=== PATIENT | female | born 1940 | race Caucasian/White ===

== ENCOUNTER → 2018-04-27 14:53 | Outpatient (CLI) | payer MEDICARE, BC, SELFPAY | PROVIDERS: PCP Family Medicine; Visit Provider Orthopaedic Surgery | DX: M17.11 Unilateral primary osteoarthritis, right knee (principal); M17.12 Unilateral primary osteoarthritis, left knee | CPT/HCPCS: 20610; 99213; J7325 ==

== ENCOUNTER 2018-05-03 18:04 | Emergency (ER) | payer MEDICARE, BC, SELFPAY ==
[2018-05-03 18:35] VITALS: BP 120/57; PULSE 100; RESP 28; TEMP 36.5; O2SAT 97
--- NOTE | 2018-05-03 18:39 | DI.REPORT_ITS ---
SYMPTOM/DIAGNOSIS: CHEST PAIN PA AND LATERAL CHEST: The heart is normal in size. The lungs are clear. The mediastinal structures and pleura appear intact. CONCLUSION: Normal chest. No evidence of acute cardiopulmonary disease.
[2018-05-03] MEDS: Normal Saline 1,000 ML 1000 ML IV ×2 (18:52→21:23)
[2018-05-03] MEDS: Ondansetron O.D.T. 4 MG TABEF PO (19:01)
[2018-05-03 19:03] LABS: Abs Immature Grans 0.04 k/cumm (0.0-0.09); Absolute Basophil Count 0.01 k/cumm (0.0-0.2); Absolute Eosinophil Count 0.01 k/cumm (0.0-0.7); Absolute Lymphocyte Count 1.35 k/cumm (1.2-3.4); Absolute Monocyte Count 0.71 k/cumm (0.11-0.7); Absolute Neutrophil Count 10.36 k/cumm (1.2-6.7); Basophils % 0.1; Eosinophils % 0.1; HCT 34.2 % (36.0-46.0); HGB 11.3 g/dL (12.0-15.5); Immature Grans % 0.3; Lymphocytes % 10.8; Mean Corpuscular Volume 93.7 fL (80-95); Mean Platelet Volume 11.8 fL (8.0-11.0); Monocytes % 5.7; Platelet Count 328 x1000/uL (130-400); RBC 3.65 m/cumm (4.00-5.20); RBC Distribution Width 13.2 % (11.7-14.6); White Blood Cell Count 12.48 k/cumm (4.4-10.8)
--- NOTE | 2018-05-03 19:18 | ED.GENADUL ---
Disposition Clinical Impression: Hyperkalemia, Hyponatremia, PATRICIO (acute kidney injury), Urinary tract infection, Dehydration, Secondary diabetes mellitus with HHNC (hyperglycemia hyperosmolar non-ketotic coma) Disposition: [facility] Medical Decision Making - Lab Data Laboratory Tests 05/03/18 18:45 WBC 12.48 H RBC 3.65 L Hgb 11.3 L Hct 34.2 L MCV 93.7 MCH 31.0 MCHC 33.0 RDW 13.2 Plt Count 328 MPV 11.8 H Immature Gran % 0.3 Neutrophils % 83.0 Lymphocytes % 10.8 Monocytes % 5.7 Eosinophils % 0.1 Basophils % 0.1 Absolute Neutrophils 10.36 H Absolute Lymphocytes 1.35 Absolute Monocytes 0.71 H Absolute Eosinophils 0.01 Absolute Basophils 0.01 - Medical Decision Making This is a 77-year-old female who presents for evaluation of weakness and dehydration for the past 5 weeks. She has been noticing increases in her sugar, prolonged fatigue, she has not gotten out of bed much over the last 5 weeks. She did have a course of antibiotics and steroids over week and a half ago, and completed these. Since then her cough is improved but her fatigue has not improved at all. She has not been drinking much at all at home. She does have history of type 2 diabetes, but does not take any insulin. She does take oral hypoglycemic agents. Physical exam demonstrates notable dehydration, and signs of weakness however no focal neurologic deficits. No evidence of stroke. No significant crackles on lung auscultation. We will rehydrate the patient, and evaluate for any acute cardiac or infectious etiology as a cause of her symptoms. EKG 18: 33 Rate 104, sinus tachycardia, MI 148, QT C402 no ST elevations or depressions. No elevated peaking of the T waves. Q waves in lead III and aVF. 7: 30 Chest x-ray is negative for any acute process. Per virtual radiology. Patient's laboratory workup has returned she demonstrates notable hyponatremia, hyperkalemia, and hyperglycemia. We will treat the hyperkalemia with sodium bicarb, calcium gluconate, insulin, and albuterol. EKG shows no evidence of ventricular dysrhythmia. Patient will require inpatient admission. Blood pressures are stable, and I do not feel that she is having an adrenal crisis, however this certainly may be a component related to her steroid use with her electrolyte abnormalities. Additionally the patient does demonstrate evidence of notable acute kidney injury with an increased creatinine, and a notable urinary tract infection. She does have an allergy to penicillins but this is years ago and she states that the reaction was very mild. Because of her notable hyperkalemia, I feel that it would be unwise to give a fluoroquinolone for concern of potential QT prolongation. We will give ceftriaxone, and monitor closely. Currently there are no ICU beds or telemetry beds available here at the hospital, in due to the patient's multiple illnesses, I do feel that she requires admission however I do not feel that she requires [facility] admission and transfer at this point. We will attempt to admit to 1 of the local facilities. Family does prefer [facility]. We have contacted [facility], and I discussed the case with the nurse practitioner who is on-call for the evening, he states that currently there is no room for ICU or telemetry patient's. We have contacted [facility] in [place] and discussed the case with the hospitalist , they have accepted the patient for treatment. Patient will be admitted to [place] for further medical management. I have extensively reviewed the treatment plan with the patient. I have addressed all patient concerns at this time. I have also discussed the plan with the admitting physician and they agree with the current assessment and plan and have agreed to assume responsibility for the patient. All parties demonstrate verbal understanding and agreement with our assessment and plan at this time. History of Present Illness - General Chief complaint: GenMedical Stated complaint: FATIGUED Time Seen by Provider: 05/03/18 18:39 - History of Present Illness Initial comments: Patient female with a past medical history of type 2 diabetes taking only oral hypoglycemic agents, who presents today for evaluation of weakness. She states that for the past 5 weeks she has had fatigue, and for time she had a cough, with sore throat. She was given steroids and antibiotics at home. She finished the course of this over a week ago. Since then she has been continually fatigued, had occasional vomiting, has not been drinking much at all. She states that she has not gotten out of bed for over 3 weeks. She denies any abdominal pain, headache, vision changes, chest pain, neck pain, shortness of breath, arm pain, abdominal pain, blood thinner use, cardiac disease, history of stroke. She denies any dysuria or hematuria. She did take her full 5 day course of azithromycin per the patient over a week ago with her full course dose of steroids. She has not been on steroids for the past week. Patient denies any other complaints at this time. She denies any recent pertinent surgical history, she denies any pertinent family history. - Related Data Ibuprofen 600 mg PO Q6H PRN #30 tablet 04/22/14 Blood Sugar Diagnostic [Freestyle Test Strips] 1 each MC BID #100 strip 03/01/18 Glipizide [Glucotrol Xl] 1 tab PO QAM #90 tab 03/01/18 Lisinopril 1 tab PO DAILY #90 tab 03/01/18 Metformin HCl 1 tab PO BID #180 tab 03/01/18 Azithromycin 0 PO DAILY #6 tab-cap 04/17/18 Benzonatate 200 mg PO tid prn for cough #30 tab-cap 04/17/18 Allergies Allergy/AdvReac Type Severity Reaction Status Date / Time hydrocodone Allergy Intermediate Nausea Unverified 04/17/18 15:37 Penicillins Allergy Unknown Unverified 04/17/18 15:37 Review of Systems Other: 10 point review of systems was performed, pertinent positives and negatives are noted in the history of present illness. General Exam - Other Other exam information: 1.Const: Appears older than stated age. He does appear dehydrated, with low energy. 2.Eyes: PERRL, no conjunctival injection, and symmetrical lids. 3.ENT: Atraumatic external nose and ears. Notably dry mucous membranes.. Neck: Symmetric, trachea midline, No thyromegaly. 4.CVS: +S1/S2, No murmurs or gallops. Peripheral pulses 2+ and equal in all extremities. Brisk capillary refill in all extremities. 5.RESP: Unlabored respiratory effort. Clear to auscultation bilaterally. No wheezes rales or rhonchi 6.GI: Soft, Nontender/Nondistended, No hepatosplenomegaly. No guarding or rebound. 7.MSK: Normocephalic/Atraumatic, Extremities w/o deformity or ttp No cyanosis or clubbing, Normal movement of all extremities 8.Skin: Warm, Dry. No rashes or lesions. 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 Sensation grossly intact, no focal neurologic deficits. 10.Psych: (AAO) x3. Appropriate mood and affect Course Vital Signs - 24 hr 05/03/18 18:35 Temperature 36.5 C Pulse 100 H Respiratory 28 H Rate Blood Pressure 120/57 Pulse Oximetry 97
[2018-05-03 19:25] LABS: ALT 15 U/L (12-78); AST 15 U/L (15-37); Albumin 2.6 g/dL (3.4-5.0); Alkaline Phosphatase 119 U/L (46-116); Anion Gap 21.2 mmol/L (3-11); BUN 72 mg/dL (7-18); Bilirubin, Total 0.5 mg/dL (0.2-1.0); CO2 10.8 mmol/L (21.0-32.0); CREATININE 2.77 mg/dL (0.55-1.02); Calcium 9.1 mg/dL (8.5-10.1); Chloride 92 mmol/L (98-107); Estimated GFR 16.55 (mL/min/1.73m2); Lipase 322 U/L (73-393); TSH 0.33 uIU/mL (0.358-3.74); Total Protein 7.8 g/dL (6.4-8.2)
[2018-05-03 19:26] LABS: Troponin I < 0.02 ng/mL (0.00-0.06)
[2018-05-03 19:29] LABS: Glucose 690 mg/dL (70-100); Sodium 124 mmol/L (136-145)
[2018-05-03 19:30] LABS: Potassium 6.7 mmol/L (3.5-5.1)
[2018-05-03 19:37] LABS: Bilirubin Small (Negative); Blood Large (Negative); Clarity Cloudy; Glucose >=1000 mg/dL (Negative); Ketones 15 mg/dL (Negative); Leukocyte Esterase Moderate (Negative); Nitrite Negative (Negative); Urobilinogen 0.2 EU/dL (Up TO 0.2)
[2018-05-03] MEDS: Insulin REGULAR-Human 100 UNITS/ML UNIT 10 UNITS IV (19:41)
[2018-05-03] MEDS: Insulin REGULAR-Human 100 UNITS/ML UNIT 20 UNITS SC (19:42)
--- NOTE | 2018-05-03 19:42 | DI.VRAD_ITS ---
EXAM: XR Chest, 2 Views EXAM DATE/TIME: 05/03/2018 6:43 PM CLINICAL HISTORY: 77 years old, female; Pain; Chest pain; Type not specified TECHNIQUE: XR of the chest, 2 views. COMPARISON: No relevant prior studies available. FINDINGS: Lungs: Unremarkable. No consolidation. Pleural space: Unremarkable. No pleural effusion. No pneumothorax. Heart/Mediastinum: Unremarkable. No cardiomegaly. Bones/joints: The osseous structures appear diffusely osteoporotic. Marginal osteophytic spurring is present throughout the thoracic vertebrae. IMPRESSION: No acute pulmonary disease or acute thoracic findings are detected. Dictated and Authenticated by: Arnaldo Simon MD. Ordering:OREN SAENZ MD
[2018-05-03] MEDS: Sodium Bicarbonate 50 MEQ/50 ML SYR (19:43)
[2018-05-03] MEDS: Calcium Gluconate 4.65 MEQ/10 ML VIAL 4.65 MG IVP (19:43)
[2018-05-03 19:52] LABS: C & S Indicated? Yes; WBC >50 HPF (0-5)
[2018-05-03 20:28] VITALS: RESP 7
[2018-05-03 20:58] VITALS: BP 107/47; PULSE 113; RESP 20; TEMP 36.4; O2SAT 98
[2018-05-03 21:10] VITALS: RESP 18
[2018-05-03 21:58] VITALS: BP 107/47; PULSE 97; RESP 18; TEMP 36.4; O2SAT 98
== END 2018-05-03 21:41 | disposition short-term general hospital (02) ==
PROVIDERS: Emergency Provider Student in an Organized Health Care Education/Training Program; PCP Family Medicine
DX: E86.0 Dehydration (principal); E87.1 Hypo-osmolality and hyponatremia; E87.5 Hyperkalemia; N17.9 Acute kidney failure, unspecified; N39.0 Urinary tract infection, site not specified; E13.01 Other specified diabetes mellitus with hyperosmolarity with coma; Z79.84 Long term (current) use of oral hypoglycemic drugs; I10 Essential (primary) hypertension
CPT/HCPCS: 71046; 93005; 94640; 96361; 96365; 96372; 96375; 99285 ×2; J0610; J0696; 36415; 36416; 80053; 82962; 83690; 87077; 81003; 81015; 84443; 84484; 85025; 87086; 87186; 93010; J7611

== ENCOUNTER → 2018-05-23 09:33 | Outpatient (CLI) | payer MEDICARE, BC, SELFPAY ==
[2018-05-23 11:38] LABS: Abs Immature Grans 0.01 k/cumm (0.0-0.09); Absolute Basophil Count 0.02 k/cumm (0.0-0.2); Absolute Eosinophil Count 0.14 k/cumm (0.0-0.7); Absolute Lymphocyte Count 1.43 k/cumm (1.2-3.4); Absolute Monocyte Count 0.54 k/cumm (0.11-0.7); Absolute Neutrophil Count 3.66 k/cumm (1.2-6.7); Basophils % 0.3; Eosinophils % 2.4; HCT 33.7 % (36.0-46.0); HGB 10.2 g/dL (12.0-15.5); Immature Grans % 0.2; Lymphocytes % 24.7; Mean Corp. HGB Concentration 30.3 g/dL (32.0-36.0); Mean Corpuscular Hemoglobin 30.4 pg (27.0-33.0); Mean Corpuscular Volume 100.6 fL (80-95); Mean Platelet Volume 11.3 fL (8.0-11.0); Monocytes % 9.3; Neutrophils % 63.1; Platelet Count 297 x1000/uL (130-400); RBC 3.35 m/cumm (4.00-5.20); RBC Distribution Width 14.4 % (11.7-14.6)
[2018-05-23 11:58] LABS: Hemoglobin A1C 12.2 % (4.5-6.2)
[2018-05-23 12:02] LABS: ALT 21 U/L (12-78); AST 22 U/L (15-37); Albumin 2.7 g/dL (3.4-5.0); Alkaline Phosphatase 115 U/L (46-116); Anion Gap 9.1 mmol/L (3-11); BUN 19 mg/dL (7-18); Bilirubin, Total 0.4 mg/dL (0.2-1.0); CO2 22.9 mmol/L (21.0-32.0); Calcium 8.4 mg/dL (8.5-10.1); Chloride 103 mmol/L (98-107); Estimated GFR 33.58 (mL/min/1.73m2); Glucose 286 mg/dL (70-100); Potassium 5.4 mmol/L (3.5-5.1); Sodium 135 mmol/L (136-145); Total Protein 6.9 g/dL (6.4-8.2)
== END ==
PROVIDERS: PCP Family Medicine; Visit Provider Family Medicine
DX: E11.9 Type 2 diabetes mellitus without complications (principal); J20.9 Acute bronchitis, unspecified
CPT/HCPCS: 36415; 80053; 83036; 85025

== ENCOUNTER 2018-08-21 12:19 | Outpatient (CLI) | payer MEDICARE, BC, SELFPAY ==
[2018-08-21 14:36] LABS: Hemoglobin A1C 7.8 % (4.5-6.2)
== END 2018-08-21 12:39 ==
PROVIDERS: PCP Family Medicine; Visit Provider Family Medicine
DX: E11.9 Type 2 diabetes mellitus without complications (principal)
CPT/HCPCS: 36415; 83036

== ENCOUNTER → 2018-10-24 08:38 | Outpatient (BNVA) | payer MEDICARE, BC, SELFPAY | PROVIDERS: PCP Family Medicine; Visit Provider Orthopaedic Surgery | DX: M17.11 Unilateral primary osteoarthritis, right knee (principal); M17.12 Unilateral primary osteoarthritis, left knee | CPT/HCPCS: 20610; 99211; 99213; J7325 ==

== ENCOUNTER → 2019-05-08 09:04 | Outpatient (BNVA) | payer MEDICARE, BC, SELFPAY | PROVIDERS: PCP Family Medicine; Referring Provider Family Medicine; Visit Provider Orthopaedic Surgery | DX: M17.11 Unilateral primary osteoarthritis, right knee (principal); M17.12 Unilateral primary osteoarthritis, left knee | CPT/HCPCS: 20610; 99211; 99213; J1040 ==

== ENCOUNTER 2019-08-06 10:39 | Outpatient (CLI) | payer MEDICARE, BC, SELFPAY ==
--- NOTE | 2019-08-06 08:21 | DI.RAD_ITS ---
EXAM: XR STANDING ALIGNMENT INDICATION: KNEE PAIN RIGHT. COMPARISON: No exams were available for comparison TECHNIQUE: 2D digital imaging was performed. FINDINGS: There are moderate degenerative changes of the hips bilaterally. In the right knee, there is moderate narrowing of the medial femoral tibial joint space. Periarticul ar spurring is seen both medially and laterally. In the left knee, there is moderate joint space narrowing medially. Periarticular spurring is seen b oth medially and laterally. Atherosclerosis is present. The right lower extremity measures 82.0 cm. The left lower extremity measures 83.1 cm. 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
== END 2019-08-06 10:59 ==
PROVIDERS: PCP Family Medicine; Visit Provider Student in an Organized Health Care Education/Training Program
DX: M25.561 Pain in right knee (principal); M17.11 Unilateral primary osteoarthritis, right knee; M16.0 Bilateral primary osteoarthritis of hip; M17.12 Unilateral primary osteoarthritis, left knee; E11.9 Type 2 diabetes mellitus without complications; Z79.4 Long term (current) use of insulin
CPT/HCPCS: 20610; 99213; 77073; J1040

== ENCOUNTER 2020-09-21 11:48 | Inpatient (IN) | payer MEDICARE, BC, SELFPAY ==
[2020-09-21] VITALS (26 sets, daily range): BP systolic 145–194; BP diastolic 61–98; PULSE 79–95; RESP 16–28; TEMP 36–37.1; O2SAT 96–98
--- NOTE | 2020-09-21 12:00 | RT.EKG_ITS ---
APPROVED REPORT Exam: Resting ECG Patient Location: E HR:85 bpm ECG Measurements Heart Rate 85 AXIS FL 113 P 13 QRSd 80 QRS -12 QT 371 T -16 QTc 441 Conclusion Sinus rhythm. Inferior/ anterior q waves, no st elevation
--- NOTE | 2020-09-21 12:07 | ED.GENADUL_ITS ---
Discharge Plan Disposition Patient Disposition: [facility] INPATIENT Condition: Stable Discharge Details Clinical Impression: Congestive heart failure Admit Date/Time: 09/21/20 15:56 Admit Provider: Niraj Gutierrez Attending Provider: Niraj Gutierrez Primary Care Provider: Edwin Gonzáles ED Provider: Lion Donohue Medical Decision Making 80-year-old female, insulin-dependent diabetic presents with 2 weeks of lower extremity edema now with mild erythematous changes and some blistering for which she seeks evaluation today. She is afebrile, pleasant, well-appearing and in no acute distress. She appears to have some chronic venous stasis of the lower extremity and now developing a probable early cellulitis. No history of fluid retention. She does not take a diuretic. Therefore, must consider new onset CHF, low protein, renal changes. Screening labs, EKG obtained. Patient does have a elevated BNP of 19,135, troponin is in the indeterminate range at 0.12. BUN 30 with a creatinine of 1.9. Chest x-ray with new mild bilateral interstitial prominence. See formal report. Patient served on cardiac care unit nurse and repeat troponin obtained. It is essentially unchanged at 0.11. Likely the patient had a silent AL and then the onset of CHF. I do feel she will benefit from admission, further work-up & stratification. HPI General Mode of arrival: ambulatory . Date/Time Provider Initiated Documentation: 09/21/20 11:52 . Limitations to Documentation: no limitations . Information obtained by: patient . History of Present Illness 80 year old F presents to the emergency department with the chief complaint of Bilateral leg swelling, described as moderate, Quality is described as dull and constant, and is localized to the left, right and lower extremity. Patient reports no radiation. Patient started experiencing this day(s) and it has been constant. No relieving factors improve symptom(s), No exacerbating factors reported . Patient notes other (Blistering); denies fever/chills. Patient did receive the following treatments prior to arrival, none Related Data Home Medications Medication Instructions Recorded Confirmed insulin lispro 100 unit/mL See Rx Instructions SC AC #15 ml 07/01/20 09/21/20 subcutaneous pen pen needle, diabetic 31 gauge x #100 each 07/01/20 5/16 insulin glargine 100 unit/mL (3 14 - 18 unit SUBCUT HS #15 ml 07/15/20 09/21/20 mL) subcutaneous pen blood sugar diagnostic #300 strip 09/02/20 Previous Rx's Medication Instructions Recorded insulin lispro 100 unit/mL See Rx Instructions SC AC #15 ml 07/01/20 subcutaneous pen pen needle, diabetic 31 gauge x #100 each 07/01/20 5/16 insulin glargine 100 unit/mL (3 14 - 18 unit SUBCUT HS #15 ml 07/15/20 mL) subcutaneous pen blood sugar diagnostic #300 strip 09/02/20 Allergies Allergy/AdvReac Type Severity Reaction Status Date / Time Penicillins Allergy Unknown Unverified 09/21/20 12:00 hydrocodone AdvReac Intermediate Nausea Unverified 09/21/20 12:00 General Stated Complaint: Cellulitis TAMMIE: 3 PFSH Family History Mother , AGE 78 Diabetes Father No problems noted. Brother Diabetes Heart disease Social History Smoking/Tobacco Use Status: Never Smoking risk assessment performed?: Yes Alcohol Intake: never Drug use: Never Substance use type: does not use Pets and animals: No Current gender identity: female What type of physical activity do you participate in: walking Duration: decline to answer Frequency: 3-4 times per week Sonia/Cheondoism: Catholic Special sonia needs: No Do you feel safe at home: Yes Do you feel safe in your relationship?: Yes Exam Narrative Exam Narrative: GEN: awake, alert, oriented 3. Pleasant, well groomed, inte ractive. HEAD: Normocephalic, atraumatic ENT: Mucous membranes moist, External ear exam unremarkable EYES: PERRL, EOMI NECK: Full ROM, no JYOTI, no menigismus CHEST/RESP: Nontender, clear to auscultation bilateral, no wheeze/rhonchi/rales CARDIOVASCULAR: RRR, no murmur, rub autumn. 2+ Rad pulse bilateral ABDOMEN: Soft, nontender, no mass. +Bowel sounds EXT: Full ROM, bilateral pretibial and foot 1-2+ edema. Slight warmth and erythema left greater than right. Small clear blister on the right dorsal foot that is nontender. Neuro: Grossly normal neurologic exam, conversant, interactive. Psych: Speech fluent, thoughts congruent, affect normal Course Vital Signs Vital signs: Vital Signs Temperature 36.6 C 09/21/20 11:54 Pulse 95 H 09/21/20 11:54 Respiratory Rate 18 09/21/20 11:54 Blood Pressure 190/76 H 09/21/20 11:54 Pulse Oximetry 97 09/21/20 11:54 Temperature 36.6 C 09/21/20 11:54 Temperature Source Temporal Artery Scan 09/21/20 11:54 Pulse 95 H 09/21/20 11:54 Respiratory Rate 18 09/21/20 11:54 Respiratory Effort Non-Labored 09/21/20 11:58 Blood Pressure 190/76 H 09/21/20 11:54 Blood Pressure Position Supine 09/21/20 11:54 Pulse Oximetry 97 09/21/20 11:54 Oxygen Delivery Method Room Air 09/21/20 11:54 Oxygen Flow Rate 0 09/21/20 11:54 Pain Level 7 09/21/20 11:54
[2020-09-21 12:18] LABS: Abs Immature Grans 0.01 10^3/uL (0.0-0.06); Absolute Basophil Count 0.02 10^3/uL (0.0-0.2); Absolute Eosinophil Count 0.19 10^3/uL (0.0-0.7); Absolute Lymphocyte Count 1.08 10^3/uL (1.2-3.4); Absolute Monocyte Count 0.67 10^3/uL (0.1-0.8); Basophils % 0.3; Eosinophils % 3.2; HCT 35.9 % (36.0-46.0); HGB 11.1 g/dL (11.2-15.7); Immature Grans % 0.2; Lymphocytes % 18.1; MCH 29.3 pg (27.0-33.0); MCHC 30.9 % (32.0-36.0); MCV 94.7 fL (80-95); MPV 11.8 fL (8.0-11.0); Monocytes % 11.2; Nucleated RBC 0 %; Platelet Count 156 10^3/uL (130-400); RBC 3.79 10^6/uL (3.93-5.22); RDW 15.2 % (11.7-14.6); RDW-SD 52.8 fL; WBC 5.97 10^3/uL (4.4-10.8)
--- NOTE | 2020-09-21 12:30 | DI.RAD_ITS ---
EXAM: XR CHEST 2V PA LATERAL CLINICAL HISTORY: LE swelling, elev troponin TECHNIQUE: 2D digital imaging was performed. COMPARISON: CR CHEST 2 VIEWS PA,LAT from 05/03/2018 FINDINGS: The heart appears mildly enlarged. The aorta is tortuous. There is mild pulmonary artery prominence and minimally increased interstitial markings when compared with the previous exam. The findings co uld represent mild pulmonary edema or minimal infiltrates. No effusion or focal consolidation is see n. Degenerative changes are noted in the spine. No compression fractures are seen.. IMPRESSION: Question of mild pulmonary edema versus mild bilateral infiltrates. DATA REPOSITORY: RADIATION DOSE DELIVERED:
[2020-09-21 12:39] LABS: ALT 17 U/L (14-59); AST 24 U/L (15-37); Albumin 3.2 g/dL (3.4-5.0); Alkaline Phosphatase 123 U/L (46-116); Anion Gap 10.2 mmol/L (3-11); BUN 30 mg/dL (7-18); Bilirubin, Total 0.7 mg/dL (0.2-1.0); CO2 21.8 mmol/L (21.0-32.0); CREATININE 1.96 mg/dL (0.55-1.02); Calcium 8.5 mg/dL (8.5-10.1); Chloride 107 mmol/L (98-107); Estimated GFR 24.48 (mL/min/1.73m2); Glucose 190 mg/dL (74-106); NT-proBNP 19155 pg/mL (<300); Potassium 4.5 mmol/L (3.5-5.1); Sodium 139 mmol/L (136-145); Total Protein 7.3 g/dL (6.4-8.2)
[2020-09-21 12:41] LABS: Troponin I 0.12 ng/mL (<0.06)
--- NOTE | 2020-09-21 13:02 | NUR.NOTE ---
Nursing Note:Family updated by pt on plan of care, including second troponin timing and CXR. Awaiting results, will update again when indicated.
--- NOTE | 2020-09-21 13:35 | DI.VRAD_ITS ---
PROCEDURE INFORMATION: Exam: XR Chest, 2 Views Exam date and time: 09/21/2020 12:43 PM Age: 80 years old Clinical indication: Other: Lower extremity swelling TECHNIQUE: Imaging protocol: XR of the chest Views: 2 views. COMPARISON: CR CHEST 2 VIEWS PA,LAT 05/03/2018 7:22 PM FINDINGS: Lungs: New mild diffuse bilateral interstitial prominence could be due to a subtle infiltrate. Pleural space: Unremarkable. No pleural effusion. No pneumothorax. Heart/Mediastinum: Unremarkable. No cardiomegaly. Vasculature: Aortic calcifications. 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 IMPRESSION: Slight bilateral interstitial prominence could be due to minimal infiltrate. Dictated and Authenticated by: Kailee Long MD. Ordering:JULIO Seymour MD
[2020-09-21 14:42] LABS: Troponin I 0.11 ng/mL (<0.06)
[2020-09-21] MEDS: Aspirin 325 MG TAB PO (15:17)
[2020-09-21] MEDS: Furosemide 20 MG/2 ML VIAL IVP (15:17)
--- NOTE | 2020-09-21 15:25 | NUR.NOTE ---
Nursing Note: Pt has declined catheter insertion. Aware she may change her mind. Asked to measure urine output with hat when voiding so it may be recorded in chart. Pt agrees.
--- NOTE | 2020-09-21 16:11 | W.PM.HP.N ---
Date of service: 09/21/20 Time of Service: 16:11 Assessment and Plan Assessment and plan (1) Congestive heart failure: Status: Chronic Assessment and plan: I suspect recent cardiac ischemic event given her elevated troponin levels. Onset of her symptoms was about 10 days ago suggesting that the event was prior to this. However she gives no history of exertional chest pain or pressure or exertional dyspnea nor PND. However given her longstanding diabetes mellitus this may have been a silent IN. The fact that her troponin levels were still elevated 10 days later is probably secondary to her chronic kidney disease. Present time we will continue diuresis with a furosemide drip and continue with secondary risk factor reduction including management of her diabetes mellitus and hypertension and initiation of antiplatelet therapy with aspirin and antihyperlipidemic therapy with high-dose atorvastatin. I will get a formal echocardiogram in the morning and a resting MPI study in the morning. Once she is euvolemic she should be started on a beta-sidney and either low-dose MARY inhibitor or an angiotensin receptor sidney. Given her previous history of syncope associated with moderate dose lisinopril any MARY inhibitor or angiotensin receptor sidney will have to be slowly and carefully uptitrated. Qualifiers: Heart failure type: unspecified Heart failure chronicity: unspecified Qualified Code(s): I50.9 - Heart failure, unspecified (2) Elevated troponin I level: Status: Acute Assessment and plan: Uncertain as to the chronicity of her elevated troponin levels but given her high proBNP and symptom onset about 10 days ago I suspect that she had an acute coronary ischemic event couple weeks ago. She has been started on aspirin and I will add atorvastatin to her regimen. She needs a stress MPI study once she is euvolemic and her troponins have normalized. For now we will get a resting MPI study looking in her residual LV function and coronary reserve. Echocardiograms been ordered to evaluate LV function and look for any valvular heart disease that may be contributing to her CHF. (3) Essential hypertension: Status: Chronic Assessment and plan: Patient was previously treated with lisinopril 10 mg daily until this was discontinued back in October due to recurrent syncopal events. (4) Diabetes mellitus: Status: Chronic Assessment and plan: I will check a hemoglobin A1c to assess long-term stability and we will also obtain a lipid profile and a urine protein to creatinine ratio. She would benefit from an MARY inhibitor or an angiotensin receptor sidney to reduce proteinuria and decrease the progression of renal disease in the setting of diabetes mellitus and now that she has new onset congestive heart failure she would benefit from careful up titration of an MARY inhibitor or an ARB as long as her blood pressure tolerates that she has no syncopal spells. 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 Subsequent work-up in the emergency department included routine labs including CBC BMP proBNP and troponin level as well as chest x-ray and EKG. Chemistries were remarkable for elevated BUN and creatinine of 30 and 1.96 and a glucose of 190 and a proBNP of 19,000 with a troponin I level of 0.12 with a repeat level of 0.11 and a chest x-ray that shows cardiomegaly and mild pulmonary edema compared to a previous chest x-ray dated May 03, 2018 that showed normal-sized heart and no interstitial edema. EKG demonstrated normal sinus rhythm at a rate of 85 bpm with no acute ST elevation or depression but poor R wave progression across the precordial leads with a transition at V5. There actually may be some precordial lead misplacement as it appears there are Q waves in V3 and V4 but not in V2. Which would suggest an anterior infarct of indeterminate age. Patient came into the emergency department because of the increased leg edema associated with some blistering on the dorsum of her feet and toes for which she thought she had a cellulitis. In retrospect it appears that she sustained a myocardial infarction sometime in the recent past as evidenced by the elevated troponin levels and elevated proBNP. Patient was treated in the emergency department with Lasix 20 mg IV and given aspirin 81 mg 325 mg orally. Patient is now admitted for evaluation and treatment of new onset congestive heart failure and to evaluate for ischemic cardiomyopathy. Review of Systems Constitutional Constitutional: Reports as per HPI, Denies chills, Denies fatigue, Denies fever(s) and Denies weakness Cardiovascular Cardiovascular: Denies chest pain at rest, Denies chest pain with activity, Reports leg edema, Denies dyspnea, Denies dyspnea on exertion and Denies orthopnea Respiratory Respiratory: Reports as per HPI, Denies dyspnea and Denies dyspnea on exertion Gastrointestinal Gastrointestinal: Reports system reviewed and no additional complaints, except as documented Genitourinary Genitourinary: Reports system reviewed and no additional complaints, except as documented Musculoskeletal Musculoskeletal: Reports system reviewed and no additional complaints, except as documented and Denies tingling Integumentary/Breasts Skin/Breast: Reports erythema (both lower legs along w/ some fluid filled blistering on her toes) Neurologic Neurologic: Denies tingling, Denies paresthesias and Denies weakness Psychiatric Psychiatric: Reports system reviewed and no additional complaints, except as documented Endocrine Endocrine: Reports system reviewed and no additional complaints, except as documented and Denies fatigue Hematologic/Lymphatic Hematologic/Lymphatic: Reports system reviewed and no additional complaints, except as documented Allergic/Immunologic Allergic/Immunologic: Reports system reviewed and no additional complaints, except as documented [facility] Medical History (Updated 09/21/20 @ 17:48 by Niraj Gutierrez) Diabetes mellitus Onset type 2 diabetes mellitus in her 30s but treated with insulin for the past 2 years Essential hypertension Previously treated with lisinopril Primary osteoarthritis of left knee Most recent injection: 08/06/2019 Primary osteoarthritis of right knee Most recent injection: 08/06/2019 Syncope Related to use of lisinopril occurring both at rest while having her hair washed in beauty parlor as well as occurring while ambulating. None have occurred since cessation of her lisinopril Family History Mother , AGE 78 Diabetes Father No problems noted. Brother Diabetes Heart disease Social History Smoking/Tobacco Use Status: Never Smoking risk assessment performed?: Yes Alcohol Intake: never Drug use: Never Substance use type: does not use Pets and animals: No Current gender identity: female What type of physical activity do you participate in: walking Duration: decline to answer Frequency: 3-4 times per week Sonia/Confucianist: Sabianist Special sonia needs: No Do you feel safe at home: Yes Do you feel safe in your relationship?: Yes Meds Home Medications and Allergies Home Medications Medication Instructions Recorded Confirmed Type insulin lispro 100 unit/mL See Rx Instructions SC AC #15 ml 07/01/20 09/21/20 Rx subcutaneous pen pen needle, diabetic 31 gauge x #100 each 07/01/20 Rx 5/16 insulin glargine 100 unit/mL (3 14 - 18 unit SUBCUT HS #15 ml 07/15/20 09/21/20 Rx mL) subcutaneous pen blood sugar diagnostic #300 strip 09/02/20 Rx Allergies Allergy/AdvReac Type Severity Reaction Status Date / Time Penicillins Allergy Unknown Unverified 09/21/20 12:00 hydrocodone AdvReac Intermediate Nausea Unverified 09/21/20 12:00 Exam Narrative Exam Narrative: Elderly obese female sitting up on hospital [facility] in the emergency department in no acute distress. She is not tachypneic not using accessory respiratory muscles. HEENT is unremarkable. Neck is supple without thyromegaly or lymphadenopathy. She has some mild JVD with reclining at 30 degrees because of her obese neck is difficult to ascertain the exact level of her JVD but it appears to be about a third [address] way up her sternocleidomastoid muscle. There is no bruits normal carotid pulses Lungs are clear anteriorly but posteriorly she has some basilar rales no rhonchi no wheezes Heart regular rate and rhythm without appreciable murmur rub or gallop Abdomen is obese soft nontender NABS no organomegaly no bruits Lower extremities with 2+ pitting edema from just below her knees all the way to the dorsum of her feet including her toes. There is dependent erythema over both pretibial surfaces and she has some blistering on the dorsum of her left second toe and also on the dorsum of her right foot. Pedal pulses are intact. There is no open sores on her feet. Neuro exam is grossly intact nonfocal. Sensation is intact to light touch in both feet. Results Labs Result diagrams: 09/21/20 12:14 09/21/20 12:14 Labs: Laboratory Results - last 24 hr 09/21/20 09/21/20 09/21/20 12:14 12:14 14:18 WBC 5.97 RBC 3.79 L Hgb 11.1 L Hct 35.9 L MCV 94.7 MCH 29.3 MCHC 30.9 L RDW 15.2 H Plt Count 156 MPV 11.8 H Immature Gran % 0.2 Neutrophils % 67.0 Lymphocytes % 18.1 Monocytes % 11.2 Eosinophils % 3.2 Basophils % 0.3 Nucleated RBC % 0 Absolute Neutrophils 4.00 Absolute Lymphocytes 1.08 L Absolute Monocytes 0.67 Absolute Eosinophils 0.19 Absolute Basophils 0.02 Sodium 139 Potassium 4.5 Chloride 107 Carbon Dioxide 21.8 Anion Gap 10.2 BUN 30 H Creatinine 1.96 H Estimated GFR/1.73 m2 24.48 Glucose 190 H Calcium 8.5 Total Bilirubin 0.7 AST 24 ALT 17 Alkaline Phosphatase 123 H Troponin I 0.12 H* 0.11 H* NT-Pro-B Natriuret Pep 46358 H Total Protein 7.3 Albumin 3.2 L Last Vital Signs Temp 36.3 C L 09/21/20 13:38 Pulse 86 09/21/20 16:01 Resp 25 H 09/21/20 16:01 BP 172/75 H 09/21/20 16:01 Pulse Ox 97 09/21/20 16:01 COVID-19 Screening Have you, or household traveled for leisure in last 14 days?: No Had IN PERSON contact w/suspected or confirmed C-19 person: No
[2020-09-21] MEDS: Insulin Aspart 300 UNITS/3 ML PEN SC ×3 (17:51→21:20)
[2020-09-21] MEDS: Enoxaparin 30 MG/0.3 ML SYR SC (18:09)
[2020-09-21 19:11] LABS: Troponin I 0.12 ng/mL (<0.06)
[2020-09-21 19:41] LABS: COMMENT (LAB VIEW ONLY) 13.74 mg/dL; PROTEIN 69.6 mg/dL; Prot/Crea Ur Ratio 5.06
[2020-09-21] MEDS: Atorvastatin 40 MG TAB 80 MG PO (19:59)
[2020-09-21] MEDS: Insulin Glargine 300 UNITS/3 ML PEN 18 UNITS SC (21:21)
[2020-09-22] VITALS (8 sets, daily range): BP systolic 124–182; BP diastolic 75–83; PULSE 74–121; RESP 16–18; TEMP 36–37.3; O2SAT 93–96
[2020-09-22 07:12] LABS: Anion Gap 10.3 mmol/L (3-11); BUN 29 mg/dL (7-18); CO2 26.7 mmol/L (21.0-32.0); CREATININE 2.19 mg/dL (0.55-1.02); Calcium 8.9 mg/dL (8.5-10.1); Chloride 105 mmol/L (98-107); Estimated GFR 21.54 (mL/min/1.73m2); Glucose 135 mg/dL (74-106); Sodium 142 mmol/L (136-145)
[2020-09-22 07:13] LABS: Hemoglobin A1C 8.2 % (<5.7)
[2020-09-22 07:24] LABS: Calculated LDL 86 mg/dL (<100); Cholesterol 145 mg/dL (<200); HDL Cholesterol 38 mg/dL (40-60); Magnesium 1.7 mg/dL (1.8-2.4); TSH (W/Ref FT4) 1.76 uIU/mL (0.36-3.74); Triglyceride 108 mg/dL (<150)
[2020-09-22 07:27] LABS: Troponin I 0.14 ng/mL (<0.06)
--- NOTE | 2020-09-22 07:45 | DI.US_ITS ---
APPROVED REPORT EXAM: Comprehensive 2D, Doppler, and color-flow Echocardiogram Patient Location: In-Patient Room/Bed: [address] [employer] Billing Analyst: Martha Sykes RDCS (AE) Indications: CHF, Edema, Elevated troponin Other Information Study Quality: Adequate Conclusion Normal left ventricular wall thickness. Mildly dilated left ventricular chamber size. Estimated eje ction fraction is 45 to 50%. The apex is akinetic. The remainder of the ventricles hypocontractile Normal right ventricular size and systolic function Both atria are normal in size Trileaflet aortic valve without stenosis or regurgitation Mildly thickened mitral leaflets with mild regurgitation The pulmonic and tricuspid valves are normal with trace tricuspid regurgitation. Normal estimated ri ght ventricular systolic pressure Wall motion Left Ventricle Left ventricle is mildly dilated. Left ventricular systolic function is mildly decreased. There is no rmal left ventricular wall thickness. The apex is akinetic. The remainder of the ventricle is hypocon tractile There is no ventricular septal defect visualized. LVEF is 45-50%. Right Ventricle The right ventricle is normal size. The right ventricular systolic function is normal. The RVSP is 23 .0mmHg. Atria The left atrium size is normal. The right atrium size is normal. The interatrial septum is intact wit h no evidence for an atrial septal defect. Aortic Valve The aortic valve is normal in structure. Aortic valve is trileaflet. There is no aortic valvular sten osis. No aortic regurgitation is present. Mitral Valve Mildly thickened mitral leaflets No evidence of mitral valve stenosis. Mild mitral regurgitation. Tricuspid Valve The tricuspid valve is normal in structure. There is no tricuspid valve stenosis. Trace tricuspid reg urgitation. Pulmonic Valve The pulmonary valve is normal in structure. There is no pulmonic valvular stenosis. There is no pulmo cory valvular regurgitation. Great Vessels The aortic root is normal in size. The ascending aorta is normal in size. Aortic arch is not well vis ualized. IVC is normal in size and collapses >50% with inspiration. Pericardium There is no pericardial effusion. 2D Dimensions IVSD d PLAX 0.93 cm F: 0.6-1.0 LV Vol A2C d MOD 122.7 mL LVPW d PLAX 0.94 cm F: 0.6 - 1.0 LV Vol A4C d MOD 135.0 mL LVID d PLAX 5.43 cm F: 3.8 - 5.2 LA vol/ BSA A2C s A-L 34.6 mL/m2 LVDs 4.35 cm F: 2.2 - 3.5 LA vol/ BSA A4C s A-L 43.3 mL/m2 Ao Root d 2.86 cm F: 2.7 - 3.3 LA Vol/ BSA Biplane s A-L 40.0 mL/m2 RA Area A4C 15.02 cm2 LA Area A4C s MOD 23.42 cm2 RA Vol/ BSA A4C s A-L 21.0 mL/m2 LA Area A2C s MOD 21.64 cm2 Ao Asc Diam d 3.25 cm F: 2.3 - 3.1 LV EF A4C MOD 39.9 % LV EF Teichholz 39.3 % LV EF A2C MOD 40.0 % LVEF (Chavez's) 39.40 % F: 54 - 74 LV EF Biplane MOD 39.4 % LV Volume 98.72 mL F: 46 - 106 SV 50.89 mL LV Volume Index 52.23 mL/m2 F: 29 - 61 SV Index 26.89 mL/m2 LV Vol Biplane MOD 129.2 mL FS 19.25 % M-Mode TAPSE 1.56 cm (M/F) >1.7 LV Diastology MV E' medial 0.060 (>0.07 m/s) E/A Ratio 0.7 LV E/e MED 15.70 (<14) MV E Vmax 0.94 (0.4-1.3 m/s) MV E' lateral 0.074 (>0.1 m/s) MV A Vmax 1.35 (0.4-1.3 m/s) LV E/e LAT 12.60 (<14) MV E/A Ratio 0.69 MV E/E' medial 15.74 MV E/E' lateral 12.63 Aortic Valve LVOT Area 2.97 cm2 AoV Area Vmax 2.41 cm2 LVOT Vmax 1.23 m/s AoV Area/ BSA (Vmax) 1.27 cm2/m2 LVOT Mean Mart. 0.82 m/s JLAEN Mean Mart. 2.46 cm2 LVOT Peak Grad 6.0 mmHg JALEN Mean Mart. Index 1.30 cm2/m2 LVOT Mean Grad 3.1 mmHg LVOT VTI 0.246 m LVOT Diam s 1.90 cm AoV Vmax 1.52 m/s Velocity Ratio 0.80 AoV Mean Mart. 0.99 m/s AoV Peak Grad 9.2 mmHg LVOT SV 73.22 mL AoV Mean Grad 4.5 mmHg AoV VTI 0.290 m AoV Area VTI 2.52 cm2 AoV Area/ BSA (VTI) 1.33 cm/m2 Mitral Valve MV DT 178 (160-240 msec) MR Vmax 5.01 m/s MV PHT 52 msec MR VTI 1.560 m MV Area PHT 4.26 cm2 MR Peak Grad 100.4 mmHg MV VTI 0.395 m MR Mean Grad 71.5 mmHg MV VTI Annulus 0.406 m MV Area VTI 1.91 (4.0-6.0 cm2) Pulmonary Valve PV Vmax 0.98 (0.5-1.5 m/s) RVOT Peak Gr. 1.22 mmHg PV Peak Grad 3.8 mmHg RVOT Mean Gr. 0.80 mmHg PV Mean Grad 2.1 mmHg RVOT VTI 0.108 m PV VTI 0.176 m RVOT Vmax 0.55 m/s Tricuspid Valve TR Peak Grad 20.0 mmHg TR Vmax 2.24 m/s RA Pressure 3.00 mmHg RVSP (TR) 23.0 mmHg
--- NOTE | 2020-09-22 08:30 | DI.NM_ITS ---
APPROVED REPORT Conclusion This resting myocardial perfusion imaging study shows septal and apical infarction
[2020-09-22] MEDS: Insulin Aspart 300 UNITS/3 ML PEN SC ×6 (08:34→22:55)
[2020-09-22] MEDS: Aspirin E.C. 81 MG TABEC PO (08:34)
[2020-09-22] MEDS: Nystatin POWDER 15 GM JAR TP (08:35)
[2020-09-22] MEDS: Carvedilol 6.25 MG TAB PO ×2 (10:36→19:47)
--- NOTE | 2020-09-22 11:40 | PDOC.CMIN ---
- If Service Date Differs Date of service: 09/22/20 Time of Service: 18:19 Care Management Initial Assess REASON FOR HOSPITALIZATION:: CHF, PATRICIO PAST MEDICAL HISTORY/PAST SURGICAL HISTORY:: DM, Essential hypertension, primary osteoarthritis of both knees, medication related syncope PREVIOUS FUNCTIONAL STATUS/SOCIAL/FAMILY SUPPORTS:: Vy resides alone in [place], [place]. She has family and close friends locally who are supportive. 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 CURRENT FUNCTIONAL STATUS:: Vy continues to be closely monitored at this time, per MD she has an ECHO and resting MPI scheduled for today to inform discharge recommendations. She is up independently in her room. CM continues to follow. ADVANCE DIRECTIVES:: On file; agent, Gonzales (Javier), Shantelle, and Too Courser. Has patient been provided with info about the portal/API?: Yes Did the patient sign up for the portal?: No CODE STATUS:: Full Code INSURANCE COVERAGE / FINANCIAL ISSUES:: BC/BS. Medicare CURRENT HOME/COMMUNITY SERVICES/EQUIPMENT:: [employer], [employer] PRIMARY CARE PHYSICIAN:: Edwin Esquivel: [facility]. POTENTIAL DISCHARGE NEEDS:: Echo, MPI, Follow up appointments. PATIENT/FAMILY EDUCATION NEEDS:: Review of discharge instructions, discuss Ask Me Three. ANTICIPATED BARRIERS TO DISCHARGE:: None identified. TRANSPORTATION:: Via private vehicle with family. PLAN:: Anticipate Vy will return home when ready per MD. No additional services anticipated at this time. She will follow up with outpatient providers and transport via private vehicle with family.
--- NOTE | 2020-09-22 12:32 | PGE_ITS ---
Date of Service Date of service: 09/22/20 Time of Service: 12:32 Assessment and Plan Assessment and plan (1) Congestive heart failure: Status: Chronic Assessment and plan: Patient has diuresed over 4 L overnight. At this point I think she can be switched from furosemide drip to p.o. Lasix. I will add low-dose losartan to her regimen and continue the carvedilol but I started her on this morning. Of note patient had asymptomatic nonsustained SVT during the night lasting eight beats at a rate of 120 bpm patient will need to have a follow-up stress MPI study as an outpatient. I am awaiting to see what her resting MPI demonstrates. Her echocardiogram showed mild left ventricular systolic dysfunction with an ejection fraction of 45 to 50% with an akinetic apex. Rate remainder of the left ventricle was hypocontractile. Right ventricular size and function was normal and her RVSP was normal at 23 mm. She has mild left ventricular dilatation. I suspect that she has some diastolic LV dysfunction as well as demonstrated by her decreased E to A ratio of 0.7 and an elevated E to E prime 15.7 over the medial mitral annulus and 12.6 over the lateral mitral annulus. Qualifiers: Heart failure type: unspecified Heart failure chronicity: unspecified Qualified Code(s): I50.9 - Heart failure, unspecified (2) Elevated troponin I level: Status: Acute Assessment and plan: Patient's troponin this morning remains mildly elevated at 0.14. I suspect that this is residual from her recent ischemic event given her apical akinesis and generalized left ventricular hypokinesis. The fact that her troponins remain elevated secondary to her chronic kidney disease. Patient's been started on low-dose carvedilol and I will now switch her from furosemide drip to scheduled doses of oral furosemide. Patient was started on aspirin yesterday and atorvastatin. Will monitor overnight to see how she tolerates these changes in her medications including the addition of low-dose losartan. Outpatient stress MPI will be scheduled. (3) Essential hypertension: Status: Chronic Assessment and plan: It seems that her syncopal spells were related to positional changes in her head and neck causing increased vagal tone. I do not feel it was her lisinopril causing her syncope. Her blood pressure will be treated with low-dose losartan and carvedilol along with oral furosemide. (4) Diabetes mellitus: Status: Chronic Assessment and plan: I will check a hemoglobin A1c to assess long-term stability and we will also obtain a lipid profile and a urine protein to creatinine ratio. She would benefit from an MARY inhibitor or an angiotensin receptor sidney to reduce proteinuria and decrease the progression of renal d isease in the setting of diabetes mellitus and now that she has new onset congestive heart failure she would benefit from careful up titration of an MARY inhibitor or an ARB as long as her blood pressure tolerates that she has no syncopal spells. Qualifiers: Diabetes mellitus type: type 2 Diabetes mellitus shelter insulin use: with shelter use Diabetes mellitus complication status: with kidney complications Diabetes mellitus complication detail: with chronic kidney disease Subjective Subjective Interval history since last seen: Patient states her legs are doing much better the edema is going down. She still has some pitting edema but the skin is not taut as it was on admission yesterday. She still denies any dyspnea or chest discomfort or dizziness. Her echocardiogram came back showing mild left ventricular dysfunction with an ejection fraction of 45 to 50% with an akinetic apex and mildly dilated left ventricular chamber size with normal left ventricular wall thickness. RV size and function was normal. Atria were normal in size and she had no significant valvular heart disease just some mild mitral regurgitation. Her right ventricular systolic pressures were normal. Her resting MPI study has been completed but is pending. Patient has diuresed a net -4600 mL since admission yesterday after her noon. Repeat BMP this morning demonstrates a BUN of 29 and a creatinine of 2.19. At this point we will discontinue her IV Lasix drip and start her on p.o. Lasix. She has been started on carvedilol 6.25 mg twice daily. We will start her on low-dose losartan 25 mg daily. I clarified her syncopal spells and these only occurred when she went to the [facility] and would be leaning back with her head in the sink and get up suddenly. I think the syncopal spells were probably neurocardiac mediated from vagal stimulation of her carotids. I do not feel this is secondary to her lisinopril. Exam Narrative Exam Narrative: Elderly female sitting up in her chair alert and oriented person place time circumstance in no discomfort not short of breath. Easily converses in prolonged paragraphs. Neck is supple without accessory respiratory muscle use and no overt JVD. Lungs are clear to auscultation anteriorly. Posteriorly she had some faint rales at the right base without wheezing or rhonchi. Heart regular rate and rhythm without appreciable murmur rub or gallop. Lower extremities with 2+ pitting edema however the skin is no longer taut. She has some dependent rubor. Objective Last Vital Signs Temp 36.4 C L 09/22/20 11:05 Pulse 99 H 09/22/20 11:05 Resp 18 09/22/20 11:05 BP 166/77 H 09/22/20 11:05 Pulse Ox 94 09/22/20 11:05 Laboratory Results - last 24 hr 09/21/20 09/21/20 09/21/20 12:14 14:18 18:42 Sodium 139 Potassium 4.5 Chloride 107 Carbon Dioxide 21.8 Anion Gap 10.2 BUN 30 H Creatinine 1.96 H Estimated GFR/1.73 m2 24.48 Glucose 190 H Hemoglobin A1c Calcium 8.5 Magnesium Total Bilirubin 0.7 AST 24 ALT 17 Alkaline Phosphatase 123 H Troponin I 0.12 H* 0.11 H* 0.12 H* NT-Pro-B Natriuret Pep 54557 H Total Protein 7.3 Albumin 3.2 L Triglycerides Total Cholesterol LDL Cholesterol, Calc HDL Cholesterol TSH Ur Random Creatinine U Random Total Protein U [place] Prot/Creat Ratio 09/21/20 09/22/20 09/22/20 19:16 06:40 06:40 Sodium Potassium Chloride Carbon Dioxide Anion Gap BUN Creatinine Estimated GFR/1.73 m2 Glucose Hemoglobin A1c 8.2 H Calcium Magnesium 1.7 L Total Bilirubin AST ALT Alkaline Phosphatase Troponin I 0.14 H* NT-Pro-B Natriuret Pep Total Protein Albumin Triglycerides 108 Total Cholesterol 145 LDL Cholesterol, Calc 86 HDL Cholesterol 38 L TSH 1.76 Ur Random Creatinine 13.74 U Random Total Protein 69.6 U [place] Prot/Creat Ratio 5.06 09/22/20 06:40 Sodium 142 Potassium 4.0 Chloride 105 Carbon Dioxide 26.7 Anion Gap 10.3 BUN 29 H Creatinine 2.19 H Estimated GFR/1.73 m2 21.54 Glucose 135 H Hemoglobin A1c Calcium 8.9 Magnesium Total Bilirubin AST ALT Alkaline Phosphatase Troponin I NT-Pro-B Natriuret Pep Total Protein Albumin Triglycerides Total Cholesterol LDL Cholesterol, Calc HDL Cholesterol TSH Ur Random Creatinine U Random Total Protein U [place] Prot/Creat Ratio
[2020-09-22] MEDS: Losartan 25 MG TAB PO (13:46)
--- NOTE | 2020-09-22 14:17 | CHAPLAIN ---
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 She tells me that she came in because her lower legs were swollen and had small blisters. After multiple tests, she was told that she had a heart attack about two weeks ago, although she said she was unaware of that. Vy is close to her brother, [place], his and their son. 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 For much of our conversation, Vy tells me about a neighbor with dementia that she and another neighbor are trying to assist. Vy often looks out for neighbors and other people. She is well supported by her family and close friends.
--- NOTE | 2020-09-22 14:45 | PHA.REVIEW ---
Pharmacy Admission Review - Admission Clinical Review (Last Updated 09/21/20 @ 17:16 by Niraj Gutierrez) Elevated troponin I level (Acute) Penicillins Allergy (Unknown, Unverified 09/21/20 12:00) hydrocodone Adverse Reaction (Intermediate, Unverified 09/21/20 12:00) Nausea Height 5 ft 4 in Weight 95.9 kg - Renal Dosing Renal Dosing: BUN 29 mg/dL (7-18) H 09/22/20 06:40 Creatinine 2.19 mg/dL (0.55-1.02) H 09/22/20 06:40 Medications needing adjustments: Reviewed (Crcl ~22.6 mL/min using adjusted body weight, current meds okay.) - Anticoagulation Anticoagulation: Hgb 11.1 g/dL (11.2-15.7) L 09/21/20 12:14 Hct 35.9 % (36.0-46.0) L 09/21/20 12:14 Plt Count 156 10^3/uL (130-400) 09/21/20 12:14 Creatinine 2.19 mg/dL (0.55-1.02) H 09/22/20 06:40 DVT Prohphylaxis: Reviewed Medications: Enoxaparin Therapeutic Anticoagulation: N/A - Opiate Usage Evaluate Pain Scale/Pains Meds: N/A - Relevant Labs Sodium 142 mmol/L (136-145) 09/22/20 06:40 Potassium 4.0 mmol/L (3.5-5.1) 09/22/20 06:40 Chloride 105 mmol/L (98-107) 09/22/20 06:40 Magnesium 1.7 mg/dL (1.8-2.4) L 09/22/20 06:40 Electrolytes, C-Reactive P, ESR: Intervened (mag a little low, mentioned to provider, he was planning on ordering some PO replacement but haven't seen an order yet.) - DM Control DM Control: Glucose 135 mg/dL (74-106) H 09/22/20 06:40 Hemoglobin A1c 8.2 % (<5.7) H 09/22/20 06:40 Finger Stick Blood Glucose 154 Finger Stick Blood Glucose 154 Finger Stick Blood Glucose 154 Finger Stick Blood Glucose 146 Finger Stick Blood Glucose 146 Finger Stick Blood Glucose 146 Insulin Dosing: Reviewed (Insulin glargine, sliding scale aspart and carb coverage aspart ordered.) - Heart Failure/NY Heart Failure/NY: Troponin I 0.14 ng/mL (<0.06) H* 09/22/20 06:40 NT-Pro-B Natriuret Pep 76178 pg/mL (<300) H 09/21/20 12:14 EF%, MARY's, B-Blockers, Diuretics: Reviewed - BP Control BP Control: Blood Pressure 166/77 Blood Pressure 182/83 Blood Pressure 156/77 If elevated: Reviewed (Provider ordered carvedilol in addition to the losartan and furosemide that is ordered.) - Qtc Review If Elevated: N/A (QTc 441 on admission) - IV to PO Switch IV Medications: Reviewed - Home Meds Home Med List reviewed: Reviewed (insulin lispro (has insulin aspart ordered)) - Current meds Current Medication Order Review: Intervened (Fixed both aspart orders so no confusion on dose (had 1 unit in dosing field, but different dosing instructions).) - Comments Comments/Follow Ups: Watch BP, HR, SCr, BG, mag and for med changes.
[2020-09-22] MEDS: Furosemide 40 MG TAB PO (16:02)
[2020-09-22] MEDS: Enoxaparin 30 MG/0.3 ML SYR SC (17:14)
[2020-09-22] MEDS: Magnesium Gluconate 500 MG TAB PO (19:48)
[2020-09-22] MEDS: Atorvastatin 40 MG TAB 80 MG PO (19:48)
[2020-09-22] MEDS: Insulin Glargine 300 UNITS/3 ML PEN 18 UNITS SC (22:55)
[2020-09-23 00:33] LABS: COVID-19 RT-PCR UVMMC Result Negative (Negative)
[2020-09-23 03:30] VITALS: BP 117/72; PULSE 74; RESP 18; TEMP 36.8; O2SAT 95
[2020-09-23 07:01] LABS: Anion Gap 9.1 mmol/L (3-11); BUN 39 mg/dL (7-18); CO2 25.9 mmol/L (21.0-32.0); CREATININE 2.52 mg/dL (0.55-1.02); Calcium 8.9 mg/dL (8.5-10.1); Chloride 103 mmol/L (98-107); Estimated GFR 18.32 (mL/min/1.73m2); Glucose 157 mg/dL (74-106); Potassium 4.3 mmol/L (3.5-5.1); Sodium 138 mmol/L (136-145)
[2020-09-23 07:05] VITALS: BP 131/64; PULSE 70; RESP 17; TEMP 36.5; O2SAT 96
[2020-09-23 07:10] LABS: Magnesium 1.8 mg/dL (1.8-2.4); NT-proBNP 21766 pg/mL (<300)
[2020-09-23 07:13] LABS: Troponin I 0.11 ng/mL (<0.06)
[2020-09-23] MEDS: Losartan 25 MG TAB PO (07:58)
[2020-09-23] MEDS: Aspirin E.C. 81 MG TABEC PO (07:58)
[2020-09-23] MEDS: Magnesium Gluconate 500 MG TAB PO (07:58)
[2020-09-23] MEDS: Furosemide 40 MG TAB PO (07:58)
[2020-09-23] MEDS: Insulin Aspart 300 UNITS/3 ML PEN SC ×3 (07:58→12:21)
[2020-09-23] MEDS: Carvedilol 6.25 MG TAB PO (07:58)
[2020-09-23] MEDS: Nystatin POWDER 15 GM JAR TP (07:58)
[2020-09-23 09:17] VITALS: PULSE 77
[2020-09-23 10:55] VITALS: BP 118/74; PULSE 72; RESP 17; TEMP 36.7; O2SAT 95
--- NOTE | 2020-09-23 12:51 | PDOC.CMDIS ---
LACE Index Scoring Tool - Questions: Length of Stay (in days): 2 Acuity (Admit via E.D.?): Yes Comorbidities: Diabetes w/o Complication, Congestive Heart Failure E.D. Visits: 1 - Answers: Total Score: 9 Risk of Readmission: Low Risk Care Management Discharge Reason for Hospitalization: CHF, PATRICIO Discharge Plan: She reports surprise at new findings as she sought medical support for edema, and was unaware of any issues with her heart. CM requested CHF binder be provided, Vy reviewed CHF binder with RN: Vandana. Vy will return home when ready per MD. She will follow up with her PCP and plan of care as prescribed; including outpatient follow up for MPI Stress Test. She will transport via private vehicle with her sister in law, Shantelle. No additional services required at this time. Patient/Family Education Needs: Review discharge instructions, self care needs upon discharge; Vy reports feeling confident with managing her own needs independently.
--- NOTE | 2020-09-23 14:54 | DSE_ITS ---
Date of service: 09/23/20 Time of Service: 14:54 DS: Diagnosis Discharge Diagnosis (1) Congestive heart failure: Status: Chronic Asessment and Plan: Patient has evidence of ischemic cardiomyopathy with heart failure with reduced ejection fraction of 45 to 50% with apical akinesis and generalized LV hypokinesis. She has no significant valvular heart disease other than some mild mitral gravitation. Stress MPI will be obtained in 3 weeks. Resting MPI was performed with this hospitalization and showed evidence of a septal and apical infarct. Present time patient is asymptomatic of any dyspnea or chest discomfort. Patient has been started on low-dose carvedilol 6.25 p.o. twice daily along with losartan 25 mg daily. She will have a follow- up BMP in a couple of days and if her azotemia has stabilized she will resume furosemide 40 mg once a day. Her weight upon discharge was 95.2 kg. Her admission weight on September 21 was inaccurate at 83.9 kg. (2) Elevated troponin I level: Status: Acute (3) Essential hypertension: Status: Chronic Asessment and Plan: Blood pressure is markedly improved on current regimen of carvedilol and losartan and Lasix. Goal for systolic blood pressure under 130 and diastolic under 90 (4) Diabetes mellitus: Status: Chronic Asessment and Plan: No changes were made to her insulin regimen. Further management as per her PCP. Goal is for A1c under 8% (5) Chronic kidney disease: Status: Chronic Asessment and Plan: Discharge BUN was 39 creatinine is 2.52. Furosemide on hold until repeat BMP in a couple of days. It appears that her baseline creatinine is right around 2 with her baseline BUN around 30 Discharge Plan Disposition Patient Disposition: HOME Condition: Improving Discharge Details Reason For Visit: CHF Admit Date/Time: 09/21/20 15:56 Admit Provider: Niraj Gutierrez Attending Provider: Niraj Gutierrez Primary Care Provider: Edwin Gonzáles [facility] Hospital Course: 80-year-old female with history type 2 diabetes mellitus for nearly 50 years has been on insulin for the last 2 years while with a history of essential hypertension chronic kidney disease presented with new onset bilateral leg edema that began about 10 to 14 days prior to admission not associate with any chest pain dizziness or dyspnea. She presented the emergency department only because the edema gotten so intense that she was getting fluid-filled blisters on the dorsum of her feet. She has had no fever and no chills. Work-up in the emergency department confirmed that she had congestive heart failure with elevated proBNP of 19,000 and an elevated troponin I level of 0.12 and elevated BUN and creatinine of 30 and 1.96. Chest x-ray demonstrated cardiomegaly tortuous aorta and mild pulmonary edema. No effusion and no focal consolidation was seen. Patient was given a dose of Lasix 20 mg IV push and aspirin 325 mg orally. Patient was admitted to the hospital for further treatment and evaluation of new onset congestive heart failure. Patient's activity has been limited due to arthritis in her knees but she says last summer she was doing her own gardening and had been fairly active. 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 With all that activity she has never experienced any chest tightness or pain or pressure and has had no problems with leg edema until couple weeks ago. Further work-up during her hospitalization included an echocardiogram and a resting MPI study. Echo demonstrated normal left ventricular wall thickness but mildly dilated left ventricular chamber with the reduced ejection fraction of 45 to 50% with an akinetic apex and generalized hypocontractility of her left ventricle. Right ventricular size and function was normal and atria were normal in size. She had some mild mitral regurgitation but no significant valvular ab normalities. Resting MPI study showed septal and apical infarction. Patient was treated with furosemide continuous infusion at 5 mg an hour this was started on admission and continued overnight until about noon time the next day at which point she was put on oral Lasix 40 mg twice a day. She was also started on low-dose losartan 25 mg once a day and atorvastatin 80 mg at night along with aspirin 81 mg daily and low-dose carvedilol 6.25 mg p.o. twice daily. Of note patient has not been on any medications for her hypertension in recent times. Patient was previously treated with lisinopril 10 mg daily but her primary care provider Dr. James Michele stopped this in October 2018 due to repeated bouts of syncope. Discussion with the patient and review of her office charts reveals that her syncopal spells were only associated with having her hair washed at the hairdresser which she would lean back and put her head in the ball and when she get up to leave the hairdresser's when she would have the syncopal spell. Nevertheless Dr. Michele stopped her lisinopril and she has been off of any blood pressure medicine since then she is only been treated with insulin for her diabetes. Blood pressures on admission were in the 180-190 systolic with diastolic readings in the 80-90 range. After diuresis and initiation of losartan and carvedilol patient was having blood pressures of 120-130/65-75. She is asymptomatic with these blood pressure readings and not having any dyspnea or any chest pain. Leg edema has improved although it still present but the skin is no longer taut. On the day of her discharge her furosemide had to be withheld because of rising BUN and creatinine. Her discharge BUN was 39 and creatinine was 2.52. Potassium level is normal at 4.3. Magnesium level was low at 1.7 but corrected to 1.8 with supplementation. At the time of discharge her proBNP remain elevated 21,000. Her furosemide will be kept on hold until she can get a repeat BMP in a couple of days. Patient will have a follow-up stress MPI in about 3 weeks and then she will follow up with a talent management specialist thereafter. Home Meds and New Rx's Prescriptions: New carvedilol [Coreg] 6.25 mg Tablet 6.25 mg PO BID Qty: 60 RF: 1 furosemide 40 mg Tablet 40 mg PO DAILY Qty: 30 RF: 0 losartan 25 mg Tablet 25 mg PO DAILY Qty: 30 RF: 1 nitroglycerin [Nitrostat] 0.4 mg Tablet, Sublingual 0.4 mg sublingual Q5 MIN PRN X3 PRNQty: 20 RF: 0 magnesium gluconate 27 mg magnesium (500 mg) Tablet 500 mg PO DAILY Qty: 30 RF: 0 atorvastatin [Lipitor] 40 mg Tablet 80 mg PO QPM Qty: 30 RF: 0 aspirin 81 mg Tablet,Delayed Release (Dr/Ec) 81 mg PO DAILY Qty: 100 RF: 0 Continued insulin lispro [Humalog KwikPen Insulin] 100 unit/mL insulin pen See Rx Instructions SC AC Qty: 15 RF: 4 (DME) pen needle, diabetic [Comfort EZ Pen Rombauer] 31 gauge x 5/16 needle See Dose Instructions .ROUTE .MEDSUPPLY Qty: 100 RF: 4 Lantus Solostar U-100 Insulin 100 unit/mL (3 mL) insulin pen 14 - 18 unit subcut HS Qty: 15 RF: 5 (DME) FreeStyle Test Strip 1 ea Miscellaneous BID Qty: 300 RF: 4 Discharge Instructions Instructions: Heart Failure (DC), Acute Coronary Syndrome (DC) Stand Alone Forms: Nursing Discharge Form Referrals: Taz Landeros MD [ CONSULTING PHYSICIAN] - 10/30/20 11:00 am Mark Frank [ [facility] STAFF PHYSICIAN] - 09/30/20 10:20 am Activity:: Activity as Tolerated Equipment/Supplies:: No Equipment Needed Diet:: Carb Counting Discharge Orders Discharge Orders: Discharge Order (Routine); Ordered 09/23/20 Ordered By: Niraj Garcia Ambulatory Orders: Basic Metabolic Panel (Routine) Timeframe: 2 Days Facility: [facility] - Location: Laboratory Outpatient Ordered By: Niraj BOSTON MPI rest & stress grp (Routine) Timeframe: 3 Weeks Facility: [facility] - Location: DIAGNOSTIC IMAGING Ordered By: Niraj Gutierrez DS: Summary Status at Discharge Functional status at discharge: uses cane/walker Overall status at discharge: patient is progressing back to baseline Mental Status: mental status grossly normal Speech and Movement: speech and movement normal Mood: congruent mood Affect: normal affect Time Spent with Patient providing and/or coordinating discharge services: Greater than 30 minutes Exam Narrative Exam Narrative: Elderly female sitting up in her chair alert and oriented person place time circumstance in no discomfort not short of breath. Easily converses in prolonged paragraphs. Neck is supple without accessory respiratory muscle use and no overt JVD. Lungs are clear to auscultation anteriorly. Posteriorly she had some faint rales at the right base without wheezing or rhonchi. Heart regular rate and rhythm without appreciable murmur rub or gallop. Lower extremities with 2+ pitting edema however the skin is no longer taut. She has some dependent rubor. Psych Mental Status: mental status grossly normal Speech and Movement: speech and movement normal Mood: congruent mood Affect: normal affect DS: Data Vitals/I&O Vitals and I&O: Vital Signs Temperature 36.7 C 09/23/20 10:55 Temperature Source Tympanic 09/23/20 10:55 Pulse 72 09/23/20 10:55 Pulse Rhythm Regular 09/23/20 02:35 Pulse 91 H 09/21/20 16:53 Respiratory Rate 17 09/23/20 10:55 Respiratory Effort Non-Labored 09/23/20 02:35 Respiratory Depth Normal 09/23/20 02:35 Respiratory Pattern Normal 09/23/20 02:35 Blood Pressure 118/74 09/23/20 10:55 Blood Pressure Mean 99 09/21/20 16:31 Blood Pressure Position Supine 09/21/20 11:54 Pulse Oximetry 95 09/23/20 10:55 Oxygen Delivery Method Room Air 09/23/20 10:55 Oxygen Flow Rate 0 09/23/20 10:55 Pain Level 0 09/23/20 10:55 Comment 09/22/20 18:55 Intake & Output 09/22/20 09/23/20 09/23/20 23:59 11:59 23:59 Intake Total 437.083 / 687.083 480 / 840 360 / 840 Output Total 200 / 3600 500 / 500 Balance 237.083 / -2912.917 -20 / 340 360 / 340 Weight 95.2 kg Intake: IV 97.083 / 97.083 Oral 340 / 590 480 / 840 360 / 840 Output: Urine 200 / 3600 500 / 500 Other: Urine Color Yellow Yellow Urine Appearance Clear Clear Urine Odor Normal Comment refused Stool Size Small Stool Characteristics Soft Voiding Methods Bedside Commode Bedside Commode Data Completed and Pending Labs on day of discharge: Labs from last 24 hours 09/23/20 09/23/20 09/21/20 06:25 06:25 15:20 Sodium 138 Potassium 4.3 Chloride 103 Carbon Dioxide 25.9 Anion Gap 9.1 BUN 39 H D Creatinine 2.52 H Estimated GFR/1.73 m2 18.32 Glucose 157 H Calcium 8.9 Magnesium 1.8 Troponin I 0.11 H* NT-Pro-B Natriuret Pep 78042 H SARS-CoV-2 (PCR) Negative Nasopharyn COVID-19 PCR Not Applicable Ref Test Perform Site [facility] lab REPLACED BY [facility] Medical History (Updated 09/23/20 @ 14:36 by Niraj Gutierrez) Chronic kidney disease Diabetes mellitus Onset type 2 diabetes mellitus in her 30s but treated with insulin for the past 2 years Essential hypertension Previously treated with lisinopril Primary osteoarthritis of left knee Most recent injection: 08/06/2019 Primary osteoarthritis of right knee Most recent injection: 08/06/2019 Syncope Related to use of lisinopril occurring both at rest while having her hair washed in beauty parlor as well as occurring while ambulating. None have occurred since cessation of her lisinopril Family History Mother , AGE 78 Diabetes Father No problems noted. Brother Diabetes Heart disease Social History Smoking/Tobacco Use Status: Never Smoking risk assessment performed?: Yes Alcohol Intake: never Drug use: Never Substance use type: does not use Pets and animals: No Current gender identity: female What type of physical activity do you participate in: walking Duration: decline to answer Frequency: 3-4 times per week Sonia/Mosque: Taoist Special sonia needs: No Do you feel safe at home: Yes Do you feel safe in your relationship?: Yes
== END 2020-09-23 15:32 | disposition home or self-care (01) | DRG 281 ==
LOC: ER 16:09 → MS 16:46
PROVIDERS: Admitting Provider Internal Medicine; Emergency Provider Emergency Medicine; PCP Family Medicine; Visit Provider Internal Medicine
DX: I11.0 Hypertensive heart disease with heart failure (principal); I21.9 Acute myocardial infarction, unspecified; I47.1 Supraventricular tachycardia; I50.20 Unspecified systolic (congestive) heart failure; E11.22 Type 2 diabetes mellitus with diabetic chronic kidney disease; N18.9 Chronic kidney disease, unspecified; Z79.4 Long term (current) use of insulin; I25.5 Ischemic cardiomyopathy; M17.0 Bilateral primary osteoarthritis of knee
CPT/HCPCS: 36415; 80048; 80053; 80061; 93005; 93016; 93018; 93306; 96374; 99223; 99233; 99239; 99285; U0003; 71046; 78451; 82565; 83036; 83735; 83880; 84156; 84443; 84484; 85025; 93010; J1650; J1940; J1941

== ENCOUNTER 2020-09-25 03:41 | Outpatient (CLI) | payer MEDICARE, BC, SELFPAY ==
[2020-09-25 14:38] LABS: Anion Gap 10.3 mmol/L (3-11); BUN 56 mg/dL (7-18); CO2 24.7 mmol/L (21.0-32.0); CREATININE 3.27 mg/dL (0.55-1.02); Calcium 8.6 mg/dL (8.5-10.1); Chloride 102 mmol/L (98-107); Estimated GFR 13.56 (mL/min/1.73m2); Glucose 189 mg/dL (74-106); Potassium 5.4 mmol/L (3.5-5.1); Sodium 137 mmol/L (136-145)
== END 2020-09-25 04:01 ==
PROVIDERS: PCP Family Medicine; Visit Provider Internal Medicine
DX: N18.9 Chronic kidney disease, unspecified (principal)
CPT/HCPCS: 36415; 80048

== ENCOUNTER 2020-09-30 11:04 | Outpatient (CLI) | payer MEDICARE, BC, SELFPAY ==
[2020-09-30 13:14] LABS: Anion Gap 8.4 mmol/L (3-11); BUN 38 mg/dL (7-18); CO2 23.6 mmol/L (21.0-32.0); CREATININE 2.23 mg/dL (0.55-1.02); Calcium 8.7 mg/dL (8.5-10.1); Chloride 106 mmol/L (98-107); Estimated GFR 21.09 (mL/min/1.73m2); Glucose 180 mg/dL (74-106); Potassium 5.3 mmol/L (3.5-5.1); Sodium 138 mmol/L (136-145)
== END 2020-09-30 11:24 ==
PROVIDERS: PCP Family Medicine; Visit Provider Family Medicine
DX: N18.9 Chronic kidney disease, unspecified (principal)
CPT/HCPCS: 36415; 80048

== ENCOUNTER 2020-11-03 10:35 | Outpatient (CLI) | payer MEDICARE, BC, SELFPAY ==
[2020-11-03 12:40] LABS: ALT 19 U/L (14-59); AST 24 U/L (15-37); Albumin 3.7 g/dL (3.4-5.0); Alkaline Phosphatase 134 U/L (46-116); Anion Gap 13.2 mmol/L (3-11); BUN 30 mg/dL (7-18); Bilirubin, Total 0.8 mg/dL (0.2-1.0); CO2 19.8 mmol/L (21.0-32.0); Calcium 8.9 mg/dL (8.5-10.1); Chloride 105 mmol/L (98-107); Estimated GFR 23.91 (mL/min/1.73m2); Glucose 198 mg/dL (74-106); NT-proBNP 11406 pg/mL (<300); Potassium 5.5 mmol/L (3.5-5.1); Sodium 138 mmol/L (136-145); Total Protein 7.9 g/dL (6.4-8.2)
[2020-11-03 14:59] LABS: COMMENT (LAB VIEW ONLY) 124.81 mg/dL
== END 2020-11-03 10:36 | disposition home or self-care (01) ==
LOC: LOS 10:35
PROVIDERS: PCP Family Medicine; Visit Provider Nurse Practitioner Family
DX: I50.9 Heart failure, unspecified (principal); N18.9 Chronic kidney disease, unspecified
CPT/HCPCS: 36415; 80053; 82043; 82570; 83880

== ENCOUNTER 2020-11-19 02:22 | Outpatient (CLI) | payer MEDICARE, BC, SELFPAY ==
[2020-11-19 12:42] LABS: Anion Gap 13.4 mmol/L (3-11); BUN 64 mg/dL (7-18); CO2 21.6 mmol/L (21.0-32.0); CREATININE 2.6 mg/dL (0.55-1.02); Calcium 9.4 mg/dL (8.5-10.1); Chloride 102 mmol/L (98-107); Estimated GFR 17.67 (mL/min/1.73m2); Glucose 191 mg/dL (74-106); Potassium 5.1 mmol/L (3.5-5.1); Sodium 137 mmol/L (136-145)
== END 2020-11-19 02:23 | disposition home or self-care (01) ==
LOC: LOS 02:22
PROVIDERS: Nurse Practitioner Family; PCP Family Medicine; Visit Provider Family Medicine
DX: N18.9 Chronic kidney disease, unspecified (principal)
CPT/HCPCS: 36415; 80048

== ENCOUNTER 2020-12-08 11:27 | Outpatient (REF) | payer MEDICARE, BC, SELFPAY ==
[2020-12-08 16:08] LABS: ALT 28 U/L (14-59); AST 28 U/L (15-37); Albumin 3.8 g/dL (3.4-5.0); Alkaline Phosphatase 154 U/L (46-116); BUN 61 mg/dL (7-18); Bilirubin, Total 0.5 mg/dL (0.2-1.0); CREATININE 2.4 mg/dL (0.55-1.02); Calcium 9.3 mg/dL (8.5-10.1); Chloride 105 mmol/L (98-107); Estimated GFR 19.38 (mL/min/1.73m2); Glucose 116 mg/dL (74-106); NT-proBNP 6525 pg/mL (<300); Potassium 5.1 mmol/L (3.5-5.1); Sodium 140 mmol/L (136-145); Total Protein 8.3 g/dL (6.4-8.2)
== END 2020-12-08 11:28 | disposition home or self-care (01) ==
LOC: LBN 11:27
PROVIDERS: PCP Family Medicine; Visit Provider Nurse Practitioner Family
DX: I50.20 Unspecified systolic (congestive) heart failure (principal)
CPT/HCPCS: 80053; 83880

== ENCOUNTER 2021-01-17 18:06 | Emergency (ER) | payer MEDICARE, BC, SELFPAY ==
[2021-01-17] VITALS (38 sets, daily range): BP systolic 94–124; BP diastolic 35–81; PULSE 0–108; RESP 18–35; TEMP 36.4; O2SAT 89–97
--- NOTE | 2021-01-17 18:00 | RT.EKG_ITS ---
APPROVED REPORT Exam: Resting ECG Patient Location: E HR:99 bpm ECG Measurements Heart Rate 99 AXIS NE 107 P -5 QRSd 87 QRS -17 QT 309 T 46 QTc 398 Conclusion Sinus rhythm...normal P axis, V-rate 60- 99 Inferior infarct, old...Q >35mS, II III aVF
--- NOTE | 2021-01-17 18:30 | DI.CT_ITS ---
EXAM: CT THORAX ABD/PEL CTA CLINICAL HISTORY: pain in abdomen radiating to arms and chest. TECHNIQUE: Imaging Protocol: Axial computed tomography images with coronal and sagittal reformatted images were created and reviewed CONTRAST MATERIAL: Intravenous: Omnipaque 350 Contrast volume:100 ml Oral: None COMPARISON: No exams were available for comparison FINDINGS: CHEST: Respiratory motion artifact limits evaluation of the lung colby. There are no pleural effusions. LUNGS: No confluent infiltrates.. MEDIASTINUM: There is no hilar nor mediastinal adenopathy. Visualized thyroid reveals nodules which c an be further investigated with ultrasound. CARDIAC: There is cardiomegaly. No pericardial effusion. Coronary artery calcification in the LAD. AORTA: Caliber of the thoracic aorta is within normal limits.There is no evidence of aortic dissectio n. There is no evidence of abdominal aortic aneurysm nor dissection.There is no aneurysmal dilatation of the common iliac arteries.The celiac and superior mesenteric arteries are patent. Inferior mesenter ic artery is patent. Some plaques evident at the origin of the renal arteries. Aortic bifurcation i s patent as are the aortoiliac segments. Common femoral arteries are patent. ABDOMEN: There is ascites and there is free air indicate perforated viscus. There is also some fluid in the dependent aspect of the pelvis. LIVER: There are no focal hepatic lesions nor dilatation of intrahepatic ducts. GALLBLADDER/BILIARY: No obvious gallbladder pathology. CBD is not dilated. PANCREAS: No evidence of pancreatic mass nor dilatation of the pancreatic duct. SPLEEN: Spleen is not enlarged. There are no intrasplenic lesions. Splenic and portal veins are vazquez nt. ADRENALS: Small nodule at the genu of the left adrenal gland. KIDNEYS: No cysts evident. There is a staghorn calculus in the left renal pelvis. Left kidney is omid ewhat atrophic. There is also a benign cortical cyst at the lateral mid cortex which measures 2.5 by 1.9 cm.. No solid renal masses. No hydronephrosis. No hydroureter. Urinary bladder small. It do es not contain calculi. ABDOMINAL AORTA: The abdominal aorta is not enlarged. LYMPH NODES: There is no retroperitoneal nor para-aortic adenopathy. No obvious mesenteric masses. ABDOMINAL WALL/GI: No evidence of significant anterior abdominal wall hernia. No bowel obstruction. PELVIS: LYMPH NODES: There is no intrapelvic nor inguinal adenopathy. GI: No evidence of appendicitis.Sigmoid diverticular disease with sigmoid diverticulosis. There is s ome fluid in this level but no obvious acute diverticulitis. URINARY BLADDER: No calculi nor masses evident REPRODUCTIVE: There is a oval 5 by 3 centimeter cystic finding in the left adnexa which may be ovaria n.Uterus size is age-appropriate. No right adnexal masses OSSEOUS: No significant osseous lesions. IMPRESSION: 1. Main finding here is free intraperitoneal air consistent with perforated viscus. There is extensive colon diverticulosis. No obvious acute diverticulitis. 2. There is a staghorn calculus in left renal pelvis measuring approximately 2.3 x 1.4 cm and moderat e left renal atrophy. 2. 5 x 3 cm left adnexal cyst in this patient has had prior hysterectomy. Ultrasound is recommended. 3. Hepatic steatosis. Liver appears somewhat small. Small amount of perihepatic ascites is noted. 4. RADIATION DOSE DELIVERED: 1,179.82mGy.cm Total DLP DATA REPOSITORY: All CT scans at this facility are submitted to the National Radiology Data Registry (NRDR) Dose Index Registry (DIR) with the [employer] (ACR). RADIATION OPTIMIZATION: All CT scans at this facility use at least one of these dose optimization te chniques: automated exposure control; mA and/or kV adjustment per patient size (includes targeted exa ms where dose is matched to clinical indication); or iterative reconstruction.
--- NOTE | 2021-01-17 18:42 | W.ED.GENAD ---
Discharge Plan Discharge Details Chief Complaint: Abd Prob Primary Care Provider: Edwin Gonzáles ED Provider: Deja Choudhury Home Meds and New Rx's Prescriptions: No Action losartan 25 mg tablet 25 mg PO DAILY Qty: 90 RF: 4 Hold Instructions: Hyperkalemia atorvastatin [Lipitor] 40 mg tablet 40 mg PO QPM Qty: 90 RF: 4 carvedilol 3.125 mg tablet 3.125 mg PO BID Qty: 180 RF: 4 furosemide 40 mg tablet 40 mg PO DAILY Qty: 90 RF: 4 Hold Instructions: Home Medication placed on hold at Doctor's office insulin lispro [Humalog KwikPen Insulin] 100 unit/mL insulin pen See Rx Instructions SC AC Qty: 15 RF: 4 (DME) pen needle, diabetic [Comfort EZ Pen Hydro] 31 gauge x 5/16 needle See Dose Instructions .ROUTE .MEDSUPPLY Qty: 100 RF: 4 Lantus Solostar U-100 Insulin 100 unit/mL (3 mL) insulin pen 14 - 18 unit subcut HS Qty: 15 RF: 5 (DME) FreeStyle Test Strip 1 ea Miscellaneous BID Qty: 300 RF: 4 nitroglycerin [Nitrostat] 0.4 mg Tablet, Sublingual 0.4 mg sublingual Q5 MIN PRN X3 PRNQty: 20 RF: 0 aspirin 81 mg Tablet,Delayed Release (Dr/Ec) 81 mg PO DAILY Qty: 100 RF: 0 Medical Decision Making Patient is alert and oriented, she is DNR/DNI status I had a long conversation with patient regarding her status change in resuscitation and she is alert and competent to make this decision, patient's brother was also present for this conversation She is made aware regarding a perforated hollow viscus injury Case was discussed with Dr. Ames, our surgeon who did feels patient should be transferred to higher level of care Patient meets sepsis criteria therefore cefepime and Flagyl were initiated At the request of Dr. Mcghee, surgeon on-call for [facility], I did order fluconazole 400 mg IV as well Patient has received 1500 cc bolus of normal saline Patient will be transferred to the emergency room at [facility] and was accepted by Dr. Meza Patient received 25 mcg of fentanyl, we will redose last as needed Patient does have a mildly elevated glucose at 295 with a bicarb of 20.5, I do not believe she is in DKA at this time We will recheck blood glucose level, patient has received 1.5 L of normal saline Mentation has been intact throughout this evaluation Blood pressure at time of reevaluation 118/54 CT does not show evidence of aortic dissection or mesenteric ischemia, patient's lactate is elevated secondary to sepsis, patient meets severe sepsis criteria She has been hemodynamically stable throughout this encounter remains alert and oriented CT results were discussed with Dr. Das, specifically regarding hollow- viscus perforation Differential Diagnosis Differential Diagnosis: Diabetic ketoacidosis, dehydration, mesenteric ischemia, aortic dissection Medical Records Medical records reviewed: Yes I reviewed the patient's medical records. Lab Data Lab results reviewed: Yes I reviewed the patient's lab results. ECG Data Prior ECG tracings: available for review HPI This 80-year-old female with past medical history of myocardial infarction in August 2020, type 2 diabetes, ischemic cardiomyopathy, hypertension presents with report of abdominal pain that woke patient from sleep at 2 AM. Her pain has been persistent since that time and is now radiating to her arms and her neck. She denies any pain in her actual chest region. She denies any calf pain or swelling. She is nauseous without vomiting. She denies any fever or chills. She denies history of similar symptoms in the past. She denies any injury to the affected area. She denies any headache or dizziness. She describes the pain as sharp and stabbing. General Date/Time Provider Initiated Documentation: 01/17/21 18:23. Related Data Home Medications Medication Instructions Recorded Confirmed insulin lispro 100 unit/mL See Rx Instructions SC AC #15 ml 07/01/20 01/17/21 subcutaneous pen pen needle, diabetic 31 gauge x #100 each 07/01/20 12/08/20 5/16 insulin glargine 100 unit/mL (3 14 - 18 unit SUBCUT HS #15 ml 07/15/20 01/17/21 mL) subcutaneous pen blood sugar diagnostic #300 strip 09/02/20 12/08/20 aspirin 81 mg PO DAILY #100 tab 09/23/20 01/17/21 nitroglycerin [Nitrostat] 0.4 mg SUBLINGUAL Q5 MIN PRN X3 09/23/20 01/17/21 PRN #20 tab atorvastatin 40 mg tablet 40 mg PO QPM #90 tab 11/03/20 01/17/21 carvedilol 3.125 mg tablet 3.125 mg PO BID #180 tab 11/03/20 01/17/21 losartan 25 mg tablet 25 mg PO DAILY #90 tab 11/03/20 01/17/21 furosemide 40 mg tablet 40 mg PO DAILY #90 tab 11/05/20 01/17/21 Previous Rx's Medication Instructions Recorded insulin lispro 100 unit/mL See Rx Instructions SC AC #15 ml 07/01/20 subcutaneous pen pen needle, diabetic 31 gauge x #100 each 07/01/2002/08 insulin glargine 100 unit/mL (3 14 - 18 unit SUBCUT HS #15 ml 07/15/20 mL) subcutaneous pen blood sugar diagnostic #300 strip 09/02/20 aspirin 81 mg PO DAILY #100 tab 09/23/20 nitroglycerin [Nitrostat] 0.4 mg SUBLINGUAL Q5 MIN PRN X3 09/23/20 PRN #20 tab atorvastatin 40 mg tablet 40 mg PO QPM #90 tab 11/03/20 carvedilol 3.125 mg tablet 3.125 mg PO BID #180 tab 11/03/20 losartan 25 mg tablet 25 mg PO DAILY #90 tab 11/03/20 furosemide 40 mg tablet 40 mg PO DAILY #90 tab 11/05/20 Allergies Allergy/AdvReac Type Severity Reaction Status Date / Time Penicillins Allergy Unknown Verified 01/17/21 18:14 hydrocodone AdvReac Intermediate Nausea Verified 01/17/21 18:14 General Stated Complaint: Abd Prob TAMMIE: 3 Review of Systems Narrative: Review of systems obtained x7 aside from where indicated in HPI [facility] Medical History Chronic kidney disease Essential hypertension Heart failure with reduced ejection fraction Ischemic cardiomyopathy Myocardial infarction (~08/2020) Apical and septal infarct Primary osteoarthritis of left knee Most recent injection: 08/06/2019 Primary osteoarthritis of right knee Most recent injection: 08/06/2019 Syncope Related to use of lisinopril occurring both at rest while having her hair washed in beauty parlor as well as occurring while ambulating. None have occurred since cessation of her lisinopril Type 2 diabetes mellitus Family History Mother , AGE 78 Diabetes Father No problems noted. Brother Diabetes Heart disease Social History Smoking/Tobacco Use Status: Never Smoking risk assessment performed?: Yes Alcohol Intake: never Drug use: Never Substance use type: does not use Pets and animals: No Current gender identity: female What type of physical activity do you participate in: walking Duration: decline to answer Frequency: 3-4 times per week Sonia/Confucianism: [employer] Special sonia needs: No Do you feel safe at home: Yes Do you feel safe in your relationship?: Yes Additional Social history: lives alone Exam Const General: ill appearing HENMT Throat: uvula midline Eyes Pupils: PERRL Chest Chest: normal inspection of the chest Resp Effort & Inspection: normal respiratory effort Auscultation: clear to auscultation bilaterally Cardio Rate: regular rate Rhythm: regular rhythm GI Other: Diffuse abdominal tenderness, rebound and guarding, no obvious abdominal bruit or pulsatile mass Skin Other: pallor Neuro General: patient alert and patient oriented x3 Course Vital Signs Vital signs: Vital Signs Temperature 36.4 C L 01/17/21 18:09 Pulse 95 H 01/17/21 18:09 Respiratory Rate 20 01/17/21 18:09 Blood Pressure 104/47 L 01/17/21 18:09 Pulse Oximetry 91 L 01/17/21 18:09 Temperature 36.4 C L 01/17/21 18:09 Temperature Source Skin 01/17/21 18:09 Pulse 95 H 01/17/21 18:09 Respiratory Rate 20 01/17/21 18:09 Respiratory Effort Non-Labored 01/17/21 18:15 Blood Pressure 104/47 L 01/17/21 18:09 Blood Pressure Position Sitting 01/17/21 18:09 Pulse Oximetry 91 L 01/17/21 18:09 Oxygen Delivery Method Room Air 01/17/21 18:09 Oxygen Flow Rate 0 01/17/21 18:09 Pain Level 10 01/17/21 18:09 Critical Care Time Critical Care Time Critical Care Time: Yes Total Critical Care Time: 45 Attestation: 2 peripheral lines, telemetry monitoring, IV antibiotics, IV fluid resuscitation, specialty consultation,
[2021-01-17] MEDS: Normal Saline - Diluent 50 ML VIAL IV (19:11)
[2021-01-17 19:23] LABS: Abs Immature Grans 0.05 10^3/uL (0.0-0.06); Absolute Basophil Count 0.03 10^3/uL (0.0-0.2); BE (Venous) -7 mmol/L (-2-3); Basophils % 0.2; HCO3 (Venous) 20 mmol/L (23-28); HCT 33.1 % (36.0-46.0); HGB 10.7 g/dL (11.2-15.7); MCH 31.2 pg (27.0-33.0); MCHC 32.3 % (32.0-36.0); MCV 96.5 fL (80-95); MPV 11.6 fL (8.0-11.0); Nucleated RBC 0 %; O2 Sat (Venous) 43 %; RBC 3.43 10^6/uL (3.93-5.22); RDW 15.6 % (11.7-14.6); RDW-SD 56.2 fL; TCO2 (Venous) 20 mmol/L (24-29); WBC 12.62 10^3/uL (4.4-10.8); pCO2 (Venous) 45 mmHg (41-51); pH (Venous) 7.26 (7.31-7.41); pO2 (Venous) 26 mmHg
[2021-01-17] MEDS: Ondansetron 4 MG/2 ML VIAL IVP (19:25)
[2021-01-17] MEDS: fentaNYL 100 MCG/2 ML VIAL 25 MCG IVP ×3 (19:25→22:05)
[2021-01-17] MEDS: Normal Saline 500 ML IV ×2 (19:26→21:05)
[2021-01-17 19:48] LABS: ALT 18 U/L (14-59); AST 16 U/L (15-37); Absolute Neutrophil Count 11.48 10^3/uL (1.2-6.7); Albumin 2.9 g/dL (3.4-5.0); Alkaline Phosphatase 88 U/L (46-116); Anion Gap 13.5 mmol/L (3-11); BUN 77 mg/dL (7-18); Bands % 6; Bilirubin, Total 1.1 mg/dL (0.2-1.0); CO2 20.5 mmol/L (21.0-32.0); CREATININE 3.4 mg/dL (0.55-1.02); Calcium 9.4 mg/dL (8.5-10.1); Chloride 102 mmol/L (98-107); Estimated GFR 12.96 (mL/min/1.73m2); Glucose 295 mg/dL (74-106); Lipase 848 U/L (73-393); Potassium 4.8 mmol/L (3.5-5.1); Sodium 136 mmol/L (136-145); Total Protein 7.3 g/dL (6.4-8.2)
[2021-01-17 19:49] LABS: Absolute Lymphocyte Count 0.88 10^3/uL (1.2-3.4); Absolute Monocyte Count 0.25 10^3/uL (0.1-0.8); Atypical Lymphocytes % 0; Diff Comment Manual Differential; RBC Morphology Normal
[2021-01-17 19:50] LABS: Platelet Count 117 10^3/uL (130-400)
[2021-01-17 19:51] LABS: Troponin I < 0.05 ng/mL (<0.06)
--- NOTE | 2021-01-17 20:00 | DI.VRAD_ITS ---
Addendum created by Riki Michael MD on 01/17/2021 8:05:36 PM EDT: THIS REPORT CONTAINS FINDINGS THAT MAY BE CRITICAL TO PATIENT CARE. The findings were verbally communicated via telephone conference with Deja Choudhury at 8:05 PM EDT on 01/17/2021. The findings were acknowledged and understood. Initial report created on 01/17/2021 7:59:56 PM EDT: PROCEDURE INFORMATION: Exam: CTA Chest With Contrast Exam date and time: 01/17/2021 6:33 PM Age: 80 years old Clinical indication: Chest pain; Abdominal pain; Generalized; Patient HX: Pain in abdomen radiating to arms and chest TECHNIQUE: Imaging protocol: Computed tomographic angiography of the chest with contrast. 3D rendering (Not supervised by radiologist): MIP and/or 3D reconstructed images were created by the technologist. COMPARISON: CR XR CHEST 2V PA LATERAL 09/21/2020 1:21 PM FINDINGS: Pulmonary arteries: No pulmonary arterial embolism evident. Some limitations on evaluation of the arteries in the lower lung colby due to some respiratory motion artifact. Aorta: Thoracic aorta is normal in course and caliber. No dissection. No aneurysm. Lungs: Posterior right upper lobe nonspecific subpleural nodule measuring 4 mm. See series 5, image 73. This might reflect a small granuloma. This is noncalcified. Lung colby otherwise are unremarkable for acute disease. Pleural spaces: No pleural effusion. Heart: [id number] cardiac enlargement. No pericardial effusion. Lymph nodes: Unremarkable. No enlarged lymph nodes. Bones/joints: Unremarkable. No acute fracture. Soft tissues: Unremarkable. IMPRESSION: 1. No aortic dissection or aneurysm. 2. No pulmonary arterial embolism. 3. 4 mm posterior right upper lobe subpleural nodule. This is nonspecific. This may reflect a small granuloma. 4. Yxhs-if-bjihzufz cardiac enlargement. No pericardial effusion. 5. No pleural effusion. PROCEDURE INFORMATION: Exam: CTA Abdomen and Pelvis With Contrast Exam date and time: 01/17/2021 6:33 PM Age: 80 years old Clinical indication: Chest pain; Abdominal pain; Generalized; Patient HX: Pain in abdomen radiating to arms and chest TECHNIQUE: Imaging protocol: Computed tomographic angiography of the abdomen and pelvis with contrast material. 3D rendering (Not supervised by radiologist): MIP and/or 3D reconstructed images were created by the technologist. COMPARISON: CR XR CHEST 2V PA LATERAL 09/21/2020 1:21 PM FINDINGS: Aorta: Abdominal aorta is normal in caliber. Atherosclerotic calcium. No aneurysm. Celiac trunk and mesenteric arteries: Celiac artery origin without significant stenosis. Superior mesenteric artery origin without significant stenosis. Renal arteries: Right renal artery origin without significant stenosis. Left renal artery origin without significant stenosis. Right iliac arteries: Right common iliac artery atherosclerotic calcium without stenosis. Left iliac arteries: Left common iliac artery atherosclerotic calcium without stenosis. Liver: Small liver. Mild fatty change. Gallbladder and bile ducts: Unremarkable. No calcified stones. No ductal dilation. Pancreas: Unremarkable. No mass. No ductal dilation. Spleen: Spleen is unremarkable in contour and attenuation. Adrenal glands: No dominant adrenal mass. Kidneys and ureters: Moderate left renal atrophy. Staghorn calculus in the left renal pelvis measuring approximately 23 x 14 mm. Lateral partially exophytic left renal cyst measuring 2.2 cm. No acute renal disease evident. No acute hydronephrosis. Right kidney is unremarkable. Stomach and bowel: Gastric morphology is unremarkable. No gastric thickening. No obstructive features. Duodenal sweep is unremarkable. Small bowel loops are normal in course and caliber. Extensive colonic diverticulosis of the left colon and sigmoid colon. There is moderate diverticulosis of the proximal transverse colon. No definable focal diverticulitis. There is minor fatty stranding and inflammation adjacent to the Paddock flexure. Mild diverticulitis with perforation in this region cannot be excluded. Appendix: No evidence of appendicitis. Intraperitoneal space: Lynette hepatic free fluid. Minor free fluid in the pelvic cul-de-sac. Free air within the abdomen rising anteriorly. Some free air is seen in the region of the emmett hepatis and along the posterior margin of the liver. This is consistent with perforation of a hollow viscus. Lymph nodes: Unremarkable. No enlarged lymph nodes. Urinary bladder: Unremarkable. No mass. Reproductive: Posterior left pelvic cystic like process is likely adnexal. This measures 4.8 x 3.1 cm. See series 6, image 982. Uterine atrophy. Bones/joints: Degenerative lumbar spine disease. Minor anterolisthesis of L4 and L5 with degenerative appearance. No spondylolysis evident. Severe spinal stenosis changes at L4-L5 and L5-S1. Soft tissues: Unremarkable. Soft tissues: Unremarkable. IMPRESSION: 1. Intra-abdominal free air. Consistent with perforation of a hollow viscus. 2. Extensive colonic diverticulosis of the colon. There is mild fatty stranding adjacent to the hepatic flexure. Mild diverticulitis in this region cannot be excluded. 3. Fatty liver and small liver size. 4. Mild perihepatic free fluid. Small volume free fluid in the posterior pelvis. 5. Left renal atrophy. Left renal staghorn calculus. Benign-appearing left renal cyst. 6. Abdominal aorta atherosclerosis. No aneurysm. No critical stenosis of mesenteric vessels. 7. Severe degenerative lumbar spine disease. Severe spinal stenosis changes at L4-L5 and L5-S1. 8. Nonspecific left-sided adnexal cyst measuring 4.8 x 3.1 cm. Follow-up pelvic ultrasound may be warranted. Dictated and Authenticated by: Riki Michael MD. Ordering:GAGE Short MD
[2021-01-17] MEDS: metroNIDAZOLE 500 MG/100 ML BAG 100 MG IVPB (21:23)
[2021-01-17] MEDS: CEFEPIME 2 GM in Normal Saline 100 ML IVPB (21:26)
[2021-01-17 21:31] LABS: COVID-19 PCR Negative (Negative)
[2021-01-17] MEDS: FLUCONAZOLE 200 MG/100 ML BAG 100 MG IVPB ×2 (22:13)
[2021-01-20 11:36] LABS: Lactate 2.9 mmol/L (0.6-1.4)
== END 2021-01-17 22:30 | disposition short-term general hospital (02) ==
PROVIDERS: Emergency Provider Physician Assistant; PCP Family Medicine
DX: A41.89 Other specified sepsis (principal); R65.20 Severe sepsis without septic shock; K66.8 Other specified disorders of peritoneum; E11.65 Type 2 diabetes mellitus with hyperglycemia; E11.22 Type 2 diabetes mellitus with diabetic chronic kidney disease; I12.9 Hypertensive chronic kidney disease with stage 1 through stage 4 chronic kidney disease, or unspecified chronic kidney disease; N18.9 Chronic kidney disease, unspecified; Z03.818 Encounter for observation for suspected exposure to other biological agents ruled out; Z79.4 Long term (current) use of insulin; Z66 Do not resuscitate
CPT/HCPCS: 36415; 71275; 74177; 80053; 82805; 83690; 87040; 87635; 93005; 96361; 96365; 96367; 96368; 96375; 99291; 83605; 84484; 85025; 93010; J1450; J2405; J2543; J3010

== ENCOUNTER 2021-03-16 09:49 | Outpatient (CLI) | payer MEDICARE, BC, SELFPAY ==
[2021-03-16 12:20] LABS: Abs Immature Grans 0.02 10^3/uL (0.0-0.06); Absolute Basophil Count 0.04 10^3/uL (0.0-0.2); Absolute Eosinophil Count 0.17 10^3/uL (0.0-0.7); Absolute Lymphocyte Count 1.54 10^3/uL (1.2-3.4); Absolute Monocyte Count 0.78 10^3/uL (0.1-0.8); Absolute Neutrophil Count 5.51 10^3/uL (1.2-6.7); Basophils % 0.5; Eosinophils % 2.1; HCT 32.4 % (36.0-46.0); HGB 10.3 g/dL (11.2-15.7); Immature Grans % 0.2; Lymphocytes % 19.1; MCH 32.3 pg (27.0-33.0); MCHC 31.8 % (32.0-36.0); MCV 101.6 fL (80-95); MPV 11.6 fL (8.0-11.0); Monocytes % 9.7; Neutrophils % 68.4; Nucleated RBC 0 %; Platelet Count 221 10^3/uL (130-400); RBC 3.19 10^6/uL (3.93-5.22); RDW 13.5 % (11.7-14.6); RDW-SD 50.9 fL; WBC 8.06 10^3/uL (4.4-10.8)
[2021-03-16 12:39] LABS: ALT 29 U/L (14-59); AST 23 U/L (15-37); Albumin 3.6 g/dL (3.4-5.0); Alkaline Phosphatase 139 U/L (46-116); Anion Gap 12.2 mmol/L (3-11); BUN 56 mg/dL (7-18); Bilirubin, Total 0.5 mg/dL (0.2-1.0); CO2 23.8 mmol/L (21.0-32.0); CREATININE 2.5 mg/dL (0.55-1.02); Calcium 9.1 mg/dL (8.5-10.1); Chloride 105 mmol/L (98-107); Estimated GFR 18.48 (mL/min/1.73m2); Glucose 131 mg/dL (74-106); Potassium 4.6 mmol/L (3.5-5.1); Sodium 141 mmol/L (136-145)
[2021-03-18 16:17] LABS: Ferritin 156 ng/mL (8-252); Vitamin B12 437 pg/mL (193-986)
[2021-03-18 21:45] LABS: Folate 7.1 ng/mL (See Note)
== END 2021-03-16 09:50 | disposition home or self-care (01) ==
LOC: LOS 09:50
PROVIDERS: PCP Nurse Practitioner Family; Referring Provider Nurse Practitioner Family; Visit Provider Nurse Practitioner Family
DX: K26.5 Chronic or unspecified duodenal ulcer with perforation (principal); N18.9 Chronic kidney disease, unspecified
CPT/HCPCS: 36415; 80053; 85027; 82607; 82728; 82746; 83735; 85025

== ENCOUNTER 2021-04-27 13:52 | Outpatient (CLI) | payer MEDICARE, BC, SELFPAY ==
--- NOTE | 2021-04-27 11:30 | DI.RAD_ITS ---
Exam(s) XR HIP RT COMPLETE AP PELVIS EXAM: XR HIP RT COMPLETE AP PELVIS CLINICAL HISTORY: pain in right hip. TECHNIQUE: 2D digital imaging was performed. COMPARISON: Prior x-rays July 2019 FINDINGS: Again noted are moderate degenerative changes in the right hip including moderate joint space narrowi ng and marginal osteophytes. Amount of joint space narrowing has slightly further increased in the r ight hip. Left hip continues to exhibit normal joint space height. The left iliac crest is again no vimal be significant higher than the right, similar to the previous study. That prior study also revea led significant narrowing of the medial compartments of both knees. No osseous lesions evident. IMPRESSION: DATA REPOSITORY: RADIATION DOSE DELIVERED:
== END 2021-04-27 13:53 | disposition home or self-care (01) ==
LOC: DIORS 13:52
PROVIDERS: PCP Nurse Practitioner Family; Referring Provider Nurse Practitioner Family; Visit Provider Student in an Organized Health Care Education/Training Program
DX: M25.551 Pain in right hip (principal); M16.11 Unilateral primary osteoarthritis, right hip; E11.22 Type 2 diabetes mellitus with diabetic chronic kidney disease; N18.9 Chronic kidney disease, unspecified; K26.5 Chronic or unspecified duodenal ulcer with perforation; I50.20 Unspecified systolic (congestive) heart failure
CPT/HCPCS: 99214; 73502

== ENCOUNTER 2021-05-15 12:25 | Outpatient (CLI) | payer MEDICARE, BC, SELFPAY ==
--- NOTE | 2021-05-15 11:15 | DI.US_ITS ---
Exam(s) US ABDOMEN LIMITED EXAM: US ABDOMEN LIMITED CLINICAL HISTORY: drainage from umbilicus since exlap, fluid pocket?, T14.8XXA. TECHNIQUE: Ultrasound was performed using standard protocol. COMPARISON: CT CT THORAX ABD/PEL CTA from 01/17/[address] THORAX ABD/PEL CTA from 01/17/2021 FINDINGS: Sonographic assessment utilizing grayscale and color Doppler imaging was performed and targeted to th e area of clinical concern. There is an area measuring 2 x 0.7 x 1.6 cm deep to the umbilicus with mixed internal echoes. This m ay represent an abscess. A CT scan of the abdomen with contrast should be considered for further sarah luation. DATA REPOSITORY:
== END 2021-05-15 12:45 ==
PROVIDERS: PCP Nurse Practitioner Family; Visit Provider Nurse Practitioner Family
DX: K91.89 Other postprocedural complications and disorders of digestive system (principal); T14.8XXA Other injury of unspecified body region, initial encounter; X58.XXXA Exposure to other specified factors, initial encounter; Y83.8 Other surgical procedures as the cause of abnormal reaction of the patient, or of later complication, without mention of misadventure at the time of the procedure
CPT/HCPCS: 76705

== ENCOUNTER 2021-05-20 01:09 | Outpatient (CLI) | payer MEDICARE, BC, SELFPAY ==
--- NOTE | 2021-05-20 09:15 | DI.CT_ITS ---
Exam(s) CT ABDOMEN PELVIS WO EXAM: CT ABDOMEN PELVIS WO CLINICAL HISTORY: Further eval of umbilical abscess, L02.216. TECHNIQUE: Imaging Protocol: Axial computed tomography images with coronal and sagittal reformatted images were created and reviewed CONTRAST MATERIAL: Intravenous: none Oral: Yes COMPARISON: CT CT THORAX ABD/PEL CTA from 01/17/2021 FINDINGS: VISUALIZED LUNG BASES: No nodules nor pleural effusions evident. ABDOMEN: There is presently no ascites. In addition, the previously present free intraperitoneal air seen on the CT scan of December 2020 is no longer seen. LIVER: There are no obvious focal hepatic lesions evident of this noninfused study. GALLBLADDER/BILIARY: No obvious gallbladder pathology. CBD is not dilated. PANCREAS: No evidence of pancreatic mass nor dilatation of the pancreatic duct. SPLEEN: Spleen is not enlarged. No obvious intrasplenic lesions. ADRENALS: There are no significant adrenal masses. KIDNEYS:Right kidney unremarkable. A staghorn calculus in the left kidney appears unchanged, located in the infundibulum I and renal pelvis. Associated with mild caliectasis. There is also again note d the previously described 2.5 by 2.0 cm benign cyst off the lateral cortex of the left kidney. Left ureter is not dilated. No obvious abnormality in the urinary bladder.. ABDOMINAL AORTA: Abdominal aorta is not enlarged. LYMPH NODES: There is no retroperitoneal nor paraaortic adenopathy. ABDOMINAL WALL: There is density in the umbilicus when compared to the prior study. There does not a ppear to be a distinct drainable fluid collection. No gas at this level. The subjacent small bowel loop does not appear to be within an actual hernia sac at the level of the umbilicus and the bowel lo op does not appear edematous. GI: No evidence of bowel obstruction nor free air. No evidence of appendicitis. There is diverticul osis in the distal transverse colon, splenic flexure, descending colon, and sigmoid. No obvious acut e diverticulitis. PELVIS: LYMPH NODES: There is no intrapelvic nor inguinal adenopathy. URINARY BLADDER: No calculi nor obvious masses evident REPRODUCTIVE: Uterus unremarkable. Right adnexa unremarkable. However, there is again noted a promi nent cyst in the left ovary which measures 4.6 by 2.9 cm, slightly smaller than previous. Neverthele ss this is an abnormal finding in this age group. There is no free fluid in the pelvis. OSSEOUS: No significant osseous lesions. IMPRESSION: 1. Compared to the prior CT scan of 01/17/2021 the previously present ascites and free intraperitonea l air has resolved. 2. There is extensive diverticulosis at and distal to the splenic flexure of the colon. No obvious a cute diverticulitis although there does appear to be some motion artifact here and composite miss a v se subtle case of diverticulitis. 3. Left kidney staghorn calculus again noted. Left kidney benign cyst again noted. Right kidney frances ears unremarkable. 4. The appearance of the umbilicus is different from the December 2020 scan, possibly related to this h aving been a port site for interval surgery. The fat in the umbilicus has been replaced by denser ti ssue although there does not appear to be an obvious drainable abscess at this location. Also no her ron sac. 5. Again noted is a prominent cyst in the left adnexa-left ovary, presently measuring 46 x 29 millim eters, slightly smaller than prior measurement. Nevertheless, this is an abnormal finding in an 80-y ear-old patient. There is no free fluid in the pelvis. RADIATION DOSE DELIVERED: 1,566.12mGy.cm Total DLP DATA REPOSITORY: All CT scans at this facility are submitted to the National Radiology Data Registry (NRDR) Dose Index Registry (DIR) with the [employer] ([employer]). RADIATION OPTIMIZATION: All CT scans at this facility use at least one of these dose optimization te chniques: automated exposure control; mA and/or kV adjustment per patient size (includes targeted exa ms where dose is matched to clinical indication); or iterative reconstruction.
== END 2021-05-20 01:29 ==
PROVIDERS: PCP Nurse Practitioner Family; Visit Provider Nurse Practitioner Family
DX: L02.216 Cutaneous abscess of umbilicus (principal); K57.30 Diverticulosis of large intestine without perforation or abscess without bleeding; K57.32 Diverticulitis of large intestine without perforation or abscess without bleeding; N20.0 Calculus of kidney; N28.1 Cyst of kidney, acquired; N83.202 Unspecified ovarian cyst, left side
CPT/HCPCS: 74176; Q9967

== ENCOUNTER 2021-05-25 17:02 | Outpatient (REF) | payer MEDICARE, BC, SELFPAY | END 2021-05-25 17:03 | disposition home or self-care (01) | LOC: NCHCN 17:02 | PROVIDERS: PCP Nurse Practitioner Family; Visit Provider Physician Assistant | DX: L98.9 Disorder of the skin and subcutaneous tissue, unspecified (principal) | CPT/HCPCS: 87077; 87070; 87186; 87205 ==

== ENCOUNTER → 2021-06-19 11:00 | Outpatient (BNVA) | payer MEDICARE, BC, SELFPAY | PROVIDERS: PCP Nurse Practitioner Family; Referring Provider Nurse Practitioner Family; Visit Provider Internal Medicine Cardiovascular Disease | DX: I25.10 Atherosclerotic heart disease of native coronary artery without angina pectoris (principal); I25.5 Ischemic cardiomyopathy; I12.9 Hypertensive chronic kidney disease with stage 1 through stage 4 chronic kidney disease, or unspecified chronic kidney disease; N18.9 Chronic kidney disease, unspecified; I87.2 Venous insufficiency (chronic) (peripheral) | CPT/HCPCS: 99203; 99214 ==

== ENCOUNTER 2021-10-03 10:26 | Inpatient (IN) | payer MEDICARE, SELFPAY ==
[2021-10-03] VITALS (39 sets, daily range): BP systolic 103–159; BP diastolic 37–101; PULSE 91–108; RESP 6–42; TEMP 37–39.5; O2SAT 93–99
--- NOTE | 2021-10-03 10:15 | RT.EKG_ITS ---
APPROVED REPORT Exam: Resting ECG Reason for Exam: weakness Patient Location: E HR:95 bpm ECG Measurements Heart Rate 95 AXIS UT 166 P -14 QRSd 96 QRS 8 QT 332 T 65 QTc 418 Conclusion Sinus rhythm...normal P axis, V-rate 60- 99 Low voltage, precordial leads...precordial leads <1.0mV
--- NOTE | 2021-10-03 10:30 | DI.RAD_ITS ---
Exam(s) XR CHEST 2V PA LATERAL EXAM: XR CHEST 2V PA LATERAL CLINICAL HISTORY: weakness, dry cough TECHNIQUE: 2D digital imaging was performed. COMPARISON: CR,XR XR CHEST 2V PA LATERAL from 09/21/2020 FINDINGS: AP view limited by overlying abdominal soft tissues at the lung bases. The heart appears enlarged, u nchanged. Calcification is seen at the aortic arch. Lungs are grossly clear. Degenerative changes are noted in the shoulders and spine. IMPRESSION: Limited exam. No gross acute abnormality. DATA REPOSITORY: RADIATION DOSE DELIVERED:
--- NOTE | 2021-10-03 10:40 | ED.GENADUL_ITS ---
Discharge Plan Disposition Patient Disposition: [facility] IN[facility]IENT Condition: Serious Discharge Details Clinical Impression: Non-ST elevation LA (NSTEMI), Pyelonephritis Primary Care Provider: Jocelin Martinez ED Provider: Lion Donohue Home Meds and New Rx's Prescriptions: No Action losartan 25 mg tablet 25 mg PO DAILY Qty: 90 RF: 4 Hold Instructions: Hyperkalemia atorvastatin [Lipitor] 40 mg tablet 40 mg PO QPM Qty: 90 RF: 4 carvedilol 3.125 mg tablet 3.125 mg PO BID Qty: 180 RF: 4 furosemide 40 mg tablet 40 mg PO DAILY Qty: 90 RF: 4 Hold Instructions: Home Medication placed on hold at Doctor's office clotrimazole 1 % cream 1 applic topical BID Qty: 45 RF: 0 furosemide 20 mg tablet 20 mg PO DAILY Qty: 90 RF: 4 aspirin 81 mg tablet,delayed release (DR/EC) 81 mg PO DAILY Qty: 100 RF: 0 (DME) FreeStyle Test Strip 1 ea Miscellaneous BID Qty: 360 RF: 4 Lantus Solostar U-100 Insulin 100 unit/mL (3 mL) insulin pen 12 unit subcut DAILY Qty: 15 RF: 5 insulin lispro [Humalog KwikPen Insulin] 100 unit/mL insulin pen See Rx Instructions SC AC Qty: 15 RF: 4 (DME) pen needle, diabetic [Comfort EZ Pen [place]] 31 gauge x 5/16 needle See Dose Instructions .ROUTE .MEDSUPPLY Qty: 1200 RF: 4 nitroglycerin [Nitrostat] 0.4 mg Tablet, Sublingual 0.4 mg sublingual Q5 MIN PRN X3 PRNQty: 20 RF: 0 Medical Decision Making 81-year-old female who lives alone. Brought by EMS for generalized weakness over 1 week's time. Denies change to diet, stool, or urine. She has had a dry cough but no fever, chest pain or shortness of breath. She slipped and fell yesterday at home and was assisted by EMS. She denies injury from that. She has been following at the [facility] wound service for slow healing right lower extremity ulcers which she states are improving. She noted this week increased stress due to family stressors and also that her glucose has been elevated to the 300s. Patient arrives to ER pleasant, alert and interactive. She has a resting pulse in the high 90s, otherwise normal vital signs with 98% oxygenation on room air. Records reviewed noting non-STEMI with a CHF exacerbation in August 2020. Patient underwent a follow-up MPI which revealed septal and apical infarct. Today, differential diagnosis is broad including metabolic abnormality, UTI, electrolyte changes, occult LA. Patient had IV established was placed on a computer repair instructor, referred for screening laboratories and chest x-ray. EKG reveals sinus rhythm with previously demonstrated inferior Q waves. Laboratories noted a white count of 24, hematocrit 26.9, platelets 222. Chemistries with BUN 87, creatinine 4.0 which are elevated over recent baseline of BUN 56 and creatinine 2.5. Glucose 264. Troponin I is 1412 ng/L. BNP> 96681 UA with + LE, WBC, mixed cells. Possible UTI. Chest x-ray with questionable left base opacity representing atelectasis or pneumonia. Patient had taken her morning medications including insulin and 81 mg of aspirin. She was given an additional 162 mg of aspirin. The patient states to me that she wishes to be DNR, DNI. States she is not sure if she would want an invasive procedure such as cardiac catheterization. Case discussed with Dr. Hahn of [facility] cardiology. He states he favors demand ischemia versus true acute infarction, and states that slightly multifactorial including some stress from mild anemia. He recommends medical management with trending of cardiac troponins and EKG. He states he would consider transfusion and to judge clerk volume status by clinical presentation rather than elevated BNP which may be falsely elevated due to acute renal insufficiency. He states he would not recommend further anticoagulation at this time with Lovenox or heparin. He states he would recommend admission, conservative management, follow-up echocardiogram. Patient given ceftriaxone for probable urinary tract infection, referred for noncontrast CT imaging to rule out obstructive pyelonephritis. This reveals known and persistent renal calculi with new evidence of emphysematous pyelonephritis. The patient states to me she would not want transfer or invasive procedures such as percutaneous nephrostomy tube, surgery, or cardiac catheterization. She states to me she would want antibiotics and fluids. She states she may even consider comfort measures only, but not yet at this time. Given the patient's wishes, the case was discussed with the father for the list service and patient to be admitted. HPI General Mode of arrival: EMS . Date/Time Provider Initiated Documentation: 10/03/21 10:26 . Limitations to Documentation: no limitations . Information obtained by: patient and EMS . History of Present Illness 81 year old F presents to the emergency department with the chief complaint of Generalized weakness, described as moderate, Quality is described as constant, Patient started experiencing this day(s) and it has been constant. No relieving factors improve symptom(s), No exacerbating factors reported . Patient notes weakness; denies chest pain, fever/chills, headaches, loss of appetite, rash, shortness of breath and syncope. Patient did receive the following treatments prior to arrival, none Related Data Home Medications Medication Instructions Recorded Confirmed nitroglycerin [Nitrostat] 0.4 mg SUBLINGUAL Q5 MIN PRN X3 09/23/20 10/03/21 PRN #20 tab atorvastatin 40 mg tablet 40 mg PO QPM #90 tab 11/03/20 10/03/21 carvedilol 3.125 mg tablet 3.125 mg PO BID #180 tab 11/03/20 10/03/21 losartan 25 mg tablet 25 mg PO DAILY #90 tab 11/03/20 10/03/21 clotrimazole 1 % topical cream 1 applic TOPICAL BID #45 g 03/09/21 10/03/21 furosemide 40 mg tablet 40 mg PO DAILY #90 tab 03/09/21 10/03/21 furosemide 20 mg tablet 20 mg PO DAILY #90 tab 06/12/21 10/03/21 aspirin 81 mg tablet,delayed 81 mg PO DAILY #100 tab 08/03/21 10/03/21 release blood sugar diagnostic #360 strip 08/03/21 10/03/21 insulin glargine 100 unit/mL (3 12 unit SUBCUT DAILY #15 ml 08/03/21 10/03/21 mL) subcutaneous pen insulin lispro 100 unit/mL See Rx Instructions SC AC #15 ml 08/03/21 10/03/21 subcutaneous pen pen needle, diabetic 31 gauge x #1200 ea 08/03/21 10/03/2102/08 Previous Rx's Medication Instructions Recorded nitroglycerin [Nitrostat] 0.4 mg SUBLINGUAL Q5 MIN PRN X3 09/23/20 PRN #20 tab atorvastatin 40 mg tablet 40 mg PO QPM #90 tab 11/03/20 carvedilol 3.125 mg tablet 3.125 mg PO BID #180 tab 02/08/21 losartan 25 mg tablet 25 mg PO DAILY #90 tab 11/03/20 clotrimazole 1 % topical cream 1 applic TOPICAL BID #45 g 03/09/21 furosemide 40 mg tablet 40 mg PO DAILY #90 tab 03/09/21 furosemide 20 mg tablet 20 mg PO DAILY #90 tab 06/12/21 aspirin 81 mg tablet,delayed 81 mg PO DAILY #100 tab 08/03/21 release blood sugar diagnostic #360 strip 08/03/21 insulin glargine 100 unit/mL (3 12 unit SUBCUT DAILY #15 ml 08/03/21 mL) subcutaneous pen insulin lispro 100 unit/mL See Rx Instructions SC AC #15 ml 08/03/21 subcutaneous pen pen needle, diabetic 31 gauge x #1200 ea 08/03/2102/08 Allergies Allergy/AdvReac Type Severity Reaction Status Date / Time Penicillins Allergy Unknown Verified 10/03/21 10:34 hydrocodone AdvReac Intermediate Nausea Verified 10/03/21 10:34 General Stated Complaint: GenMedical TAMMIE: 3 Review of Systems Narrative: Fell in the bathroom without injury yesterday, was assisted with EMS. Denies back/neck/chest/extremity pain. No recent illness. Reports increased stress in her life and elevated glucose this week to 300s. 8 systems reviewed and otherwise negative. PFSH All Active Problems (Updated 10/03/21 @ 14:19 by Lion Donohue MD) Non-ST elevation LA (NSTEMI) (Acute) Pyelonephritis (Acute) Coronary artery disease (Chronic) Heart failure with reduced ejection fraction (Chronic) Ischemic cardiomyopathy (Acute) Chronic kidney disease (Chronic) Type 2 diabetes mellitus (Chronic) Essential hypertension (Chronic) Venous insufficiency (Acute) Peripheral edema (Acute) Drainage from surgical wound (Acute) Osteoarthritis of right hip (Acute) Primary osteoarthritis of right knee (Chronic) Most recent injection: 08/06/2019 Primary osteoarthritis of left knee (Chronic) Most recent injection: 08/06/2019 Medical History Myocardial infarction (~08/2020) Apical and septal infarct Perforated duodenal ulcer (~12/2020) Syncope Related to use of lisinopril occurring both at rest while having her hair washed in beauty parlor as well as occurring while ambulating. None have occurred since cessation of her lisinopril Surgical History S/P exploratory laparotomy (01/18/21) [place] patch for perforated duodenal ulcer Family History Mother , AGE 78 Diabetes Father No problems noted. 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 Pleasant, well groomed, interactive. HEAD: Normocephalic, atraumatic ENT: Mucous membranes moist, oropharynx unremarkable, External ear exam unremarkable EYES: PERRL, EOMI NECK: Full ROM, no JYOTI, no menigismus CHEST/RESP: Nontender, clear to auscultation bilateral, no wheeze/rhonchi/rales CARDIOVASCULAR: RRR, no murmur, rub autumn. 2+ Rad pulse bilateral ABDOMEN: Soft, nontender, no mass. +Bowel sounds EXT: Full ROM, no edema, right lower extremity dressed, clean dry and intact, no warmth or erythema. Neuro: Grossly normal neurologic exam, conversant, interactive. Psych: Speech fluent, thoughts congruent, affect normal Course Vital Signs Vital signs: Vital Signs Temperature 37 C 10/03/21 10:27 Pulse 99 H 10/03/21 10:27 Respiratory Rate 20 10/03/21 10:27 Blood Pressure 120/47 L 10/03/21 10:27 Pulse Oximetry 97 10/03/21 10:27 Temperature 37 C 10/03/21 10:27 Temperature Source Temporal Artery Scan 10/03/21 10:27 Pulse 99 H 10/03/21 10:27 Respiratory Rate 20 10/03/21 10:27 Respiratory Effort Non-Labored 10/03/21 10:32 Blood Pressure 120/47 L 10/03/21 10:27 Blood Pressure Position Supine 10/03/21 10:27 Pulse Oximetry 97 10/03/21 10:27 Oxygen Delivery Method Room Air 10/03/21 10:27 Oxygen Flow Rate 0 10/03/21 10:27 Pain Level 0 10/03/21 10:27
[2021-10-03] MEDS: Normal Saline 500 ML IV (11:05)
[2021-10-03] MEDS: Normal Saline Flush 10 ML SYR IVP ×3 (11:05→20:13)
[2021-10-03 11:27] LABS: HCT 26.9 % (36.0-46.0); HGB 8.4 g/dL (11.2-15.7); MCH 32.2 pg (27.0-33.0); MCHC 31.2 % (32.0-36.0); MCV 103.1 fL (80-95); MPV 11.2 fL (8.0-11.0); Nucleated RBC 0 %; Platelet Count 222 10^3/uL (130-400); RBC 2.61 10^6/uL (3.93-5.22); RDW 15.6 % (11.7-14.6); RDW-SD 59.6 fL; WBC 24.52 10^3/uL (4.4-10.8)
[2021-10-03 11:29] LABS: Bilirubin Negative (Negative); Blood Moderate (Negative); Clarity Sl Cloudy (Clear); Glucose Negative (Negative); Ketones Negative (Negative); Leukocyte Esterase Moderate (Negative); Nitrite Negative (Negative); Urobilinogen 0.2 EU/dL (Up TO 0.2); pH 5.5 (5-8)
[2021-10-03 11:32] LABS: ALT 27 U/L (14-59); AST 23 U/L (15-37); Albumin 2.8 g/dL (3.4-5.0); Alkaline Phosphatase 106 U/L (46-116); Anion Gap 13.6 mmol/L (3-11); Bilirubin, Total 0.7 mg/dL (0.2-1.0); CO2 20.4 mmol/L (21.0-32.0); Calcium 8.5 mg/dL (8.5-10.1); Chloride 100 mmol/L (98-107); Estimated GFR 10.72 (mL/min/1.73m2); Glucose 264 mg/dL (74-106); Magnesium 1.7 mg/dL (1.8-2.4); Sodium 134 mmol/L (136-145)
[2021-10-03 11:41] LABS: Bacteria Few HPF (Negative); C & S Indicated? Yes; Casts 3-5 Hyaline LPF (Negative); Crystals Negative HPF (Negative); Epithelial Cells Few HPF (Negative); Mucus Negative (Negative); WBC >50 HPF (0-5)
[2021-10-03 11:45] LABS: Absolute Lymphocyte Count 1.47 10^3/uL (1.2-3.4); Absolute Monocyte Count 0.25 10^3/uL (0.1-0.8); Bands % 3; Diff Comment Manual Differential; Macrocytosis 2+
--- NOTE | 2021-10-03 12:20 | DI.VRAD_ITS ---
PROCEDURE INFORMATION: Exam: XR Chest Exam date and time: 10/03/2021 10:40 AM Age: 81 years old Clinical indication: Patient HX: Weakness, dry cough TECHNIQUE: Imaging protocol: XR of the chest. Views: 2 views. COMPARISON: CR XR CHEST 2V PA LATERAL 09/21/2020 1:21 PM FINDINGS: Lungs: Opacity in the left base Pleural spaces: Unremarkable. No pleural effusion. No pneumothorax. Heart/Mediastinum: Cardiomegaly Bones/joints: Unremarkable. IMPRESSION: Opacity in the left base may represent atelectasis or pneumonia. Dictated and Authenticated by: Merrill Wall MD. Ordering:JULIO Seymour MD
[2021-10-03] MEDS: Aspirin 81 MG CHEW (12:23)
[2021-10-03 12:25] LABS: Source Nasal/Nares
[2021-10-03 12:51] LABS: NT-proBNP > 35000 pg/mL (<300)
--- NOTE | 2021-10-03 13:00 | DI.CT_ITS ---
Exam(s) CT RENAL COLIC WO EXAM: CT RENAL COLIC WO CLINICAL HISTORY: gen weaknes, UTI, ?pyelo. TECHNIQUE: Imaging Protocol: Axial computed tomography images with coronal and sagittal reformatted images were created and reviewed. CONTRAST MATERIAL: Noncontrast COMPARISON: CT CT ABDOMEN PELVIS WO from 05/20/2021 FINDINGS: Exam is somewhat limited by motion. ABDOMEN: Lung Bases: Significant motion. Small hiatal hernia. Liver: Normal attenuation. No measurable mass. Gallbladder and biliary tract: No radiodense calculus or dilation. Pancreas: Normal density, no calcifications or inflammatory process. Spleen: Normal. Kidneys: Right: Small nonobstructing stone. No change mild dilatation of the renal pelvis. Left: La rge staghorn calculus. Parenchymal atrophy. There is now air within the collecting system suspiciou s for emphysematous pyelonephritis. Adrenal glands: No masses seen. Abdominal Aorta: Abdominal portion non-dilated. Abdominal wall: New hernia near the umbilicus containing a loop of nonobstructed bowel. PELVIS: Bladder: Symmetric distention, no gross wall thickening. There is air present within the bladder. Bowel: Diverticulosis. No evidence of diverticulitis. No obstruction or bowel wall thickening. Peritoneal cavity: No ascites, collection or mesenteric inflammatory response. Reproductive: Stable 4 centimeter left ovarian cyst. Bones: Within normal limits. IMPRESSION: Previously noted left staghorn calculus. Now there is air within the left collecting system suspicio us for emphysematous pyelonephritis. There is also seen within the urinary bladder. New nonobstructed hernia containing loop of bowel at the level of the umbilicus. RADIATION DOSE DELIVERED: 1,268.12mGy.cm Total DLP DATA REPOSITORY: All CT scans at this facility are submitted to the National Radiology Data Registry (NRDR) Dose Index Registry (DIR) with the [employer] (ACR). RADIATION OPTIMIZATION: All CT scans at this facility use at least one of these dose optimization te chniques: automated exposure control; mA and/or kV adjustment per patient size (includes targeted exa ms where dose is matched to clinical indication); or iterative reconstruction.
[2021-10-03] MEDS: cefTRIAXone 1 GM/50 ML BAG IVPB (13:15)
[2021-10-03 13:22] LABS: Lactate 1.2 mmol/L (0.6-1.4)
--- NOTE | 2021-10-03 14:00 | RT.EKG_ITS ---
APPROVED REPORT Exam: Resting ECG Reason for Exam: followup Patient Location: E HR:99 bpm ECG Measurements Heart Rate 99 AXIS ID 133 P 16 QRSd 76 QRS -15 QT 306 T 19 QTc 394 Conclusion Sinus rhythm...normal P axis, V-rate 60- 99 Inferior infarct, old...Q >35mS, II III aVF
--- NOTE | 2021-10-03 14:05 | DI.VRAD_ITS ---
PROCEDURE INFORMATION: Exam: CT Abdomen And Pelvis Without Contrast Exam date and time: 10/03/2021 1:07 PM Age: 81 years old Clinical indication: Other: Gen weaknes, UTI, ? pyelo TECHNIQUE: Imaging protocol: Computed tomography of the abdomen and pelvis without contrast. COMPARISON: CT ABDOMEN PELVIS WO 05/20/2021 9:13 AM FINDINGS: Diaphragm: Small hiatal hernia Liver: Normal. No mass. Gallbladder and bile ducts: Normal. No calcified stones. No ductal dilation. Pancreas: Normal. No ductal dilation. Spleen: Normal. No splenomegaly. Adrenal glands: Normal. No mass. Kidneys and ureters: Stable calcifications in the left collecting system. A calcific densities extend into the proximal left ureter. This was present on the prior study. Air within the left collecting system may indicate procedure or infection.. Dr. Deutsch states the patient has not had a procedure and is diabetic; consequently this could represent emphysematous pyelonephritis. Dilatation of the right collecting system was present on the prior study and is stable. Nonobstructing right renal calculi. Stomach and bowel: Diverticulosis of the rectosigmoid. No yumiko diverticulitis. Appendix: No evidence of appendicitis. Intraperitoneal space: Unremarkable. No free air. No significant fluid collection. Vasculature: Unremarkable. No abdominal aortic aneurysm. Lymph nodes: Unremarkable. No enlarged lymph nodes. Urinary bladder: There is air within the bladder. This may reflect instrumentation or infection. Reproductive: 4 cm simple cyst left ovary. Bones/joints: Unremarkable. No acute fracture. Soft tissues: Newly developed ventral hernia contains bowel. Series 2, image 82.. Other findings: Motion artifact degrades images IMPRESSION: 1. Stable calcifications in the left collecting system. A calcific densities extend into the proximal left ureter. This was present on the prior study. Air within the left collecting system may indicate procedure or infection.. Dr. Deutsch states the patient has not had a procedure and is diabetic; consequently this could represent emphysematous pyelonephritis. 2. 4 cm simple cyst left ovary. 3. Newly developed ventral hernia contains bowel. Series 2, image 82.. 4. Dilatation of the right collecting system was present on the prior study and is stable. Nonobstructing right renal calculi. THIS REPORT CONTAINS FINDINGS THAT MAY BE CRITICAL TO PATIENT CARE. The findings were verbally communicated via telephone conference with GORDO DEUTSCH at 2:01PM EST on 10/03/2021. The findings were acknowledged and understood. Dictated and Authenticated by: Merrill Wall MD. Ordering:JULIO Seymour MD
[2021-10-03 14:38] LABS: BUN 87 mg/dL (7-18)
[2021-10-03 14:40] LABS: Troponin I 1412 ng/L (<or=60)
[2021-10-03 15:24] LABS: COVID-19 PCR Negative (Negative)
--- NOTE | 2021-10-03 15:31 | W.PM.HP.N ---
Date of service: 10/03/21 Time of Service: 15:00 Assessment and Plan Assessment and plan (1) Sepsis: Start date: 10/03/21 Start time: 16:39 Status: Suspected Assessment and plan: Patient severely toxic, likely septic due to emphysematous pyelonephritis. Qualifiers: Sepsis type: sepsis due to unspecified organism Sepsis acute organ dysfunction status: with acute organ dysfunction Severe sepsis acute organ dysfunction type: acute renal failure Severe sepsis shock status: without septic shock Acute renal failure type: with other specified pathological lesion Qualified Code(s): A41.9 - Sepsis, unspecified organism; R65.20 - Severe sepsis without septic shock; N17.8 - Other acute kidney failure (2) Emphysematous pyelonephritis: Start date: 10/03/21 Start time: 15:53 Status: Acute Assessment and plan: Found on CT with WBC of 24 BUN and Creatinine of 80 and 4, with emphysematous pyelonephritis. Patient has decided on aggressive treatment after telling the ED she did not, will work on tx to tertiary center. For now will place on vanco and ceftriaxone as she is likely septic [place] [address] (3) Non-ST elevation TN (NSTEMI): Start date: 10/03/21 Start time: 16:07 Status: Acute Assessment and plan: Based on elevated trop and two ekgs with depression, she had fallen several times through out the last couple weeks d/t weakness (4) Pyelonephritis: Start date: 10/03/21 Start time: 16:11 Status: Acute Assessment and plan: as above (5) Acute on chronic kidney failure: Start date: 10/03/21 Start time: 16:32 Status: Acute Assessment and plan: d/t above with severe (6) Falls frequently: Start date: 10/03/21 Start time: 16:42 Status: Acute Assessment and plan: Likely d/t infection and NSTEMI, more frequent falls, (7) Weakness: Start date: 10/03/21 Start time: 16:43 Status: Acute Assessment and plan: as above (8) CAP (community acquired pneumonia): Start date: 10/03/21 Start time: 16:43 Status: Acute Assessment and plan: Found on imaging prior to admission (9) UTI (urinary tract infection): Start date: 10/03/21 Start time: 16:57 Status: Acute Assessment and plan: With leuk est with blood and greater than 50 wbc, as above. discussed with Dr Puentes. History of Present Illness History of Present Illness Chief Complaint: Weakness, Kidney infection, UTI, pneumonia Narrative: 81 y.o female presents to [facility] after feeling weak, she has had several falls over the last week. She is seen in weeks for wound care to her RLE. Labs in ED reveal WBC of 24, Hgb 8.4, Hct 26.9, Sodium 134, K 5.0, Carbon dioxide 20.4, Anion gap 13.6, BUN 87, careatinine 4.o with glucose 2664. [place] [address]. U/A with moderate leuk est, blood, and greater than [address]. Patient [address] with [address] Donohue in the ED and did not wish to have aggressive measures, she wanted only antibiotics and IVF. Unfortunatly at this time, the patient is in Kidney failure, likely septic, CXR reveals pneumonia, CT reveals emphysematous pyelonephritis. Unless drained this will not be able to be treated. Patient expressed to ED provider she did not wish for any aggressive treatment such as tubes or drains. She was considering OFFICE SUPPORT SPECIALIST. For this reason she was asked to be admitted for further management. At this time she has decided she wants full treatment. With that said she requires tirteray care. She is febrile. Requires a drain to left kidney. She has been accepted [facility] care of Dr. Flores for further management. Review of Systems All systems reviewed & are unremarkable except as noted in HPI and below PFSH All Active Problems (Updated 10/03/21 @ 16:42 by Eliz Reina NP) UTI (urinary tract infection) (Acute) CAP (community acquired pneumonia) (Acute) Weakness (Acute) Falls frequently (Acute) Emphysematous pyelonephritis (Acute) Acute on chronic kidney failure (Acute) Non-ST elevation TN (NSTEMI) (Acute) Pyelonephritis (Acute) Coronary artery disease (Chronic) Heart failure with reduced ejection fraction (Chronic) Ischemic cardiomyopathy (Acute) Chronic kidney disease (Chronic) Type 2 diabetes mellitus (Chronic) Essential hypertension (Chronic) Venous insufficiency (Acute) Peripheral edema (Acute) Drainage from surgical wound (Acute) Osteoarthritis of right hip (Acute) Primary osteoarthritis of right knee (Chronic) Most recent injection: 08/06/2019 Primary osteoarthritis of left knee (Chronic) Most recent injection: 08/06/2019 Medical History Myocardial infarction (~08/2020) Apical and septal infarct Perforated duodenal ulcer (~12/2020) Syncope Related to use of lisinopril occurring both at rest while having her hair washed in beauty parlor as well as occurring while ambulating. None have occurred since cessation of her lisinopril Surgical History S/P exploratory laparotomy (01/18/21) [place] patch for perforated duodenal ulcer Family History Mother , AGE 78 Diabetes Father No problems noted. 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 Pets and animals: No Current gender identity: female What type of physical activity do you participate in: walking Duration: decline to answer Frequency: 3-4 times per week Sonia/Hindu: Restorationist Special sonia needs: No Do you feel safe at home: Yes Do you feel safe in your relationship?: Yes Additional Social history: lives alone Meds Allergies and Home Medications Allergies Allergy/AdvReac Type Severity Reaction Status Date / Time Penicillins Allergy Unknown Verified 10/03/21 10:34 hydrocodone AdvReac Intermediate Nausea Verified 10/03/21 10:34 Home Medications Medication Instructions Recorded Confirmed Type nitroglycerin [Nitrostat] 0.4 mg SUBLINGUAL Q5 MIN PRN X3 09/23/20 10/03/21 Rx PRN #20 tab atorvastatin 40 mg tablet 40 mg PO QPM #90 tab 11/03/20 10/03/21 Rx carvedilol 3.125 mg tablet 3.125 mg PO BID #180 tab 11/03/20 10/03/21 Rx losartan 25 mg tablet 25 mg PO DAILY #90 tab 11/03/20 10/03/21 Rx clotrimazole 1 % topical cream 1 applic TOPICAL BID #45 g 03/09/21 10/03/21 Rx furosemide 40 mg tablet 40 mg PO DAILY #90 tab 03/09/21 10/03/21 Rx furosemide 20 mg tablet 20 mg PO DAILY #90 tab 06/12/21 10/03/21 Rx aspirin 81 mg tablet,delayed 81 mg PO DAILY #100 tab 08/03/21 10/03/21 Rx release blood sugar diagnostic #360 strip 08/03/21 10/03/21 Rx insulin glargine 100 unit/mL (3 12 unit SUBCUT DAILY #15 ml 08/03/21 10/03/21 Rx mL) subcutaneous pen insulin lispro 100 unit/mL See Rx Instructions SC AC #15 ml 08/03/21 10/03/21 Rx subcutaneous pen pen needle, diabetic 31 gauge x #1200 ea 08/03/21 10/03/21 Rx 5/16 Exam Const General: cooperative, comfortable and no acute distress Nutritional Appearance: obese Orientation: alert, awake and oriented x3 Eyes Eyelids: eyelids normal Pupils: PERRL EOM: EOM intact bilaterally Neck Neck: normal visual inspection and no JVD Lymphatic: no lymphadenopathy noted Resp Effort & Inspection: normal respiratory effort Auscultation: clear to auscultation bilaterally Cardio Jugular venous pressure: no JVD Rhythm: regular rhythm Heart Sounds: S1 normal GI Auscultation: normal bowel sounds General: No bimanual renal exam normal bilaterally, CVA tenderness (worse on the left side compared to the right side. ) bilaterally and deferred Skin General skin exam: rashes and/or lesions noted Wounds: wounds noted (to right leg. ) Neuro General: patient alert, patient awake and patient oriented x3 Cognition: normal cognition Speech: speech normal Gait: normal gait Extrem General: normal to inspection, full ROM and no clubbing, cyanosis or edema Results Labs Result diagrams: 10/03/21 11:05 10/03/21 11:05 Labs: Laboratory Results - last 24 hr 10/03/21 10/03/21 10/03/21 11:05 11:05 11:05 WBC 24.52 H RBC 2.61 L Hgb 8.4 L Hct 26.9 L MCV 103.1 H MCH 32.2 MCHC 31.2 L RDW 15.6 H Plt Count 222 MPV 11.2 H Immature Gran % 0.0 Neutrophils % 90.0 Band Neutrophils % 3 Lymphocytes % 6.0 Monocytes % 1.0 Eosinophils % 0.0 Basophils % 0.0 Nucleated RBC % 0 Absolute Neutrophils 22.80 H Absolute Lymphocytes 1.47 Absolute Monocytes 0.25 Absolute Eosinophils 0.00 Absolute Basophils 0.00 RBC Morphology See Below Macrocytosis 2+ VBG Lactate Sodium 134 L Potassium 5.0 Chloride 100 Carbon Dioxide 20.4 L Anion Gap 13.6 H BUN 87 H* Creatinine 4.0 H* Estimated GFR/1.73 m2 10.72 Glucose 264 H Calcium 8.5 Magnesium 1.7 L Total Bilirubin 0.7 AST 23 ALT 27 Alkaline Phosphatase 106 Troponin I 1412 H* NT-Pro-B Natriuret Pep > 20776 H Total Protein 8.0 Albumin 2.8 L Urine Color Urine Clarity Urine pH Ur Specific [place] Urine Protein Urine Ketones Urine Blood Urine Nitrite Urine Bilirubin Urine Urobilinogen Ur Leukocyte Esterase Urine RBC Urine WBC Ur Epithelial Cells Urine Crystals Urine Bacteria Urine Casts Urine Mucus Ur Culture Indicated? Urine Glucose COVID-19 Source SARS-CoV-2 (PCR) 10/03/21 10/03/21 10/03/21 11:20 12:12 13:17 WBC RBC Hgb Hct MCV MCH MCHC RDW Plt Count MPV Immature Gran % Neutrophils % Band Neutrophils % Lymphocytes % Monocytes % Eosinophils % Basophils % Nucleated RBC % Absolute Neutrophils Absolute Lymphocytes Absolute Monocytes Absolute Eosinophils Absolute Basophils RBC Morphology Macrocytosis VBG Lactate 1.2 Sodium Potassium Chloride Carbon Dioxide Anion Gap BUN Creatinine Estimated GFR/1.73 m2 Glucose Calcium Magnesium Total Bilirubin AST ALT Alkaline Phosphatase Troponin I NT-Pro-B Natriuret Pep Total Protein Albumin Urine Color Yellow Urine Clarity Sl Cloudy Urine pH 5.5 Ur Specific [place] 1.020 Urine Protein 100 H Urine Ketones Negative Urine Blood Moderate H Urine Nitrite Negative Urine Bilirubin Negative Urine Urobilinogen 0.2 Ur Leukocyte Esterase Moderate H Urine RBC 10-20 H Urine WBC >50 H Ur Epithelial Cells Few Urine Crystals Negative Urine Bacteria Few Urine Casts 3-5 Hyaline Urine Mucus Negative Ur Culture Indicated? Yes Urine Glucose Negative COVID-19 Source Nasal/Nares SARS-CoV-2 (PCR) Negative Last Vital Signs Temp 37 C 10/03/21 10:27 Pulse 103 H 10/03/21 14:01 Resp 23 10/03/21 14:40 BP 159/67 H 10/03/21 14:01 Pulse Ox 99 10/03/21 14:20
[2021-10-03 15:40] LABS: Troponin I 921 ng/L (<or=60)
--- NOTE | 2021-10-03 15:55 | WOUNDCARE ---
Wound Care Report Patient was reported to have wounds upon admission. I noted that patient had a Coflex 2 layer compression on the right lower extremity when she arrived here on the floor. I introduced myself to the patient and offered to look at the leg as a wound consultation. Patient stated that she did not want to have anyone else other than weeks look at the wounds, as she did not want to offend them. she also stated the dressing was approaching time to be changed and was concerned about that. I offered to have [facility] contacted Tuesday morning and have her notes and orders sent here for nursing here to perform the treatment. In the meantime,I told the patient if she changes her mind and would like to have wound nursing here look at the leg, to just ask.
--- NOTE | 2021-10-03 17:05 | DSE_ITS ---
Date of service: 10/03/21 Time of Service: 17:05 DS: Diagnosis Discharge Diagnosis (1) Sepsis: Start date: 10/03/21 Start time: 17:05 Status: Suspected Asessment and Plan: Patient severely toxic, likely septic due to emphysematous pyelonephritis. Due to how sick patient is and nature of patient illness, also that she has decided she know wants aggressive treatment she is being tx to [facility] in care of Dr. Flores. (2) Emphysematous pyelonephritis: Start date: 10/03/21 Start time: 17:07 Status: Acute Asessment and Plan: as above Will require a drain Found on CT with WBC of 24 BUN and Creatinine of 80 and 4, with emphysematous pyelonephritis. Patient has decided on aggressive treatment after telling the ED she did not, will work on tx to tertiary center. For now will place on vanco and ceftriaxone as [place] is likely [place] [address] LR at 100 (3) Non-ST elevation SD (NSTEMI): Start date: 10/03/21 Start time: 17:09 Status: Acute Asessment and Plan: Based on elevated trop and two ekgs with depression, she had fallen several times through out the last couple weeks d/t weakness (4) Pyelonephritis: Start date: 10/03/21 Start time: 17:09 Status: Acute Asessment and Plan: Based on elevated trop and two ekgs with depression, she had fallen several times through out the last couple weeks d/t weakness (5) Acute on chronic kidney failure: Start date: 10/03/21 Start time: 17:09 Status: Acute Asessment and Plan: d/t above with severe (6) Falls frequently: Start date: 10/03/21 Start time: 17:10 Status: Acute Asessment and Plan: Likely d/t infection and NSTEMI, more frequent falls, (7) Weakness: Start date: 10/03/21 Start time: 17:10 Status: Acute Asessment and Plan: Likely d/t infection and NSTEMI, more frequent falls, (8) CAP (community acquired pneumonia): Start date: 10/03/21 Start time: 17:11 Status: Acute Asessment and Plan: Found prior to admission on Cxr on ceftriaxone and vanco per above (9) UTI (urinary tract infection): Start date: 10/03/21 Start time: 17:13 Status: Acute Asessment and Plan: Found prior to admission, as above discussed with Dr. Puentes Discharge Plan Disposition Patient Disposition: [facility] Condition: Serious Discharge Details Reason For Visit: Weakness, Renal infection, UTI, FTT Admit Date/Time: 10/03/21 14:19 Admit Provider: Maya Puentes Attending Provider: Maya Puentes Primary Care Provider: MichelleLaird Hospital Course Hospital Course: 81 y.o female presents to [facility] after feeling weak, she has had several falls over the last week. She is seen in weeks for wound care to her RLE. Labs in ED reveal WBC of 24, Hgb 8.4, Hct 26.9, Sodium 134, K 5.0, Carbon dioxide 20.4, Anion gap 13.6, BUN 87, careatinine 4.o with glucose 2664. [place] [address]. U/A with moderate leuk est, blood, and greater than [address] Patient [address] with [address] Donohue in the ED and did not wish to have aggressive measures, she wanted only antibiotics and IVF. Unfortunatly at this time, the patient is in Kidney failure, likely septic, CXR reveals pneumonia, CT reveals emphysematous pyelonephritis. Unless drained this will not be able to be treated. Patient expressed to ED provider she did not wish for any aggressive treatment such as tubes or drains. She was considering [employer]. For this reason she was asked to be admitted for further management. At this time she has decided she wants full treatment. With that said she requires tirteray care. She is febrile. Requires a drain to left kidney. She has been accepted [facility] care of Dr. Flores for further management. Home Meds and New Rx's Prescriptions: No Action losartan 25 mg tablet 25 mg PO DAILY Qty: 90 RF: 4 Hold Instructions: Hyperkalemia atorvastatin [Lipitor] 40 mg tablet 40 mg PO QPM Qty: 90 RF: 4 carvedilol 3.125 mg tablet 3.125 mg PO BID Qty: 180 RF: 4 furosemide 40 mg tablet 40 mg PO DAILY Qty: 90 RF: 4 Hold Instructions: Home Medication placed on hold at Doctor's office clotrimazole 1 % cream 1 applic topical BID Qty: 45 RF: 0 furosemide 20 mg tablet 20 mg PO DAILY Qty: 90 RF: 4 aspirin 81 mg tablet,delayed release (DR/EC) 81 mg PO DAILY Qty: 100 RF: 0 (DME) FreeStyle Test Strip 1 ea Miscellaneous BID Qty: 360 RF: 4 Lantus Solostar U-100 Insulin 100 unit/mL (3 mL) insulin pen 12 unit subcut DAILY Qty: 15 RF: 5 insulin lispro [Humalog KwikPen Insulin] 100 unit/mL insulin pen See Rx Instructions SC AC Qty: 15 RF: 4 (DME) pen needle, diabetic [Comfort EZ Pen [place]] 31 gauge x 5/16 needle See Dose Instructions .ROUTE .MEDSUPPLY Qty: 1200 RF: 4 nitroglycerin [Nitrostat] 0.4 mg Tablet, Sublingual 0.4 mg sublingual Q5 MIN PRN X3 PRNQty: 20 RF: 0 Discharge Instructions Additional Instructions: Transfer to [facility] Activity:: Activity as Tolerated Equipment/Supplies:: No Equipment Needed Diet:: Carb Counting Discharge Orders Discharge Orders: Discharge Order (Routine); Ordered 10/03/21 Ordered By: Eliz Reina DS: Summary Time Spent with Patient providing and/or coordinating discharge services: Less than 30 minutes Status at Discharge Functional status at discharge: bed bound Overall status at discharge: patient is progressing back to baseline Mental Status: mental status grossly normal Speech and Movement: speech and movement normal Mood: congruent mood Affect: normal affect Exam Const General: cooperative, comfortable and no acute distress Nutritional Appearance: obese Orientation: alert, awake and oriented x3 Eyes Eyelids: eyelids normal Pupils: PERRL EOM: EOM intact bilaterally Neck Neck: normal visual inspection and no JVD Lymphatic: no lymphadenopathy noted Resp Effort & Inspection: normal respiratory effort Auscultation: clear to auscultation bilaterally Cardio Jugular venous pressure: no JVD Rhythm: regular rhythm Heart Sounds: S1 normal GI Auscultation: normal bowel sounds General: No bimanual renal exam normal bilaterally, CVA tenderness (worse on the left side compared to the right side. ) bilaterally and deferred Skin General skin exam: rashes and/or lesions noted Wounds: wounds noted (to right leg. ) Neuro General: patient alert, patient awake and patient oriented x3 Cognition: normal cognition Speech: speech normal Gait: normal gait Extrem General: normal to inspection, full ROM and no clubbing, cyanosis or edema Psych Mental Status: mental status grossly normal Speech and Movement: speech and movement normal Mood: congruent mood Affect: normal affect DS: Data Vitals/I&O Vitals and I&O: Vital Signs Temperature 38.1 C H 10/03/21 15:50 Temperature Source Temporal Artery Scan 10/03/21 10:27 Pulse 103 H 10/03/21 15:50 Pulse Rhythm Regular 10/03/21 15:50 Pulse 106 H 10/03/21 14:40 Respiratory Rate 20 10/03/21 15:50 Respiratory Effort Non-Labored 10/03/21 15:50 Respiratory Depth Normal 10/03/21 15:50 Respiratory Pattern Normal 10/03/21 15:50 Blood Pressure 154/72 H 10/03/21 15:50 Blood Pressure Mean 92 10/03/21 14:01 Blood Pressure Position Supine 10/03/21 10:27 Pulse Oximetry 98 10/03/21 15:50 Oxygen Delivery Method Room Air 10/03/21 15:50 Oxygen Flow Rate 0 10/03/21 15:50 Pain Level 0 10/03/21 10:27 Intake & Output 10/02/21 10/03/21 10/03/21 23:59 11:59 23:59 Intake Total 550 / 550 Output Total 375 / 375 Balance 175 / 175 Weight 86.3 kg 86.3 kg Intake: IV 550 / 550 Output: Urine 375 / 375 Other: Urine Color Straw Urine Appearance Clear Data Completed and Pending Completed studies during hospitalization [Text1]: Exam(s) PROCEDURE INFORMATION: Exam: XR Chest Exam date and time: 10/03/2021 10:40 AM Age: 81 years old Clinical indication: Patient HX: Weakness, dry cough TECHNIQUE: Imaging protocol: XR of the chest. Views: 2 views. COMPARISON: CR XR CHEST 2V PA LATERAL 09/21/2020 1:21 PM FINDINGS: Lungs: Opacity in the left base Pleural spaces: Unremarkable. No pleural effusion. No pneumothorax. Heart/Mediastinum: Cardiomegaly Bones/joints: Unremarkable. IMPRESSION: Opacity in the left base may represent atelectasis or pneumonia. Exam(s) PROCEDURE INFORMATION: Exam: XR Chest Exam date and time: 10/03/2021 10:40 AM Age: 81 years old Clinical indication: Patient HX: Weakness, dry cough TECHNIQUE: Imaging protocol: XR of the chest. Views: 2 views. COMPARISON: CR XR CHEST 2V PA LATERAL 09/21/2020 1:21 PM FINDINGS: Lungs: Opacity in the left base Pleural spaces: Unremarkable. No pleural effusion. No pneumothorax. Heart/Mediastinum: Cardiomegaly Bones/joints: Unremarkable. IMPRESSION: Opacity in the left base may represent atelectasis or pneumonia. Labs on day of discharge: Labs from last 24 hours 10/03/21 10/03/21 10/03/21 15:04 13:17 12:12 WBC RBC Hgb Hct MCV MCH MCHC RDW Plt Count MPV Immature Gran % Neutrophils % Band Neutrophils % Lymphocytes % Monocytes % Eosinophils % Basophils % Nucleated RBC % Absolute Neutrophils Absolute Lymphocytes Absolute Monocytes Absolute Eosinophils Absolute Basophils RBC Morphology Macrocytosis VBG Lactate 1.2 Sodium Potassium Chloride Carbon Dioxide Anion Gap BUN Creatinine Estimated GFR/1.73 m2 Glucose Calcium Magnesium Total Bilirubin AST ALT Alkaline Phosphatase Troponin I 921 H* NT-Pro-B Natriuret Pep Total Protein Albumin Urine Color Urine Clarity Urine pH Ur Specific [place] Urine Protein Urine Ketones Urine Blood Urine Nitrite Urine Bilirubin Urine Urobilinogen Ur Leukocyte Esterase Urine RBC Urine WBC Ur Epithelial Cells Urine Crystals Urine Bacteria Urine Casts Urine Mucus Ur Culture Indicated? Urine Glucose COVID-19 Source Nasal/Nares SARS-CoV-2 (PCR) Negative 10/03/21 10/03/21 10/03/21 11:20 11:05 11:05 WBC 24.52 H RBC 2.61 L Hgb 8.4 L Hct 26.9 L MCV 103.1 H MCH 32.2 MCHC 31.2 L RDW 15.6 H Plt Count 222 MPV 11.2 H Immature Gran % 0.0 Neutrophils % 90.0 Band Neutrophils % 3 Lymphocytes % 6.0 Monocytes % 1.0 Eosinophils % 0.0 Basophils % 0.0 Nucleated RBC % 0 Absolute Neutrophils 22.80 H Absolute Lymphocytes 1.47 Absolute Monocytes 0.25 Absolute Eosinophils 0.00 Absolute Basophils 0.00 RBC Morphology See Below Macrocytosis 2+ VBG Lactate Sodium Potassium Chloride Carbon Dioxide Anion Gap BUN Creatinine Estimated GFR/1.73 m2 Glucose Calcium Magnesium Total Bilirubin AST ALT Alkaline Phosphatase Troponin I NT-Pro-B Natriuret Pep > 44619 H Total Protein Albumin Urine Color Yellow Urine Clarity Sl Cloudy Urine pH 5.5 Ur Specific [place] 1.020 Urine Protein 100 H Urine Ketones Negative Urine Blood Moderate H Urine Nitrite Negative Urine Bilirubin Negative Urine Urobilinogen 0.2 Ur Leukocyte Esterase Moderate H Urine RBC 10-20 H Urine WBC >50 H Ur Epithelial Cells Few Urine Crystals Negative Urine Bacteria Few Urine Casts 3-5 Hyaline Urine Mucus Negative Ur Culture Indicated? Yes Urine Glucose Negative COVID-19 Source SARS-CoV-2 (PCR) 10/03/21 11:05 WBC RBC Hgb Hct MCV MCH MCHC RDW Plt Count MPV Immature Gran % Neutrophils % Band Neutrophils % Lymphocytes % Monocytes % Eosinophils % Basophils % Nucleated RBC % Absolute Neutrophils Absolute Lymphocytes Absolute Monocytes Absolute Eosinophils Absolute Basophils RBC Morphology Macrocytosis VBG Lactate Sodium 134 L Potassium 5.0 Chloride 100 Carbon Dioxide 20.4 L Anion Gap 13.6 H BUN 87 H* Creatinine 4.0 H* Estimated GFR/1.73 m2 10.72 Glucose 264 H Calcium 8.5 Magnesium 1.7 L Total Bilirubin 0.7 AST 23 ALT 27 Alkaline Phosphatase 106 Troponin I 1412 H* NT-Pro-B Natriuret Pep Total Protein 8.0 Albumin 2.8 L Urine Color Urine Clarity Urine pH Ur Specific [place] Urine Protein Urine Ketones Urine Blood Urine Nitrite Urine Bilirubin Urine Urobilinogen Ur Leukocyte Esterase Urine RBC Urine WBC Ur Epithelial Cells Urine Crystals Urine Bacteria Urine Casts Urine Mucus Ur Culture Indicated? Urine Glucose COVID-19 Source SARS-CoV-2 (PCR) 10/03/21 15:20 Blood Blood Culture - Pending 10/03/21 15:04 Blood Blood Culture - Pending 10/03/21 11:20 Urine - Reflex from Ua Urine Culture - Pending Preliminary micro results at discharge 10/03/21 15:20 Blood Culture - Pending Blood 10/03/21 15:04 Blood Culture - Pending Blood 10/03/21 11:20 Urine Culture - Pending Urine - Reflex from [facility] All Active Problems UTI (urinary tract infection) (Acute) CAP (community acquired pneumonia) (Acute) Weakness (Acute) Falls frequently (Acute) Emphysematous pyelonephritis (Acute) Acute on chronic kidney failure (Acute) Non-ST elevation SD (NSTEMI) (Acute) Pyelonephritis (Acute) Coronary artery disease (Chronic) Heart failure with reduced ejection fraction (Chronic) Ischemic cardiomyopathy (Acute) Chronic kidney disease (Chronic) Type 2 diabetes mellitus (Chronic) Essential hypertension (Chronic) Venous insufficiency (Acute) Peripheral edema (Acute) Drainage from surgical wound (Acute) Osteoarthritis of right hip (Acute) Primary osteoarthritis of right knee (Chronic) Most recent injection: 08/06/2019 Primary osteoarthritis of left knee (Chronic) Most recent injection: 08/06/2019 Medical History Myocardial infarction (~08/2020) Apical and septal infarct Perforated duodenal ulcer (~12/2020) Syncope Related to use of lisinopril occurring both at rest while having her hair washed in beauty parlor as well as occurring while ambulating. None have occurred since cessation of her lisinopril Surgical History S/P exploratory laparotomy (01/18/21) [place] patch for perforated duodenal ulcer Family History Mother , AGE 78 Diabetes Father No problems noted. 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
[2021-10-03] MEDS: Insulin Aspart 300 UNITS/3 ML PEN SC (17:45)
[2021-10-03] MEDS: Magnesium Oxide 400 MG TAB 800 MG PO (17:46)
[2021-10-03] MEDS: Lactated Ringers 1,000 ML 100 ML IV (17:47)
[2021-10-03] MEDS: VANCOMYCIN 1,250 MG in Normal Saline 250 ML 166.667 MG IV (18:12)
[2021-10-03 18:39] LABS: C-Reactive Protein > 25.00 mg/dL (0.0-0.3)
[2021-10-03] MEDS: Acetaminophen 325 MG TAB PO (18:52)
[2021-10-03 18:58] LABS: Procalcitonin 12.2 ng/mL
[2021-10-03] MEDS: Atorvastatin 40 MG TAB PO (20:10)
[2021-10-03] MEDS: Carvedilol 3.125 MG TAB PO (20:10)
--- NOTE | 2021-10-04 12:23 | NT_ITS ---
Date of service: 10/04/21 Time of Service: 12:23 PT Notes Visit Reasons: Weakness, Renal infection, UTI, FTT Patient was transferred to [facility] on 10/03/2021 for immediate management of emphysematous pyelonephristis. No skilled PT services were provided for this admission. Thank you for the opportunity to participate in the care of this patient. Haley Wright PT, DPT, CLT [facility] [place], [place]
== END 2021-10-03 20:54 | DRG 871 ==
LOC: ER 14:43 → MS 15:38
PROVIDERS: Admitting Provider Internal Medicine; Emergency Provider Emergency Medicine; PCP Nurse Practitioner Family; Visit Provider Internal Medicine
DX: A41.9 Sepsis, unspecified organism (principal); I21.4 Non-ST elevation (NSTEMI) myocardial infarction; J18.9 Pneumonia, unspecified organism; N10 Acute pyelonephritis; I50.20 Unspecified systolic (congestive) heart failure; N17.9 Acute kidney failure, unspecified; I13.0 Hypertensive heart and chronic kidney disease with heart failure and stage 1 through stage 4 chronic kidney disease, or unspecified chronic kidney disease; R65.20 Severe sepsis without septic shock; Z79.4 Long term (current) use of insulin; D64.9 Anemia, unspecified; E11.65 Type 2 diabetes mellitus with hyperglycemia; N20.0 Calculus of kidney; I25.10 Atherosclerotic heart disease of native coronary artery without angina pectoris; N18.9 Chronic kidney disease, unspecified; I87.2 Venous insufficiency (chronic) (peripheral); I25.2 Old myocardial infarction; M17.0 Bilateral primary osteoarthritis of knee; M16.11 Unilateral primary osteoarthritis, right hip; R29.6 Repeated falls; R53.1 Weakness; I25.5 Ischemic cardiomyopathy; E11.22 Type 2 diabetes mellitus with diabetic chronic kidney disease
CPT/HCPCS: 36415; 51702; 80053; 84145; 87040; 87077; 87635; 93005; 96361; 96365; 99285; 71046; 74176; 81003; 81015; 83605; 83735; 83880; 84484; 85025; 86140; 87086; 87186; 93010; 99223; J0696

== ENCOUNTER 2021-11-21 09:18 | Emergency (ER) | payer MEDICARE, SELFPAY ==
[2021-11-21] VITALS (30 sets, daily range): BP systolic 53–178; BP diastolic 36–78; PULSE 82–102; RESP 14–32; TEMP 36.5–36.6; O2SAT 97–100
--- NOTE | 2021-11-21 09:00 | RT.EKG_ITS ---
APPROVED REPORT Exam: Resting ECG Reason for Exam: Altered mental status Patient Location: E HR:104 bpm ECG Measurements Heart Rate 104 AXIS AZ 148 P -4 QRSd 86 QRS -12 QT 368 T 5 QTc 485 Conclusion Sinus tachycardia...rate> 99 Low voltage, precordial leads...precordial leads <1.0mV sinus tachycardia, left axis, non ischemic
--- NOTE | 2021-11-21 09:15 | DI.RAD_ITS ---
Exam(s) XR PELVIS AP XR FEMUR RT EXAM: XR PELVIS AP and right femur CLINICAL HISTORY: fall, foreshortened right lower extremity. TECHNIQUE: 2D digital imaging was performed of the right hip. Eight images were obtained. AP pelvis and lateral right hip and right femur views were obtained. COMPARISON: CR,XR XR FEMUR RT from 11/21/2021 FINDINGS: BONES: No acute fracture is present. No bony destructive lesion is seen. Benign-appearing periosteal thickening is seen along the right femoral shaft. This may represent traction enthesopathy. No lyti c or sclerotic lesion is seen associated with the bone. There is no acute fracture or dislocation in this region. JOINTS: No dislocation present. There are marked degenerative changes seen at the right hip. SOFT TISSUE: The distal aspect of a left nephroureteral stent is present. There is atherosclerosis. IMPRESSION: 1. No acute fracture or dislocation. 2. Nonspecific but benign appearing periosteal thickening along the right femoral shaft. Follow-up a s clinically appropriate. DATA REPOSITORY: RADIATION DOSE DELIVERED:
--- NOTE | 2021-11-21 09:15 | DI.CT_ITS ---
Exam(s) CT HEAD WO EXAM: CT HEAD WO CLINICAL HISTORY: falls, on coumadin. TECHNIQUE: Imaging Protocol: Axial computed tomography images with coronal and sagittal reformatted images were created and reviewed COMPARISON: No exams were available for comparison FINDINGS: The examination is limited due to patient motion artifact.. Ventricles and Extra axial spaces: Normal in size and morphology for the patient's age. Hemorrhage: None. Cerebral parenchyma: There is no acute territorial infarct. There are areas of decreased attenuation in the white matter most consistent with small vessel ischemic disease. Midline shift: None. Brainstem/Cerebellum: Normal. Calvarium: Normal. Visualized Paranasal sinuses/Mastoids: Clear. Soft Tissues: Unremarkable. IMPRESSION: No acute intracranial process. RADIATION DOSE DELIVERED: 764.13mGy.cm Total DLP DATA REPOSITORY: All CT scans at this facility are submitted to the National Radiology Data Registry (NRDR) Dose Index Registry (DIR) with the [employer] (A[employer]). RADIATION OPTIMIZATION: All CT scans at this facility use at least one of these dose optimization te chniques: automated exposure control; mA and/or kV adjustment per patient size (includes targeted exa ms where dose is matched to clinical indication); or iterative reconstruction.
--- NOTE | 2021-11-21 09:16 | DI.RAD_ITS ---
Exam(s) XR PORTABLE CHEST AP EXAM: XR PORTABLE CHEST AP CLINICAL HISTORY: hypoxia, weakness TECHNIQUE: 2D digital imaging was performed of the chest. One image was obtained. An AP view was ob tained. COMPARISON: No exams were available for comparison FINDINGS: MEDIASTINUM: Normal. HEART: Normal. PULMONARY VASCULATURE: Normal. LUNGS: Clear. PLEURAL SPACE: No pneumothorax. No large effusions. BONE:Within normal limits for the patient's age. OTHER FINDINGS:Normal. IMPRESSION: No acute pulmonary findings. DATA REPOSITORY: RADIATION DOSE DELIVERED:
--- NOTE | 2021-11-21 10:16 | W.ED.GENAD ---
Discharge Plan Disposition Patient Disposition: LUPE IVEY ([facility]) Discharge Details Chief Complaint: GenMedical Clinical Impression: Emphysematous pyelonephritis, PATRICIO (acute kidney injury), Dehydration, Acidemia, Staghorn calculus Primary Care Provider: Jocelin Martinez ED Provider: Dhaval Escobedo Home Meds and New Rx's Prescriptions: No Action carvedilol 3.125 mg tablet 3.125 mg PO BID Qty: 180 4RF Rx Instructions: Take 1 tab with food twice a day atorvastatin [Lipitor] 40 mg tablet 40 mg PO QPM Qty: 90 4RF Lantus Solostar U-100 Insulin 100 unit/mL (3 mL) insulin pen 27 unit subcut DAILY Qty: 9 4RF insulin lispro [Humalog KwikPen Insulin] 100 unit/mL insulin pen 9 unit SC AC Qty: 15 4RF clotrimazole 1 % cream 1 applic topical BID Qty: 45 0RF Rx Instructions: Apply to affected areas twice a dayfor 2-4wks furosemide 20 mg tablet 20 mg PO DAILY Qty: 90 4RF Rx Instructions: Take 1 tablet daily in addition to the 40mg tablet aspirin 81 mg tablet,delayed release (DR/EC) 81 mg PO DAILY Qty: 100 0RF (DME) FreeStyle Test Strip 1 ea Miscellaneous BID Qty: 360 4RF Rx Instructions: Check blood sugar four times a day (DME) pen needle, diabetic [Comfort EZ Pen [place]] 31 gauge x 5/16 needle See Dose Instructions .ROUTE .MEDSUPPLY Qty: 1200 4RF Dose Instruction: As directed Rx Instructions: Use with insulin pens pantoprazole 40 mg tablet,delayed release (DR/EC) 40 mg PO DAILY 0RF nitroglycerin [Nitrostat] 0.4 mg Tablet, Sublingual 0.4 mg sublingual Q5 MIN PRN X3 PRNQty: 20 0RF Medical Decision Making 81-year-old female history of diabetes coronary disease hypertension presents with generalized fatigue multiple falls over the past several days to weeks, elderly younger brothers on a care for her as she has a great fall risk has become too fatigued to assist him, appears dehydrated poor skin turgor and dry oral mucosa, sinus tachycardia on EKG, no external signs of trauma however patient's right lower extremity does appear slightly foreshortened and internally rotated, chronic appearing skin changes related full vascular disease bilateral lower extremities, extremities are sensate mobile and warm to the touch. Abdomen soft nontender nondistended. Patient is neurologically intact without focal deficits however generalized fatigue. Is on Coumadin for A. fib. Screening labs to assess electrolytes, urinalysis, CT head, x-ray pelvis and right lower extremity, fluids close reassessment likely admission. Consider electrolyte derangement such as hypernatremia versus infectious etiology such as viral syndrome versus pneumonia versus must consider pelvic or femur fracture versus less likely intracranial hemorrhage however multiple falls on Coumadin must assess for intracranial hemorrhage, low suspicion for stroke, low suspicion for primary cardiac process such as ACS, lower suspicion for PE or DKA. Patient did develop some mild tachypnea and possible slight crackles after 500 cc of fluid therefore full bolus was not given. Patient is in PATRICIO with creatinine of 6. Evidence of emphysematous pyelonephritis, ceftriaxone initiated. Patient hemodynamically stable tachycardia has resolved. Currently on 2 L nasal cannula saturating 97%. Mentation improved from arrival. Have discussed case with Dr. Jed Richards of urology at [facility] as patient had her stent placed there approximately October 03. Dr. Richards agrees the patient would benefit from percutaneous nephrostomy, and agrees to except patient at [facility], transfer to [facility] emergency department accepting physician Dr. Lopez. Given patient's clinical status and borderline delirium on arrival patient's family was contacted prior to contacting [facility] and agrees to transfer as needed. Patient is stable for transfer. Urine cultures have already been sent, blood cultures to be drawn before patient departure. Patient kept n.p.o. as she will likely need urgent percutaneous nephrostomy placement. Imaging Data Radiologic Study: Radiologist's impression: PROCEDURE INFORMATION: Exam: CT Head Without Contrast Exam date and time: 11/21/2021 9:21 AM Age: 81 years old Clinical indication: Other: Falls on coumadin TECHNIQUE: Imaging protocol: Computed tomography of the head without contrast. Radiation optimization: All CT scans at this facility use at least one of these dose optimization techniques: automated exposure control; mA and/or kV adjustment per patient size (includes targeted exams where dose is matched to clinical indication); or iterative reconstruction. COMPARISON: No relevant prior studies available. FINDINGS: Brain: No intracranial hemorrhage. No mass effect or midline shift. Retana-white matter differentiation is preserved. Mild burden of periventricular and subcortical white matter hypodense foci. Cerebral ventricles: Mild prominence of the ventricles and extra-axial CSF containing spaces. Paranasal sinuses: Visualized sinuses are unremarkable. No fluid levels. Mastoid air cells: Visualized mastoid air cells are well aerated. Vasculature: Atherosclerotic calcifications of the parasellar internal carotid arteries and intracranial vertebral arteries. Bones/joints: Unremarkable. No acute fracture. Soft tissues: Unremarkable. IMPRESSION: 1. No acute intracranial findings. 2. Sequela of chronic cerebral microangiopathy and mild global parenchymal volume loss. PROCEDURE INFORMATION: Exam: CT Abdomen And Pelvis Without Contrast Exam date and time: 11/21/2021 11:27 AM Age: 81 years old Clinical indication: Other: Dehydration, kidney failure, v uret stent on xray TECHNIQUE: Imaging protocol: Computed tomography of the abdomen and pelvis without contrast. Radiation optimization: All CT scans at this facility use at least one of these dose optimization techniques: automated exposure control; mA and/or kV adjustment per patient size (includes targeted exams where dose is matched to clinical indication); or iterative reconstruction. COMPARISON: CT RENAL COLIC WO 10/03/2021 1:42 PM FINDINGS: Limitations: Lack of intravenous contrast limits evaluation of the solid organs, visceral organs, and vascular structures. Lungs: Increased atelectasis at the lung bases and medial right middle lobe. Heart: Coronary artery atherosclerotic disese. Liver: Region of low attenuation in the liver adjacent to the falciform ligament presumably represents focal fatty infiltration. Gallbladder and bile ducts: No evidence of acute cholecystitis. No significant ductal dilatation. Pancreas: No acute inflammation. Spleen: No concerning lesions. Adrenal glands: No mass. Kidneys and ureters: Redemonstrated staghorn calculus at the left renal pelvis with extensive gas in the left renal collecting system, including within the stone, as well as in the proximal left ureter. Double-J stent with the proximal pigtail at the renal pelvis and distal pigtail in the urinary bladder. ARGENIS DE LEON Preliminary Radiology Report ANIMAL TRAINER SUPERVISOR (QA) DISCREPANCY? If there is a discrepancy between the preliminary and final interpretation, please notify [facility] via [email or web address]. If you do not have access to our QA portal, call our QA team at [phone] CONFIDENTIALITY STATEMENT This report is intended only for the use of the referring physician, and only in accordance with law, If you received this in error, call [phone] Page 2 of 2 Edema/stranding at the renal hilum. Foci of gas in the more distal left ureter track along the stent. Exophytic 1.4 cm left renal cyst. Stomach and bowel: Redemonstrated colonic diverticulosis, more pronounced in the sigmoid colon. Sigmoid colonic thickening may be related to chronic inflammation from significant diverticular disease. Appendix: No evidence of appendicitis. Intraperitoneal space: No free air. No significant fluid collection. Vasculature: Non-aneurysmal aorta. Atherosclerotic disease noted. Lymph nodes: No pathologically enlarged lymphadenopathy. Urinary bladder: Bladder is decompressed with a Catherine catheter. Gas within the bladder lumen may be related to Catherine catheter or cystitis. Reproductive: Approximately 4.4 x 2.9 cm cystic lesion in the left adnexa is redemonstrated, grossly similar to prior study. Bones/joints: Severe degenerative changes in the right greater than left hips. Low bone mineral density. Multilevel degenerative changes in the spine. Soft tissues: Ventral abdominal hernia centered on the umbilicus with protruding mesenteric fat and nonobstructed loop of small bowel. Bilateral breast parenchymal calcifications. IMPRESSION: 1. Staghorn calculus in the left kidney with extensive gas associated with the stone and in the left renal collecting system, similar to what was seen on the prior CT from October 03, 2019. This is compatible with persistent emphysematous pyelonephritis, likely with infectious seeding of the calculus. 2. Double-J stent has been placed in the left ureter. 3. Gas within the urinary bladder may be related to Catherine catheter or cystitis. 4. Cystic lesion in the left adnexa measuring up to 4.4 cm, abnormal for the patient's age. Follow-up with nonemergent pelvic ultrasound recommended. 5. Other (less critical/noncritical/incidental) findings as above; please refer to the body of report for further details. Imaging of AP chest femur and pelvis unremarkable. See attached. Lab Data Lab results narrative: 11/21/21 15:10 Blood Blood Culture - Pending 11/21/21 15:10 Blood Blood Culture - Pending 11/21/21 10:55 Urine - Reflex from Ua Urine Culture - Pending Laboratory Tests Range/Units 11/21/21 11/21/21 11/21/21 10:14 10:37 10:37 WBC (4.4-10.8) 10^3/uL RBC (3.93-5.22) 10^6/uL Hgb (11.2-15.7) g/dL Hct (36.0-46.0) % MCV (80-95) fL MCH (27.0-33.0) pg MCHC (32.0-36.0) % RDW (11.7-14.6) % Plt Count (130-400) 10^3/uL MPV (8.0-11.0) fL Immature Gran % Neutrophils % Band Neutrophils % Lymphocytes % Monocytes % Eosinophils % Basophils % Nucleated RBC % % Absolute Neutrophils (1.2-6.7) 10^3/uL Absolute Lymphocytes (1.2-3.4) 10^3/uL Absolute Monocytes (0.1-0.8) 10^3/uL Absolute Eosinophils (0.0-0.7) 10^3/uL Absolute Basophils (0.0-0.2) 10^3/uL RBC Morphology PT INR APTT VBG pH (7.31-7.41) 7.28 L VBG pCO2 (41-51) mmHg 32 L VBG pO2 mmHg 32 VBG HCO3 (23-28) mmol/L 15 L VBG Total CO2 (24-29) mmol/L 15 L VBG O2 Saturation % 55 VBG Base Excess (-2-3) mmol/L -12 L Sodium (136-145) mmol/L 136 Potassium (3.5-5.1) mmol/L 4.8 Chloride (98-107) mmol/L 100 Carbon Dioxide (21.0-32.0) mmol/L 14.7 L Anion Gap (3-11) mmol/L 21.3 H BUN (7-18) mg/dL 156 H* Creatinine (0.55-1.02) mg/dL 6.0 H* Estimated GFR/1.73 m2 (mL/min/1.73m2) 6.71 Glucose (74-106) mg/dL 202 H Calcium (8.5-10.1) mg/dL 8.8 Magnesium (1.8-2.4) mg/dL 2.2 Total Bilirubin (0.2-1.0) mg/dL 0.8 AST (15-37) U/L 116 H ALT (14-59) U/L 42 Alkaline Phosphatase (46-116) U/L 158 H Creatine Kinase (26-192) U/L 3503 H Troponin I (<or=60) ng/L 396 H* Total Protein (6.4-8.2) g/dL 7.9 Albumin (3.4-5.0) g/dL 2.6 L Urine Color (Yellow) Urine Clarity (Clear) Urine pH (5-8) Ur Specific Nucla (1.005-1.025) Urine Protein (Negative) mg/dL Urine Ketones (Negative) mg/dL Urine Blood (Negative) Urine Nitrite (Negative) Urine Bilirubin (Negative) Urine Urobilinogen (Up TO 0.2) EU/dL Ur Leukocyte Esterase (Negative) Urine RBC (0-2) HPF Urine WBC (0-5) HPF Ur Epithelial Cells (Negative) HPF Urine Crystals (Negative) HPF Urine Bacteria (Negative) HPF Urine Casts (Negative) LPF Urine Mucus (Negative) Ur Culture Indicated? Urine Glucose (Negative) mg/dL COVID-19 Source Not Applicable SARS-CoV-2 (PCR) (Negative) Negative Influenza Type A (PCR) (Negative) Negative Influenza Type B (PCR) (Negative) Negative RSV (PCR) (Negative) Negative Range/Units 11/21/21 11/21/21 11/21/21 10:37 10:37 10:55 WBC (4.4-10.8) 10^3/uL 14.20 H RBC (3.93-5.22) 10^6/uL 2.80 L Hgb (11.2-15.7) g/dL 8.8 L Hct (36.0-46.0) % 27.1 L MCV (80-95) fL 96.8 H MCH (27.0-33.0) pg 31.4 MCHC (32.0-36.0) % 32.5 RDW (11.7-14.6) % 14.6 Plt Count (130-400) 10^3/uL 121 L MPV (8.0-11.0) fL 11.6 H Immature Gran % 0.8 Neutrophils % 84.0 Band Neutrophils % 4 Lymphocytes % 3.0 Monocytes % 6.0 Eosinophils % 0.0 Basophils % 0.0 Nucleated RBC % % 0 Absolute Neutrophils (1.2-6.7) 10^3/uL 12.50 H Absolute Lymphocytes (1.2-3.4) 10^3/uL 0.43 L Absolute Monocytes (0.1-0.8) 10^3/uL 0.85 H Absolute Eosinophils (0.0-0.7) 10^3/uL 0.00 Absolute Basophils (0.0-0.2) 10^3/uL 0.00 RBC Morphology Normal PT Cancelled INR Cancelled APTT Cancelled VBG pH (7.31-7.41) VBG pCO2 (41-51) mmHg VBG pO2 mmHg VBG HCO3 (23-28) mmol/L VBG Total CO2 (24-29) mmol/L VBG O2 Saturation % VBG Base Excess (-2-3) mmol/L Sodium (136-145) mmol/L Potassium (3.5-5.1) mmol/L Chloride (98-107) mmol/L Carbon Dioxide (21.0-32.0) mmol/L Anion Gap (3-11) mmol/L BUN (7-18) mg/dL Creatinine (0.55-1.02) mg/dL Estimated GFR/1.73 m2 (mL/min/1.73m2) Glucose (74-106) mg/dL Calcium (8.5-10.1) mg/dL Magnesium (1.8-2.4) mg/dL Total Bilirubin (0.2-1.0) mg/dL AST (15-37) U/L ALT (14-59) U/L Alkaline Phosphatase (46-116) U/L Creatine Kinase (26-192) U/L Troponin I (<or=60) ng/L Total Protein (6.4-8.2) g/dL Albumin (3.4-5.0) g/dL Urine Color (Yellow) Yellow Urine Clarity (Clear) Sl Cloudy Urine pH (5-8) 6.0 Ur Specific Nucla (1.005-1.025) 1.025 Urine Protein (Negative) mg/dL 100 H Urine Ketones (Negative) mg/dL Negative Urine Blood (Negative) Large H Urine Nitrite (Negative) Negative Urine Bilirubin (Negative) Negative Urine Urobilinogen (Up TO 0.2) EU/dL 0.2 Ur Leukocyte Esterase (Negative) Large H Urine RBC (0-2) HPF 10-20 H Urine WBC (0-5) HPF >50 H Ur Epithelial Cells (Negative) HPF Few Urine Crystals (Negative) HPF Negative Urine Bacteria (Negative) HPF Moderate Urine Casts (Negative) LPF 0-2 Coarse Granular Urine Mucus (Negative) Negative Ur Culture Indicated? Yes Urine Glucose (Negative) mg/dL Negative COVID-19 Source SARS-CoV-2 (PCR) (Negative) Influenza Type A (PCR) (Negative) Influenza Type B (PCR) (Negative) RSV (PCR) (Negative) Range/Units 11/21/21 11:15 WBC (4.4-10.8) 10^3/uL RBC (3.93-5.22) 10^6/uL Hgb (11.2-15.7) g/dL Hct (36.0-46.0) % MCV (80-95) fL MCH (27.0-33.0) pg MCHC (32.0-36.0) % RDW (11.7-14.6) % Plt Count (130-400) 10^3/uL MPV (8.0-11.0) fL Immature Gran % Neutrophils % Band Neutrophils % Lymphocytes % Monocytes % Eosinophils % Basophils % Nucleated RBC % % Absolute Neutrophils (1.2-6.7) 10^3/uL Absolute Lymphocytes (1.2-3.4) 10^3/uL Absolute Monocytes (0.1-0.8) 10^3/uL Absolute Eosinophils (0.0-0.7) 10^3/uL Absolute Basophils (0.0-0.2) 10^3/uL RBC Morphology PT 11.4 H INR 1.1 APTT 24.4 VBG pH (7.31-7.41) VBG pCO2 (41-51) mmHg VBG pO2 mmHg VBG HCO3 (23-28) mmol/L VBG Total CO2 (24-29) mmol/L VBG O2 Saturation % VBG Base Excess (-2-3) mmol/L Sodium (136-145) mmol/L Potassium (3.5-5.1) mmol/L Chloride (98-107) mmol/L Carbon Dioxide (21.0-32.0) mmol/L Anion Gap (3-11) mmol/L BUN (7-18) mg/dL Creatinine (0.55-1.02) mg/dL Estimated GFR/1.73 m2 (mL/min/1.73m2) Glucose (74-106) mg/dL Calcium (8.5-10.1) mg/dL Magnesium (1.8-2.4) mg/dL Total Bilirubin (0.2-1.0) mg/dL AST (15-37) U/L ALT (14-59) U/L Alkaline Phosphatase (46-116) U/L Creatine Kinase (26-192) U/L Troponin I (<or=60) ng/L Total Protein (6.4-8.2) g/dL Albumin (3.4-5.0) g/dL Urine Color (Yellow) Urine Clarity (Clear) Urine pH (5-8) Ur Specific Nucla (1.005-1.025) Urine Protein (Negative) mg/dL Urine Ketones (Negative) mg/dL Urine Blood (Negative) Urine Nitrite (Negative) Urine Bilirubin (Negative) Urine Urobilinogen (Up TO 0.2) EU/dL Ur Leukocyte Esterase (Negative) Urine RBC (0-2) HPF Urine WBC (0-5) HPF Ur Epithelial Cells (Negative) HPF Urine Crystals (Negative) HPF Urine Bacteria (Negative) HPF Urine Casts (Negative) LPF Urine Mucus (Negative) Ur Culture Indicated? Urine Glucose (Negative) mg/dL COVID-19 Source SARS-CoV-2 (PCR) (Negative) Influenza Type A (PCR) (Negative) Influenza Type B (PCR) (Negative) RSV (PCR) (Negative) HPI General Date/Time Provider Initiated Documentation: 11/21/21 09:45. HPI Narrative: 81-year-old female history of diabetes, hypertension, coronary artery disease, presents brought in by EMS due to generalized fatigue and weakness multiple falls at home over the past week, elderly younger brother has been taking care of her but has been unable to get her into bed she has been sitting in a rolling desk chair for some time. Patient endorses some diarrhea and fatigue. Denies chest pain or shortness of breath. Endorses chronic peripheral neuropathy bilateral lower extremities. Related Data Home Medications Medication Instructions Recorded Confirmed nitroglycerin 0.4 mg sublingual 0.4 mg SUBLINGUAL Q5 MIN PRN X3 09/23/20 11/21/21 tablet (Nitrostat) PRN #20 tab clotrimazole 1 % topical cream 1 applic TOPICAL BID #45 g 03/09/21 11/21/21 furosemide 20 mg tablet 20 mg PO DAILY #90 tab 06/12/21 11/21/21 aspirin 81 mg tablet,delayed 81 mg PO DAILY #100 tab 08/03/21 11/21/21 release blood sugar diagnostic (FreeStyle #360 strip 08/03/21 11/21/21 Test) pen needle, diabetic 31 gauge x #1200 ea 08/03/21 11/21/21 516 (Comfort EZ Pen [place]) pantoprazole 40 mg tablet,delayed 40 mg PO DAILY 10/20/21 11/21/21 release atorvastatin 40 mg tablet (Lipitor) 40 mg PO QPM #90 tab 11/09/21 11/21/21 carvedilol 3.125 mg tablet 3.125 mg PO BID #180 tab 11/09/21 11/21/21 insulin glargine 100 unit/mL (3 27 unit (0.27 mL) SUBCUT DAILY #9 11/09/21 11/21/21 mL) subcutaneous pen (Lantus syrg Solostar U-100 Insulin) insulin lispro 100 unit/mL 9 unit (0.09 mL) SC AC #15 ml 11/09/21 11/21/21 subcutaneous pen (Humalog KwikPen (U-100) Insulin) Previous Rx's Medication Instructions Recorded nitroglycerin 0.4 mg sublingual 0.4 mg SUBLINGUAL Q5 MIN PRN X3 09/23/20 tablet (Nitrostat) PRN #20 tab clotrimazole 1 % topical cream 1 applic TOPICAL BID #45 g 03/09/21 furosemide 20 mg tablet 20 mg PO DAILY #90 tab 06/12/21 aspirin 81 mg tablet,delayed 81 mg PO DAILY #100 tab 08/03/21 release blood sugar diagnostic (FreeStyle #360 strip 08/03/21 Test) pen needle, diabetic 31 gauge x #1200 ea 08/03/21 5/16 (Comfort EZ Pen [place]) atorvastatin 40 mg tablet (Lipitor) 40 mg PO QPM #90 tab 11/09/21 carvedilol 3.125 mg tablet 3.125 mg PO BID #180 tab 11/09/21 insulin glargine 100 unit/mL (3 27 unit (0.27 mL) SUBCUT DAILY #9 11/09/21 mL) subcutaneous pen (Lantus syrg Solostar U-100 Insulin) insulin lispro 100 unit/mL 9 unit (0.09 mL) SC AC #15 ml 11/09/21 subcutaneous pen (Humalog KwikPen (U-100) Insulin) Allergies Allergy/AdvReac Type Severity Reaction Status Date / Time Penicillins Allergy Unknown Verified 11/21/21 09:34 hydrocodone AdvReac Intermediate Nausea Verified 11/21/21 09:34 General Stated Complaint: GenMedical TAMMIE: 2 Review of Systems Narrative: Review of Systems Constitutional: Fatigue Eyes: negative ENT: negative Cardiovascular: negative Respiratory: negative Gastrointestinal: Diarrhea : negative Musculoskeletal: Falls Skin: negative Neurologic: negative Psych: negative PFSH All Active Problems (Updated 11/21/21 @ 15:33 by Dhaval Escobedo MD) Emphysematous pyelonephritis (Acute) PATRICIO (acute kidney injury) (Acute) Dehydration (Acute) Acidemia (Acute) Staghorn calculus (Acute) Left nephrolithiasis (Acute 09/2021) Non-ST elevation MN (NSTEMI) (Acute 09/2021) Coronary artery disease (Chronic) MN 08/2020, NSTEMI 09/2021 Heart failure with reduced ejection fraction (Chronic) Ischemic cardiomyopathy (Acute) Chronic kidney disease (Chronic) Type 2 diabetes mellitus (Chronic) Essential hypertension (Chronic) Venous insufficiency (Acute) Peripheral edema (Acute) Drainage from surgical wound (Acute) Osteoarthritis of right hip (Acute) Primary osteoarthritis of right knee (Chronic) Most recent injection: 08/06/2019 Primary osteoarthritis of left knee (Chronic) Most recent injection: 08/06/2019 Medical History (Updated 11/21/21 @ 15:33 by Dhaval Escobedo MD) 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) Myocardial infarction (~08/2020) Apical and septal infarct Perforated duodenal ulcer (~12/2020) Sepsis (09/2021) Syncope Related to use of lisinopril occurring both at rest while having her hair washed in beauty parlor as well as occurring while ambulating. None have occurred since cessation of her lisinopril Surgical History S/P exploratory laparotomy (01/18/21) [place] patch for perforated duodenal ulcer Family History Mother , AGE 78 Diabetes Father No problems noted. 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 Pets and animals: No Current gender identity: female What type of physical activity do you participate in: walking Duration: decline to answer Frequency: 3-4 times per week Sonia/Mu-Ism: Nondenominational Special sonia needs: No Additional Social history: lives alone Exam Narrative Exam Narrative: Physical Examination General: alert, awake, cooperative, frail, fatigued HEENT: normocephalic, atraumatic; PERRL, EOM intact, conjunctiva normal; no nasal discharge; dry mucous membranes, oral and pharyngeal mucosa normal, tolerating secretions Neck: supple, trachea midline; full ROM Chest: normal to inspection Respiratory: normal respiratory effort, speaking in full sentences, clear to auscultation, no wheezing, rales or rhonchi Cardiac: Tachycardia, regular rhythm, S1S2 intact, no murmurs rubs or gallops GI: abdomen soft, non-tender, non-distended; no palpable mass or hepatosplenomegaly Skin: Dry skin poor skin turgor Neuro: AAOx3, normal speech, moving all extremities to command Extremities: Chronic skin changes likely related to peripheral vascular disease bilateral lower extremities, warm sensate mobile extremities, right lower extremity appears foreshortened and internally rotated, compartments soft Psych: Appropriate mood and affect Course Vital Signs Vital signs: Vital Signs Temperature 36.5 C 11/21/21 09:19 Pulse 102 H 11/21/21 09:19 Respiratory Rate 32 H 11/21/21 09:19 Blood Pressure 134/45 L 11/21/21 09:19 Pulse Oximetry 99 11/21/21 09:19 Temperature 36.5 C 11/21/21 09:19 Temperature Source Skin 11/21/21 09:19 Pulse 102 H 11/21/21 09:19 Respiratory Rate 32 H 11/21/21 09:19 Respiratory Effort 11/21/21 09:36 Blood Pressure 134/45 L 11/21/21 09:19 Pulse Oximetry 99 11/21/21 09:19 Oxygen Delivery Method Nasal Cannula 11/21/21 09:19 Oxygen Flow Rate 2 11/21/21 09:19 Pain Level 8 11/21/21 09:19 Comment 11/21/21 09:19
[2021-11-21 10:46] LABS: BE (Venous) -12 mmol/L (-2-3); HCO3 (Venous) 15 mmol/L (23-28); HCT 27.1 % (36.0-46.0); HGB 8.8 g/dL (11.2-15.7); Immature Grans % 0.8; MCH 31.4 pg (27.0-33.0); MCHC 32.5 % (32.0-36.0); MCV 96.8 fL (80-95); MPV 11.6 fL (8.0-11.0); Nucleated RBC 0 %; O2 Sat (Venous) 55 %; Platelet Count 121 10^3/uL (130-400); RDW 14.6 % (11.7-14.6); TCO2 (Venous) 15 mmol/L (24-29); pCO2 (Venous) 32 mmHg (41-51); pH (Venous) 7.28 (7.31-7.41); pO2 (Venous) 32 mmHg
[2021-11-21 10:56] LABS: Absolute Lymphocyte Count 0.43 10^3/uL (1.2-3.4); Absolute Monocyte Count 0.85 10^3/uL (0.1-0.8); Bands % 4; Diff Comment Manual Differential; RBC Morphology Normal
[2021-11-21 11:00] LABS: COVID-19 PCR Negative (Negative); Influenza A PCR Negative (Negative); Influenza B PCR Negative (Negative); RSV PCR Negative (Negative)
[2021-11-21] MEDS: Normal Saline 500 ML 1000 ML IV ×2 (11:03→11:36)
[2021-11-21 11:09] LABS: Bilirubin Negative (Negative); Blood Large (Negative); Clarity Sl Cloudy (Clear); Glucose Negative (Negative); Ketones Negative (Negative); Leukocyte Esterase Large (Negative); Nitrite Negative (Negative); Specific Gravity 1.025 (1.005-1.025); Urobilinogen 0.2 EU/dL (Up TO 0.2)
[2021-11-21 11:11] LABS: ALT 42 U/L (14-59); AST 116 U/L (15-37); Albumin 2.6 g/dL (3.4-5.0); Alkaline Phosphatase 158 U/L (46-116); Anion Gap 21.3 mmol/L (3-11); Bilirubin, Total 0.8 mg/dL (0.2-1.0); CO2 14.7 mmol/L (21.0-32.0); Calcium 8.8 mg/dL (8.5-10.1); Chloride 100 mmol/L (98-107); Estimated GFR 6.71 (mL/min/1.73m2); Glucose 202 mg/dL (74-106); Magnesium 2.2 mg/dL (1.8-2.4); Potassium 4.8 mmol/L (3.5-5.1); Sodium 136 mmol/L (136-145); Total Protein 7.9 g/dL (6.4-8.2)
[2021-11-21 11:12] LABS: Creatine Kinase 3503 U/L (26-192)
--- NOTE | 2021-11-21 11:15 | DI.CT_ITS ---
Exam(s) CT ABDOMEN PELVIS WO EXAM: CT ABDOMEN PELVIS WO CLINICAL HISTORY: dehydration, kidney failure,v uret stent on xray. TECHNIQUE: Imaging Protocol: Axial computed tomography images with coronal and sagittal reformatted images were created and reviewed. COMPARISON: CT CT RENAL COLIC WO from 10/03/2021 FINDINGS: The examination is limited due to patient motion artifact. ABDOMEN: Lung Bases: Bilateral basilar infiltrates are seen which likely reflect atelectasis. Coronary artery calcifications are present. Liver: Normal density. No measurable mass. Gallbladder and biliary tract: No radiodense calculus or biliary ductal dilation. Pancreas: Normal density, no abnormal calcifications or inflammatory process. Spleen: Normal. Kidneys: Normal size, contour and axis.There is again seen a large staghorn calculus in the left kidn ey. There has been interval placement of a left nephroureteral stent. There is air seen in the scott ecting system. There is a stable left renal cyst. Adrenal glands: No mass is seen. Lymph nodes: Within normal limits. Abdominal Aorta: Abdominal portion non-dilated. Atherosclerosis. PELVIS: Bladder:There is a Catherine catheter in an incompletely distended urinary bladder. Air is seen within t he urinary bladder which may reflect Catherine catheter placement. Bowel: No obstruction or bowel wall thickening. Appendix is unremarkable. Peritoneal cavity: No ascites, collection or mesenteric inflammatory response. No free air. Reproductive organs: There is a stable 4 cm left adnexal cyst. This is likely ovarian. This was pre sent on prior examinations. Bones: Within normal limits. Soft Tissues: Within normal limits. IMPRESSION: 1. There is again seen and left staghorn calculus with gas associated with the stone in in the left r enal collecting system. This may represent emphysematous pyelonephritis. 2. Interval placement of a pigtail catheter. It appears in good position. 3. Gas seen within the urinary bladder. This may be related to Catherine catheter placement. Cystitis c annot be excluded. 4. Stable left adnexal cystic lesion. Pelvic ultrasound may be obtained for further evaluation. RADIATION DOSE DELIVERED: 1,474.8mGy.cm Total DLP DATA REPOSITORY: All CT scans at this facility are submitted to the National Radiology Data Registry (NRDR) Dose Index Registry (DIR) with the [employer] (ACR). RADIATION OPTIMIZATION: All CT scans at this facility use at least one of these dose optimization te chnijamison: automated exposure control; mA and/or kV adjustment per patient size (includes targeted exa ms where dose is matched to clinical indication); or iterative reconstruction.
[2021-11-21 11:16] LABS: WBC >50 HPF (0-5)
[2021-11-21 11:16] LABS: BUN 156 mg/dL (7-18); Troponin I 396 ng/L (<or=60)
[2021-11-21 11:17] LABS: Bacteria Moderate HPF (Negative); C & S Indicated? Yes; Casts 0-2 Coarse Granular LPF (Negative); Crystals Negative HPF (Negative); Epithelial Cells Few HPF (Negative); Mucus Negative (Negative)
[2021-11-21] MEDS: cefTRIAXone 1 GM/50 ML BAG IVPB (11:31)
[2021-11-21 11:40] LABS: INR 1.1 (0.9-1.1); PTT Activated 24.4 sec (21.0-27.5); Prothrombin Time 11.4 sec (9.3-11.0)
--- NOTE | 2021-11-21 12:15 | DI.VRAD_ITS ---
PROCEDURE INFORMATION: Exam: XR Pelvis Exam date and time: 11/21/2021 9:21 AM Age: 81 years old Clinical indication: Hip pain; Right hip TECHNIQUE: Imaging protocol: XR pelvis. Views: 1 or 2 view. COMPARISON: CT RENAL COLIC WO 10/03/2021 1:42 PM FINDINGS: Bones/joints: Severe degenerative change at the right hip with associated femoroacetabular cystic changes. Mild degenerative changes of the left hip. Enthesopathic change along the right greater trochanter and right iliac bone. No acute fracture or dislocation. Soft tissues: Unremarkable. Organs: Partially imaged left ureter stent. IMPRESSION: 1. No acute fracture or dislocation. 2. Severe right hip osteoarthrosis. Dictated and Authenticated by: Elliot Reynolds MD. Ordering:YISSEL Puentes MD
--- NOTE | 2021-11-21 12:16 | DI.VRAD_ITS ---
PROCEDURE INFORMATION: Exam: XR Right Femur Exam date and time: 11/21/2021 9:21 AM Age: 81 years old Clinical indication: Pain; Hip and knee; Right TECHNIQUE: Imaging protocol: XR Right femur. Views: 2 views. COMPARISON: CR XR PELVIS AP 11/21/2021 9:57 AM FINDINGS: Bones/joints: Periosteal thickening/reaction along medial right femoral shaft. No acute fracture or dislocation. Severe degenerative change at the right hip joint and at least moderate degenerative changes in the right knee. Soft tissues: Unremarkable. IMPRESSION: 1. No acute fracture or dislocation. 2. Nonaggressive appearing periosteal thickening/reaction along medial right femoral shaft. May represent traction enthesopathy at the linea aspera. Imaging radiographic follow-up or further evaluation with MRI can be considered if clinically indicated. 3. Degenerative changes as above. Dictated and Authenticated by: Elliot Reynolds MD. Ordering:YISSEL Puentes MD
--- NOTE | 2021-11-21 12:17 | DI.VRAD_ITS ---
PROCEDURE INFORMATION: Exam: XR Chest Exam date and time: 11/21/2021 9:36 AM Age: 81 years old Clinical indication: Other: Hypoxia, weakness TECHNIQUE: Imaging protocol: XR of the chest. Views: 1 view. COMPARISON: CR XR CHEST 2V PA LATERAL 10/03/2021 12:12 PM FINDINGS: Lungs: No infiltrates or consolidations in the lungs. Pleural spaces: Mild blunting of the left CP angle may indicate presence of a small left pleural effusion versus pleural thickening. Heart/Mediastinum: Cardiomediastinal silhouette is unremarkable. Vasculature: Aortic arch atherosclerotic calcifications. Bones/joints: Multilevel degenerative changes in the spine. Soft tissues: Degenerative changes in the shoulders. Bilateral AC joint arthrosis. IMPRESSION: 1. No pulmonary infiltrates or consolidations. 2. Possible small left pleural effusion versus pleural thickening. Dictated and Authenticated by: Elliot Reynolds MD. Ordering:YISSEL Puentes MD
--- NOTE | 2021-11-21 12:42 | DI.VRAD_ITS ---
PROCEDURE INFORMATION: Exam: CT Abdomen And Pelvis Without Contrast Exam date and time: 11/21/2021 11:27 AM Age: 81 years old Clinical indication: Other: Dehydration, kidney failure, v uret stent on xray TECHNIQUE: Imaging protocol: Computed tomography of the abdomen and pelvis without contrast. Radiation optimization: All CT scans at this facility use at least one of these dose optimization techniques: automated exposure control; mA and/or kV adjustment per patient size (includes targeted exams where dose is matched to clinical indication); or iterative reconstruction. COMPARISON: CT RENAL COLIC WO 10/03/2021 1:42 PM FINDINGS: Limitations: Lack of intravenous contrast limits evaluation of the solid organs, visceral organs, and vascular structures. Lungs: Increased atelectasis at the lung bases and medial right middle lobe. Heart: Coronary artery atherosclerotic disese. Liver: Region of low attenuation in the liver adjacent to the falciform ligament presumably represents focal fatty infiltration. Gallbladder and bile ducts: No evidence of acute cholecystitis. No significant ductal dilatation. Pancreas: No acute inflammation. Spleen: No concerning lesions. Adrenal glands: No mass. Kidneys and ureters: Redemonstrated staghorn calculus at the left renal pelvis with extensive gas in the left renal collecting system, including within the stone, as well as in the proximal left ureter. Double-J stent with the proximal pigtail at the renal pelvis and distal pigtail in the urinary bladder. Edema/stranding at the renal hilum. Foci of gas in the more distal left ureter track along the stent. Exophytic 1.4 cm left renal cyst. Stomach and bowel: Redemonstrated colonic diverticulosis, more pronounced in the sigmoid colon. Sigmoid colonic thickening may be related to chronic inflammation from significant diverticular disease. Appendix: No evidence of appendicitis. Intraperitoneal space: No free air. No significant fluid collection. Vasculature: Non-aneurysmal aorta. Atherosclerotic disease noted. Lymph nodes: No pathologically enlarged lymphadenopathy. Urinary bladder: Bladder is decompressed with a Catherine catheter. Gas within the bladder lumen may be related to Catherine catheter or cystitis. Reproductive: Approximately 4.4 x 2.9 cm cystic lesion in the left adnexa is redemonstrated, grossly similar to prior study. Bones/joints: Severe degenerative changes in the right greater than left hips. Low bone mineral density. Multilevel degenerative changes in the spine. Soft tissues: Ventral abdominal hernia centered on the umbilicus with protruding mesenteric fat and nonobstructed loop of small bowel. Bilateral breast parenchymal calcifications. IMPRESSION: 1. Staghorn calculus in the left kidney with extensive gas associated with the stone and in the left renal collecting system, similar to what was seen on the prior CT from October 03, 2019. This is compatible with persistent emphysematous pyelonephritis, likely with infectious seeding of the calculus. 2. Double-J stent has been placed in the left ureter. 3. Gas within the urinary bladder may be related to Catherine catheter or cystitis. 4. Cystic lesion in the left adnexa measuring up to 4.4 cm, abnormal for the patient's age. Follow-up with nonemergent pelvic ultrasound recommended. 5. Other (less critical/noncritical/incidental) findings as above; please refer to the body of report for further details. COMMENTS: THIS REPORT CONTAINS FINDINGS THAT MAY BE CRITICAL TO PATIENT CARE. The findings were verbally communicated via telephone conference with Dhaval Escobedo at 12:39 PM EST on 11/21/2021. The findings were acknowledged and understood. Dictated and Authenticated by: Elliot Reynolds MD. Ordering:YISSEL Puentes MD
== END 2021-11-21 16:45 | disposition short-term general hospital (02) ==
PROVIDERS: Emergency Provider Emergency Medicine; PCP Nurse Practitioner Family
DX: K81.0 Acute cholecystitis (principal); N17.9 Acute kidney failure, unspecified; E86.0 Dehydration; E87.2 Acidosis; N20.0 Calculus of kidney; R06.82 Tachypnea, not elsewhere classified; R09.02 Hypoxemia; R41.82 Altered mental status, unspecified; S79.821A Other specified injuries of right thigh, initial encounter; W18.39XA Other fall on same level, initial encounter
CPT/HCPCS: 36415; 36416; 51702; 73552; 80053; 82550; 82805; 82962; 87040; 87077; 87637; 93005; 96361; 96365; 99285; 70450; 71045; 72170; 74176; 81003; 81015; 83735; 84484; 85025; 85610; 85730; 87086; 87186; 93010; J0696

== ENCOUNTER 2021-12-04 15:15 | Inpatient (IN) | payer MEDICARE, SELFPAY ==
--- NOTE | 2021-12-04 | DI.RAD_ITS ---
Exam(s) XR PORTABLE CHEST AP EXAM: XR PORTABLE CHEST AP CLINICAL HISTORY: fever. TECHNIQUE: 2D digital imaging was performed. COMPARISON: CR,XR XR PORTABLE CHEST AP from 11/21/2021 FINDINGS: Single AP portable view. Mild cardiomegaly. Mediastinum not widened. There is significant infiltrate in the left lower lobe. Also probable left pleural effusion. Right lung appears clear. IMPRESSION: Left lower lobe infiltrate. Left pleural effusion. Recommend nonportable PA and lateral views when clinically possible. Final report called by myself to the hospitalist 12/05/2021 DATA REPOSITORY: RADIATION DOSE DELIVERED: All CT scans at this facility use at least one of these dose optimization techniques: automated exposure control; mA and/or kV adjustment per patient size (includes targeted e xams where dose is matched to clinical indication); or iterative reconstruction.
--- NOTE | 2021-12-04 15:42 | W.PM.HP.N ---
Date of service: 12/04/21 Time of Service: 15:42 Assessment and Plan Assessment and plan (1) Emphysematous pyelonephritis: Status: Acute Assessment and plan: Cont Rocephin through 12/08/21. Afebrile WBC count in AM. (2) PATRICIO (acute kidney injury): Status: Acute Assessment and plan: Improving. Creatinine of 6.0 on 11/21/21; creatinine improved into the low 3's. Monitor. (3) Chronic kidney disease: Status: Chronic Assessment and plan: Stage IV. May have a new baseline given the recent acute injury. Monitor. (4) Non-ST elevation MN (NSTEMI): Status: Acute Assessment and plan: Troponin elevated at ..249 then trended downward. TTE on 11/24: EF of 55-60%, apical hypokinesis and trivial effusion. No c/o angina. (5) Osteoarthritis of right hip: Status: Acute Assessment and plan: Generalized right hip/knee/ankle arthritis that is chronic. Hyperalgesia; pain with light touch to legs, R>L. Cont gabapentin, capsaicin, lidoderm patch. (6) Primary osteoarthritis of right knee: Status: Chronic Assessment and plan: As per above. (7) Type 2 diabetes mellitus: Status: Chronic Assessment and plan: Cont basal/bolus insulin with ACHS monitoring. Diabetic diet. (8) Normocytic anemia: Status: Acute Assessment and plan: Monitor. (9) Uric acid nephrolithiasis: Status: Acute Assessment and plan: Cont NaBicarb 1300mg TID to aid in dissolution of any stones and prevention of formation of further stones. History of Present Illness History of Present Illness Chief Complaint: pyelonephritis, nephrolithiasis Narrative: This is an 81 yo female with a h/o DM2 reuiring insulin, HTN, CKD stage IV, CHF, afib, perforated duodenal ulcer. She was transferred to [facility] on 11/21/21 from [facility] ED for nephrolithiasis, PATRICIO and E.Coli emphysematous pyelitis, as well as an NSTEMI. She had been hospitalized at [facility] in September of 2021 for complicated UTI with nephrolithiasis, s/p L ureteral stent placement. During hospitalization at [facility] she percutaneous nephrostomy tube placement on 11/24 by IR. On 11/30 she went to the OR for tube removal and left ureteral stent placement and left lithotripsy. The stent was removed on 12/03. Stone analysis indicated uric acid stone. Sodium bicarb initiated to alkalize urine. Her creatinine improved to low 3's; baseline low 2's. She continues on Rocephin daily through 12/08/21. She prefers to be close to home to continue treatment. She desires no further invasive interventions but will accept medications and non-invasive treatments. She does have a chronic history of right hip, knee and ankle pain. Gabapentin was initiated during the recent [facility] hospitalization. Capsaicin and a lidoderm patch also utilized. She now c/o bilateral leg weakness; they feel like jelly. Review of Systems All systems reviewed & are unremarkable except as noted in HPI and below PFSH All Active Problems (Updated 12/04/21 @ 18:27 by Dhaval Ely MD) Uric acid nephrolithiasis (Acute) Normocytic anemia (Acute) Emphysematous pyelonephritis (Acute) PATRICIO (acute kidney injury) (Acute) Dehydration (Acute) Acidemia (Acute) Staghorn calculus (Acute) Left nephrolithiasis (Acute 09/2021) Non-ST elevation MN (NSTEMI) (Acute 09/2021) Coronary artery disease (Chronic) MN 08/2020, NSTEMI 09/2021 Heart failure with reduced ejection fraction (Chronic) Ischemic cardiomyopathy (Acute) Chronic kidney disease (Chronic) Type 2 diabetes mellitus (Chronic) Essential hypertension (Chronic) Venous insufficiency (Acute) Peripheral edema (Acute) Drainage from surgical wound (Acute) Osteoarthritis of right hip (Acute) Primary osteoarthritis of right knee (Chronic) Most recent injection: 08/06/2019 Primary osteoarthritis of left knee (Chronic) Most recent injection: 08/06/2019 Medical History 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) Myocardial infarction (~08/2020) Apical and septal infarct Perforated duodenal ulcer (~12/2020) Sepsis (09/2021) Syncope Related to use of lisinopril occurring both at rest while having her hair washed in beauty parlor as well as occurring while ambulating. None have occurred since cessation of her lisinopril Surgical History S/P exploratory laparotomy (01/18/21) Milton patch for perforated duodenal ulcer Family History Mother , AGE 78 Diabetes Father No problems noted. 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 Pets and animals: No Current gender identity: female What type of physical activity do you participate in: walking Duration: decline to answer Frequency: 3-4 times per week Sonia/Sikhism: Zoroastrian Special sonia needs: No Additional Social history: lives alone Meds Allergies and Home Medications Allergies Allergy/AdvReac Type Severity Reaction Status Date / Time Penicillins Allergy Unknown Verified 11/21/21 09:34 hydrocodone AdvReac Intermediate Nausea Verified 11/21/21 09:34 Home Medications Medication Instructions Recorded Confirmed Type nitroglycerin 0.4 mg sublingual 0.4 mg SUBLINGUAL Q5 MIN PRN X3 09/23/20 12/04/21 Rx tablet (Nitrostat) PRN #20 tab clotrimazole 1 % topical cream 1 applic TOPICAL BID #45 g 03/09/21 12/04/21 Rx furosemide 20 mg tablet 20 mg PO DAILY #90 tab 06/12/21 12/04/21 Rx aspirin 81 mg tablet,delayed 81 mg PO DAILY #100 tab 08/03/21 12/04/21 Rx release blood sugar diagnostic (FreeStyle #360 strip 08/03/21 12/04/21 Rx Test) pen needle, diabetic 31 gauge x #1200 ea 08/03/21 12/04/21 Rx 5/16 (Comfort EZ Pen [place]) pantoprazole 40 mg tablet,delayed 40 mg PO DAILY 10/20/21 12/04/21 History release atorvastatin 40 mg tablet (Lipitor) 40 mg PO QPM #90 tab 11/09/21 12/04/21 Rx carvedilol 3.125 mg tablet 3.125 mg PO BID #180 tab 11/09/21 12/04/21 Rx insulin glargine 100 unit/mL (3 27 unit (0.27 mL) SUBCUT DAILY #9 11/09/21 12/04/21 Rx mL) subcutaneous pen (Lantus syrg Solostar U-100 Insulin) insulin lispro 100 unit/mL 9 unit (0.09 mL) SC AC #15 ml 11/09/21 12/04/21 Rx subcutaneous pen (Humalog KwikPen (U-100) Insulin) Exam Narrative Exam Narrative: Lying prone in bed. NAD. Conversational/interactive. Mostly complains of her leg weakness. Const General: cooperative and no acute distress Nutritional Appearance: obese Orientation: alert and oriented x3 Eyes General: appearance normal, both eyes and all related structures Sclera: sclerae normal Neck Neck: JVD Resp Effort & Inspection: normal respiratory effort Auscultation: clear to auscultation bilaterally Cardio Jugular venous pressure: no JVD Rate: regular rate Rhythm: regular rhythm Heart Sounds: S1 normal and S2 normal GI Palpation: soft and nontender Auscultation: normal bowel sounds Skin General skin exam: no rashes or lesions noted Neuro General: moves all extremities Cranial Nerves: facial strength normal Cognition: normal cognition Speech: speech normal Extrem General: no joint enlargement, no pedal edema and other (diffuse tenderness of both legs with even light touch) Psych Mental Status: mental status grossly normal Affect: blunted
[2021-12-04 16:14] VITALS: BP 136/68; PULSE 68; PULSE 78; RESP 18; TEMP 36.7; O2SAT 95
[2021-12-04] MEDS: Furosemide 20 MG TAB PO (18:01)
[2021-12-04] MEDS: Insulin Aspart 300 UNITS/3 ML PEN 9 UNITS SC (18:09)
[2021-12-04 21:56] VITALS: BP 137/72; PULSE 89; RESP 20; TEMP 38.1; O2SAT 97
[2021-12-04] MEDS: Atorvastatin 40 MG TAB PO (21:57)
[2021-12-04] MEDS: Gabapentin 100 MG CAP 200 MG PO (21:57)
[2021-12-04] MEDS: Sodium Bicarbonate 650 MG TAB 1300 MG PO (21:58)
[2021-12-04] MEDS: Metoprolol 12.5 MG TAB PO (21:58)
[2021-12-04] MEDS: Acetaminophen 325 MG TAB PO (21:59)
[2021-12-04] MEDS: Lidocaine Patch Removal 1 EACH TP (22:07)
--- NOTE | 2021-12-04 22:31 | DI.VRAD_ITS ---
PROCEDURE INFORMATION: Exam: XR Chest Exam date and time: 12/04/2021 10:11 PM Age: 81 years old Clinical indication: Fever TECHNIQUE: Imaging protocol: XR of the chest. Views: 1 view. COMPARISON: XR PORTABLE CHEST AP 11/21/2021 11:29 AM FINDINGS: Lungs: There are diffuse interstitial infiltrates present. This may represent cardiogenic versus noncardiogenic edema. An acute inflammatory process and/or infectious process/pneumonia are not excluded. Consolidation left lower lobe lobar pneumonia is not excluded. There is pulmonary venous congestion. Pleural spaces: There is a probable left pleural effusion. No evidence of pneumothorax. Heart/Mediastinum: The heart is enlarged. There is prominence of the mediastinum. Bones/joints: The skeletal structures and soft tissues show no evidence of fracture or other acute processes. Soft tissues: The soft tissues of the extrathoracic region are unremarkable. IMPRESSION: 1. Probable congestive heart failure. Underlying inflammatory or infectious process not excluded. 2. There are diffuse interstitial infiltrates present. This may represent cardiogenic versus noncardiogenic edema. An acute inflammatory process and/or infectious process/pneumonia are not excluded. 3. Consolidation left lower lobe lobar pneumonia is not excluded. 4. There is a probable left pleural effusion. Dictated and Authenticated by: Riki Niño MD. Ordering:ROSHNI Trejo MD
[2021-12-04 22:39] LABS: Source Nasal/Nares
[2021-12-04 22:41] LABS: Bilirubin Negative (Negative); Blood Moderate (Negative); Clarity Sl Cloudy (Clear); Glucose 100 mg/dL (Negative); Ketones Negative (Negative); Leukocyte Esterase Small (Negative); Nitrite Negative (Negative); Urobilinogen 0.2 EU/dL (Up TO 0.2)
[2021-12-04 22:48] LABS: Bacteria Few HPF (Negative); C & S Indicated? C&S Done As Ordered; Casts 0-2 Coarse Granular LPF (Negative); Crystals Negative HPF (Negative); Epithelial Cells Many HPF (Negative); Mucus Negative (Negative); RBC 20-50 HPF (0-2); WBC >50 HPF (0-5)
[2021-12-04 23:16] LABS: COVID-19 PCR Negative (Negative)
[2021-12-04 23:37] LABS: Procalcitonin 2.1 ng/mL
[2021-12-05] VITALS (10 sets, daily range): BP systolic 112–148; BP diastolic 64–73; PULSE 82–101; RESP 19–32; TEMP 36.9–38.4; O2SAT 93–98
[2021-12-05] MEDS: Heparin 5,000 UNITS/ML VIAL 5000 UNITS SC ×2 (05:57→17:54)
--- NOTE | 2021-12-05 06:01 | NUR.NOTE ---
Plt count pending, charge nurse notified. Heparin given per charge nurse.
--- NOTE | 2021-12-05 07:53 | PDOC.CMIN ---
- If Service Date Differs Date of service: 12/05/21 Time of Service: 07:53 Care Management Initial Assess REASON FOR HOSPITALIZATION:: Pyelonephritis, Acute Kidney Injury. PAST MEDICAL HISTORY/PAST SURGICAL HISTORY:: All Active Problems: Uric acid nephrolithiasis (Acute), Normocytic anemia (Acute), Emphysematous pyelonephritis (Acute), PATRICIO (acute kidney injury) (Acute), Dehydration (Acute), Acidemia (Acute), Staghorn calculus (Acute),. Left nephrolithiasis (Acute 09/2021), Non-ST elevation MT (NSTEMI) (Acute 09/2021), Coronary artery disease (Chronic) - MT 08/2020, NSTEMI 09/2021,. Heart failure with reduced ejection fraction (Chronic), Ischemic cardiomyopathy (Acute), Chronic kidney disease (Chronic), Type 2 diabetes mellitus (Chronic), Essential hypertension (Chronic), Venous insufficiency (Acute), Peripheral edema (Acute), Drainage from surgical wound (Acute),. Osteoarthritis of right hip (Acute), Primary osteoarthritis of right knee (Chronic) - Most recent injection: 08/06/2019, and Primary osteoarthritis of left knee (Chronic) - Most recent injection: 08/06/2019. Medical History: 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), Myocardial infarction (~08/2020) - Apical and septal infarct, Perforated duodenal ulcer (~12/2020), Sepsis (09/2021), and Syncope - Related to use of lisinopril occurring both at rest while having her hair washed in beauty parlor as well as occurring while ambulating. None have occurred since cessation of her lisinopril. Surgical History: S/P exploratory laparotomy (01/18/21) - Milton patch for perforated duodenal ulcer. PREVIOUS FUNCTIONAL STATUS/SOCIAL/FAMILY SUPPORTS:: Vy lives alone in her own home in [place]. 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 Since retiring she has remained active in the community but recent health issues and hospitalizations have resulted in mobility issues. CURRENT FUNCTIONAL STATUS:: Vy is laying in bed when CM comes to meet with her. She reports feeling weak and minimally engages in conversation. A Palliative Care consult is ordered to help clarify goals of care. CM will continue to follow. ADVANCE DIRECTIVES:: COLST/DNR on file. Has patient been provided with info about the portal/API?: Yes Did the patient sign up for the portal?: No CODE STATUS:: DNR/DNI INSURANCE COVERAGE / FINANCIAL ISSUES:: [facility]. CURRENT HOME/COMMUNITY SERVICES/EQUIPMENT:: No home/community services. Vy uses a FWW for ambulation. PRIMARY CARE PHYSICIAN:: Jocelin Martinez NP ([facility]). POTENTIAL DISCHARGE NEEDS:: Follow up appointments with PCP and nephrology and potential rehab placement. PATIENT/FAMILY EDUCATION NEEDS:: Review of discharge instructions including medications and follow up plan of care; discuss Ask Me Three and self management. ANTICIPATED BARRIERS TO DISCHARGE:: None identified at this time. TRANSPORTATION:: Undetermined at this time. If Vy is discharged home, [id number] will transport via private vehicle. PLAN:: Vy may require short term rehab to regain strength prior to returning home. She will continue to work with PT and will meet with Palliative Care while inpatient at [facility]. CM will continue to follow.
[2021-12-05] MEDS: Furosemide 20 MG TAB PO (08:50)
[2021-12-05] MEDS: Metoprolol 12.5 MG TAB PO ×2 (08:50→20:00)
[2021-12-05] MEDS: Pantoprazole 20 MG TABCR PO (08:50)
[2021-12-05] MEDS: Aspirin 81 MG CHEW PO (08:50)
[2021-12-05] MEDS: Sodium Bicarbonate 650 MG TAB 1300 MG PO ×3 (08:50→20:00)
[2021-12-05] MEDS: cefTRIAXone 1 GM/50 ML BAG IVPB (08:51)
[2021-12-05] MEDS: Lidocaine 5% Patch 1 PATCH TP (08:51)
[2021-12-05] MEDS: Insulin Aspart 300 UNITS/3 ML PEN SC ×3 (08:52→16:58)
[2021-12-05] MEDS: Insulin Aspart 300 UNITS/3 ML PEN 9 UNITS SC ×2 (08:52→11:57)
[2021-12-05] MEDS: Insulin Glargine 300 UNITS/3 ML PEN 27 UNITS SC (08:53)
--- NOTE | 2021-12-05 09:02 | PT.INIE ---
PT Notes Visit Reasons: Pyelonephritis,Acute Kidney Injury Inpatient Physical Therapy Evaluation Date: 12/05/21 Referring Doctor: Dr. Ely PT Orders: PT CONSULT: limited ability to ambulate Precautions: fall, standard Patient Profile/Admitting Diagnosis: Patient is an 81 yo female with a h/o DM2 reuiring insulin, HTN, CKD stage IV, CHF, afib, perforated duodenal ulcer.? She was transferred to [facility] on 11/21/21 from [facility] ED for nephrolithiasis, PATRICIO and E.Coli emphysematous pyelitis, as well as an NSTEMI.? She had been hospitalized at [facility] in September of 2021 for complicated UTI with nephrolithiasis, s/p L ureteral stent placement.? During hospitalization at [facility] she percutaneous nephrostomy tube placement on 11/24 by IR.? On 11/30 she went to the OR for tube removal and left ureteral stent placement and left lithotripsy.? The stent was removed on 12/03.? She continues on Rocephin daily through 12/08/21.? She prefers to be close to home to continue treatment.? She does have a chronic history of right hip, knee and ankle pain.? She now c/o bilateral leg weakness. PMHX: Uric acid nephrolithiasis (Acute) Normocytic anemia (Acute) Emphysematous pyelonephritis (Acute) PATRICIO (acute kidney injury) (Acute) Dehydration (Acute) Acidemia (Acute) Staghorn calculus (Acute) Left nephrolithiasis (Acute 09/2021) Non-ST elevation [place] (NSTEMI) (Acute 09/2021) Coronary artery disease (Chronic) AK 08/2020, NSTEMI 09/2021Heart failure with reduced ejection fraction (Chronic) Ischemic cardiomyopathy (Acute) Chronic kidney disease (Chronic) Type 2 diabetes mellitus (Chronic) Essential hypertension (Chronic) Venous insufficiency (Acute) Peripheral edema (Acute) Drainage from surgical wound (Acute) Osteoarthritis of right hip (Acute) Primary osteoarthritis of right knee (Chronic) Most recent injection: 08/06/2019Primary osteoarthritis of left knee (Chronic) Most recent injection: 08/06/2019 Medical History? 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 None have occurred since cessation of her lisinopril Surgical History? S/P exploratory laparotomy (01/18/21) [place] patch for perforated duodenal ulcer Social History/Home Situation: Patient lives alone. Current Functional Limitations: reports sensation of weakness in legs Equipment Owned/DME: 4WW Subjective: Vy states that she's having a great deal of pain in her legs, particularly her right hip. States that she has not stood on her own in about 2 weeks. She has been using a 4WW at home for about a year, but feels that she's grown extremely weak since experiencing her recent health issues. Objective: General Observation: Resting in bed, finishing her breakfast. IV in RUE, Catherine catheter in place. Mental Status: A&Ox3. Pleasant and cooperative. Apologetic regarding her pain and limited function. Pain: poorly controlled right hip pain, particularly with bed mobility ROM: Right Upper Extremity: WFL Left Upper Extremity: WFL Right Lower Extremity: Pain with all hip motion. Functionally tolerates 80 degrees flexion. Knee motion functionally allows 0-100. Left Lower Extremity: Functionally tolerates 80 degrees flexion. Knee motion functionally allows 0-100. Strength: Right Upper Extremity: 3/5 for all motions grossly Left Upper Extremity: 3/5 for all motions grossly Right Lower Extremity: functionally able to perform SLR within limited range Left Lower Extremity: functionally able to perform SLR, ankle pumps Sensation: intact distally Bed Mobility/Transfers: supine-sit: max Ax2 sit-supine: mod A x 2 sit-stand: mod A x 3 stand-sit: mod A x 2 bed-commode: mod A x 3, Steady Lift; fully dependent for self-care, with support of 2 during partial stand Gait: unable Balance: Static Sitting: unable Dynamic Sitting: unable Static Standing: unable Dynamic Standing: unable Special Tests: Mobility Limitations Standardized Measure [facility] AM-PAC 6 clicks Basic Mobility Inpatient Short Form: Raw Score: 10 CMS Score: 77% impairment Informed Consent/Education: Patient instructed in purpose of PT consult and plan of care. Treatment: Today's session consisted of evaluation, followed by transfer training and instruction in functional exercises. Patient completed 5 sit-stand transfers with mod A of 2-3, and ability to stand support with assist of Steady Lift and support of 2 for up to 15 seconds. Instructed in quad sets and SLR; patient reporting extreme fatigue after session, and unable to complete further exercises or remain up to chair as a result. Assessment: Patient is a 81 year old female referred to physical therapy services with the diagnosis of limited ability to ambulate. Patient presents with clinical signs and symptoms consistent with diagnosis, with markedly diminished mobility versus baseline. Based on AM-PAC scores, patient will likely required SNF placement to facilitate safe return to community dwelling. She currently demonstrates the following impairment level findings: 1. Decreased activity tolerance 2. decreased functional strength 3. poorly controlled pain 4. decreased right hip ROM Impairments are contributing to the following functional limitations: 1. dependent for bed mobility 2. dependent for transfers 3. unable to ambulate 4. unable to stand independently 5. dependent for ADLs Patient is assessed as Moderate 11603 complexity based on the following: History: Patient is an 81 year old female presenting with markedly diminished functional mobility and activity tolerance in the presence of acute medical issues. 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 She will require SNF placement to facilitate safe return to community dwelling. Examination: functional limitations as noted above Presentation: evolving Decision Making: moderate complexity Goals: Goals X1 week 1. Supine-Sit : min A x 1 2. Sit-Supine : min A x 1 3. Sit-Stand : min A x 1 4. Stand-Sit : min A x 1 5. Bed-Chair : stand pivot with FWW and mod A x 1 6. Chair-Bed : stand pivot with FWW and mod A x 1 7. Gait : 20' with FWW and mod A x 1 Plan of Care/Treatment Plan: 1-2x/day, 7 days/week x 1 week. Plan of care has been reviewed with the REGIONAL GUIDE providing the service under Physical Therapy direction. Initiate Physical Therapy intervention for strengthening, bed mobility, transfers, gait, stairs, balance training, use of assistive device. DISCHARGE RECOMMENDATIONS: SNF for continued rehabilitation TREATMENT CODE/TIME: 9:00-9:50 ([id number]) Claudia Echols PT, DPT [facility]
[2021-12-05 10:18] LABS: Anion Gap 13.7 mmol/L (3-11); CO2 19.3 mmol/L (21.0-32.0); Calcium 7.6 mg/dL (8.5-10.1); Chloride 103 mmol/L (98-107); Estimated GFR 11.73 (mL/min/1.73m2); Glucose 213 mg/dL (74-106); Magnesium 1.5 mg/dL (1.8-2.4); Sodium 136 mmol/L (136-145)
[2021-12-05 10:34] LABS: ALT 107 U/L (14-59); AST 142 U/L (15-37); Albumin 1.5 g/dL (3.4-5.0); Alkaline Phosphatase 216 U/L (46-116); Bilirubin, Total 0.2 mg/dL (0.2-1.0)
[2021-12-05 10:56] LABS: BUN 95 mg/dL (7-18)
[2021-12-05 10:57] LABS: CREATININE 3.7 mg/dL (0.55-1.02)
--- NOTE | 2021-12-05 12:35 | W.PM.PROGNOT ---
Date of Service Date of service: 12/05/21 Time of Service: 12:35 Assessment and Plan Assessment and plan (1) Emphysematous pyelonephritis: Status: Acute Assessment and plan: Cont Rocephin through 12/08/21. Afebrile Very difficult lab draw today; CBC not obtained. (2) PATRICIO (acute kidney injury): Status: Acute Assessment and plan: Creatinine 3.7. Creatinine of 6.0 on 11/21/21; creatinine improved into the low 3's per d/c note from [facility]. Now on lasix which has likely worsened her renal function. Monitor. (3) Chronic kidney disease: Status: Chronic Assessment and plan: Stage IV. May have a new baseline given the recent acute injury. Monitor. (4) Non-ST elevation CT (NSTEMI): Status: Acute Assessment and plan: Troponin elevated at ..249 then trended downward. TTE on 11/24: EF of 55-60%, apical hypokinesis and trivial effusion. No c/o angina. (5) Osteoarthritis of right hip: Status: Acute Assessment and plan: Generalized right hip/knee/ankle arthritis that is chronic. Hyperalgesia; pain with light touch to legs, R>L. Cont gabapentin, capsaicin, lidoderm patch. (6) Primary osteoarthritis of right knee: Status: Chronic Assessment and plan: As per above. (7) Type 2 diabetes mellitus: Status: Chronic Assessment and plan: Cont basal/bolus insulin with ACHS monitoring. Adjusting insulin d/t high glucose readings. Diabetic diet. (8) Normocytic anemia: Status: Acute Assessment and plan: Monitor. (9) Uric acid nephrolithiasis: Status: Acute Assessment and plan: Cont NaBicarb 1300mg TID to aid in dissolution of any stones and prevention of formation of further stones. (10) Pulmonary edema: Status: Acute Assessment and plan: CXR on 12/04 showed pulmonary edema. Echo at [facility] recently with preserved EF. Lasix IV given last PM and now 20mg po BID (11) Hypomagnesemia: Status: Acute Assessment and plan: IV and oral replacement. Subjective Subjective Patient reports: still having pain (R hip/knee ), tolerating a regular diet and fever; denies nausea or vomiting Interval history since last seen: Ongoing c/o bilateral leg weakness Exam Narrative Exam Narrative: Lying prone in bed. NAD. Conversational/interactive. Mostly complains of her leg weakness. Const General: cooperative and no acute distress Nutritional Appearance: obese Orientation: alert and oriented x3 Eyes General: appearance normal, both eyes and all related structures Sclera: sclerae normal Neck Neck: JVD Resp Effort & Inspection: normal respiratory effort Auscultation: clear to auscultation bilaterally Cardio Jugular venous pressure: no JVD Rate: regular rate Rhythm: regular rhythm Heart Sounds: S1 normal and S2 normal GI Palpation: soft and nontender Auscultation: normal bowel sounds Skin General skin exam: no rashes or lesions noted Neuro General: moves all extremities Cranial Nerves: facial strength normal Cognition: normal cognition Speech: speech normal Extrem General: no joint enlargement, no pedal edema and other (diffuse tenderness of both legs with even light touch) Psych Mental Status: mental status grossly normal Affect: blunted Objective Last Vital Signs Temp 38.0 C H 12/05/21 11:52 Pulse 89 12/05/21 11:52 Resp 19 12/05/21 11:52 BP 127/70 12/05/21 11:52 Pulse Ox 95 12/05/21 11:52 Laboratory Results - last 24 hr 12/04/21 12/04/21 12/04/21 21:30 21:30 22:50 Sodium Potassium Chloride Carbon Dioxide Anion Gap BUN Creatinine Estimated GFR/1.73 m2 Glucose Calcium Magnesium Total Bilirubin AST ALT Alkaline Phosphatase C-Reactive Protein 18.70 H Total Protein Albumin Procalcitonin Urine Color Yellow Urine Clarity Sl Cloudy Urine pH 7.0 Ur Specific [place] 1.020 Urine Protein 100 H Urine Ketones Negative Urine Blood Moderate H Urine Nitrite Negative Urine Bilirubin Negative Urine Urobilinogen 0.2 Ur Leukocyte Esterase Small H Urine RBC 20-50 H Urine WBC >50 H Ur Epithelial Cells Many Urine Crystals Negative Urine Bacteria Few Urine Casts 0-2 Coarse Granular Urine Mucus Negative Ur Culture Indicated? C&S Done As Ordered Urine Glucose 100 COVID-19 Source Nasal/Nares SARS-CoV-2 (PCR) Negative 12/04/21 12/05/21 22:50 08:15 Sodium 136 Potassium Chloride 103 Carbon Dioxide 19.3 L Anion Gap 13.7 H BUN 95 H* Creatinine 3.7 H* Estimated GFR/1.73 m2 11.73 Glucose 213 H Calcium 7.6 L Magnesium 1.5 L Total Bilirubin 0.2 AST 142 H ALT 107 H Alkaline Phosphatase 216 H C-Reactive Protein Total Protein Albumin 1.5 L Procalcitonin 2.1 Urine Color Urine Clarity Urine pH Ur Specific [place] Urine Protein Urine Ketones Urine Blood Urine Nitrite Urine Bilirubin Urine Urobilinogen Ur Leukocyte Esterase Urine RBC Urine WBC Ur Epithelial Cells Urine Crystals Urine Bacteria Urine Casts Urine Mucus Ur Culture Indicated? Urine Glucose COVID-19 Source SARS-CoV-2 (PCR)
[2021-12-05] MEDS: MAGNESIUM SULFATE 2 GM/50 ML BAG IVPB (12:50)
[2021-12-05] MEDS: Acetaminophen 325 MG TAB PO ×2 (15:03→21:21)
[2021-12-05 16:00] LABS: Abs Immature Grans 0.07 10^3/uL (0.0-0.06); Absolute Eosinophil Count 0.08 10^3/uL (0.0-0.7); Basophils % 0.3; Eosinophils % 0.7; Immature Grans % 0.6; MCH 30.2 pg (27.0-33.0); MCHC 29.6 % (32.0-36.0); MPV 11.5 fL (8.0-11.0); Monocytes % 10.4; Nucleated RBC 0 %; RBC 2.48 10^6/uL (3.93-5.22); RDW 14.9 % (11.7-14.6); RDW-SD 55.4 fL; WBC 11.51 10^3/uL (4.4-10.8)
[2021-12-05 16:02] LABS: Absolute Basophil Count 0.03 10^3/uL (0.0-0.2); Absolute Neutrophil Count 8.63 10^3/uL (1.2-6.7)
[2021-12-05 16:03] LABS: HCT 25.3 % (36.0-46.0); HGB 7.5 g/dL (11.2-15.7); Platelet Count 373 10^3/uL (130-400)
[2021-12-05 16:15] LABS: ALT 107 U/L (14-59); AST 147 U/L (15-37); Albumin 1.5 g/dL (3.4-5.0); Alkaline Phosphatase 258 U/L (46-116); Anion Gap 12.4 mmol/L (3-11); Bilirubin, Total 0.2 mg/dL (0.2-1.0); CO2 21.6 mmol/L (21.0-32.0); Calcium 7.9 mg/dL (8.5-10.1); Chloride 100 mmol/L (98-107); Estimated GFR 11.04 (mL/min/1.73m2); Glucose 307 mg/dL (74-106); Potassium 5.2 mmol/L (3.5-5.1); Sodium 134 mmol/L (136-145)
[2021-12-05 16:16] LABS: Diff Comment RBC Morph Reviewed; Macrocytosis 1+; Polychromasia Present
[2021-12-05 16:18] LABS: BUN 94 mg/dL (7-18); CREATININE 3.9 mg/dL (0.55-1.02)
[2021-12-05] MEDS: Lactated Ringers 500 ML IV (16:25)
[2021-12-05] MEDS: Insulin Aspart 300 UNITS/3 ML PEN 12 UNITS SC (16:59)
[2021-12-05] MEDS: VANCOMYCIN 1,250 MG in Normal Saline 250 ML 166.667 MG IVPB (17:07)
[2021-12-05] MEDS: Atorvastatin 40 MG TAB PO (20:00)
[2021-12-05] MEDS: Gabapentin 100 MG CAP 200 MG PO (21:21)
[2021-12-05] MEDS: Magnesium Oxide 400 MG TAB PO (21:22)
[2021-12-06] VITALS (18 sets, daily range): BP systolic 115–154; BP diastolic 56–77; PULSE 69–85; RESP 16–21; TEMP 36.4–37.7; O2SAT 6–97
[2021-12-06] MEDS: Heparin 5,000 UNITS/ML VIAL 5000 UNITS SC ×2 (06:00→18:21)
[2021-12-06 06:48] LABS: Lactate 0.8 mmol/L (0.6-1.4)
[2021-12-06 06:59] LABS: Abs Immature Grans 0.07 10^3/uL (0.0-0.06); Absolute Basophil Count 0.05 10^3/uL (0.0-0.2); Absolute Eosinophil Count 0.15 10^3/uL (0.0-0.7); Absolute Lymphocyte Count 1.53 10^3/uL (1.2-3.4); Absolute Monocyte Count 1.31 10^3/uL (0.1-0.8); Absolute Neutrophil Count 6.48 10^3/uL (1.2-6.7); Basophils % 0.5; Eosinophils % 1.6; HCT 21.3 % (36.0-46.0); Immature Grans % 0.7; MCH 31.3 pg (27.0-33.0); MCHC 30.5 % (32.0-36.0); MCV 102.4 fL (80-95); MPV 11.4 fL (8.0-11.0); Monocytes % 13.7; Neutrophils % 67.5; Nucleated RBC 0 %; Platelet Count 292 10^3/uL (130-400); RBC 2.08 10^6/uL (3.93-5.22); RDW 14.7 % (11.7-14.6); RDW-SD 55.9 fL; WBC 9.59 10^3/uL (4.4-10.8)
[2021-12-06 07:01] LABS: HGB 6.5 g/dL (11.2-15.7)
[2021-12-06 07:16] LABS: Anion Gap 12.5 mmol/L (3-11); CO2 22.5 mmol/L (21.0-32.0); Calcium 7.9 mg/dL (8.5-10.1); Chloride 103 mmol/L (98-107); Estimated GFR 11.73 (mL/min/1.73m2); Glucose 179 mg/dL (74-106); Potassium 4.7 mmol/L (3.5-5.1); Sodium 138 mmol/L (136-145)
[2021-12-06 07:22] LABS: BUN 87 mg/dL (7-18)
[2021-12-06 07:23] LABS: CREATININE 3.7 mg/dL (0.55-1.02)
[2021-12-06] MEDS: Normal Saline Flush 10 ML SYR IVP ×3 (08:40→19:34)
[2021-12-06] MEDS: Insulin Aspart 300 UNITS/3 ML PEN SC ×3 (09:01→16:53)
[2021-12-06] MEDS: Insulin Aspart 300 UNITS/3 ML PEN 12 UNITS SC ×3 (09:01→16:53)
[2021-12-06] MEDS: Lidocaine 5% Patch 1 PATCH TP (09:10)
[2021-12-06] MEDS: Sodium Bicarbonate 650 MG TAB 1300 MG PO ×3 (09:11→19:33)
[2021-12-06] MEDS: Insulin Glargine 300 UNITS/3 ML PEN 35 UNITS SC (09:11)
[2021-12-06] MEDS: Metoprolol 12.5 MG TAB PO ×2 (09:11→19:33)
[2021-12-06] MEDS: Aspirin 81 MG CHEW PO (09:11)
[2021-12-06] MEDS: Pantoprazole 20 MG TABCR PO (09:11)
--- NOTE | 2021-12-06 10:30 | PGE_ITS ---
Date of Service Date of service: 12/06/21 Time of Service: 10:31 Assessment and Plan Assessment and plan (1) Emphysematous pyelonephritis: Status: Acute Assessment and plan: Plan was to continue Rocephin through 12/08/21. NOw has PNA and changed antibiotic coverage to cefepime and Vancomycin. Afebrile currently; Tm of 38.4 yesterday. (2) PATRICIO (acute kidney injury): Status: Acute Assessment and plan: Creatinine 3.7. Creatinine of 6.0 on 11/21/21; creatinine improved into the low 3's per d/c note from [facility]. Stopped lasix. Monitor for volume overload (particularly given she is receiving 2 units of pRBCs today). Monitor. (3) Chronic kidney disease: Status: Chronic Assessment and plan: Stage IV. May have a new baseline given the recent acute injury. Monitor. (4) Non-ST elevation [place] (NSTEMI): Status: Acute Assessment and plan: Troponin elevated at ..249 then trended downward. TTE on 11/24: EF of 55-60%, apical hypokinesis and trivial effusion. No c/o angina. (5) Osteoarthritis of right hip: Status: Acute Assessment and plan: Generalized right hip/knee/ankle arthritis that is chronic. Hyperalgesia; pain with light touch to legs, R>L. Cont gabapentin, capsaicin, lidoderm patch. (6) Primary osteoarthritis of right knee: Status: Chronic Assessment and plan: As per above. (7) Type 2 diabetes mellitus: Status: Chronic Assessment and plan: Cont basal/bolus insulin with ACHS monitoring. Adjusting insulin as needed. Improved glucose levels. Diabetic diet. (8) Normocytic anemia: Status: Acute Assessment and plan: Hgb now 6.5 Check stool for blood. Transfuse 2 units of RBCs Monitor. (9) Uric acid nephrolithiasis: Status: Acute Assessment and plan: Cont NaBicarb 1300mg TID to aid in dissolution of any stones and prevention of formation of further stones. (10) Hypomagnesemia: Status: Acute Assessment and plan: IV and oral replacement. (11) Anemia: Status: Chronic (12) Pneumonia: Status: Acute Assessment and plan: Left lower lobe infiltrate. Healthcare acquired. Cefepime and Vancomycin. WBC count has normalized. Subjective Subjective Patient reports: still having pain (R hip/knee ), tolerating a regular diet and fever; denies nausea or vomiting Interval history since last seen: Ongoing c/o bilateral leg weakness Exam Narrative Exam Narrative: Lying prone in bed. NAD. Conversational/interactive. Pale appearing. Looks fatigued. Const General: cooperative and no acute distress Nutritional Appearance: obese Orientation: alert and oriented x3 Eyes General: appearance normal, both eyes and all related structures Sclera: sclerae normal Neck Neck: JVD Resp Effort & Inspection: normal respiratory effort Auscultation: clear to auscultation bilaterally Cardio Jugular venous pressure: no JVD Rate: regular rate Rhythm: regular rhythm Heart Sounds: S1 normal and S2 normal GI Palpation: soft and nontender Auscultation: normal bowel sounds Skin General skin exam: no rashes or lesions noted Neuro General: moves all extremities Cranial Nerves: facial strength normal Cognition: normal cognition Speech: speech normal Extrem General: no joint enlargement, no pedal edema and other (diffuse tenderness of both legs with even light touch) Psych Mental Status: mental status grossly normal Affect: blunted Objective Last Vital Signs Temp 36.6 C 12/06/21 07:15 Pulse 81 12/06/21 07:15 Resp 21 12/06/21 07:15 BP 124/71 12/06/21 07:15 Pulse Ox 97 12/06/21 07:15 Laboratory Results - last 24 hr 12/05/21 12/05/21 12/05/21 08:15 15:39 15:40 WBC Cancelled 11.51 H RBC Cancelled 2.48 L Hgb Cancelled 7.5 L Hct Cancelled 25.3 L MCV Cancelled 102.0 H MCH Cancelled 30.2 MCHC Cancelled 29.6 L RDW Cancelled 14.9 H Plt Count Cancelled 373 D MPV Cancelled 11.5 H Immature Gran % Cancelled 0.6 Neutrophils % Cancelled 75.0 Band Neutrophils % Cancelled Lymphocytes % Cancelled 13.0 Atypical Lymphs % Cancelled Monocytes % Cancelled 10.4 Eosinophils % Cancelled 0.7 Basophils % Cancelled 0.3 Metamyelocytes % Cancelled Myelocytes % Cancelled Promyelocytes % Cancelled Other Cells % Cancelled Nucleated RBC % Cancelled 0 Absolute Neutrophils Cancelled 8.63 H Absolute Lymphocytes Cancelled 1.50 Absolute Monocytes Cancelled 1.20 H Absolute Eosinophils Cancelled 0.08 Absolute Basophils Cancelled 0.03 RBC Morphology Cancelled See Below Polychromasia Cancelled Present Hypochromasia Cancelled Poikilocytosis Cancelled Basophilic Stippling Cancelled Anisocytosis Cancelled Microcytosis Cancelled Macrocytosis Cancelled 1+ Spherocytes Cancelled Tear Drop Cells Cancelled Ovalocytes Cancelled Stomatocytes Cancelled [place] Bodies Cancelled [place] Cells/Echinocytes Cancelled Acanthocytes (Spur) Cancelled Schistocytes Cancelled VBG Lactate Sodium 136 Potassium Chloride 103 Carbon Dioxide 19.3 L Anion Gap 13.7 H BUN 95 H* Creatinine 3.7 H* Estimated GFR/1.73 m2 11.73 Glucose 213 H Calcium 7.6 L Magnesium 1.5 L Total Bilirubin 0.2 AST 142 H ALT 107 H Alkaline Phosphatase 216 H Total Protein Albumin 1.5 L Crossmatch 12/05/21 12/05/21 12/06/21 15:40 15:40 06:38 WBC RBC Hgb Hct MCV MCH MCHC RDW Plt Count MPV Immature Gran % Neutrophils % Band Neutrophils % Lymphocytes % Atypical Lymphs % Monocytes % Eosinophils % Basophils % Metamyelocytes % Myelocytes % Promyelocytes % Other Cells % Nucleated RBC % Absolute Neutrophils Absolute Lymphocytes Absolute Monocytes Absolute Eosinophils Absolute Basophils RBC Morphology Polychromasia Hypochromasia Poikilocytosis Basophilic Stippling Anisocytosis Microcytosis Macrocytosis Spherocytes Tear Drop Cells Ovalocytes Stomatocytes [place] Bodies [place] Cells/Echinocytes Acanthocytes (Spur) Schistocytes VBG Lactate 3.0 H* Sodium 134 L 138 Potassium 5.2 H 4.7 Chloride 100 103 Carbon Dioxide 21.6 22.5 Anion Gap 12.4 H 12.5 H BUN 94 H* 87 H* Creatinine 3.9 H* 3.7 H* Estimated GFR/1.73 m2 11.04 11.73 Glucose 307 H 179 H D Calcium 7.9 L 7.9 L Magnesium Total Bilirubin 0.2 AST 147 H ALT 107 H Alkaline Phosphatase 258 H Total Protein 8.0 Albumin 1.5 L Crossmatch 12/06/21 12/06/21 12/06/21 06:38 06:38 07:07 WBC 9.59 RBC 2.08 L Hgb 6.5 L* Hct 21.3 L MCV 102.4 H MCH 31.3 MCHC 30.5 L RDW 14.7 H Plt Count 292 MPV 11.4 H Immature Gran % 0.7 Neutrophils % 67.5 Band Neutrophils % Lymphocytes % 16.0 Atypical Lymphs % Monocytes % 13.7 Eosinophils % 1.6 Basophils % 0.5 Metamyelocytes % Myelocytes % Promyelocytes % Other Cells % Nucleated RBC % 0 Absolute Neutrophils 6.48 Absolute Lymphocytes 1.53 Absolute Monocytes 1.31 H Absolute Eosinophils 0.15 Absolute Basophils 0.05 RBC Morphology Polychromasia Hypochromasia Poikilocytosis Basophilic Stippling Anisocytosis Microcytosis Macrocytosis Spherocytes Tear Drop Cells Ovalocytes Stomatocytes [place] Bodies [place] Cells/Echinocytes Acanthocytes (Spur) Schistocytes VBG Lactate 0.8 Sodium Potassium Chloride Carbon Dioxide Anion Gap BUN Creatinine Estimated GFR/1.73 m2 Glucose Calcium Magnesium Total Bilirubin AST ALT Alkaline Phosphatase Total Protein Albumin Crossmatch See Detail
[2021-12-06] MEDS: CEFEPIME 1 GM in Normal Saline 50 ML IVPB (11:39)
[2021-12-06] MEDS: traMADol 50 MG TAB PO (11:52)
--- NOTE | 2021-12-06 11:56 | PT.INNT ---
Date of service: 12/06/21 Time of Service: 11:56 PT Notes Visit Reasons: Pyelonephritis,Acute Kidney Injury 12/06/2021 Patient refused stating I've already had quite a bit of exercise this morning. Patient agreeable to participating in PT tomorrow morning.
--- NOTE | 2021-12-06 13:01 | PHACLINREV_ITS ---
Pharmacy Admission Review - Admission Clinical Review (Last Reviewed 12/04/21 @ 17:50 by Dhaval Ely MD) Pneumonia (Acute) Hypomagnesemia (Acute) Pulmonary edema (Acute) Uric acid nephrolithiasis (Acute) Normocytic anemia (Acute) Emphysematous pyelonephritis (Acute) PATRICIO (acute kidney injury) (Acute) Non-ST elevation [place] (NSTEMI) (Acute 09/2021) Osteoarthritis of right hip (Acute) Penicillins Allergy (Unknown, Verified 11/21/21 09:34) hydrocodone Adverse Reaction (Intermediate, Verified 11/21/21 09:34) Nausea Resuscitation Status DNR/DNI Height 5 ft 4 in Weight 87 kg - Renal Dosing Renal Dosing: BUN 87 mg/dL (7-18) H* 12/06/21 06:38 Creatinine 3.7 mg/dL (0.55-1.02) H* 12/06/21 06:38 Medications needing adjustments: Intervened (Crcl ~12.5 mL/min using adjusted body weight, Talked to provider about dosing adjustment for cefepime given renal function and indication. Current meds okay.) - Anticoagulation Anticoagulation: Hgb 6.5 g/dL (11.2-15.7) L* 12/06/21 06:38 Hct 21.3 % (36.0-46.0) L 12/06/21 06:38 Plt Count 292 10^3/uL (130-400) 12/06/21 06:38 Creatinine 3.7 mg/dL (0.55-1.02) H* 12/06/21 06:38 DVT Prophylaxis: Reviewed Medications: Heparin Therapeutic Anticoagulation: N/A - Opiate Usage Evaluate Pain Scale/Pains Meds: N/A - Relevant Labs Sodium 138 mmol/L (136-145) 12/06/21 06:38 Potassium 4.7 mmol/L (3.5-5.1) 12/06/21 06:38 Chloride 103 mmol/L (98-107) 12/06/21 06:38 Magnesium 1.5 mg/dL (1.8-2.4) L 12/05/21 08:15 C-Reactive Protein 18.70 mg/dL (0.0-0.3) H 12/04/21 22:50 Electrolytes, C-Reactive P, ESR: Reviewed (mag was 1.5 yesterday, IV mag repalcement given) - DM Control DM Control: Glucose 179 mg/dL (74-106) H D 12/06/21 06:38 Finger Stick Blood Glucose 304 Finger Stick Blood Glucose 304 Finger Stick Blood Glucose 180 Finger Stick Blood Glucose 180 Insulin Dosing: Reviewed (Scheduled aspart and glargine were increased yesterday, also has sliding scale aspart ordered) - Heart Failure/[place] EF%, MARY's, B-Blockers, Diuretics: N/A - BP Control BP Control: Blood Pressure 124/71 Blood Pressure 121/72 If elevated: N/A - Qtc Review If Elevated: N/A - IV to PO Switch IV Medications: Reviewed - Home Meds Home Med List reviewed: Intervened (Home med list in [employer] updated using the discharge med list the provider got from [facility] Relevent Home Meds Not ordered & why?: furosemide (was discontinued yesterday), nitroglycerin (PRN) - Current meds Current Medication Order Review: Reviewed - Comments Comments/Follow Ups: Watch VS, BG, SCr, H/H, mag, labs, for culture results and for med changes (possible renal dose adjustments). Antibiotic Activity - Pharmacy Antibiotic Review Pharmacy Antibiotic Activity: C/S review - Antibiotic Information Antibiotic Review Info: Vanco and cefepime were started yesterday evening to cover for HCAP per progress note. First set of BC no growth at 24 hours, second set pending. Urine culture no growth at 24 hours.
[2021-12-06] MEDS: Acetaminophen 325 MG TAB PO (16:52)
[2021-12-06] MEDS: Atorvastatin 40 MG TAB PO (19:33)
[2021-12-06] MEDS: Nystatin POWDER 60 GM JAR TP (19:34)
[2021-12-06] MEDS: Lidocaine Patch Removal 1 EACH TP (21:10)
[2021-12-06] MEDS: Gabapentin 100 MG CAP 200 MG PO (21:25)
[2021-12-06] MEDS: Magnesium Oxide 400 MG TAB PO (21:25)
[2021-12-07] VITALS (9 sets, daily range): BP systolic 132–169; BP diastolic 67–73; PULSE 74–85; RESP 16–20; TEMP 36.9–38.2; O2SAT 94–100
[2021-12-07] MEDS: Normal Saline Flush 10 ML SYR IVP ×5 (00:18→20:55)
[2021-12-07] MEDS: CEFEPIME 1 GM in Normal Saline 50 ML IVPB ×2 (00:18→11:30)
[2021-12-07] MEDS: Heparin 5,000 UNITS/ML VIAL 5000 UNITS SC ×2 (05:52→18:07)
[2021-12-07 07:50] LABS: Abs Immature Grans 0.06 10^3/uL (0.0-0.06); Absolute Basophil Count 0.05 10^3/uL (0.0-0.2); Absolute Eosinophil Count 0.18 10^3/uL (0.0-0.7); Absolute Lymphocyte Count 1.58 10^3/uL (1.2-3.4); Absolute Neutrophil Count 5.96 10^3/uL (1.2-6.7); Basophils % 0.5; HCT 29.5 % (36.0-46.0); HGB 9.2 g/dL (11.2-15.7); Immature Grans % 0.7; Lymphocytes % 17.3; MCH 30.2 pg (27.0-33.0); MCHC 31.2 % (32.0-36.0); MCV 96.7 fL (80-95); MPV 11.3 fL (8.0-11.0); Monocytes % 14.2; Neutrophils % 65.3; Nucleated RBC 0 %; Platelet Count 313 10^3/uL (130-400); RBC 3.05 10^6/uL (3.93-5.22); RDW 18.3 % (11.7-14.6); RDW-SD 65.3 fL; WBC 9.13 10^3/uL (4.4-10.8)
[2021-12-07] MEDS: Lidocaine 5% Patch 1 PATCH TP (07:51)
[2021-12-07] MEDS: Pantoprazole 20 MG TABCR PO (07:52)
[2021-12-07] MEDS: Sodium Bicarbonate 650 MG TAB 1300 MG PO ×3 (07:52→20:01)
[2021-12-07] MEDS: Aspirin 81 MG CHEW PO (07:52)
[2021-12-07] MEDS: Insulin Glargine 300 UNITS/3 ML PEN 35 UNITS SC (07:52)
[2021-12-07] MEDS: Nystatin POWDER 60 GM JAR TP ×2 (07:53→20:00)
[2021-12-07] MEDS: Metoprolol 12.5 MG TAB PO ×2 (07:53→20:01)
--- NOTE | 2021-12-07 08:03 | W.PALLCONSUL ---
Date of service: 12/07/21 Time of Service: 08:03 History of Present Illness History of Present Illness Chief Complaint: Multiple setbacks: renal disease, ambulatory difficulties, depression Narrative: Vy is an 81-year-old woman who has had multiple problems recently. She was found to have staghorn calculi, left hydronephrosis, interventions with renal tubes etc. From H and P: History of Present Illness?Chief Complaint: pyelonephritis, nephrolithiasis?Narrative: This is an 81 yo female with a h/o DM2 reuiring insulin, HTN, CKD stage IV, CHF, afib, perforated duodenal ulcer.? She was transferred to [facility] on 11/21/21 from [facility] ED for nephrolithiasis, PATRICIO and E.Coli emphysematous pyelitis, as well as an NSTEMI.? She had been hospitalized at [facility] in September of 2021 for complicated UTI with nephrolithiasis, s/p L ureteral stent placement.? During hospitalization at [facility] she percutaneous nephrostomy tube placement on 11/24 by IR.? On 11/30 she went to the OR for tube removal and left ureteral stent placement and left lithotripsy.? The stent was removed on 12/03.? Stone analysis indicated uric acid stone.? Sodium bicarb initiated to alkalize urine.? Her creatinine improved to low 3's; baseline low 2's.? She continues on Rocephin daily through 12/08/21.? She prefers to be close to home to continue treatment.? She desires no further invasive interventions but will accept medications and non-invasive treatments.? She does have a chronic history of right hip, knee and ankle pain.? Gabapentin was initiated during the recent [facility] hospitalization.? Capsaicin and a lidoderm patch also utilized.? She now c/o bilateral leg weakness; they feel like jelly. ? Interim Hx: Patient was happy to see me. I have known her for over 30 years. She states that she has so much going on and it is too much for somebody her age. She absolutely declines working with physical therapy. She says that her legs just plain cannot move. She cannot turn over in bed unless she has helped. She does not like being disturbed at night to improve movement. She now has pneumonia and a decubitus. Multiple people have been in explaining to her her need to start moving if she wants to improve. She says on numerous occasions that her goal is to get home and stay home. She does understand that she may need to go to a rehab for some time. She does not know how she would function at home. Consults Consult date: 12/07/21 Requesting physician: Dhaval Ely Assessment and Plan Assessment and plan (1) Pneumonia: Status: Acute (2) Anemia: Status: Chronic (3) Uric acid nephrolithiasis: Status: Acute (4) Emphysematous pyelonephritis: Status: Acute (5) Staghorn calculus: Status: Acute (6) Non-ST elevation [place] (NSTEMI): Status: Acute (7) Ischemic cardiomyopathy: Status: Acute (8) Type 2 diabetes mellitus: Status: Chronic Assessment and plan: consult with life educator (9) Osteoarthritis of right hip: Status: Acute Assessment and plan: COntributes to difficulty with movement (10) Primary osteoarthritis of left knee: Status: Chronic (11) Palliative care patient: Status: Acute Assessment and plan: I am very concerned about Vy. She appears very depressed. I would certainly try a small dose of either Lexapro 5 mg or mirtazapine 7.5 mg. I do not have an explanation for her rising LFTs. CT scan looked like the normal liver. May need hepatitis testing Severe difficulty with almost any movement.?Recommend getting a CPK as well as a sed rate just to rule out other problems. She is on atorvastatin. Given her liver enzyme rising and severe problems with movement I would hold this for some time. She seemed a bit upset about people coming in and recommending that she move more. She used the word brow beat. I do think everyone is trying to be helpful and encouraged her. Perhaps if her mood was raised a bit more it would be helpful. I think a brewery worker consult would be helpful. Renal status slowly improving She is a DNR/DNI, and reiterated that she did not want CPR Palliative will continue to follow her. (12) Depression: Status: Chronic Review of Systems Narrative: She says she is tired. She hurts in many areas. She cannot possibly walk. It is difficult for her to move. She has shortness of breath and at times chest pain. PFSH All Active Problems (Updated 12/08/21 @ 12:59 by Dhaval Ely MD) Discharge planning issues (Acute) Sacral decubitus ulcer (Acute) Depression (Chronic) Palliative care patient (Acute) Pneumonia (Acute) Anemia (Chronic) Hypomagnesemia (Acute) Pulmonary edema (Acute) Uric acid nephrolithiasis (Acute) Normocytic anemia (Acute) Emphysematous pyelonephritis (Acute) PATRICIO (acute kidney injury) (Acute) Dehydration (Acute) Acidemia (Acute) Staghorn calculus (Acute) Left nephrolithiasis (Acute 09/2021) Non-ST elevation [place] (NSTEMI) (Acute 09/2021) Coronary artery disease (Chronic) [place] 08/2020, NSTEMI 09/2021 Heart failure with reduced ejection fraction (Chronic) Ischemic cardiomyopathy (Acute) Chronic kidney disease (Chronic) Type 2 diabetes mellitus (Chronic) Essential hypertension (Chronic) Venous insufficiency (Acute) Peripheral edema (Acute) Drainage from surgical wound (Acute) Osteoarthritis of right hip (Acute) Primary osteoarthritis of right knee (Chronic) Most recent injection: 08/06/2019 Primary osteoarthritis of left knee (Chronic) Most recent injection: 08/06/2019 Medical History 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) Myocardial infarction (~08/2020) Apical and septal infarct Perforated duodenal ulcer (~12/2020) Sepsis (09/2021) Syncope Related to use of lisinopril occurring both at rest while having her hair washed in beauty parlor as well as occurring while ambulating. None have occurred since cessation of her lisinopril Surgical History S/P exploratory laparotomy (01/18/21) Milton patch for perforated duodenal ulcer Family History Mother , AGE 78 Diabetes Father No problems noted. 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 Able to cooperate with the exam and cannot turn on her side in order for me to examine and listen to her lungs. Her heart is regular and rate controlled. Lungs little air movement, small inspiration. Abdomen good bowel sounds nontender. Catherine in place. When I examined her legs I tried to do straight leg raise on both sides. There was significant resistance to me doing this. Patient stated see I cannot move my legs. Results Last Vital Signs Temp 97.9 F 12/06/21 23:45 Pulse 75 12/06/21 23:45 Resp 16 12/06/21 23:45 BP 137/75 12/06/21 23:45 Pulse Ox 96 12/06/21 23:45 Laboratory Tests 11/09/21 12/05/21 12/06/21 14:36 15:40 06:38 Hgb 6.5 L* BUN Creatinine 3.9 H* Hemoglobin A1c 8.0 H AST 147 H ALT 107 H Alkaline Phosphatase 258 H Albumin 1.5 L 12/07/21 12/07/21 07:40 07:40 Hgb 9.2 L D BUN 77 H Creatinine 3.4 H Hemoglobin A1c AST ALT Alkaline Phosphatase Albumin 8/ INDINGS: Again noted are moderate degenerative changes in the right hip including moderate joint space narrowing and marginal osteophytes.? Amount of joint space narrowing has slightly further increased in the right hip.? Left hip continues to exhibit normal joint space height.? The left iliac crest is again noted be significant higher than the right, similar to the previous study.? That prior study also revealed significant narrowing of the medial compartments of both knees.? No osseous lesions evident. Labs Result diagrams: 12/08/21 09:40 12/08/21 09:40 Labs: Laboratory Results - last 24 hr 12/06/21 12/07/21 13:05 07:40 WBC 9.13 RBC 3.05 L Hgb 9.2 L D Hct 29.5 L D MCV 96.7 H MCH 30.2 MCHC 31.2 L RDW 18.3 H Plt Count 313 MPV 11.3 H Immature Gran % 0.7 Neutrophils % 65.3 Lymphocytes % 17.3 Monocytes % 14.2 Eosinophils % 2.0 Basophils % 0.5 Nucleated RBC % 0 Absolute Neutrophils 5.96 Absolute Lymphocytes 1.58 Absolute Monocytes 1.30 H Absolute Eosinophils 0.18 Absolute Basophils 0.05 Patient ABO/Rh O Positive Antibody Screen NEGATIVE Crossmatch See Detail
[2021-12-07] MEDS: Insulin Aspart 300 UNITS/3 ML PEN SC ×2 (08:04→11:30)
[2021-12-07] MEDS: Insulin Aspart 300 UNITS/3 ML PEN 12 UNITS SC ×3 (08:05→17:11)
[2021-12-07 08:10] LABS: Anion Gap 9.6 mmol/L (3-11); BUN 77 mg/dL (7-18); CO2 24.4 mmol/L (21.0-32.0); CREATININE 3.4 mg/dL (0.55-1.02); Calcium 8.1 mg/dL (8.5-10.1); Chloride 102 mmol/L (98-107); Estimated GFR 12.93 (mL/min/1.73m2); Glucose 168 mg/dL (74-106); Potassium 5.1 mmol/L (3.5-5.1); Sodium 136 mmol/L (136-145)
--- NOTE | 2021-12-07 08:23 | OTIE_ITS ---
Occupational Therapy Notes Inpatient Occupational Therapy Evaluation Date: 12/07/21 Referring Doctor:Dr. Ely OT Orders: Non Urgent Precautions: Fall, Standard, DNR/DNI PATIENT PROFILE/ADMITTING DIAGNOSIS: Pt is an 81 year old female who transitioned to [facility] from [facility] for the dx of pneumonia, anemia, hypomgnesemia, pulmoney edema, uric acid nephrolithiasis, normocytic anemia, emphysematous pyelonephritis, PATRICIO, dehydration, acidemia, staghorn calculus. She has spent months at [facility] with multiple medical procedures performed. She reports that prior to being admitted to [facility] she had multiple falls at home and has c/o leg weakness and discomfort. Past Medical History: All Active Problems?(Updated 12/04/21 @ 18:27 by Dhaval Ely MD) Uric acid nephrolithiasis (Acute) Normocytic anemia (Acute) Emphysematous pyelonephritis (Acute) PATRICIO (acute kidney injury) (Acute) Dehydration (Acute) Acidemia (Acute) Staghorn calculus (Acute) Left nephrolithiasis (Acute 09/2021) Non-ST elevation [place] (NSTEMI) (Acute 09/2021) Coronary artery disease (Chronic) [place] 08/2020, NSTEMI 09/2021Heart failure with reduced ejection fraction (Chronic) Ischemic cardiomyopathy (Acute) Chronic kidney disease (Chronic) Type 2 diabetes mellitus (Chronic) Essential hypertension (Chronic) Venous insufficiency (Acute) Peripheral edema (Acute) Drainage from surgical wound (Acute) Osteoarthritis of right hip (Acute) Primary osteoarthritis of right knee (Chronic) Most recent injection: 08/06/2019Primary osteoarthritis of left knee (Chronic) Most recent injection: 08/06/2019 Medical History? 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 None have occurred since cessation of her lisinopril Surgical History? S/P exploratory laparotomy (01/18/21) Milton patch for perforated duodenal ulcer Social History/Home Situation: Pt is an 81 year old female who at her baseline level of function she lives alone in a private home. She was (I) in her ADL/IADL routines. She reports that she recently was having difficulty with her functional mobility so bad that she had to stop driving. She reports that she has been decreasing her function over time and notes that she progressively got worse. Pt notes that she utilzes a FWW at home prior to admission. SUBJECTIVE: Pt was lying in bed when OT arrived. She notes that she is weak and her (B) LE are sore. OBJECTIVE: General Observation: PICC line (L) UE, pleasant but fatigued, giraldo in place, sore on (L) ribs Mental Status: A&Ox3 Pain: c/o pain in (B) LE and (L) side ROM: RUE AROM WFL L UE AROM WFL STRENGTH: RUE 3/5 throughout LUE 3/5 throughout FUNCTIONAL MOBILITY/ADLS: Transfers performed with GAS CHECK PAD MAKER during OT session please refer to PT note for specifics. EATING sitting in chair pt was (I) with food to mouth but requires max (A) with opening containers due to a decline in fine motor demands. She is able to use her silverware appropriately. OT and pt went over ADL routines but notes that she is too fatigued to perform at this time. She is receptive to perform later today with nursing. BALANCE: Static sitting Good Dynamic Sitting Good Static Standing Poor Dynamic Standing Poor SPECIAL TESTS: Daily Activity Limitations Standardized Measure [facility] AM -PAC ?6 clicks? Daily Activity Inpatient Short Form: Raw score: 11 Standardized score: 29.04 CMS score: 70.42% INFORMED CONSENT/EDUCATION: Pt instructed in purpose of OT Consult and plan of care. ASSESSMENT: Patient is a 81-year-old female referred to occupational therapy services with diagnosis of pneumonia, anemia, hypomgnesemia, pulmoney edema, uric acid nephrolithiasis, normocytic anemia, emphysematous pyelonephritis, PATRICIO, dehydration, acidemia, staghorn calculus. Patient presents with clinical signs and symptoms consistent with dx, as demonstrated by the following impairment level findings/functional limitations: Impairments in ADL/IADL and leisure activities, decreased strength in (B) LE, decreased strength in (B) UE, impairments in (B) UE fine motor skills, decreased functional activity tolerance, decreased functional mobility required for ADLs. AMPAC score 11 Patient is assessed as a high 09675 complexity based on the following: History: see above Examination: see functional limitations and impairments as noted above Presentation: evolving Decision Making: AMPAC score 11 GOALS Goals x1 week 1. Grooming- sitting in chair pt will be (I) with oral hygiene with ideal technique 2. Dressing- sitting in chair 3. Bathing 4. Toileting 5. Eating PLAN OF CARE/TREATMENT PLAN: 1x/day, 5 days/ week x 1week Initiate Occupational Therapy Services for bathing, dressing, grooming, toileting, eating, transfer training. DISCHARGE RECOMMENDATIONS Based on pts current level of function and decline in functional activity tolerance, OT recommends that pt go to SNF for more intense rehabilitation when medically cleared per MD. TREATMENT TIME/MINUTES/CODES 47720, 00413, 40 minutes Mamta Bernardo OTR/L [facility]
--- NOTE | 2021-12-07 10:36 | W.PM.PROGNOT ---
Date of Service Date of service: 12/07/21 Time of Service: 10:36 Assessment and Plan Assessment and plan (1) Emphysematous pyelonephritis: Status: Acute Assessment and plan: Plan was to continue Rocephin through 12/08/21. NOw has PNA and changed antibiotic coverage to cefepime and Vancomycin. Afebrile for > 24H. (2) PATRICIO (acute kidney injury): Status: Acute Assessment and plan: Creatinine 3.4 (was 3.7). Creatinine of 6.0 on 11/21/21; creatinine improved into the low 3's per d/c note from [facility]. Stopped lasix. Monitor for volume overload (particularly given she is receiving 2 units of pRBCs today). Monitor. (3) Chronic kidney disease: Status: Chronic Assessment and plan: Stage IV. May have a new baseline given the recent acute injury. Monitor. (4) Non-ST elevation [place] (NSTEMI): Status: Acute Assessment and plan: Troponin elevated at ..249 then trended downward. TTE on 11/24: EF of 55-60%, apical hypokinesis and trivial effusion. No c/o angina. (5) Osteoarthritis of right hip: Status: Acute Assessment and plan: Generalized right hip/knee/ankle arthritis that is chronic. Hyperalgesia; pain with light touch to legs, R>L. Cont gabapentin, capsaicin, lidoderm patch. She declined stronger pain medication. Avoiding NSAIDS d/t anemia (6) Primary osteoarthritis of right knee: Status: Chronic Assessment and plan: As per above. (7) Type 2 diabetes mellitus: Status: Chronic Assessment and plan: Cont basal/bolus insulin with ACHS monitoring. Adjusting insulin as needed. Improved glucose control Diabetic diet. (8) Normocytic anemia: Status: Acute Assessment and plan: Hgb 6.5 yesterday. Transfused 2 units RBC. Hgb now 9.2 Hemoccult of stool was negative. (9) Uric acid nephrolithiasis: Status: Acute Assessment and plan: Cont NaBicarb 1300mg TID to aid in dissolution of any stones and prevention of formation of further stones. (10) Hypomagnesemia: Status: Acute Assessment and plan: IV and oral replacement. Level pending. (11) Pneumonia: Status: Acute Assessment and plan: Left lower lobe infiltrate. Healthcare acquired. Cefepime and Vancomycin. WBC count has normalized. No SOA, cough/sputum. Afebrile Subjective Subjective Patient reports: still having pain (R hip/knee ), tolerating a regular diet and fever; denies nausea or vomiting Interval history since last seen: Ongoing c/o bilateral leg weakness. R hip pain. Has been resistant to Q2H turning at night, but was more compliant last PM. Exam Narrative Exam Narrative: Up in recliner. Less pale appearing than yesterday. Const General: cooperative, no acute distress and frail appearing Nutritional Appearance: obese Orientation: alert and oriented x3 Eyes General: appearance normal, both eyes and all related structures Sclera: sclerae normal Neck Neck: JVD Resp Effort & Inspection: normal respiratory effort Auscultation: clear to auscultation bilaterally Cardio Jugular venous pressure: no JVD Rate: regular rate Rhythm: regular rhythm Heart Sounds: S1 normal and S2 normal GI Inspection: obesity Palpation: soft and nontender Auscultation: normal bowel sounds Skin General skin exam: no rashes or lesions noted Wounds: wounds noted (STage 3 sacral ulcer with mepilex in place. ) Neuro General: moves all extremities Cranial Nerves: facial strength normal Cognition: normal cognition Speech: speech normal Extrem General: no joint enlargement, no pedal edema and other (diffuse tenderness of both legs with even light touch) Psych Mental Status: mental status grossly normal Affect: blunted Objective Last Vital Signs Temp 36.9 C 12/07/21 08:00 Pulse 76 12/07/21 08:00 Resp 19 12/07/21 08:00 BP 158/71 H 12/07/21 08:00 Pulse Ox 94 12/07/21 08:00 Laboratory Results - last 24 hr 12/06/21 12/07/21 12/07/21 13:05 07:40 07:40 WBC 9.13 RBC 3.05 L Hgb 9.2 L D Hct 29.5 L D MCV 96.7 H MCH 30.2 MCHC 31.2 L RDW 18.3 H Plt Count 313 MPV 11.3 H Immature Gran % 0.7 Neutrophils % 65.3 Lymphocytes % 17.3 Monocytes % 14.2 Eosinophils % 2.0 Basophils % 0.5 Nucleated RBC % 0 Absolute Neutrophils 5.96 Absolute Lymphocytes 1.58 Absolute Monocytes 1.30 H Absolute Eosinophils 0.18 Absolute Basophils 0.05 Sodium 136 Potassium 5.1 Chloride 102 Carbon Dioxide 24.4 Anion Gap 9.6 BUN 77 H Creatinine 3.4 H Estimated GFR/1.73 m2 12.93 Glucose 168 H Calcium 8.1 L Patient ABO/Rh O Positive Antibody Screen NEGATIVE Crossmatch See Detail
[2021-12-07] MEDS: Acetaminophen 325 MG TAB PO ×2 (11:24→20:00)
--- NOTE | 2021-12-07 12:10 | W.INDIABCONS ---
Date of service: 12/07/21 Time of Service: 12:10 Diabetes Inpatient Consult Reason for Visit: dm DESCRIPTION/ASSESSMENT: 79 year old female admitted with pyelonephritis with hx of CKD, DM2, HTN and obesity. Following diabetic diet with varied intake (25-100%). Most recent A1C: 8.0% indicates adequately controlled Dm2 in view of advanced age and co morbidities. Home DM meds: 9 u aspart TID, 27 u lantus HS. INTERVENTION: Met with Ms. Courser. She has no questions or concerns in regards to her Dm2. Reviewed recent A1C guidelines for elderly. Appears to have good working knowledge about how to manage her Dm2. No further concerns. Not at nutritional risk at this time. PLAN: Will follow and support. Time Spent in Nutritional Counseling and Treatment: 10
--- NOTE | 2021-12-07 12:24 | CMPROGNOTE_ITS ---
- If Service Date Differs Date of service: 12/07/21 Time of Service: 12:24 Care Management Progress Note S/O:Vy was sitting up in bed when CM met with her. She was polite and agreeable to conversation. Vy informed CM that she has not been able to walk for several weeks. She described it as a sudden onset event that occurred just before she went to [facility] this last time. Since arriving at [facility] she has been getting out of bed with the steady lift and stated that it is very helpful. Given the fact that Vy is so deconditioned, it is likely she will require SNF for short term rehab before returning home. CM discussed this with her and she agreed. Referrals will be sent to [facility] at her request. A:Vy is an 81 year old woman admitted on 12/04/21 with pyelonephritis P:Vy may require short term rehab to regain strength prior to returning home. At her request, referrals were sent to [facility] She will continue to work with PT and will meet with Palliative Care while inpatient at [facility]. CM will continue to follow and assess for ongoing discharge concerns.
--- NOTE | 2021-12-07 12:49 | NUR.NOTE ---
Nursing Note: Spoke to the patient about getting up for lunch. Patient adamantly refused to transfer , said she was tired and would try later. Told patient if she didn't get active, she would continue to lose her ability and get weaker
--- NOTE | 2021-12-07 15:00 | PT.INTREAT ---
Date of service: 12/07/21 Time of Service: 08:00 PT Notes Visit Reasons: Pyelonephritis,Acute Kidney Injury Inpatient Physical Therapy Treatment Note [facility] Date: 12/07/2021 PRECAUTIONS: Fall, Activity as Tolerated, WBAT on R SUBJECTIVE: Vy states that she does not feel well. She does not feel that she can participate in PT today, as she has pain all over. She also states I'll do it tomorrow. OBJECTIVE: Discussed with several provider that goals of care need to be readdressed as what patient is states are her goals are not what she is demonstrating. Had discussion with patient regarding goals, and that if her goal is to walk and eventually to return to home, then she needs to participate in PT and get out of bed intermittently throughout the day. PAIN: Patient c/o pain all over BED MOBILITY/TRANSFERS Rolling L/R: Max A Sit-supine: Min A (from partially sitting position in bed) Supine-sit: Mod A + Min A with HOB at 40 degrees in a.m.; Min A to partially seated position in bed in p.m. Sit-stand: Mod A x2 (performed x3) in a.m.; refused in p.m. Stand-sit: CGA x2 (performed x3) in p.m. Bed-Chair: STEDY with assist x3 GAIT: Patient not strong enough to participate in gait training safely at this time. ASSESSMENT: Patient tolerated session with c/o increased pain and fatigue. She requires assist with all bed mobility and transfers. She demonstrates global weakness and deconditioning, limiting her mobility and activity tolerance. PLAN: Continue with activities intended for global strengthening and general conditioning, as tolerated, for improved mobility and activity tolerance. TREATMENT CODE/TIME: Session 1: 24 minutes; 20097 x2 (08:00) Session 2: 15 minutes; 24074 (13:30)
[2021-12-07 15:58] LABS: Lab Add On Test DONE
[2021-12-07 16:19] LABS: Magnesium 1.9 mg/dL (1.8-2.4)
[2021-12-07] MEDS: VANCOMYCIN 750 MG in Normal Saline 250 ML 250 MG IV (16:21)
[2021-12-07] MEDS: Atorvastatin 40 MG TAB PO (20:01)
[2021-12-07] MEDS: Lidocaine Patch Removal 1 EACH TP (20:02)
[2021-12-07 20:41] LABS: Bilirubin Negative (Negative); Blood Moderate (Negative); Clarity Clear (Clear); Glucose 100 mg/dL (Negative); Ketones Negative (Negative); Leukocyte Esterase Trace (Negative); Nitrite Negative (Negative); Urobilinogen 0.2 EU/dL (Up TO 0.2); pH 7.5 (5-8)
[2021-12-07 20:46] LABS: Bacteria Few HPF (Negative); Crystals Negative HPF (Negative); Epithelial Cells Few HPF (Negative); WBC >50 HPF (0-5)
[2021-12-07 20:47] LABS: C & S Indicated? Yes; Casts Negative LPF (Negative); Mucus Negative (Negative)
[2021-12-07] MEDS: Magnesium Oxide 400 MG TAB PO (21:38)
[2021-12-07] MEDS: Gabapentin 100 MG CAP 200 MG PO (21:38)
[2021-12-08] MEDS: CEFEPIME 1 GM in Normal Saline 50 ML IVPB ×2 (00:40→11:28)
[2021-12-08] MEDS: Normal Saline 500 ML 30 ML IV (00:41)
[2021-12-08 02:37] VITALS: TEMP 36.7
[2021-12-08] MEDS: Heparin 5,000 UNITS/ML VIAL 5000 UNITS SC ×2 (05:50→18:00)
[2021-12-08 07:16] VITALS: BP 138/77; PULSE 79; RESP 18; TEMP 36.8; O2SAT 97
[2021-12-08] MEDS: Aspirin 81 MG CHEW PO (07:51)
[2021-12-08] MEDS: Metoprolol 12.5 MG TAB PO ×2 (07:51→19:48)
[2021-12-08] MEDS: Pantoprazole 20 MG TABCR PO (07:52)
[2021-12-08] MEDS: predniSONE 10 MG TAB PO (07:52)
[2021-12-08] MEDS: Sodium Bicarbonate 650 MG TAB 1300 MG PO ×3 (07:52→19:48)
[2021-12-08] MEDS: Lidocaine 5% Patch 1 PATCH TP (07:53)
[2021-12-08] MEDS: Insulin Aspart 300 UNITS/3 ML PEN 12 UNITS SC ×2 (07:59→11:35)
[2021-12-08] MEDS: Insulin Aspart 300 UNITS/3 ML PEN SC ×3 (08:01→16:59)
[2021-12-08] MEDS: Insulin Glargine 300 UNITS/3 ML PEN 35 UNITS SC (08:02)
[2021-12-08] MEDS: Nystatin POWDER 60 GM JAR TP ×2 (08:06→20:05)
[2021-12-08] MEDS: Normal Saline Flush 10 ML SYR IVP ×3 (08:42→19:46)
--- NOTE | 2021-12-08 09:14 | OT.INTREAT ---
Occupational Therapy Notes Occupational Therapy Inpatient Treatment Note Date: 12/08/21 PRECAUTIONS: Fall, standard, DNR/DNI SUBJECTIVE: Pt states that she is tired. She is sitting in her chair when OT arrived. OBJECTIVE: PAIN:c/o pain in (B) LE BATHING: sitting in chair with max (A) set up/clean up Upper Body: (I) face, max (A) back, mod (A) (B) UE with min vc throughout, max (A) hair Lower Body: max (A) (B) LE DRESSING: sitting in chair Upper Extremity: Mod (A) [facility] TREATMENT CODES/TIME: 82190, 15 minutes (08:50) Mamta Bernardo, OTR/[facility]
[2021-12-08 09:44] LABS: Abs Immature Grans 0.09 10^3/uL (0.0-0.06); Absolute Basophil Count 0.06 10^3/uL (0.0-0.2); Absolute Eosinophil Count 0.16 10^3/uL (0.0-0.7); Absolute Lymphocyte Count 1.06 10^3/uL (1.2-3.4); Absolute Monocyte Count 1.07 10^3/uL (0.1-0.8); Absolute Neutrophil Count 7.77 10^3/uL (1.2-6.7); Basophils % 0.6; Eosinophils % 1.6; HGB 9.4 g/dL (11.2-15.7); Immature Grans % 0.9; Lymphocytes % 10.4; MCH 29.7 pg (27.0-33.0); MCHC 30.3 % (32.0-36.0); MCV 97.8 fL (80-95); Monocytes % 10.5; Nucleated RBC 0 %; Platelet Count 370 10^3/uL (130-400); RBC 3.17 10^6/uL (3.93-5.22); RDW 17.3 % (11.7-14.6); RDW-SD 62.9 fL; WBC 10.21 10^3/uL (4.4-10.8)
[2021-12-08 09:59] LABS: ALT 127 U/L (14-59); AST 162 U/L (15-37); Albumin 1.4 g/dL (3.4-5.0); Alkaline Phosphatase 306 U/L (46-116); Anion Gap 8.8 mmol/L (3-11); BUN 72 mg/dL (7-18); Bilirubin, Total 0.4 mg/dL (0.2-1.0); CO2 25.2 mmol/L (21.0-32.0); CREATININE 3.5 mg/dL (0.55-1.02); Chloride 102 mmol/L (98-107); Glucose 288 mg/dL (74-106); Potassium 5.6 mmol/L (3.5-5.1); Sodium 136 mmol/L (136-145); Total Protein 7.9 g/dL (6.4-8.2)
[2021-12-08] MEDS: Acetaminophen 325 MG TAB PO ×2 (10:43→18:39)
--- NOTE | 2021-12-08 12:51 | PGE_ITS ---
Date of Service Date of service: 12/08/21 Time of Service: 12:51 Assessment and Plan Assessment and plan (1) Emphysematous pyelonephritis: Status: Acute Assessment and plan: Plan was to continue Rocephin through 12/08/21. NOw has PNA and changed antibiotic coverage to cefepime and Vancomycin. She had been afebrile for > 24 hours but had temp of 38.2 last PM UA +. Awaiting culture results. (2) PATRICIO (acute kidney injury): Status: Acute Assessment and plan: Creatinine 3.5 today. Creatinine of 6.0 on 11/21/21; creatinine improved into the low 3's per d/c note from [facility]. Stopped lasix. Monitor for volume overload (particularly given she is receiving 2 units of pRBCs today). Monitor. (3) Chronic kidney disease: Status: Chronic Assessment and plan: Stage IV. May have a new baseline given the recent acute injury. Monitor. (4) Non-ST elevation MO (NSTEMI): Status: Acute Assessment and plan: Troponin elevated at ..249 then trended downward. TTE on 11/24: EF of 55-60%, apical hypokinesis and trivial effusion. No c/o angina. (5) Osteoarthritis of right hip: Status: Acute Assessment and plan: Generalized right hip/knee/ankle arthritis that is chronic. Hyperalgesia; pain with light touch to legs, R>L. Cont gabapentin, capsaicin, lidoderm patch. She declined stronger pain medication. Avoiding NSAIDS d/t anemia Add 10mg prednisone daily. (6) Primary osteoarthritis of right knee: Status: Chronic Assessment and plan: As per above. (7) Type 2 diabetes mellitus: Status: Chronic Assessment and plan: Cont basal/bolus insulin with ACHS monitoring. Adjusting insulin as needed. Improved glucose control Diabetic diet. (8) Normocytic anemia: Status: Acute Assessment and plan: Hgb decreased to 6.5 Transfused 2 units RBC. Hgb now 9.2 > 9.4 post-transfusion. Hemoccult of stool was negative. (9) Uric acid nephrolithiasis: Status: Acute Assessment and plan: Cont NaBicarb 1300mg TID to aid in dissolution of any stones and prevention of formation of further stones. (10) Hypomagnesemia: Status: Acute Assessment and plan: IV and oral replacement. Mg improved to 1.9. (11) Pneumonia: Status: Acute Assessment and plan: Left lower lobe infiltrate. Healthcare acquired. Cefepime and Vancomycin. WBC count has normalized. No SOA, cough/sputum. Was afebrile for >24 hours but had a temp of 38.2 last PM. (12) Sacral decubitus ulcer: Status: Acute Assessment and plan: Present on admission. Wound care following. Pt not participating in PT; refuses much of the time. Encouraging her to reposition and comply with therapy and transferring to chair. (13) Discharge planning issues: Status: Acute Assessment and plan: Anticipating a complicated d/c given her lack of participation with therapies. Needs SNF for further PT/OT efforts and she states she has the goal of walking again and going home. Palliative is following. Subjective Subjective Patient reports: still having pain (R hip/knee and now L shoulder), tolerating a regular diet and fever; denies nausea or vomiting Interval history since last seen: Ongoing c/o bilateral leg weakness. R hip pain. Left shoulder pain; thinks she strained it using the lift assist device. Exam Narrative Exam Narrative: Up in recliner. Less pale appearing than yesterday. Const General: cooperative, no acute distress and frail appearing Nutritional Appearance: obese Orientation: alert and oriented x3 Eyes General: appearance normal, both eyes and all related structures Sclera: sclerae normal Neck Neck: JVD Resp Effort & Inspection: normal respiratory effort Auscultation: clear to auscultation bilaterally Cardio Jugular venous pressure: no JVD Rate: regular rate Rhythm: regular rhythm Heart Sounds: S1 normal and S2 normal GI Inspection: obesity Palpation: soft and nontender Auscultation: normal bowel sounds Skin General skin exam: no rashes or lesions noted Wounds: wounds noted (STage 3 sacral ulcer with mepilex in place. ) Neuro General: moves all extremities Cranial Nerves: facial strength normal Cognition: normal cognition Speech: speech normal Extrem General: no joint enlargement, no pedal edema and other (diffuse tenderness of both legs with even light touch) Psych Mental Status: mental status grossly normal Affect: blunted Objective Last Vital Signs Temp 36.8 C 12/08/21 07:16 Pulse 79 12/08/21 07:16 Resp 18 12/08/21 07:16 BP 138/77 12/08/21 07:16 Pulse Ox 97 12/08/21 07:16 Laboratory Results - last 24 hr 12/07/21 12/07/21 12/07/21 07:40 07:40 20:25 WBC RBC Hgb Hct MCV MCH MCHC RDW Plt Count MPV Immature Gran % Neutrophils % Lymphocytes % Monocytes % Eosinophils % Basophils % Nucleated RBC % Absolute Neutrophils Absolute Lymphocytes Absolute Monocytes Absolute Eosinophils Absolute Basophils Sodium Potassium Chloride Carbon Dioxide Anion Gap BUN Creatinine Estimated GFR/1.73 m2 Glucose Calcium Magnesium 1.9 Total Bilirubin AST ALT Alkaline Phosphatase Total Protein Albumin Urine Color Yellow Urine Clarity Clear Urine pH 7.5 Ur Specific [place] 1.020 Urine Protein 100 H Urine Ketones Negative Urine Blood Moderate H Urine Nitrite Negative Urine Bilirubin Negative Urine Urobilinogen 0.2 Ur Leukocyte Esterase Trace H Urine RBC 10-20 H Urine WBC >50 H Ur Epithelial Cells Few Urine Crystals Negative Urine Bacteria Few Urine Casts Negative Urine Mucus Negative Ur Culture Indicated? Yes Urine Glucose 100 Add-On Test Request DONE 12/08/21 12/08/21 09:40 09:40 WBC 10.21 RBC 3.17 L Hgb 9.4 L Hct 31.0 L MCV 97.8 H MCH 29.7 MCHC 30.3 L RDW 17.3 H Plt Count 370 MPV 11.0 Immature Gran % 0.9 Neutrophils % 76.0 Lymphocytes % 10.4 Monocytes % 10.5 Eosinophils % 1.6 Basophils % 0.6 Nucleated RBC % 0 Absolute Neutrophils 7.77 H Absolute Lymphocytes 1.06 L Absolute Monocytes 1.07 H Absolute Eosinophils 0.16 Absolute Basophils 0.06 Sodium 136 Potassium 5.6 H Chloride 102 Carbon Dioxide 25.2 Anion Gap 8.8 BUN 72 H Creatinine 3.5 H Estimated GFR/1.73 m2 12.50 Glucose 288 H D Calcium 8.0 L Magnesium Total Bilirubin 0.4 AST 162 H ALT 127 H Alkaline Phosphatase 306 H Total Protein 7.9 Albumin 1.4 L Urine Color Urine Clarity Urine pH Ur Specific [place] Urine Protein Urine Ketones Urine Blood Urine Nitrite Urine Bilirubin Urine Urobilinogen Ur Leukocyte Esterase Urine RBC Urine WBC Ur Epithelial Cells Urine Crystals Urine Bacteria Urine Casts Urine Mucus Ur Culture Indicated? Urine Glucose Add-On Test Request
--- NOTE | 2021-12-08 12:53 | CMPROGNOTE_ITS ---
- If Service Date Differs Date of service: 12/08/21 Time of Service: 13:53 Care Management Progress Note S/O:Vy was sitting up in bed when CM met with her. She was polite and agreeable to conversation. Vy had a temp again last night of 38.2. Urine and blood cultures are pending. She continues to work with PT but will only agree to one session per day vs the recommended twice a day. Vy stated that she still does not feel well. She is complaining of pain in her shoulders. A heating pad has been ordered as well as steroids. CM is awaiting determinations re:admission from the [facility]. CM was contacted by Vy's brother Gonzales. He requested an update and was very supportive of the plan to have her go to a SNF for short term rehab prior to returning home.Referrals have been sent to [facility] and CM is awaiting a determination regarding a bed offer. A:Vy is an 81 year old woman admitted on 12/04/21 with pyelonephritis P:Vy may require short term rehab to regain strength prior to returning home. At her request, referrals were sent to [facility] She will continue to work with PT and will meet with Palliative Care while inpatient at [facility]. CM will continue to follow and assess for ongoing discharge concerns.
[2021-12-08] MEDS: Lidocaine Patch Removal 1 EACH TP (13:27)
--- NOTE | 2021-12-08 14:25 | CHAPLAIN ---
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 Vy lives alone in [place]. Her brother KAMI, a former teacher at [employer] lives nearby and is supportive. Vy explained that her legs stopped working. She was unable to move her legs one day and has been in a bed since. She was recently at [facility] for two weeks. A few times during our conversation, Vy said getting old is so hard. This isn't what I'd thought it'd be. Until the past year or so, Vy had been very active socially and volunteering. She seems surprised that her body doesn't allow her to walk know. She said she knows she most likely will need to got to a LTC place to regain strength if she is to get home on her own. She seems very discouraged today. She has only been up using steady lift and that tired her out completely, she said. Former field hockey players, who attend the [employer], made a patchwork quilt for Vy. She is a member of the [place] [employer] and did not want me to call the shinto when I offered. I will continue to visit. Vy gave me permission to let Lesley Ratliff, Director of [facility], know that she is here.
--- NOTE | 2021-12-08 14:26 | PT.INTREAT ---
Date of service: 12/08/21 Time of Service: 07:28 PT Notes Visit Reasons: Pyelonephritis,Acute Kidney Injury Inpatient Physical Therapy Treatment Note [facility] Date: 12/08/2021 PRECAUTIONS: Fall, Activity as Tolerated, WBAT on R SUBJECTIVE: Vy states that she does not feel well. She expresses significant pain in L shoulder and R hip. Patient states I can't do this more than one time a day. Sitting up in the chair just drained me. OBJECTIVE: Again today, discussed with several providers that goals of care need to be readdressed as what patient is states are her goals are not what she is demonstrating. Had discussion with patient regarding goals, and that if her goal is to walk and eventually to return to home, then she needs to participate in PT and get out of bed intermittently throughout the day. PAIN: Patient c/o L shoulder pain and R hip pain BED MOBILITY/TRANSFERS Rolling L/R: Max A Supine-sit: Mod A x2 with HOB at 40 degree Sit-stand: CGA x2 Stand-sit: CGA x2 - Min A x2 Bed-Chair: STEDY with assist x2 GAIT: Patient was instructed in a LE strengthening program, as per flow sheet. She performs seated LAQ, ankle pumps, and hip flexion, all modified due to limited ROM due to decreased strength. She also completes functional [id number] exercise x3 in STEDY. ASSESSMENT: Patient tolerated session with c/o increased pain and fatigue. She requires assist with all bed mobility and transfers. She demonstrates global weakness and deconditioning, limiting her mobility and activity tolerance. She requires significant encouragement to attempt mobility activities without Max A. PLAN: Patient downgraded to 1x/day due to poor endurance and limited activity tolerance. Will continue with activities intended for global strengthening and general conditioning, as tolerated, for improved mobility and activity tolerance. TREATMENT CODE/TIME: 31 minutes; 20102, [id number] (07:28)
[2021-12-08 15:00] VITALS: BP 126/65; PULSE 77; RESP 19; TEMP 37; O2SAT 94
[2021-12-08] MEDS: Insulin Aspart 300 UNITS/3 ML PEN 14 UNITS SC (16:58)
[2021-12-08] MEDS: Gabapentin 100 MG CAP 200 MG PO (19:47)
[2021-12-08] MEDS: Magnesium Oxide 400 MG TAB PO (19:48)
[2021-12-08] MEDS: Atorvastatin 40 MG TAB PO (19:49)
[2021-12-08 20:02] VITALS: BP 111/66; PULSE 90; RESP 18; TEMP 36.6; O2SAT 96
[2021-12-09] MEDS: CEFEPIME 1 GM in Normal Saline 50 ML IVPB ×3 (00:44→23:40)
[2021-12-09 00:46] VITALS: BP 140/70; PULSE 70; RESP 20; TEMP 36.4; O2SAT 97
[2021-12-09] MEDS: Heparin 5,000 UNITS/ML VIAL 5000 UNITS SC ×2 (06:12→17:16)
[2021-12-09 07:15] VITALS: BP 127/77; PULSE 110; RESP 18; TEMP 36.8; O2SAT 96
[2021-12-09] MEDS: Aspirin 81 MG CHEW PO (07:42)
[2021-12-09] MEDS: Sodium Bicarbonate 650 MG TAB 1300 MG PO ×3 (07:42→20:15)
[2021-12-09] MEDS: Metoprolol 12.5 MG TAB PO ×2 (07:42→20:17)
[2021-12-09] MEDS: Pantoprazole 20 MG TABCR PO (07:42)
[2021-12-09] MEDS: Insulin Glargine 300 UNITS/3 ML PEN 35 UNITS SC (07:43)
[2021-12-09] MEDS: Insulin Aspart 300 UNITS/3 ML PEN 14 UNITS SC ×3 (07:45→17:17)
[2021-12-09] MEDS: Insulin Aspart 300 UNITS/3 ML PEN SC ×3 (07:46→17:16)
[2021-12-09] MEDS: Nystatin POWDER 60 GM JAR TP ×2 (07:47→20:16)
[2021-12-09] MEDS: predniSONE 10 MG TAB PO (07:48)
[2021-12-09] MEDS: Normal Saline Flush 10 ML SYR IVP ×3 (07:49→20:16)
--- NOTE | 2021-12-09 09:14 | CMPROGNOTE_ITS ---
- If Service Date Differs Date of service: 12/09/21 Time of Service: 09:14 Care Management Progress Note S/O:Vy was sitting up in bed when CM met with her. She was agreeable to conversation and engaged with CM. Vy shared that she had a rough night. She stated that she does not generally sleep well but that she had a lot of pain last night.Apparently a topical medication was applied to her lower exptremity and it burned. She had to request that the staff remove it. Vy informed CM that she has been unable to walk since she was at [facility]. She stated that one day she woke up and her legs wouldn't work. She could neither stand nor walk and had a lot of pain, particularly in her right leg. She developed a stage III decubitus ulcer at [facility] and requires turning every 2 hours. She is compliant with the regimen most of the time although sometimes it does causes her pain. A:Vy is an 81 year old woman admitted on 12/04/21 with pyelonephritis P:Vy will likely require short term rehab to regain strength prior to returning home. At her request, referrals were sent to [facility] She will continue to work with PT and will meet with Palliative Care while inpatient at [facility]. CM will continue to follow and assess for ongoing discharge concerns.
--- NOTE | 2021-12-09 09:24 | OT.INNT ---
Occupational Therapy Notes 12/09/21 OT attempted to see pt who reports that she has already performed her ADLs with nursing. She notes that she is tired. This is not how she wanted to spend her days in the hospital and notes that she does not plan to ever walk again. Mamta Bernardo, OTR/L [facility] [place]
[2021-12-09] MEDS: Escitalopram 10 MG TAB 5 MG PO (11:12)
--- NOTE | 2021-12-09 13:34 | PT.INTREAT ---
Date of service: 12/09/21 Time of Service: 07:48 PT Notes Visit Reasons: Pyelonephritis,Acute Kidney Injury Inpatient Physical Therapy Treatment Note [facility] Date: 12/09/2021 PRECAUTIONS: Fall, Activity as Tolerated, WBAT on R SUBJECTIVE: Vy states that she still does not feel well. She reports that she did not sleep well. She expresses significant pain in L shoulder and R hip. OBJECTIVE: PAIN: Patient c/o L shoulder pain and R hip pain BED MOBILITY/TRANSFERS Rolling L/R: Max A Supine-sit: Min A - Max A x2 with HOB at 40 degrees Sit-stand: Min A x2 Stand-sit: CGA x2 Bed-Chair: STEDY with assist x2 THEREX: Patient was instructed in a LE strengthening program, as per flow sheet. She performs seated LAQ, ankle pumps, hip abduction and hip flexion, all modified due to limited ROM due to decreased strength. She also completes functional [id number] exercise x5 in STEDY. ASSESSMENT: Patient tolerated session with c/o increased pain and fatigue. She requires assist with all bed mobility and transfers. She demonstrates global weakness and deconditioning, limiting her mobility and activity tolerance. She requires significant encouragement to attempt mobility activities without Max A. PLAN: Patient downgraded to 1x/day due to poor endurance and limited activity tolerance. Will continue with activities intended for global strengthening and general conditioning, as tolerated, for improved mobility and activity tolerance. TREATMENT CODE/TIME: 28 minutes; 86708, [id number] (07:48)
[2021-12-09] MEDS: Acetaminophen 325 MG TAB PO (14:11)
[2021-12-09 14:16] VITALS: BP 121/72; PULSE 78; RESP 18; TEMP 36.8; O2SAT 95
--- NOTE | 2021-12-09 15:36 | W.PM.PROGNOT ---
Date of Service Date of service: 12/09/21 Time of Service: 15:36 Assessment and Plan Assessment and plan (1) Emphysematous pyelonephritis: Status: Acute Assessment and plan: patient is s/p left ureteral stents and left nephrostomy tube which had been dc prior to her leaving [facility] and coming to [facility]. She was to have completed her Rocephin yesterday but d/t her pneumonia she has been on Cefepime since 12/06. Her POCUS exam demonstates finding of both CHF (bilateral B lines and pleural effusions) but also some concerns for basilar atelectasis and at least some right basilar consolidation. I will continue her antibiotics for 3 more days and repeat her procalcitonin and encourage cough and deep breathing, I.S. and acapella, but will dc her vancomycin in light of her PATRICIO and lack of evidence of MRSA (2) Pneumonia: Status: Acute Assessment and plan: as above (3) PATRICIO (acute kidney injury): Status: Acute Assessment and plan: continue to monitor; will resume her diuretics but will replace her lasix w/ torsemide 20 mg daily; avoid NSAID's for her leg pain; adjust her gabapentin and any narcotics for her renal dsyfunction (4) Chronic kidney disease: Status: Chronic (5) Ischemic cardiomyopathy: Status: Acute Assessment and plan: need to get her echo and dc summary from [facility]; however per the admitting hospitalist her last TTE was from 11/24 and demonstrated LVEF 55 to 60% w/ apical hypokinesis. However the admitting hospitalist indicated that she had been at [facility] when in fact the patient says she was at [facility] and our ER records from 11/21 indicate she was transferred from [facility] to [facility] to Dr. Jed Richards, urology and to Dr. Lopez in the ED at [facility]. Because her PATRICIO still shows her creatinine to be elevated at 3.5 and BUN 72, I will not start an ARB/or MARY-I at present. However, I think she needs a daily diuretic. I will try to get her records from [facility] to help guide her cardiomyopathy therapy. Ideally she would be on an MARY-I or ARB or Entresto and on Jardiance. (6) Depression: Status: Chronic Assessment and plan: Lexapro 5 mg added to her regimen (7) Type 2 diabetes mellitus: Status: Chronic Assessment and plan: blood glucose poorly controlled; running 200's to 385. She is currently on lantus 35 units daily along w/ Novolog 14 units w/ each meal and novolog insulin sensitive scale; I will add a CHO coverage along w/ raising her sliding scale to insulin resistant and raise her Lantus dose and change to nightly. (8) Essential hypertension: Status: Chronic Assessment and plan: will increase her metoprolol from 12.5 mg bid to 25 mg bid (also for her CHF); if this is inadequate then consider switch to coreg. also could add norvasc for anti-ischemic effect as well (9) Sacral decubitus ulcer: Status: Acute Assessment and plan: Mepilex dressing changes; patient needs to get out of bed (10) Bilateral leg pain: Status: Acute Assessment and plan: patient had xrays of pelvis and femur on her ER evaluation on 11/[address] of her pelvis as well. She has no diminished sensation over her legs. She is currently on gabapentin 200 mg HS, I will increase to her renal allowed max of 300 mg nightly and add Robaxin for anti-muscle spasm and use low dose dilaudid for breakthrough pain unrelieved by scheduled Tylenol. Her renal function will not permit Tramadol or Nucynta and also this along w/ her CHF/cardiomyopathy make NSAID's contraindicated. I will ask Dr. Falcon to evaluate her bilateral hip/leg pain in the a.m. this has been a limiting factor in trying to get her out of bed. Subjective Subjective Interval history since last seen: Patient complaining of too much pain in her legs from her hips down to her lower legs. Pain is better with lying still but exacerbated by movement and therefore she has been refusing to get out of bed. She relates her pain has gotten worse since her renal stents. She is currently on Cefepime and Vancomycin for treatment of urosepsis which was treated at [facility] w/ nephrostomy tube and ureteral stents for staghorn calculus of her left kidney and subsequent lithotripsy. Patient came to [facility] to complete her antibiotic treatment closer to home. She was admitted on Rocephin that according to the admitting hospitalist, was to be completed on 12/08. However she had a fever of 38.4 on 12/05. Blood cultures and repeat urine culture was obtained on 12/04, 12/05 and 12/07 and all have shown no growth. CXR taken on 12/04 demonstrated LLL infiltrate and effusion. At that point her Rocephin was changed to Cefepime and vancomycin was added. However she has not had any cough or sputum production and no fevers since then. Her WBC has been normal since 12/06. Procalcitonin was elevated at 2.1 on 12/04. Patient is not requiring any oxygen supplementation and denies any cough or sputum production. At this point we are checking an MRSA screen but in light of her acute on chronic renal failure, I would be inclined to dc her Vancomycin. I would continue the Cefepime through 12/11 (total of 5 days). I will recheck her procalcitonin level in the a.m. Exam Narrative Exam Narrative: Morbidly obese white female lying in bed semisolid position. Seems to be resting comfortably talking with the printed circuit board panels trimmer. She is alert and oriented person place time circumstance. Lungs are clear anteriorly posteriorly she had some fine rales no rhonchi or wheezes. Heart regular rate and rhythm Abdomen is obese soft and nontender Examination of the hips I do not see any bruising there is no point tenderness over the hips however with hip flexion and extension and external rotation she has bilateral hip pain right worse than the left. Examination of lower extremity shows no pitting pretibial edema or ankle edema. She has normal dorsiflexion plantarflexion of her feet at the ankles. She is able to flex at the knees but with some discomfort in both hips. Seems to have a lot of muscle spasm with movement. Pedal pulses are intact. Objective Last Vital Signs Temp 36.8 C 12/09/21 14:16 Pulse 78 12/09/21 14:16 Resp 18 12/09/21 14:16 BP 121/72 12/09/21 14:16 Pulse Ox 95 12/09/21 14:16 Point of Care Ultrasound Note: Limited POCUS exam of the thorax reveals moderate size left pleural effusion and atelectasis with Jelly fish sign; no air bronchograms; small right pleural effusion and posterior consolidation w/ air bronchograms with some basilar B-lines bilaterally anteriorly upper lung colby and midlung colby are clear with normal A-line pattern.
--- NOTE | 2021-12-09 15:54 | CHAPLAIN ---
Vy is still surprised that she can't move her legs and wonders what she'll be able to do if she can't walk. She states that this is no way to live. 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 She identifies her brother, Gonzales, and sister in law as supports. Vy said she has an appointment with an prosecuting attorney lined up for next week to sign some papers with [place] and then that will be taken care of. She is frustrated by the pain when she tries to move her legs. She lives in her own home, alone, and knows she can't return home if she can't walk. When I asked about using a wheelchair, she said she hadn't tried that. She talked about meeting with Dr. Bautista for palliative care, and said she has known Dr. Selby for 30 years.
[2021-12-09] MEDS: Torsemide 20 MG TAB PO (17:16)
[2021-12-09] MEDS: Methocarbamol 750 MG TAB PO (20:15)
[2021-12-09] MEDS: Atorvastatin 40 MG TAB PO (20:16)
[2021-12-09] MEDS: Lidocaine Patch Removal 1 EACH TP (20:17)
[2021-12-09] MEDS: Gabapentin 100 MG CAP 300 MG PO (21:15)
[2021-12-09] MEDS: Magnesium Oxide 400 MG TAB PO (21:16)
[2021-12-09 23:34] VITALS: BP 130/64; PULSE 71; RESP 17; TEMP 36.7; O2SAT 96
[2021-12-10] MEDS: Heparin 5,000 UNITS/ML VIAL 5000 UNITS SC ×2 (05:59→17:34)
[2021-12-10 07:10] VITALS: BP 135/68; PULSE 80; RESP 16; TEMP 36.4; O2SAT 94
[2021-12-10 07:49] LABS: Abs Immature Grans 0.11 10^3/uL (0.0-0.06); Absolute Basophil Count 0.04 10^3/uL (0.0-0.2); Absolute Eosinophil Count 0.22 10^3/uL (0.0-0.7); Absolute Lymphocyte Count 2.15 10^3/uL (1.2-3.4); Absolute Monocyte Count 1.39 10^3/uL (0.1-0.8); Absolute Neutrophil Count 8.22 10^3/uL (1.2-6.7); Basophils % 0.3; Eosinophils % 1.8; HGB 8.4 g/dL (11.2-15.7); Immature Grans % 0.9; Lymphocytes % 17.7; MCH 29.5 pg (27.0-33.0); MCV 98.2 fL (80-95); MPV 11.3 fL (8.0-11.0); Monocytes % 11.5; Neutrophils % 67.8; Nucleated RBC 0 %; Platelet Count 362 10^3/uL (130-400); RBC 2.85 10^6/uL (3.93-5.22); RDW 16.5 % (11.7-14.6); RDW-SD 59.4 fL; WBC 12.13 10^3/uL (4.4-10.8)
[2021-12-10] MEDS: HYDROmorphone 2 MG TAB 1 MG PO (08:01)
[2021-12-10] MEDS: Normal Saline Flush 10 ML SYR IVP ×3 (08:02→19:41)
[2021-12-10] MEDS: Escitalopram 10 MG TAB 5 MG PO (08:02)
[2021-12-10] MEDS: Aspirin 81 MG CHEW PO (08:03)
[2021-12-10] MEDS: Torsemide 20 MG TAB PO (08:04)
[2021-12-10] MEDS: Sodium Bicarbonate 650 MG TAB 1300 MG PO ×3 (08:04→19:40)
[2021-12-10] MEDS: Methocarbamol 750 MG TAB PO ×4 (08:04→19:40)
[2021-12-10] MEDS: Metoprolol 12.5 MG TAB PO (08:04)
[2021-12-10] MEDS: Pantoprazole 20 MG TABCR PO (08:04)
[2021-12-10] MEDS: Nystatin POWDER 60 GM JAR TP ×2 (08:05→19:39)
[2021-12-10] MEDS: predniSONE 10 MG TAB PO (08:11)
[2021-12-10 08:12] LABS: Anion Gap 9.7 mmol/L (3-11); BUN 79 mg/dL (7-18); C-Reactive Protein 11.57 mg/dL (0.0-0.3); CO2 23.3 mmol/L (21.0-32.0); CREATININE 3.4 mg/dL (0.55-1.02); Calcium 8.2 mg/dL (8.5-10.1); Chloride 106 mmol/L (98-107); Estimated GFR 12.93 (mL/min/1.73m2); Glucose 250 mg/dL (74-106); Sodium 139 mmol/L (136-145)
[2021-12-10] MEDS: Insulin Aspart 300 UNITS/3 ML PEN SC ×5 (08:12→17:45)
[2021-12-10 08:23] LABS: Lab Add On Test DONE
--- NOTE | 2021-12-10 08:39 | CMPROGNOTE_ITS ---
- If Service Date Differs Date of service: 12/10/21 Time of Service: 08:39 Care Management Progress Note S/O:Vy was sitting up in bed when CM met with her. She informed CM that she had papers that needed to be notarized and CM assisted with the process. Sharda admitted to being really discouraged and depressed. She stated that she is in constant pain and said this is no way to live. She indicated that she does not anticipate much improvement and can understand why people choose to commit suicide or assist in their own when they reach this point. CM asked if she wanted to talk to Dr. Selby again but Sharda felt that she knew what her goals were. She explained that she needs to get her affairs in order. The paperwork requiring a Notary was part of that process. CM discussed options for care and the financial implications for various care settings. Sharda indicated that her resources are limited so private pay for services either at home or in a facility will not be an option. 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 Her ability and desire to participate in physical therapy has declined. At her request, referrals were sent to [facility]. [facility] has declined to offer her a bed and [facility] is closed to admissions at this time. She may continue to work with PT and will meet with Palliative Care while inpatient at [facility]. CM will continue to follow and assess for ongoing discharge concerns.
[2021-12-10 08:44] LABS: Procalcitonin 1.4 ng/mL
[2021-12-10 09:10] LABS: Ferritin 942 ng/mL (8-252); Folate 4.5 ng/mL (8.6-20.0); Vitamin B12 1695 pg/mL (193-986)
--- NOTE | 2021-12-10 09:17 | NT_ITS ---
Occupational Therapy Notes 12/10/21 OT went to see pt this morning and she was just getting back from an xray on her back. She notes that she is tired and does not like living this way. She reports that she is tired. She has c/o pain in her neck, back and legs. She states that she would like to hold on her ADLs this morning as she is tired and just returning to her room. OT will hold today per pt request and resume services tomorrow. Mamta Bernardo, OTR/L [facility]
--- NOTE | 2021-12-10 09:20 | DI.RAD_ITS ---
Exam(s) XR PELVIS AP EXAM: XR PELVIS AP CLINICAL HISTORY: Hip arthritis. TECHNIQUE: 2D digital imaging was performed. COMPARISON: CR,XR XR PELVIS AP from 11/21/2021 FINDINGS: Single view No evidence of pelvic nor hip fracture. Advanced degenerative changes are noted in the right hip. L rikki degenerative changes in the left hip. Vascular calcification is noted in the internal iliac ar teries. IMPRESSION: Advanced osteoarthritic degenerative changes in the right hip. DATA REPOSITORY: RADIATION DOSE DELIVERED:
--- NOTE | 2021-12-10 09:33 | W.NUTCONSULT ---
Date of service: 12/10/21 Time of Service: 09:33 Nutritional Consult ASSESSMENT: MsAylin Courser with sacral decub ulcer. Estimated protein needs for optimal healin g per day (1.5 g pro/adjusted body weight). Will order for double protein at lunch and dinner and protein rich snacks to provide high biological value protein to aid in wound healing. Also recommend Vit C 500 mg BID, 220 mg zinc sulfate qd. Blood sugars continue to be elevated despite increase in basal and sensitive scale for bolus insulin at meals. Continues on 10 mg prednisone. NUTRITIONAL DIAGNOSIS: Increased nturient needs for optimal wound healing Class 1 obesity INTERVENTION: Double protein serving at meals, protein rich snacks to meet 1.5 g pro/adjusted body weight MVI, 500 Vit C BID, 220 mg Zinc Sulfate qd to aid in wound healing Sensitive bolus insulin scale for tighter blood sugar control MONITORING AND EVALUATION: labs, po intake, weight Time Spent in Nutritional Counseling and Treatment: 10
[2021-12-10 09:37] LABS: Iron 62 ug/dL (50-170); Total Iron Binding Capacity 185 ug/dL (250-450)
[2021-12-10] MEDS: CEFEPIME 1 GM in Normal Saline 50 ML IVPB ×2 (11:55→23:56)
--- NOTE | 2021-12-10 14:01 | W.PM.PROGNOT ---
Date of Service Date of service: 12/10/21 Time of Service: 14:01 Assessment and Plan Assessment and plan (1) Emphysematous pyelonephritis: Status: Acute Assessment and plan: I have since received and reviewed her dc summary from [facility] in [place], [place]. She was hospitalized from 11/21 (the date she was transferred from [facility] ED) until discharged on 12/04/21. Unfortunately it is rather sparse on details of her hospital course. I have no lab values from [facility]. She apparently had prior ureteral stent place in her left ureter (I believe this was from September) and during her most recent stay at [facility] she had IR placement of left nephrostomy tube and her ureteral stent could not be removed via percutaneous route and therefore she underwent cystoscopy on 11/24/21 and the stent was removed using a rat tooth grasper and the 6 x26 mm JJ stent was removed. She was scheduled to complete her Rocephin treatment through 12/08 however her Ceftriaxone was changed to Cefepime on 12/06 d/t fever and chest xray suggesting infilrate in her LLL and an effusion. She has had no cough or sputum production. Nevertheless, POCUS exam of her lungs yesteday demonstrated bibasilar effusions (moderate left pleural effusion w/ basilar atelectasis, small right pleural effusion w/ small posterior consolidation w/ static air bronchograms). I have continued her Cefepime while dc her Vancomycin (in setting of PATRICIO and lack of evidence for MRSA). She has IS and acapella. I have ordered DuoNeb aerosols prn however she has not had any bronchospasms. I will continue Cefepime through 12/12 (2) Pneumonia: Status: Acute Assessment and plan: as above (3) PATRICIO (acute kidney injury): Status: Acute Assessment and plan: cont. to monitor renal fxn and resume her diuretics (lasix replaced w/ Torsemide) to treat her chronic CHF. (4) Chronic kidney disease: Status: Chronic Assessment and plan: baseline creatinine is 2 to 2.5. currently at 3.4 but improved from 6.0 on 11/21 when she was transferred to [facility] for nephrostomy tube and removal of her ureteral stent. (5) Ischemic cardiomyopathy: Status: Acute Assessment and plan: continue to hold her Entresto until her creatinine stabilizes and re-establishes a new baseline. cont. to hold metolazone and spironolactone and Jardiance. Resume loop diuretics (torsemide 20 mg daily has been added as of 12/09). (6) Depression: Status: Chronic Assessment and plan: Lexapro 5 mg added to her regimen (7) Type 2 diabetes mellitus: Status: Chronic Assessment and plan: glucose still running high between 263 and 278. I have adjusted both her Lantus dose raising it to 50 units nightly and have also increased her CHO coverage to 3:10 (8) Essential hypertension: Status: Chronic Assessment and plan: will increase her metoprolol from 12.5 mg bid to 25 mg bid (also for her CHF); if this is inadequate then consider switch to coreg. also could add norvasc for anti-ischemic effect as well (9) Sacral decubitus ulcer: Status: Acute Assessment and plan: Mepilex dressing changes; patient needs to get out of bed (10) Bilateral leg pain: Status: Acute Assessment and plan: patient has severe DJD of her hips. She is not a candidate for NSAIDS. She could benefit from fluoroscopic guided intra-articular steroid injection of her hips. However, I will defer to ortho's decision. For now will continue w/ gabapentin, Robaxin and low dose dilaudid. Subjective Subjective Interval history since last seen: Patient complains of hurting all over particularly in the knees and her hips. Dr. Falcon from orthopedic surgery saw the patient and made recommendations. He ordered a follow-up pelvic x-ray as her previous pelvic x-ray only visualize the left hip. Her x-ray today shows advanced degenerative arthritic changes in the right hip with lesser degenerative changes in left hip. No fractures were seen. He is recommending fluoroscopic hip steroid injection versus total hip arthroplasty if/when infection risk is subsided. In light of patient's recent pyelonephritis and subsequent pneumonia I do not feel that her infection risk is going to subside significantly in the near future and she is a poor risk for total hip arthroplasty. However she could be a candidate for intra-articular steroid injection if orthopedic surgery deems this appropriate. Patient denies any cough or sputum production denies any shortness of breath or chest discomfort. She is moving her bowels well denies any abdominal pain or nausea or vomiting. Exam Narrative Exam Narrative: Elderly female lying in bed in semifowler position talking with her nursing staff. She is alert and oriented person place time circumstance. Lungs are clear anteriorly posteriorly she has some fine basilar rales no rhonchi or wheezing Heart is regular rate and rhythm Abdomen is obese soft and nontender and nondistended w/ normal bowel sounds legs: no pitting edema; knees are not swollen nor are they red or warm to touch Objective Last Vital Signs Temp 36.4 C L 12/10/21 07:10 Pulse 80 12/10/21 07:10 Resp 16 12/10/21 07:10 BP 135/68 12/10/21 07:10 Pulse Ox 94 12/10/21 07:10 Laboratory Results - last 24 hr 12/10/21 12/10/21 12/10/21 07:26 07:26 07:26 WBC 12.13 H RBC 2.85 L Hgb 8.4 L Hct 28.0 L MCV 98.2 H MCH 29.5 MCHC 30.0 L RDW 16.5 H Plt Count 362 MPV 11.3 H Immature Gran % 0.9 Neutrophils % 67.8 Lymphocytes % 17.7 Monocytes % 11.5 Eosinophils % 1.8 Basophils % 0.3 Nucleated RBC % 0 Absolute Neutrophils 8.22 H Absolute Lymphocytes 2.15 Absolute Monocytes 1.39 H Absolute Eosinophils 0.22 Absolute Basophils 0.04 Sodium 139 Potassium 5.0 Chloride 106 Carbon Dioxide 23.3 Anion Gap 9.7 BUN 79 H Creatinine 3.4 H Estimated GFR/1.73 m2 12.93 Glucose 250 H Calcium 8.2 L Iron TIBC Ferritin C-Reactive Protein 11.57 H Vitamin B12 Folate Procalcitonin 1.4 Add-On Test Request 12/10/21 12/10/21 12/10/21 07:26 08:36 08:36 WBC RBC Hgb Hct MCV MCH MCHC RDW Plt Count MPV Immature Gran % Neutrophils % Lymphocytes % Monocytes % Eosinophils % Basophils % Nucleated RBC % Absolute Neutrophils Absolute Lymphocytes Absolute Monocytes Absolute Eosinophils Absolute Basophils Sodium Potassium Chloride Carbon Dioxide Anion Gap BUN Creatinine Estimated GFR/1.73 m2 Glucose Calcium Iron 62 TIBC 185 L Ferritin 942 H C-Reactive Protein Vitamin B12 1695 H Folate 4.5 L Procalcitonin Add-On Test Request DONE
[2021-12-10] MEDS: Acetaminophen 325 MG TAB PO (14:13)
--- NOTE | 2021-12-10 14:18 | PT.INTREAT ---
Date of service: 12/10/21 Time of Service: 10:05 PT Notes Visit Reasons: Pyelonephritis,Acute Kidney Injury Inpatient Physical Therapy Treatment Note [facility] Date: 12/10/2021 PRECAUTIONS: Fall, Activity as Tolerated, WBAT on R SUBJECTIVE: Vy states that she still does not feel well. She reports that she did not sleep well. She expresses significant pain, globally, and her disinterest in participating in PT due to her pain. She states today that she will not walk again and knows that she will not return to home. OBJECTIVE: PAIN: Patient c/o pain, globally throughout session BED MOBILITY/TRANSFERS Sit-supine: Mod A + Max A with HOB flat Sit-stand: Min A + Mod A Stand-sit: CGA x2 Chair-bed: STEDY with assist x3 THEREX: Patient was instructed in functional [id number] exercise x5 in STEDY. ASSESSMENT: Patient tolerated session with c/o increased pain and fatigue. She requires assist with all bed mobility and transfers. She demonstrates global weakness and deconditioning, limiting her mobility and activity tolerance. She requires significant encouragement to attempt mobility activities without Max A. PLAN: Patient downgraded to 1x/day due to poor endurance and limited activity tolerance. Will continue with activities intended for global strengthening and general conditioning, as tolerated, for improved mobility and activity tolerance. TREATMENT CODE/TIME: 20 minutes; [id number] (10:05)
[2021-12-10 14:56] VITALS: BP 130/68; PULSE 78; RESP 16; TEMP 36.5; O2SAT 95
--- NOTE | 2021-12-10 15:37 | CHAPLAIN ---
I was visiting Vy while a friend was with her. She said she still doesn't understand why she can't walk, and what she'll be able to do about that. She had a referral to orthopedics this morning. 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 Her main support is her brother Gonzales, and his Shantelle. Vy learned about recent of a friend, Gunner Velasquez, and spoke about him.
[2021-12-10] MEDS: Folic Acid 1 MG TAB PO (15:41)
--- NOTE | 2021-12-10 17:07 | W.ORTHOCONSU ---
Assessment and Plan Assessment and plan (1) Osteoarthritis of right hip: Status: Acute Assessment and plan: 81-year-old female with severe chronic hip arthritis, right worse than left. Concomitant bilateral knee arthritis. Global deconditioning. Depressed affect. Patient relates history of worsening joint pain hips, knees, wrists for many years. No acute injury, but unable to mobilize due to severity of pain after recent hospitalizations for other medical problems. Challenging situation. High-risk, poor operative candidate for any joint replacement surgery. Not septic arthritis with negative short arc motion about the hips and no erythema, warmth, or tenderness. Corticosteroid injections may lessen pain temporarily but degenerative changes are significant. Continue multimodal pain control. Patient will consider fluoroscopic hip steroid injections, which are typically done every other afternoon by Dr. Aguilar. Patient states she is not ready for any injection tomorrow. Due to recent infection and poorly controlled blood glucose, next week would probably be safer for any steroid injections. Discussed with Dr. Baum. Please reach out with any questions or concerns. PFSH All Active Problems Bilateral leg pain (Acute) Discharge planning issues (Acute) Sacral decubitus ulcer (Acute) Depression (Chronic) Palliative care patient (Acute) Pneumonia (Acute) Anemia (Chronic) Hypomagnesemia (Acute) Pulmonary edema (Acute) Uric acid nephrolithiasis (Acute) Normocytic anemia (Acute) Emphysematous pyelonephritis (Acute) PATRICIO (acute kidney injury) (Acute) Dehydration (Acute) Acidemia (Acute) Staghorn calculus (Acute) Left nephrolithiasis (Acute 09/2021) Non-ST elevation [place] (NSTEMI) (Acute 09/2021) Coronary artery disease (Chronic) [place] 08/2020, NSTEMI 09/2021 Heart failure with reduced ejection fraction (Chronic) Ischemic cardiomyopathy (Acute) Chronic kidney disease (Chronic) Type 2 diabetes mellitus (Chronic) Essential hypertension (Chronic) Venous insufficiency (Acute) Peripheral edema (Acute) Drainage from surgical wound (Acute) Osteoarthritis of right hip (Acute) Primary osteoarthritis of right knee (Chronic) Most recent injection: 08/06/2019 Primary osteoarthritis of left knee (Chronic) Most recent injection: 08/06/2019 Medical History 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) Myocardial infarction (~08/2020) Apical and septal infarct Perforated duodenal ulcer (~12/2020) Sepsis (09/2021) Syncope Related to use of lisinopril occurring both at rest while having her hair washed in beauty parlor as well as occurring while ambulating. None have occurred since cessation of her lisinopril Surgical History S/P exploratory laparotomy (01/18/21) [place] patch for perforated duodenal ulcer Family History Mother , AGE 78 Diabetes Father No problems noted. 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
[2021-12-10] MEDS: Lidocaine Patch Removal 1 EACH TP (19:40)
[2021-12-10] MEDS: Atorvastatin 40 MG TAB PO (19:40)
[2021-12-10] MEDS: Metoprolol 25 MG TAB PO (19:40)
[2021-12-10] MEDS: Gabapentin 100 MG CAP 300 MG PO (21:19)
[2021-12-10] MEDS: Magnesium Oxide 400 MG TAB PO (21:20)
[2021-12-10] MEDS: Insulin Glargine 300 UNITS/3 ML PEN 50 UNITS SC (21:20)
[2021-12-10 23:58] VITALS: BP 130/64; PULSE 69; RESP 18; TEMP 35.4; O2SAT 93
[2021-12-11] MEDS: Normal Saline Flush 10 ML SYR IVP ×4 (00:57→21:23)
[2021-12-11] MEDS: Heparin 5,000 UNITS/ML VIAL 5000 UNITS SC ×2 (05:28→18:13)
[2021-12-11 06:44] LABS: Platelet Count 275 10^3/uL (130-400)
[2021-12-11 06:52] LABS: Anion Gap 9.4 mmol/L (3-11); BUN 75 mg/dL (7-18); CO2 26.6 mmol/L (21.0-32.0); CREATININE 3.3 mg/dL (0.55-1.02); Calcium 8.1 mg/dL (8.5-10.1); Chloride 102 mmol/L (98-107); Estimated GFR 13.38 (mL/min/1.73m2); Glucose 247 mg/dL (74-106); Potassium 4.8 mmol/L (3.5-5.1); Sodium 138 mmol/L (136-145)
[2021-12-11 07:20] VITALS: BP 144/75; PULSE 74; RESP 16; TEMP 36.1; O2SAT 95
[2021-12-11] MEDS: Nystatin POWDER 60 GM JAR TP ×2 (08:13→21:24)
[2021-12-11] MEDS: predniSONE 10 MG TAB PO (08:14)
[2021-12-11] MEDS: Sodium Bicarbonate 650 MG TAB 1300 MG PO ×3 (08:14→21:21)
[2021-12-11] MEDS: Folic Acid 1 MG TAB PO (08:14)
[2021-12-11] MEDS: Insulin Aspart 300 UNITS/3 ML PEN SC ×6 (08:14→17:06)
[2021-12-11] MEDS: Torsemide 20 MG TAB PO (08:14)
[2021-12-11] MEDS: Methocarbamol 750 MG TAB PO ×4 (08:14→21:21)
[2021-12-11] MEDS: Escitalopram 10 MG TAB 5 MG PO (08:14)
[2021-12-11] MEDS: Aspirin 81 MG CHEW PO (08:14)
[2021-12-11] MEDS: Pantoprazole 20 MG TABCR PO (08:14)
[2021-12-11] MEDS: Metoprolol 25 MG TAB PO ×2 (08:14→21:21)
--- NOTE | 2021-12-11 09:08 | OT.INNT ---
Occupational Therapy Notes 12/11/21 OT attempted to see pt who was out of her room at the time and OT session was unable to be performed today. Mamta Bernardo, OTR/L
--- NOTE | 2021-12-11 10:00 | PT.INPN ---
Date of service: 12/11/21 Time of Service: 10:00 PT Notes Visit Reasons: Pyelonephritis,Acute Kidney Injury Inpatient Physical Therapy Progress Note Date: 12/11/21 Dates of Service: 12/05 through 12/11/2021 Referring Doctor:? Dr. Ely PT Orders: PT CONSULT: limited ability to ambulate Precautions: fall, standard Subjective:? Vy continues to refuse attempts at pivoting during transfers nor taking a little step using the FWW during ambulation. States that her body is not able to hold herself up and she is fearful that she will fall. She verbalizes that she hurts all over and would prefer to lie in bed as much as possible. Objective:? General Observation: Sitting on reclining chair. Appears in mild distress. Anxious about moving. Mental Status: A&Ox3. Pain: Generalized B LE and back pain that seem to limit her ability to move ROM: Right Upper Extremity: WFL Left Upper Extremity: WFL Right Lower Extremity: Pain with all hip motion. Functionally tolerates 80 degrees flexion. Knee motion functionally allows 0-100. Left Lower Extremity: Functionally tolerates 80 degrees flexion. Knee motion functionally allows 0-100. Strength: Right Upper Extremity: 3/5 for all motions grossly Left Upper Extremity: 3/5 for all motions grossly Right Lower Extremity: functionally able to perform SLR within limited range Left Lower Extremity: functionally able to perform SLR, ankle pumps Sensation:?intact distally Bed Mobility/Transfers: sit-stand: CGA using STEDY; minimal assist of 2 using FWW x 3 attempts stand-sit: CGA using STEDY bed-commode: CGA using STEDY Gait:?unable Balance:? Static Sitting: Fair but poor tolerance Dynamic Sitting: Poor and poor tolerance Static Standing: unable Dynamic Standing: unable Special Tests: Mobility Limitations Standardized Measure [facility] AM-PAC 6 clicks Basic Mobility Inpatient Short Form: Raw Score: 10? CMS Score: 77% impairment ? ? ? Informed Consent/Education:? Patient instructed in purpose of PT consult and plan of care. Assessment:??No meaningful gains have been achieved since start of care. Fearful of falling. Patient demonstrates maladaptive behavior to pain limiting her ability to participate in therapy sessions. Patient may take extended time to build self reliance with transfer and ambulation performance and thus SNF placement is most appropriate. Patient continues to present with clinical signs and symptoms consistent with diagnosis, with markedly diminished mobility versus baseline. Based on AM-PAC scores, patient will likely required SNF placement to facilitate safe return to community dwelling. She continues to demonstrate the following impairment level findings: 1. Decreased activity tolerance 2. decreased functional strength 3. Poorly controlled pain, impaired perception of pain 4. decreased right hip ROM Impairments are continuing to contribute to the following functional limitations: 1. dependent for bed mobility 2. dependent for transfers 3. unable to ambulate 4. unable to stand independently 5. dependent for ADLs Patient is assessed as Moderate [id number]? complexity based on the following: History: Patient is an 81 year old female presenting with markedly diminished functional mobility and activity tolerance in the presence of acute medical issues. 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 She will require SNF placement to facilitate safe return to community dwelling. Examination: functional limitations as noted above Presentation: evolving Decision Making: moderate complexity Goals: Goals X1 week 1. Supine-Sit : min A x 1 NOT MET, CONTINUE 2. Sit-Supine : min A x 1 NOT MET, CONTINUE 3. Sit-Stand : min A x 1 NOT MET, CONTINUE 4. Stand-Sit : min A x 1 NOT MET, CONTINUE 5. Bed-Chair : stand pivot with FWW and mod A x 1 NOT MET, CONTINUE 6. Chair-Bed : stand pivot with FWW and mod A x 1 NOT MET, CONTINUE 7. Gait : 20' with FWW and mod A x 1 NOT MET, CONTINUE Plan of Care/Treatment Plan: 1-2x/day, 7 days/week x 1 week. Plan of care has been reviewed with the WATER CONTROL STATION ENGINEER providing the service under Physical Therapy direction. Initiate Physical Therapy intervention for strengthening, bed mobility, transfers, gait, stairs, balance training, use of assistive device. DISCHARGE RECOMMENDATIONS: SNF for continued rehabilitation vs. SNF for long-term care placement TREATMENT CODE/TIME:? 56525 x 23 minutes beginning at 10:00 AM.
[2021-12-11] MEDS: Acetaminophen 325 MG TAB PO (11:53)
[2021-12-11] MEDS: CEFEPIME 1 GM in Normal Saline 50 ML IVPB (11:54)
--- NOTE | 2021-12-11 13:46 | PDOC.CMPRO ---
- If Service Date Differs Date of service: 12/11/21 Time of Service: 13:46 Care Management Progress Note S/O:Vy was sitting up in bed when CM met with her. She was pleasant and talkative today and appeared to be in much better spirits. She informed CM that she had gotten up (with steady lift) into a wheelchair and was able to shower. She stated that it felt great. Vy talked at length about her world travels. She has been to most [place], [place], [place] and [place], to name a few. 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 Those she particularly enjoyed. Vy shared that she has pictures from all of those trips and it saddens her that no one seems to want them. She indicated that she is looking forward to a visit from her brother later today. 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 Her ability and desire to participate in physical therapy has declined. At her request, referrals were sent to [facility] and [facility]. [facility] has declined to offer her a bed and [facility] is closed to admissions at this time. She may continue to work with PT and will meet with Palliative Care while inpatient at [facility]. CM will continue to follow and assess for ongoing discharge concerns.
[2021-12-11] MEDS: Bisacodyl 10 MG SUPP PR (14:18)
[2021-12-11] MEDS: Mineral Oil-Enema 133 ML BTL PR (14:18)
--- NOTE | 2021-12-11 14:26 | W.PM.PROGNOT ---
Date of Service Date of service: 12/11/21 Time of Service: 14:26 Assessment and Plan Assessment and plan (1) Emphysematous pyelonephritis: Status: Acute Assessment and plan: Patient has completed her antibiotic therapy for her pyelonephritis. Nephrostomy tube was removed while she was at [facility]. Her J stent was also removed at the same time. Think the patient should probably be on prophylactic antibiotic treatment to prevent recurrent UTIs. She will finish out her cefepime today for her pneumonia and then I will put her on an oral antibiotic for suppressive therapy. (2) Pneumonia: Status: Acute Assessment and plan: as above. Continue use of incentive spirometry and Acapella. Patient's not requiring any supplemental oxygen as not having a symptoms of shortness of breath. Patient is encouraged to get up out of bed and to move around to improve aeration of the bases of her lungs and to treat her atelectasis. (3) PATRICIO (acute kidney injury): Status: Acute Assessment and plan: cont. to monitor renal fxn and resume her diuretics (lasix replaced w/ Torsemide) to treat her chronic CHF. (4) Chronic kidney disease: Status: Chronic Assessment and plan: baseline creatinine is 2 to 2.5. currently at 3.3 but improved from 6.0 on 11/21 when she was transferred to [facility] for nephrostomy tube and removal of her ureteral stent. (5) Ischemic cardiomyopathy: Status: Acute Assessment and plan: continue to hold her Entresto until her creatinine stabilizes and re-establishes a new baseline. cont. to hold metolazone and spironolactone. Resume loop diuretics (torsemide 20 mg daily has been added as of 12/09). Resume Jardiance 10 mg montelongo (6) Depression: Status: Chronic Assessment and plan: Lexapro 5 mg added to her regimen (7) Type 2 diabetes mellitus: Status: Chronic Assessment and plan: glucose still running high between 263 and 278. I have adjusted both her Lantus dose raising it to 60 units nightly and have also increased her CHO coverage to 3:10 and resumed her Jardiance. I have added NPH in the morning. (8) Essential hypertension: Status: Chronic Assessment and plan: will increase her metoprolol from 12.5 mg bid to 25 mg bid (also for her CHF); if this is inadequate then consider switch to coreg. also could add norvasc for anti-ischemic effect as well (9) Sacral decubitus ulcer: Status: Acute Assessment and plan: Mepilex dressing changes; patient needs to get out of bed (10) Bilateral leg pain: Status: Acute Assessment and plan: patient has severe DJD of her hips. She is not a candidate for NSAIDS. Ortho to provide intraarticular steroid injection. Cont. gabapentin, Robaxin and low dose dilaudid Subjective Subjective Interval history since last seen: Patient feels somewhat better today. She is finally agreed to have the steroid injections of her hips. Dr. Falcon plans on doing that this afternoon. Patient denies any shortness of breath or cough or sputum production. She has had no fevers. All of her blood and urine cultures have been no growth. Today is day #6 of cefepime. We will discontinue antibiotics after today. Patient finally recognized that she is going to need intermediate facility placement for rehabilitation. She acknowledges that she is depressed and just feels like giving up. She is now on low-dose Lexapro 5 mg daily. Exam Narrative Exam Narrative: Elderly white female lying in bed in no acute distress. She is talking to your nursing staff who are preparing to give her a bowel regimen to try to help with her constipation. Lungs are clear to auscultation anteriorly posteriorly with some diminished breath sounds at the bases but no rhonchi or wheezes or rales Heart is regular Abdomen is obese soft nondistended normal bowel sounds Lower extremities without peripheral cyanosis or edema. Objective Last Vital Signs Temp 36.1 C L 12/11/21 07:20 Pulse 74 12/11/21 07:20 Resp 16 12/11/21 07:20 BP 144/75 H 12/11/21 07:20 Pulse Ox 95 12/11/21 07:20 Laboratory Results - last 24 hr 12/11/21 12/11/21 06:18 06:18 Plt Count 275 Sodium 138 Potassium 4.8 Chloride 102 Carbon Dioxide 26.6 Anion Gap 9.4 BUN 75 H Creatinine 3.3 H Estimated GFR/1.73 m2 13.38 Glucose 247 H Calcium 8.1 L
[2021-12-11 15:26] VITALS: BP 145/69; PULSE 73; RESP 16; TEMP 36.8; O2SAT 96
--- NOTE | 2021-12-11 16:45 | CHAPLAIN ---
Vy was resting in bed when I visited this afternoon. She's had a few visitors today and expects here brother will be in this afternoon. She said she asked her brother to be here when Dr. Falcon talks about steroid injects for her hips. She still isn't able able to move her hips or knees she said. Recent imaging showed a great deal of arthritis, Reji said. Vy is usually a very active person, so to be in bed and sitting in a chair all day is not like her usual self. She is still shocked that she can't move or walk. This is no way to be, she has told me several times. She talked about a good friend who has been visiting and calling, and other people who have reached out to her. 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 We also talked about the November [employer] games ([employer] lost last night) and some of today's news.
[2021-12-11] MEDS: Atorvastatin 40 MG TAB PO (21:21)
[2021-12-11] MEDS: Gabapentin 100 MG CAP 300 MG PO (21:21)
[2021-12-11] MEDS: Magnesium Oxide 400 MG TAB PO (21:21)
[2021-12-11] MEDS: Insulin Glargine 300 UNITS/3 ML PEN 60 UNITS SC (21:22)
[2021-12-11] MEDS: Lidocaine Patch Removal 1 EACH TP (22:35)
[2021-12-11 23:14] VITALS: BP 127/65; PULSE 72; RESP 16; TEMP 36.8; O2SAT 95
[2021-12-12] MEDS: CEFEPIME 1 GM in Normal Saline 50 ML IVPB (00:38)
[2021-12-12 06:22] VITALS: BP 148/69; PULSE 78; RESP 16; TEMP 36.4; O2SAT 96
[2021-12-12] MEDS: Heparin 5,000 UNITS/ML VIAL 5000 UNITS SC ×2 (06:39→18:19)
[2021-12-12 07:40] LABS: Abs Immature Grans 0.21 10^3/uL (0.0-0.06); Absolute Eosinophil Count 0.16 10^3/uL (0.0-0.7); Absolute Lymphocyte Count 2.31 10^3/uL (1.2-3.4); Absolute Neutrophil Count 8.82 10^3/uL (1.2-6.7); Basophils % 0.5; Eosinophils % 1.2; HCT 27.9 % (36.0-46.0); HGB 8.4 g/dL (11.2-15.7); Immature Grans % 1.6; Lymphocytes % 17.7; MCHC 30.1 % (32.0-36.0); MCV 99.6 fL (80-95); MPV 11.2 fL (8.0-11.0); Monocytes % 11.5; Neutrophils % 67.5; Nucleated RBC 0 %; Platelet Count 412 10^3/uL (130-400); RDW-SD 59.2 fL; WBC 13.06 10^3/uL (4.4-10.8)
[2021-12-12 07:42] LABS: Absolute Basophil Count 0.07 10^3/uL (0.0-0.2)
[2021-12-12 08:01] LABS: Anisocytosis 1+; Diff Comment Agrees w/ Instrument; Macrocytosis 1+
[2021-12-12 08:02] LABS: Anion Gap 7.3 mmol/L (3-11); CO2 25.7 mmol/L (21.0-32.0); CREATININE 3.5 mg/dL (0.55-1.02); Calcium 8.1 mg/dL (8.5-10.1); Chloride 103 mmol/L (98-107); Glucose 147 mg/dL (74-106); Potassium 4.4 mmol/L (3.5-5.1); Sodium 136 mmol/L (136-145)
[2021-12-12] MEDS: Insulin NPH-Human 300 UNITS/3 ML PEN 20 UNIT SC (08:07)
[2021-12-12 08:08] LABS: BUN 82 mg/dL (7-18)
[2021-12-12] MEDS: Insulin Aspart 300 UNITS/3 ML PEN SC ×4 (08:08→12:17)
[2021-12-12] MEDS: Nystatin POWDER 60 GM JAR TP ×2 (08:09→21:07)
[2021-12-12] MEDS: Metoprolol 25 MG TAB PO ×2 (08:09→21:06)
[2021-12-12] MEDS: Escitalopram 10 MG TAB 5 MG PO (08:09)
[2021-12-12] MEDS: predniSONE 10 MG TAB PO (08:09)
[2021-12-12] MEDS: Folic Acid 1 MG TAB PO (08:10)
[2021-12-12] MEDS: Sodium Bicarbonate 650 MG TAB 1300 MG PO ×3 (08:10→21:05)
[2021-12-12] MEDS: Methocarbamol 750 MG TAB PO ×4 (08:10→21:05)
[2021-12-12] MEDS: Pantoprazole 20 MG TABCR PO (08:10)
[2021-12-12] MEDS: Torsemide 20 MG TAB PO (08:10)
[2021-12-12] MEDS: Aspirin 81 MG CHEW PO (08:10)
[2021-12-12] MEDS: Normal Saline Flush 10 ML SYR IVP ×2 (08:12→20:50)
[2021-12-12] MEDS: Alteplase 2 MG VIAL IJ (10:00)
[2021-12-12] MEDS: Water,Injection,Sterile 10 ML VIAL IJ (10:00)
--- NOTE | 2021-12-12 10:45 | NT_ITS ---
PT Notes Visit Reasons: Pyelonephritis,Acute Kidney Injury 12/12/2021 Just returned to bed via Stedy lift with nursing. Pt refuses further treatment today. Beth English PTA Clinic location: [facility] [place], [place]
[2021-12-12 15:00] VITALS: BP 121/68; PULSE 73; RESP 15; TEMP 37.3; O2SAT 97
--- NOTE | 2021-12-12 15:00 | RT.EKG_ITS ---
APPROVED REPORT Exam: Resting ECG Reason for Exam: chest pain Patient Location: I HR:71 bpm ECG Measurements Heart Rate 71 AXIS IL 171 P 12 QRSd 66 QRS -2 QT 396 T 97 QTc 431 Conclusion Sinus rhythm...normal P axis, V-rate 50- 99 Anterior infarct, old...Q >40mS, abnormal ST-T, V2-V5
--- NOTE | 2021-12-12 15:31 | PGE_ITS ---
Date of Service Date of service: 12/12/21 Time of Service: 15:31 Assessment and Plan Assessment and plan (1) Chest wall pain: Status: Acute Assessment and plan: I suspect that this is costochondritis; however, given her recent OH during her hospitalization for sepsis/pyelonephritis; I will give her trial of NTG and cycle her troponin I. However I will also apply voltaren gel to her costochondral junction and upper ribs. (2) Bilateral leg pain: Status: Acute Assessment and plan: secondary to her OA of her hips. I will also have nursing apply voltaren gel to her hips. apparently she did not get her intra-articular steroid injection (3) Depression: Status: Chronic Assessment and plan: currently on Lexapro 5 mg daily. I will increase to 10 mg. (4) Anemia: Status: Chronic Assessment and plan: anemia of chronic kidney disease. She also has a folate deficiency for which she is now getting oral replacement. I will check her erythropoietin level and consider epogen treatments. (5) Emphysematous pyelonephritis: Status: Resolved Assessment and plan: patient has completed her course of antibiotics. She finished her Cefepime yesterday. repeated blood and urine cultures were negative last week. she was kept on the cefepime a few days longer d/t pneumonia however she clinically is not exhibiting signs of pneumonia; i.e. no cough/sputum production/dyspnea nor hypoxemia. Therefore I have stopped her cefepime. She needs urology follow up upon discharge. she has been followed through [facility]. (6) PATRICIO (acute kidney injury): Status: Acute Assessment and plan: secondary to recent episode of sepsis/hypotension and obstructive uropathy. creatinine slowly improving although her BUN is rising. I have put her torsemide on hold. Entresto continues to be on hold. (7) Chronic kidney disease: Status: Chronic Assessment and plan: baseline BUN is 55 and creatinine is 2.5 however she recently had been as high as 156 and 6.0 as of 11/21/21. This admission she came in at 95 and 3.7 and creatinine has declined to as low as 3.3; currently at 3.5 (8) Ischemic cardiomyopathy: Status: Acute Assessment and plan: continue to hold her Entresto until her creatinine stabilizes and re-establishes a new baseline. cont. to hold metolazone and spironolactone.? loop diuretics (torsemide 20 mg daily has been added as of 12/09). Resume Jardiance 10 mg montelongo. continue BB. I have had to hold her torsemide d/t rising BUN. (9) Heart failure with reduced ejection fraction: Status: Chronic Assessment and plan: as above (10) Type 2 diabetes mellitus: Status: Chronic Assessment and plan: Jardiance resumed for her cardiomyopathy; patient now on SSI novolog along w/ CHO coverage and Lantus 60 units nightly along w/ 20 NPH in the morning. (11) Essential hypertension: Status: Chronic Assessment and plan: lopressor as above (12) Osteoarthritis of right hip: Status: Acute Assessment and plan: continue muscle relaxers; low dose narcotics and add topical ketorolac (13) Sacral decubitus ulcer: Status: Acute (14) DVT prophylaxis: Status: Acute Assessment and plan: cont. SC heparin Subjective Subjective Interval history since last seen: Patient complains of acute left upper chest pain. Worse w/ palpation or deep breathing. No dyspnea. She has point tenderness over the left anterior mid clavicular line over 3rd or 4th rib. Patient has had to use her arms a lot to pull herself up w/ the steady lift. EKG has been ordered and is pending at this time. patient states that her chest discomfort has been present for couple hours before she told her nurse. Exam Narrative Exam Narrative: Elderly white female lying in bed in semi-Benz position at 45 degrees. She is in no acute respiratory distress chest wall is tender over left mid clavicular line in the 3rd/4th rib. No pain elsewhere; no radiation to her shoulders, back or arms Lungs: clear Heart: regular Abdomen: soft, nondistended Legs: trace ankle/pedal edema, no calf or thigh swelling Objective Last Vital Signs Temp 37.3 C 12/12/21 15:00 Pulse 73 12/12/21 15:00 Resp 15 12/12/21 15:00 BP 121/68 12/12/21 15:00 Pulse Ox 97 12/12/21 15:00 Laboratory Results - last 24 hr 12/12/21 12/12/21 07:20 07:20 WBC 13.06 H RBC 2.80 L Hgb 8.4 L Hct 27.9 L MCV 99.6 H MCH 30.0 MCHC 30.1 L RDW 16.0 H Plt Count 412 H MPV 11.2 H Immature Gran % 1.6 Neutrophils % 67.5 Lymphocytes % 17.7 Monocytes % 11.5 Eosinophils % 1.2 Basophils % 0.5 Nucleated RBC % 0 Absolute Neutrophils 8.82 H Absolute Lymphocytes 2.31 Absolute Monocytes 1.50 H Absolute Eosinophils 0.16 Absolute Basophils 0.07 RBC Morphology See Below Anisocytosis 1+ Macrocytosis 1+ Sodium 136 Potassium 4.4 Chloride 103 Carbon Dioxide 25.7 Anion Gap 7.3 BUN 82 H* Creatinine 3.5 H Estimated GFR/1.73 m2 12.50 Glucose 147 H D Calcium 8.1 L
[2021-12-12] MEDS: nitroGLYcerin 0.4 MG TAB SL (15:59)
[2021-12-12] MEDS: Diclofenac 1% Gel 100 GM TUBE TP ×2 (16:27→21:06)
--- NOTE | 2021-12-12 16:41 | NUR.NOTE ---
Nitro given for chest pain had no effect. Diclofenac applied, patient stated she could feel it working. Dinner fs 66, she was given 4 oz OJ, will monitor. Nursing Note:
[2021-12-12 17:01] LABS: Troponin I 81 ng/L (<or=60)
[2021-12-12 17:14] VITALS: PULSE 75
[2021-12-12 19:26] VITALS: BP 123/62; PULSE 79; RESP 20; TEMP 36.9; O2SAT 96
[2021-12-12 20:39] LABS: Troponin I 64 ng/L (<or=60)
[2021-12-12] MEDS: Atorvastatin 40 MG TAB PO (21:05)
[2021-12-12] MEDS: HYDROmorphone 2 MG TAB 1 MG PO (21:06)
[2021-12-12] MEDS: Magnesium Oxide 400 MG TAB PO (21:06)
[2021-12-12] MEDS: Gabapentin 100 MG CAP 300 MG PO (21:06)
[2021-12-12] MEDS: Insulin Glargine 300 UNITS/3 ML PEN SC (21:07)
[2021-12-12 23:00] VITALS: PULSE 70
[2021-12-12 23:43] LABS: Troponin I 57 ng/L (<or=60)
[2021-12-13] VITALS (8 sets, daily range): BP systolic 125–150; BP diastolic 53–66; PULSE 50–70; RESP 18–19; TEMP 36.3–37.1; O2SAT 95–96
[2021-12-13] MEDS: Heparin 5,000 UNITS/ML VIAL 5000 UNITS SC ×2 (06:31→17:44)
[2021-12-13 07:37] LABS: Anion Gap 12.4 mmol/L (3-11); CO2 25.6 mmol/L (21.0-32.0); CREATININE 3.5 mg/dL (0.55-1.02); Chloride 102 mmol/L (98-107); Glucose 116 mg/dL (74-106); Potassium 4.5 mmol/L (3.5-5.1); Sodium 140 mmol/L (136-145)
[2021-12-13 07:46] LABS: BUN 84 mg/dL (7-18)
--- NOTE | 2021-12-13 08:34 | PTTR_ITS ---
PT Notes Visit Reasons: Pyelonephritis,Acute Kidney Injury 12/13/2021 SUBJECTIVE: Would like to get out of bed for breakfast. Notes the L leg is moving much better. Right leg is more painful from the knee to hip. OBJECTIVE: TRANSFERS Supine to sit: Mod A x2 Sit to stand: CGA x 2 to Stedy Stand to sit: CGA from Stedy THEREX: LE strengthening exercises performed in supine and standing in Stedy lift. See flow sheet. ASSESSMENT: She does participate well with Stedy lift transfers. She is fearful of falling and notes not being ready to walk yet. PLAN: Continue per POC progressing functional mobility and strength. Treatment time: 15 [id number] Beth English PTA Clinic location: [facility] [place], [place]
[2021-12-13] MEDS: Diclofenac 1% Gel 100 GM TUBE TP ×4 (08:52→19:36)
[2021-12-13] MEDS: Nystatin POWDER 60 GM JAR TP ×2 (08:54→19:37)
[2021-12-13] MEDS: Insulin Aspart 300 UNITS/3 ML PEN SC ×5 (08:55→17:44)
[2021-12-13] MEDS: Insulin NPH-Human 300 UNITS/3 ML PEN SC (08:56)
[2021-12-13] MEDS: Metoprolol 25 MG TAB PO ×2 (08:57→19:35)
[2021-12-13] MEDS: predniSONE 10 MG TAB PO (08:57)
[2021-12-13] MEDS: Sodium Bicarbonate 650 MG TAB 1300 MG PO ×3 (08:57→19:35)
[2021-12-13] MEDS: Folic Acid 1 MG TAB PO (08:58)
[2021-12-13] MEDS: Escitalopram 10 MG TAB 5 MG PO (08:58)
[2021-12-13] MEDS: Methocarbamol 750 MG TAB PO ×4 (08:58→19:35)
[2021-12-13] MEDS: Aspirin 81 MG CHEW PO (08:58)
[2021-12-13] MEDS: Pantoprazole 20 MG TABCR PO (08:58)
[2021-12-13] MEDS: Normal Saline Flush 10 ML SYR IVP ×2 (09:01→19:37)
[2021-12-13] MEDS: Acetaminophen 325 MG TAB PO (14:59)
--- NOTE | 2021-12-13 15:28 | PGE_ITS ---
Date of Service Date of service: 12/13/21 Time of Service: 15:28 Assessment and Plan Assessment and plan (1) Chest wall pain: Status: Acute Assessment and plan: although the patient had a mild elevation of her troponin yesterday, her chest pain was clearly reproducible w/ palpation over the left mid clavicular line in the 11/27 and is better today. She is now on topical Voltaren gel. (2) Bilateral leg pain: Status: Acute Assessment and plan: secondary to her OA of her hips. Awaiting ortho to give her steroid injection (3) Depression: Status: Chronic Assessment and plan: currently on Lexapro 5 mg daily. I will increase to 10 mg. (4) Anemia: Status: Chronic Assessment and plan: anemia of chronic kidney disease. She also has a folate deficiency for which she is now getting oral replacement. I will check her erythropoietin level and co nsider epogen treatments. (5) Emphysematous pyelonephritis: Status: Resolved Assessment and plan: patient has completed antibiotic treatment and needs follow up w/ [facility] urology (6) PATRICIO (acute kidney injury): Status: Acute Assessment and plan: secondary to recent episode of sepsis/hypotension and obstructive uropathy. creatinine slowly improving although her BUN is rising. I have put her torsemide on hold. Entresto continues to be on hold. (7) Chronic kidney disease: Status: Chronic Assessment and plan: baseline BUN is 55 and creatinine is 2.5 however she recently had been as high as 156 and 6.0 as of 11/21/21. This admission she came in at 95 and 3.7 and creatinine has declined to as low as 3.3; currently at 3.5 (8) Ischemic cardiomyopathy: Status: Acute Assessment and plan: continue to hold her Entresto until her creatinine stabilizes and re-establishes a new baseline. cont. to hold metolazone and spironolactone.? loop diuretics (torsemide 20 mg daily has been added as of 12/09). Resume Jardiance 10 mg montelongo. continue BB. I have had to hold her torsemide d/t rising BUN. (9) Heart failure with reduced ejection fraction: Status: Chronic Assessment and plan: as above (10) Type 2 diabetes mellitus: Status: Chronic Assessment and plan: Jardiance resumed for her cardiomyopathy; patient now on SSI novolog along w/ CHO coverage and Lantus 50 units nightly along w/ NPH 15 units in the morning.glucose ranging 134 to 221. (11) Essential hypertension: Status: Chronic Assessment and plan: lopressor as above (12) Osteoarthritis of right hip: Status: Acute Assessment and plan: continue muscle relaxers; low dose narcotics and add topical ketorolac (13) Sacral decubitus ulcer: Status: Acute Assessment and plan: Mepilex dressing changes; patient needs to get out of bed (14) DVT prophylaxis: Status: Acute Assessment and plan: cont. SC heparin Subjective Subjective Interval history since last seen: Patient states that overall her pain is better today. No CP. Still having hip pain particularly on the right. She would like to have the intraarticular steroid injection done. I told her that Dr. Aguilar will be back tomorrow. Patient is willing to go to SNF for rehab. CM has put out referrals and is waiting to hear back from [facility]. Exam Narrative Exam Narrative: Patient is sitting up in her chair. she seems a bit sleepy but is able to hold a prolonged conversation w/ me. Lungs: clear Heart: RRR, no appreciable murmur or rub Abdomen: soft, nondistended, nontender Legs: trace of dependent pedal edema but no calf swelling Objective Last Vital Signs Temp 37.1 C 12/13/21 07:25 Pulse 70 12/13/21 07:55 Resp 18 12/13/21 07:25 BP 150/64 H 12/13/21 07:25 Pulse Ox 95 12/13/21 07:25 Laboratory Results - last 24 hr 12/12/21 12/12/21 12/12/21 16:20 20:05 23:04 Sodium Potassium Chloride Carbon Dioxide Anion Gap BUN Creatinine Estimated GFR/1.73 m2 Glucose Calcium Troponin I 81 H* 64 H* 57 12/13/21 06:30 Sodium 140 Potassium 4.5 Chloride 102 Carbon Dioxide 25.6 Anion Gap 12.4 H BUN 84 H* Creatinine 3.5 H Estimated GFR/1.73 m2 12.50 Glucose 116 H Calcium 8.0 L Troponin I
[2021-12-13] MEDS: Atorvastatin 40 MG TAB PO (19:35)
[2021-12-13] MEDS: Gabapentin 100 MG CAP 300 MG PO (21:12)
[2021-12-13] MEDS: Insulin Glargine 300 UNITS/3 ML PEN SC (21:13)
[2021-12-13] MEDS: Magnesium Oxide 400 MG TAB PO (21:13)
[2021-12-14] VITALS (11 sets, daily range): BP systolic 118–160; BP diastolic 53–89; PULSE 52–78; RESP 16–18; TEMP 36–37.1; O2SAT 94–98
[2021-12-14 05:36] LABS: Source Nasal/Nares
[2021-12-14] MEDS: Heparin 5,000 UNITS/ML VIAL 5000 UNITS SC ×2 (05:39→18:51)
[2021-12-14 06:17] LABS: COVID-19 PCR Negative (Negative)
[2021-12-14 07:00] LABS: HCT 30.3 % (36.0-46.0); HGB 8.9 g/dL (11.2-15.7); MCH 30.1 pg (27.0-33.0); MCHC 29.4 % (32.0-36.0); MCV 102.4 fL (80-95); MPV 11.3 fL (8.0-11.0); Platelet Count 385 10^3/uL (130-400); RBC 2.96 10^6/uL (3.93-5.22); RDW 16.3 % (11.7-14.6); RDW-SD 60.6 fL; WBC 15.38 10^3/uL (4.4-10.8)
--- NOTE | 2021-12-14 07:44 | PCPN_ITS ---
Date of service: 12/14/21 Time of Service: 07:45 Assessment and Plan Assessment and plan (1) Chest wall pain: Status: Acute Assessment and plan: This resolved over the last 24 hours. She did have a small bump in her troponin. She had a history of a non-STEMI. The pain was reproducible by touch (2) Sacral decubitus ulcer: Status: Acute Assessment and plan: Not examined. Staff relate that it was a stage III (3) Depression: Status: Chronic Assessment and plan: Recently started on an antidepressant. She very much seems depressed and complacent with her present state feeling that she is not going to get better and that she is old and will soon. It may be helpful to have the antenna installer come in and speak with her. I was happy to see that her brother and [id number] were on their way in to see her as I was leaving. She feels that she needs to get her affairs in order because of her impending . (4) Staghorn calculus: Status: Acute Assessment and plan: Renal insufficiency. She does have nephrostomy tubes. (5) Type 2 diabetes mellitus: Status: Chronic (6) Palliative care patient: Status: Acute Assessment and plan: I think the biggest thing is is that ifVy can feel better she may participate more. I strongly agree with Dr. Baum that the hip injection may be the turning point for her. She did talk about her length of stay at the hospital and wondered how long she could stay there. She likes it at the hospital and feels that staff is very helpful. She is not anxious to go to a halfway. She would rather go home but was unrealistic in her assessment of what she could do if she was home. She will need a rehab stay. She is hoping to go close to home. I did explained that rehabs will not take her unless she is actively participating in PT and working on getting better. Again she insists that she is doing this although staff has a different perspective Depression is definitely playing into this. It may be useful to increase her antidepressant . Will continue to follow Subjective Subjective Interval history since last seen: Staff is concerned that she is not participating enough to get improvement and achieve her goals of returning home. She still requires considerable amount of assistance to change positions and get up from the bed. Vy stated numerous times that she does participate with physical therapy. She was up in the chair much of the day. She feels she is doing all that she can. She stated that at 81 she knows that her life is coming to an end. She hopes to be able to go home one last time. She does not know if she can get better. She was [id number] and stating that she may not improve. She is looking forward to the hip injection yesterday. It was planned for today but she declined. Dr. Baum feels that it may give her significant relief and then she will be able to participate more Exam Narrative Exam Narrative: Vy is lying in bed. She moved a few inches when I wanted to listen to her lungs. Her heart was regular. Lungs small effort. Left leg has a dime size sore on the anterior leg. There is a small amount of edema. Right leg she did not allow this to be moved in any way. I did not examine her buttocks wound Objective Last Vital Signs Temp 96.8 F L 12/14/21 07:16 Pulse 68 12/14/21 07:16 Resp 18 12/14/21 07:16 BP 160/89 H 12/14/21 07:16 Pulse Ox 97 12/14/21 07:16 Laboratory Results - last 24 hr 12/13/21 12/14/21 12/14/21 06:30 05:00 06:50 WBC 15.38 H RBC 2.96 L Hgb 8.9 L Hct 30.3 L MCV 102.4 H MCH 30.1 MCHC 29.4 L RDW 16.3 H Plt Count 385 MPV 11.3 H Sodium 140 Potassium 4.5 Chloride 102 Carbon Dioxide 25.6 Anion Gap 12.4 H BUN 84 H* Creatinine 3.5 H Estimated GFR/1.73 m2 12.50 Glucose 116 H Calcium 8.0 L COVID-19 Source Nasal/Nares SARS-CoV-2 (PCR) Negative XR PELVIS AP EXAM:? XR PELVIS AP CLINICAL HISTORY: ? Hip arthritis. ? TECHNIQUE:? 2D digital imaging was performed. COMPARISON:? CR,XR XR PELVIS AP from 11/21/2021 FINDINGS: Single view No evidence of pelvic nor hip fracture.? Advanced degenerative changes are noted in the right hip.? Lesser degenerative changes in the left hip.? Vascular calcification is noted in the internal iliac arteries.
[2021-12-14] MEDS: Lidocaine 5% Patch 1 PATCH TP (08:03)
[2021-12-14] MEDS: Normal Saline Flush 10 ML SYR IVP ×2 (08:03→19:19)
[2021-12-14] MEDS: Insulin NPH-Human 300 UNITS/3 ML PEN SC (08:04)
[2021-12-14] MEDS: Insulin Aspart 300 UNITS/3 ML PEN SC ×5 (08:05→17:27)
[2021-12-14] MEDS: Pantoprazole 20 MG TABCR PO (08:06)
[2021-12-14] MEDS: Sodium Bicarbonate 650 MG TAB 1300 MG PO ×3 (08:06→19:17)
[2021-12-14] MEDS: Methocarbamol 750 MG TAB PO ×4 (08:06→19:17)
[2021-12-14] MEDS: Aspirin 81 MG CHEW PO (08:06)
[2021-12-14] MEDS: predniSONE 10 MG TAB PO (08:07)
[2021-12-14] MEDS: Nystatin POWDER 60 GM JAR TP ×2 (08:07→19:20)
[2021-12-14] MEDS: Diclofenac 1% Gel 100 GM TUBE TP ×4 (08:07→19:18)
[2021-12-14] MEDS: Metoprolol 25 MG TAB PO ×2 (08:07→19:17)
[2021-12-14] MEDS: Folic Acid 1 MG TAB PO (08:07)
[2021-12-14] MEDS: Escitalopram 10 MG TAB PO (08:07)
--- NOTE | 2021-12-14 12:28 | W.PM.PROGNOT ---
Date of Service Date of service: 12/14/21 Time of Service: 12:29 Assessment and Plan Assessment and plan (1) Bilateral leg pain: Status: Acute Assessment and plan: secondary to her OA of her hips. Awaiting ortho to give her steroid injection (2) Depression: Status: Chronic Assessment and plan: Lexapro now on 10 mg daily (3) PATRICIO (acute kidney injury): Status: Acute Assessment and plan: secondary to recent episode of sepsis/hypotension and obstructive uropathy. creatinine slowly improving although her BUN is rising. I have put her torsemide on hold. Entresto continues to be on hold. (4) Chronic kidney disease: Status: Chronic Assessment and plan: baseline BUN is 55 and creatinine is 2.5 however she recently had been as high as 156 and 6.0 as of 11/21/21. This admission she came in at 95 and 3.7 and creatinine has declined to as low as 3.3; currently at 3.5 (5) Ischemic cardiomyopathy: Status: Acute Assessment and plan: metolazone, spironolactone, empagliflozin remain on hold. Her torsemide has been on hold but I will resume this on an every other day schedule. (prior to admission she has been on lasix 20 mg bid, I switched this to a once a day torsemide but had this on hold d/t rising BUN and creatinine. I think she needs to resume this on a qod schedule. (6) Heart failure with reduced ejection fraction: Status: Chronic Assessment and plan: as above (7) Chest wall pain: Status: Acute Assessment and plan: although the patient had a mild elevation of her troponin yesterday, her chest pain was clearly reproducible w/ palpation over the left mid clavicular line in the 11/27 and is better today. She is now on topical Voltaren gel. (8) Anemia: Status: Chronic Assessment and plan: anemia of chronic kidney disease. She also has a folate deficiency for which she is now getting oral replacement. I will check her erythropoietin level and consider epogen treatments. (9) Type 2 diabetes mellitus: Status: Chronic Assessment and plan: (Jardiance on hold) patient now on SSI novolog along w/ CHO coverage and Lantus 50 units nightly along w/ NPH 20 units in the morning.glucose ranging 106 to 299 (the 106 was this am and the 299 was at lunch; she was 233 at bedtime and 281 at supper yesterday and 172 at dinner yesterday. (10) Essential hypertension: Status: Chronic Assessment and plan: lopressor as above (11) Osteoarthritis of right hip: Status: Acute Assessment and plan: continue muscle relaxers; low dose narcotics and add topical ketorolac (12) Sacral decubitus ulcer: Status: Acute Assessment and plan: Mepilex dressing changes; patient needs to get out of bed (13) DVT prophylaxis: Status: Acute Assessment and plan: cont. SC heparin (14) Discharge planning issues: Status: Acute Assessment and plan: CM has placed referrals to [facility] and to [facility] however, [facility] has only one bed available and 3 referrals from us and [facility] is closed to new admissions at this time d/t COVID-19 outbreak. CM indicated that she will make referrals outside our area if patient is agreeble to go. Patient is medically stable. Subjective Subjective Interval history since last seen: Patient has been up all morning out of bed, sitting in her chair and working w/ nursing and P.T. on transfers. Her mobility is still limited by her hips and her right knee pain. I spoke w/ Dr. Aguilar who is trying to get her intraarticular steroid injection set up w/ the OR as this has to be done under fluroscopy, however he indicated that while this may help a little, it is not going to be a panacea for her OA. She needs bilateral hip replacement which she is not a surgical candidate. She still is having intermittent chest wall discomfort which she relates to having to pull herself up on the steady lift, but since going on the topical diclofenac it has helped. Exam Narrative Exam Narrative: Elderly white female lying in bed in semi-Benz position, just having gotten back to bed Lungs: some bibasilar rales; no wheezing or rhonchi Heart: regular rate and rhythm; no appreciable murmur Abdomen: soft, nontender Objective Last Vital Signs Temp 36.6 C 12/14/21 11:21 Pulse 61 12/14/21 11:21 Resp 18 12/14/21 11:21 BP 118/66 12/14/21 11:21 Pulse Ox 97 12/14/21 11:21 Laboratory Results - last 24 hr 12/14/21 12/14/21 05:00 06:50 WBC 15.38 H RBC 2.96 L Hgb 8.9 L Hct 30.3 L MCV 102.4 H MCH 30.1 MCHC 29.4 L RDW 16.3 H Plt Count 385 MPV 11.3 H COVID-19 Source Nasal/Nares SARS-CoV-2 (PCR) Negative
[2021-12-14 13:18] LABS: Erythropoietin 18.3 mIU/mL (2.6 - 18.5)
--- NOTE | 2021-12-14 14:48 | PT.INTREAT ---
Date of service: 12/14/21 Time of Service: 14:48 PT Notes Visit Reasons: Pyelonephritis,Acute Kidney Injury Inpatient Physical Therapy Progress Note Date: 12/14/21 Precautions: Fall. Standard. Activity as tolerated. Has been non-ambulatory since admission at [facility] in September of 2021. Subjective:? Agreeable to standing level activities using the STEDY lift. Reports increased pain in R hip and knee that limited bed mobility and weight bearing activities today. States that she is getting her steroid injection for the R hip tomorrow. Objective:? General Observation: Supine in bed.? IV access in right UE. Mental Status: A&Ox3. Pain: Generalized B LE and back pain that seem to limit her ability to move Bed Mobility/Transfers: sit-stand: CGA using STEDY stand-sit: CGA using STEDY THERA EX: Squat<>stand exercises using the STEDY lift x 10 with report of increased R hp and knee pain that subsided with rest. ANkle pumps x 10, supine hip/knee flexion (up to 50% of AROM only) x 10, supine hip abduction/addcution x 10 (up to 50% of AROM only). With head and trunk of bed elevated to 45 degrees, patient leans as far forward as possible while pulling from bilateral leg rails x 10 with instrction given for breathing and abdominal bracing. Gait:?Unable Balance:? Static Sitting: Good but poor tolerance Dynamic Sitting: Fair and? poor tolerance Static Standing: unable Dynamic Standing: unable Assessment:??Slowly building up standing tolerance with report of R knee pain at 7-8/10. DISCHARGE RECOMMENDATIONS: SNF for continued rehabilitation vs. SNF for long-term care placement TREATMENT CODE/TIME:? 00088 x 10 minutes, 33660 x 21 mnutes beginning at 14:48 PM.
--- NOTE | 2021-12-14 17:08 | PDOC.CMPRO ---
- If Service Date Differs Date of service: 12/14/21 Time of Service: 17:08 Care Management Progress Note S/O: Vy remains inpatient, awaiting ortho consult for pain management to permit further engagement in progressing mobility. CM continues to follow. A: Vy is an 81 year old woman admitted on 12/04/21 with pyelonephritis P: Vy will likely require short term rehab and may need to transition to [facility] care. Her ability and desire to participate in physical therapy has declined. At her request, referrals were sent to [facility] and [facility]. [facility] has declined to offer her a bed and [facility] closed to admissions at this time. She may continue to work with PT and will meet with Palliative Care while inpatient at [facility]. CM will continue to follow and assess for ongoing discharge concerns.
[2021-12-14] MEDS: Acetaminophen 325 MG TAB PO (19:14)
[2021-12-14] MEDS: Atorvastatin 40 MG TAB PO (19:17)
[2021-12-14] MEDS: Lidocaine Patch Removal 1 EACH TP (21:00)
[2021-12-14] MEDS: Gabapentin 100 MG CAP 300 MG PO (21:57)
[2021-12-14] MEDS: Magnesium Oxide 400 MG TAB PO (21:58)
[2021-12-15] MEDS: Acetaminophen 325 MG TAB PO ×2 (01:10→18:22)
[2021-12-15] MEDS: Heparin 5,000 UNITS/ML VIAL 5000 UNITS SC ×2 (05:55→17:38)
[2021-12-15 06:03] VITALS: BP 157/66; PULSE 58; RESP 16; TEMP 36.3; O2SAT 95
[2021-12-15 06:55] LABS: Anion Gap 9.6 mmol/L (3-11); CO2 26.4 mmol/L (21.0-32.0); Calcium 8.1 mg/dL (8.5-10.1); Chloride 103 mmol/L (98-107); Estimated GFR 12.11 (mL/min/1.73m2); Glucose 165 mg/dL (74-106); Potassium 4.9 mmol/L (3.5-5.1); Sodium 139 mmol/L (136-145)
[2021-12-15 07:04] LABS: BUN 98 mg/dL (7-18); CREATININE 3.6 mg/dL (0.55-1.02)
[2021-12-15 08:01] VITALS: BP 139/68; PULSE 66; RESP 17; TEMP 35.8; O2SAT 92
[2021-12-15] MEDS: Normal Saline Flush 10 ML SYR IVP ×2 (08:18→22:01)
[2021-12-15] MEDS: predniSONE 10 MG TAB PO (08:19)
[2021-12-15] MEDS: Methocarbamol 750 MG TAB PO ×4 (08:19→21:52)
[2021-12-15] MEDS: Pantoprazole 20 MG TABCR PO (08:19)
[2021-12-15] MEDS: Metoprolol 25 MG TAB PO ×2 (08:19→21:52)
[2021-12-15] MEDS: Aspirin 81 MG CHEW PO (08:19)
[2021-12-15] MEDS: Sodium Bicarbonate 650 MG TAB 1300 MG PO ×3 (08:19→21:52)
[2021-12-15] MEDS: Torsemide 20 MG TAB PO (08:20)
[2021-12-15] MEDS: Escitalopram 10 MG TAB PO (08:20)
[2021-12-15] MEDS: Folic Acid 1 MG TAB PO (08:20)
[2021-12-15] MEDS: Diclofenac 1% Gel 100 GM TUBE TP ×3 (08:21→21:52)
[2021-12-15] MEDS: Nystatin POWDER 60 GM JAR TP ×2 (08:30→21:52)
[2021-12-15 09:07] VITALS: PULSE 68
[2021-12-15] MEDS: Insulin Aspart 300 UNITS/3 ML PEN SC ×6 (09:09→17:39)
[2021-12-15] MEDS: Insulin NPH-Human 300 UNITS/3 ML PEN SC (09:13)
--- NOTE | 2021-12-15 09:34 | PTTR_ITS ---
Date of service: 12/15/21 Time of Service: 09:34 PT Notes Visit Reasons: Pyelonephritis,Acute Kidney Injury Inpatient Physical Therapy Treatment Note Date: 12/15/21 Precautions: Fall. Standard.? Activity as tolerated.? Has been non-ambulatory since admission at [facility] in September of 2021. Subjective:? Required extensive encouragement to initiate and complete transfer and ambulation from bedside commode to bedside chair. Objective:? General Observation: LNAbryan Gusman and Ellen assisting with toileting activity Mental Status: A&Ox3. Pain: Generalized B LE and back pain that seem to limit her ability to move Bed Mobility/Transfers: sit-stand: minimal assist of 2 stand-sit: contact-guard assist bedside commode to bedside chair: minimal assist of 2 THERA EX:?Squat<>stand exercises using the STEDY lift x 10? with report of increased R hp and knee pain that subsided with rest.? Ankle pumps x 10, supine hip/knee flexion (up to 50% of AROM only) x 10,? manually resisted supine knee extension x 10, adductor squeeze using pillow x 10, elbow flexion/ext x 10. Exercise to activate abdominals was also done while pulling on end of arm rests in the front to bring trunlk as far forward as possible. Gait:?Tolerated up to small hesitant 5 steps using front wheeled walker with full weightbearing on bilateral lower extremities using front wheel walker with report of increased pain in the right hip and knee requiring extensive motivation for PT and LNAs for activity completion. Decreased appetite in the legs decreased step length in the legs. Moderate cues given to decrease excessive trunk flexion excessive trunk flexion. Balance:? Static Sitting: Good balancebut poor tolerance Dynamic Sitting: Fair balance but poor tolerance Static Standing: Poor Dynamic Standing: Poort Assessment:??For the first time with PT, patient was able to tolerate taking a few steps from bedside commode to bedside chair with assist of this PT and SENSOR SPECIALIST Uzma and CHASE Hughes. Complained of pain in the R hip and knee that limited safety of transfer performance. DISCHARGE RECOMMENDATIONS: SNF for continued rehabilitation vs. SNF for long-term care placement TREATMENT CODE/TIME:? 66576 x 10 minutes, 79005 x 13 mnutes beginning at 9:34 AM.
--- NOTE | 2021-12-15 10:59 | PDOC.CMPRO ---
- If Service Date Differs Date of service: 12/15/21 Time of Service: 10:59 Care Management Progress Note S/O: Vy remains inpatient, awaiting ortho consult for pain management to permit further engagement in progressing mobility. Additional referrals faxed to [facility]-awaiting determination. CM continues to follow. A: Vy is an 81 year old woman admitted on 12/04/21 with pyelonephritis P: Vy awaits orthopedic injection to manage pain to enable increased engagement in physical activity. SNF referrals faxed to additional facilities to determine bed availability for Vy to choose disposition. CM continues to follow.
--- NOTE | 2021-12-15 11:39 | W.PM.PROGNOT ---
Documented by User: PABLO Sheth 12/15/21 11:42 Date of Service Date of service: 12/15/21 Time of Service: 11:39 Assessment and Plan Assessment and plan (1) Osteoarthritis of right hip: Status: Acute Assessment and plan: Vy Acuña to have pain and difficulty ambulating due to right hip pain. She will be scheduled for an intra-articular injection of the right hip under fluoroscopy this afternoon. Subjective Subjective Interval history since last seen: Vy continues to have pain in both of her hips, but especially her right hip whenever she ambulates. She has had brief periods of ambulation last night and today, but was limited by pain in her right hip. She expresses a desire to have an injection in her right hip today if possible. She would like to forego an injection in her left hip until she sees how the injection in her right hip helps with her pain. Exam Extrem Other: Exam of the right hip today shows that she has very restricted internal and external rotation, and has exquisite groin and anterior thigh tenderness at end of range of motion. She has positive Stinchfield test. Objective Last Vital Signs Temp 96.4 F L 12/15/21 08:01 Pulse 68 12/15/21 09:07 Resp 17 12/15/21 08:01 BP 139/68 12/15/21 08:01 Pulse Ox 92 12/15/21 08:01 Laboratory Results - last 24 hr 12/11/21 12/15/21 06:18 06:30 Sodium 139 Potassium 4.9 Chloride 103 Carbon Dioxide 26.4 Anion Gap 9.6 BUN 98 H* Creatinine 3.6 H* Estimated GFR/1.73 m2 12.11 Glucose 165 H Calcium 8.1 L Erythropoietin 18.3 Documented by User: Phoenix Aguilar MD 12/15/21 21:42 Assessment and Plan Assessment and plan (1) Osteoarthritis of right hip: Status: Acute Assessment and plan: Vy Acuña to have pain and difficulty ambulating due to right hip pain. She will be scheduled for an intra-articular injection of the right hip under fluoroscopy this afternoon. I interviewed and examined the patient with Arnaldo Hussein PA-C. I agree with the documentation as above. The assessment and plan were formulated with my direct involvement. Vy has severe arthritis of the right hip. She also has arthritis of the left hip in addition to both knees. She has had difficulty with mobilizing and currently feels that the right hip is the most bothersome. I offered injections and was somewhat reluctant to proceed with them but she feels the right hip is what is limiting her the most so she agrees to proceed with the right hip injection. I reviewed the right hip injection process and she agrees to proceed. This will be done in the operating room for convenience. Phoenix Aguilar MD FAAOS FAAHKS
--- NOTE | 2021-12-15 13:30 | DI.RAD_ITS ---
Exam(s) XR HIP RT IN OR EXAM: XR HIP RT IN OR CLINICAL HISTORY: osteoarthritis. TECHNIQUE: 2D and realtime digital imaging was performed. COMPARISON: No exams were available for comparison FINDINGS: Single hard copy image shows contrast injection into the right hip joint. Please see procedure note for details. Fluoro time 12.1 seconds RADIATION DOSE DELIVERED: hugh Pérez=2.16 mGy
[2021-12-15] MEDS: Bupivacaine 0.5% Pres-Free 30 ML VIAL (14:24)
[2021-12-15] MEDS: methylPREDNISolone ACETATE 80 MG/ML VIAL (14:25)
--- NOTE | 2021-12-15 14:50 | PGE_ITS ---
Date of Service Date of service: 12/15/21 Time of Service: 14:50 Assessment and Plan Assessment and plan (1) Ambulatory dysfunction: Status: Acute Assessment and plan: Continue to work with PT. LE pain is contributing - due to OA. S/p R hip injection today. Awaiting SNF placement. (2) Osteoarthritis of right hip: Status: Acute Assessment and plan: As above (3) Acute kidney injury superimposed on chronic kidney disease: Status: Acute Assessment and plan: In setting of sepsis/hypotension/emphysematous pyelonephritis/obstructive uropathy, currently all treated. Cr has stabilized at about 3.5-3.6. Will continue to monitor. Avoid nephrotoxic drugs. I do think that her diuretics should be resumed today cautiously. (4) Sacral decubitus ulcer: Status: Acute Assessment and plan: Continue wound care. (5) Chest wall pain: Status: Resolved Assessment and plan: Musculoskeletal. Resolved. No further workup. Tele d/c'ed. (6) Bilateral leg pain: Status: Chronic Assessment and plan: As above (7) Heart failure with reduced ejection fraction: Status: Chronic Assessment and plan: Increase torsemide to daily. LVEF 50-55% ON TTE from 11/24/21 at [facility]. (8) Ischemic cardiomyopathy: Status: Chronic Assessment and plan: As above (9) Depression: Status: Chronic Assessment and plan: Continue lexapro (10) DVT prophylaxis: Status: Acute Assessment and plan: SC heparin (11) Discharge planning issues: Status: Acute Assessment and plan: DNR/DNI Medically cleared for discharge as soon as a SNF bed becomes available Subjective Subjective Interval history since last seen: S/p R hip injection today. Tolerated well. Currently, pain is controlled. Denies dizziness, chest pain, shortness of breath, nausea. Exam Narrative Exam Narrative: General: Pleasant elderly female, A&Ox3, NAD HEENT: EOMI, MMM Heart: RRR with an occasional extra beat Lungs: faint rales at B bases Abdomen: soft, nontender, nondistended; large RLQ purple ecchymosis Extremities: no edema BLE's, tibial surfaces tender, ichthiosis Objective Last Vital Signs Temp 35.8 C L 12/15/21 08:01 Pulse 68 12/15/21 09:07 Resp 17 12/15/21 08:01 BP 139/68 12/15/21 08:01 Pulse Ox 92 12/15/21 08:01 Laboratory Results - last 24 hr 12/11/21 12/15/21 06:18 06:30 Sodium 139 Potassium 4.9 Chloride 103 Carbon Dioxide 26.4 Anion Gap 9.6 BUN 98 H* Creatinine 3.6 H* Estimated GFR/1.73 m2 12.11 Glucose 165 H Calcium 8.1 L Erythropoietin 18.3
[2021-12-15 15:00] VITALS: BP 127/65; PULSE 66; RESP 18; TEMP 37.1; O2SAT 96
--- NOTE | 2021-12-15 16:06 | CHAPLAIN ---
Vy said she expects to have the injection in her right hip this afternoon, that was originally scheduled for Tuesday. It's hoped that the inject will control her pain better so she can progress with walking. She was using the steady lift to ambulate, but she said today she walked a short distance with PT without the steady lift, but with people on both sides. We talked about how this was progress, even though small, and that this challenge will be a game of inches for her. 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 She is frustrated with not being able to move, as well as the likely possibility of going to care facility from here, before going home. Vy has been independent for years and this is nothing like I expected she said of her situation now. I will continue to visit.
--- NOTE | 2021-12-15 16:23 | ROE_ITS ---
Date of service: 12/15/21 Time of Service: 14:40 Operative Note Operative Note DATE OF PROCEDURE: 12/15/21 PRE-OP DIAGNOSIS: Right Hip Osteoarthritis PROCEDURE: Right hip injection, fluoroscopically guided SURGEON: Phoenix Aguilar ANESTHESIA TYPE: Local By Surgeon Refer to Anesthesia Record ESTIMATED BLOOD LOSS: 0 COMPLICATIONS: None Patient was transported to: floor Patient's condition: stable Indications: Vy is a 89-year-old who has known arthritis about the right hip. She has been having increasing pain about the right hip which is preventing mobilization. Therefore, I recommended an injection of her right hip joint. I discussed the risk of the procedure and she elected to proceed. Procedure Description: Vy was greeted in the preoperative holding area. Her identity was confirmed the correct site was identified and marked. She was taken back to the operating room. She was placed in supine position on the operating room table. A timeout was performed for safe surgery. No antibiotics are necessary. Using fluoroscopy identified the starting location. ChloraPrep was then used to prep the area of her right hip. Under sterile technique, the skin and soft tissues were injected with 2% lidocaine. I then used a 22-gauge spinal needle to penetrate the joint at the area of the lateral head neck junction. This a ppeared appropriate on the x-ray and a small amount of Omnipaque solution was injected into the joint confirming intra-articular placement. I then injected 5 cc of 0.5% bupivacaine along with 80 mg of Depo-Medrol. She tolerated the procedure well. A Band-Aid was applied after the procedure, I was able to mobilize her right hip with significantly less pain.
[2021-12-15] MEDS: Magnesium Oxide 400 MG TAB PO (21:52)
[2021-12-15] MEDS: Atorvastatin 40 MG TAB PO (21:52)
[2021-12-15] MEDS: Gabapentin 100 MG CAP 300 MG PO (21:53)
[2021-12-15] MEDS: Insulin Glargine 300 UNITS/3 ML PEN SC (21:59)
[2021-12-15 23:56] VITALS: BP 125/65; PULSE 68; RESP 18; TEMP 36.7; O2SAT 96
[2021-12-16] MEDS: Heparin 5,000 UNITS/ML VIAL 5000 UNITS SC ×2 (05:47→17:32)
[2021-12-16 08:04] LABS: Abs Immature Grans 0.33 10^3/uL (0.0-0.06); Basophils % 0.2; HCT 27.6 % (36.0-46.0); HGB 8.3 g/dL (11.2-15.7); Immature Grans % 1.8; MCHC 30.1 % (32.0-36.0); MCV 99.6 fL (80-95); MPV 11.7 fL (8.0-11.0); Monocytes % 4.1; Neutrophils % 87.9; Nucleated RBC 0 %; Platelet Count 406 10^3/uL (130-400); RBC 2.77 10^6/uL (3.93-5.22); RDW 16.6 % (11.7-14.6); RDW-SD 60.6 fL; WBC 17.91 10^3/uL (4.4-10.8)
[2021-12-16 08:05] LABS: Absolute Basophil Count 0.04 10^3/uL (0.0-0.2); Absolute Lymphocyte Count 1.07 10^3/uL (1.2-3.4); Absolute Monocyte Count 0.73 10^3/uL (0.1-0.8); Absolute Neutrophil Count 15.74 10^3/uL (1.2-6.7)
[2021-12-16 08:06] LABS: Anion Gap 9.5 mmol/L (3-11); C-Reactive Protein 6.79 mg/dL (0.0-0.3); CO2 26.5 mmol/L (21.0-32.0); Calcium 8.4 mg/dL (8.5-10.1); Chloride 106 mmol/L (98-107); Estimated GFR 12.11 (mL/min/1.73m2); Glucose 308 mg/dL (74-106); Magnesium 1.8 mg/dL (1.8-2.4); Potassium 5.9 mmol/L (3.5-5.1); Sodium 142 mmol/L (136-145)
[2021-12-16 08:10] LABS: BUN 102 mg/dL (7-18); CREATININE 3.6 mg/dL (0.55-1.02)
[2021-12-16 08:24] LABS: Procalcitonin 0.6 ng/mL
--- NOTE | 2021-12-16 08:30 | RT.EKG_ITS ---
APPROVED REPORT Exam: Resting ECG Reason for Exam: hyperkalemia Patient Location: I HR:64 bpm ECG Measurements Heart Rate 64 AXIS IL 169 P 56 QRSd 54 QRS -4 QT 590 T 109 QTc 609 Conclusion Sinus rhythm...normal P axis, V-rate 50- 99 Inferior infarct, old...Q >35mS, II III aVF Anteroseptal infarct, age indeterminate...Q >35mS, T neg, V1-V2 Prolonged QT interval...QTc >500mS Artifact in lead(s) I,II,III,aVR,aVF,V1,V2,V3,V4,V5,V6
--- NOTE | 2021-12-16 08:38 | NUR.NOTE ---
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
[2021-12-16] MEDS: Insulin Aspart 300 UNITS/3 ML PEN SC ×6 (08:51→17:33)
[2021-12-16] MEDS: Insulin NPH-Human 300 UNITS/3 ML PEN SC (08:54)
[2021-12-16] MEDS: Nystatin POWDER 60 GM JAR TP ×2 (08:55→20:30)
[2021-12-16] MEDS: Sodium Zirconium Cyclosilicate 10 GM PKT PO ×3 (08:55→21:51)
[2021-12-16] MEDS: Insulin REGULAR-Human 100 UNITS/ML UNIT IV ×2 (09:06→12:06)
[2021-12-16] MEDS: Normal Saline Flush 10 ML SYR IVP ×7 (09:06→20:30)
--- NOTE | 2021-12-16 09:49 | PTTR_ITS ---
Date of service: 12/16/21 Time of Service: 09:49 PT Notes Visit Reasons: Pyelonephritis,Acute Kidney Injury Inpatient Physical Therapy Treatment Note Date: 12/16/21 Precautions: Fall. Standard.? Activity as tolerated.? Subjective:? Appeared discouraged about how tired and exhausted she has this morning however, with continuous encouragement, patient was able to complete short distance ambulation. Did confirm that she had the steroid injection to her right hip yesterday. Objective:? General Observation: Nurse Dalia and Student Nurse Magda session for safety Mental Status: A&Ox3. Pain: Moderate pain in R hip and knee Bed Mobility/Transfers: sit-stand: minimal assist of 2 stand-sit: Contact-guard assist bedside commode to bedside chair: minimal assist of 2 THERA EX:? LAQs x 10, Abdominal crucnhes while seated on chair using B UE for support x10, seated hip abduction and adduction, worked on increasing independence with scooting in bed Gait:?T olerated up to 15 small steps from bedside commode back to bed using front- wheeled walker with full weight bearing on bilateral lower extremities using front-wheeled walker with report of increased pain in the right hip and knee requiring extensive motivation for PT and LNAs for activity completion.? Minimal assist of 2 provided. Maximal verbal and tactile cueing provided for activity completion and overall safety. Balance:? Static Sitting: Good balancebut poor tolerance Dynamic Sitting: Fair balance but poor tolerance Static Standing: Poor Dynamic Standing: Poor Assessment:? Slow progress towards goals requiring SNF placement. Poor self confidence. High anxiety over falling. Continues to require extensive encouragement to participate and continue to participate in PT. DISCHARGE RECOMMENDATIONS: SNF for continued rehabilitation vs. SNF for long-term care placement TREATMENT CODE/TIME:? 32748 x 20 minutes, 14877 x 11? mnutes beginning at 9:49 AM.
[2021-12-16 10:03] VITALS: BP 160/70; PULSE 64; RESP 16; TEMP 35.9; O2SAT 91
--- NOTE | 2021-12-16 11:00 | PDOC.CMPRO ---
- If Service Date Differs Date of service: 12/16/21 Time of Service: 11:00 Care Management Progress Note S/O: Vy received an injection in her hip yesterday and today notes some improvement in pain. She was able to ambulate with a walker with standby assistance of 2 staff members. Over the past few days her WBC has been increasing and was 17.91 this morning from 10.21 on admission. her BUN and creatinine are also rising slowly . Vy was lying in bed when CM met with her. She appeared flushed and stated that she feels very weak. A referral had been sent to several additional SNFs in the area as [facility] declined to make a bed offer and [facility] is closed to admissions. A bed offer was received from [facility] today and Vy is considering accepting the offer. Several additional test were ordered today so discharge timing and disposition is yet to be determined. A: Vy is an 81 year old woman admitted on 12/04/21 with pyelonephritis P: Vy will likely be discharged to a SNF for short term rehab prior to returning home. SNF referrals faxed to additional facilities to determine bed availability for Vy to choose disposition. A bed offer was received from [facility] in [place] but has not been accepted as yet.CM will continue to follow and support discharge planning concerns.
[2021-12-16] MEDS: Pantoprazole 20 MG TABCR PO (11:04)
[2021-12-16] MEDS: Metoprolol 25 MG TAB PO ×2 (11:05→20:30)
[2021-12-16] MEDS: Aspirin 81 MG CHEW PO (11:05)
[2021-12-16] MEDS: predniSONE 10 MG TAB PO (11:05)
[2021-12-16] MEDS: Sodium Bicarbonate 650 MG TAB 1300 MG PO ×3 (11:05→20:29)
[2021-12-16] MEDS: Folic Acid 1 MG TAB PO (11:05)
[2021-12-16] MEDS: Escitalopram 10 MG TAB PO (11:07)
[2021-12-16] MEDS: Methocarbamol 750 MG TAB PO ×3 (11:07→20:29)
[2021-12-16 11:08] LABS: Anion Gap 12.1 mmol/L (3-11); CO2 21.9 mmol/L (21.0-32.0); Calcium 8.4 mg/dL (8.5-10.1); Chloride 104 mmol/L (98-107); Estimated GFR 11.73 (mL/min/1.73m2); Glucose 397 mg/dL (74-106); Sodium 138 mmol/L (136-145)
[2021-12-16] MEDS: Diclofenac 1% Gel 100 GM TUBE TP ×2 (11:08→20:30)
[2021-12-16] MEDS: Lidocaine 5% Patch 1 PATCH TP (11:09)
[2021-12-16 11:10] LABS: BUN 106 mg/dL (7-18)
[2021-12-16] MEDS: cefTRIAXone 1 GM/50 ML BAG IVPB (11:10)
[2021-12-16 11:11] LABS: CREATININE 3.7 mg/dL (0.55-1.02)
[2021-12-16] MEDS: Normal Saline 500 ML 30 ML IV (11:17)
--- NOTE | 2021-12-16 11:53 | W.DIABETESNO ---
Date of service: 12/16/21 Time of Service: 11:54 Diabetes Note Reason for Visit: Reassessment of nutritional needs and diabetes consult NOTE: Assessment: Ms. Wilson had been recommended that she have increased proteins at her meals given her need for would healing. Due to her diminished appetite, she would only eat at most 1.0 g/kg/day which is the recommended amount for hospitalized patients without increased protein needs. As of now, Ms. Wilson's BUN and Cr are worsening. She is also now on a renal diet which includes a low potassium diet. Her blood sugars are not at target. She gets Aspart correction, Aspart 3 units/10 gCHO. Lantus 50 units per day and NPH 20 units per day. Recommended protein intake with her kidney function is 0.6 g/kg/day which for her is 48 g of protein daily using her adjusted ideal body weight of 80 kg. Nutrition Diagnosis: Decreased protein needs related to altered kidney function. Intervention: Will provide Ms. Wilson with 16 grams of protein per meal. We will d/c snacks and any liquid nutritional supplements. With regard to her blood sugars would recommend any of the following that is thought to be most appropriate: 1. Consider starting an SGL2 for increased excretion of glucose through the urine as well as kidney protective qualities of an SGL2 2. Consider increasing the dose of one or the other of her basal insulins and d/c ing one or the other. Perhaps one of them works better for her than the other. 3. Consider increasing her Aspart to 5 units per 10 grams of CHO. Monitoring and Evaluation: Will continue to monitor PO intake, weight, protein intake, blood sugars, and progress. Will evaluate nutrition care plan ongoing and adjust as needed. Time Spent in Nutritional Counseling and Treatment: 0
[2021-12-16 12:00] LABS: Bilirubin Negative (Negative); Blood Moderate (Negative); Clarity Sl Cloudy (Clear); Glucose 500 mg/dL (Negative); Ketones Negative (Negative); Leukocyte Esterase Negative (Negative); Nitrite Negative (Negative); Urobilinogen 0.2 EU/dL (Up TO 0.2)
[2021-12-16 12:09] LABS: Bacteria Many HPF (Negative); C & S Indicated? C&S Done As Ordered; Casts Negative LPF (Negative); Crystals Negative HPF (Negative); Epithelial Cells Few HPF (Negative); Mucus Trace (Negative); Other Cells Negative (Negative)
[2021-12-16 12:44] LABS: Calcium 8.4 mg/dL (8.5-10.1); Chloride 104 mmol/L (98-107); Estimated GFR 11.73 (mL/min/1.73m2); Glucose 317 mg/dL (74-106); Sodium 140 mmol/L (136-145)
[2021-12-16 12:49] LABS: BUN 103 mg/dL (7-18); CREATININE 3.7 mg/dL (0.55-1.02)
--- NOTE | 2021-12-16 13:10 | DI.CT_ITS ---
Exam(s) CT RENAL COLIC WO EXAM: CT RENAL COLIC WO CLINICAL HISTORY: r/o worsen renal function, hyperkalemia, Inc wbc. TECHNIQUE: Imaging Protocol: Axial computed tomography images with coronal and sagittal reformatted images were created and reviewed CONTRAST MATERIAL: Intravenous: none Oral: None COMPARISON: CT CT ABDOMEN PELVIS WO from 11/21/2021 FINDINGS: VISUALIZED LUNG BASES: There is a new left pleural effusion, small-moderate size. Non loculated. Mi ld volume loss in the basal segments of the left lower lobe. There is also a tiny amount of right pl eural fluid now evident, and there mild infiltrates in both lung bases.. There is also a pericardial effusion again evident, slightly increased in size from the prior study. ABDOMEN: Images are somewhat degraded by motion artifact There is no ascites. LIVER: There are no obvious focal hepatic lesions evident of this noninfused study. GALLBLADDER/BILIARY: The gallbladder appears somewhat edematous. It contains hyperdense material whi ch was not evident on the prior study. CBD is not dilated. PANCREAS: There are 2 tiny 1 millimeter parenchymal calcifications in the pancreatic head. However, there is no obvious concerning pancreatic mass evident on this noninfused study and there is no dilat ation of the pancreatic duct. SPLEEN: Spleen is not enlarged. No obvious intrasplenic lesions. ADRENALS: There are no significant adrenal masses. KIDNEYS:The previously present left ureteral stent is been removed. There is a single tiny 1-2 sudhakar meter calculus in the kidney. Ureter is not dilated. There are phleboliths in the lower pelvis but there do not appear to be obvious calculi in the nondilated left ureter at this time nor within the u rinary bladder (Catherine catheter has been removed). There is also a tiny remaining calculus in the rig ht kidney. There is no hydronephrosis nor hydroureter on either side.. ABDOMINAL AORTA: Abdominal aorta is not enlarged. LYMPH NODES: There is no retroperitoneal nor paraaortic adenopathy. ABDOMINAL WALL: No evidence of significant anterior abdominal wall nor inguinal hernia. GI: There is no evidence of bowel obstruction, free air, nor abscess. However, there is some abnormal streaking in the soft tissues in the immediate lower presacral-pre co ccygeal region, not previously present on the CT scan of 11/21/2021. PELVIS: LYMPH NODES: There is no intrapelvic nor inguinal adenopathy. GI: No evidence of appendicitis.There is extensive sigmoid diverticulosis. There is no obvious acute diverticulitis. URINARY BLADDER: No calculi nor obvious masses evident REPRODUCTIVE: Uterus size is age-appropriate. Right adnexa unremarkable. Left adnexa reveals a cyst ic structure, unchanged from previous and this is probably an ovarian cyst which again measures 4 cm by 3 cm. No findings in the opposite-right adnexa. Abnormal presacral density again noted. This is relatively symmetrical. OSSEOUS: No significant osseous lesions. Advanced hip joint degenerative changes. No compression fractures in the lumbosacral spine IMPRESSION: 1. Compared to the recent CT scan of 11/21/2021 there is now a small-moderate size left pleural effus ion and a tiny right pleural effusion and increasing size pericardial effusion. 2. Although somewhat blurred by motion artifact, the gallbladder does appear to contain hyperdense ma terial and appears circumferentially edematous. Correlation with any clinical signs of acute cholecy stitis recommended. The CBD is not dilated. 3. Previously present left ureteral stent is been removed. There are no calculi in the nondilated l eft ureter at this time nor within the urinary bladder. A tiny remaining 1 millimeter calculus is no vimal in left kidney. A Catherine catheter has been removed from the urinary bladder. A few tiny calculi also remain in the opposite-right kidney. There is extensive sigmoid diverticulosis. No obvious acute diverticulitis although be possible to m iss a subtle case of diverticulitis, given the extensive involvement of the sigmoid here. No evidenc e of acute appendicitis There is a 4 x 3 cm unchanged cyst in the left ovary. Right ovary not seen. New presacral abnormal but symmetrical tissue or atypical fluid which has developed since 11/21/2021. No associated sacral destruction. RADIATION DOSE DELIVERED: 1,293.35mGy.cm Total DLP DATA REPOSITORY: All CT scans at this facility are submitted to the National Radiology Data Registry (NRDR) Dose Index Registry (DIR) with the [employer] (ACR). RADIATION OPTIMIZATION: All CT scans at this facility use at least one of these dose optimization te chniques: automated exposure control; mA and/or kV adjustment per patient size (includes targeted exa ms where dose is matched to clinical indication); or iterative reconstruction.
--- NOTE | 2021-12-16 13:29 | W.PM.PROGNOT ---
Date of Service Date of service: 12/16/21 Time of Service: 13:30 Assessment and Plan Assessment and plan (1) Hyperkalemia: Start date: 12/16/21 Start time: 12:30 Status: Acute Assessment and plan: 5.9 by am labs. Given insulin and lokelma. Also placed on low potassium diet. Repeat at 10 am and 12 am potassium 5.0 Will continue low potassium diet at this time Trend BMP repeat labs in am (2) Acute kidney injury superimposed on chronic kidney disease: Start date: 12/16/21 Start time: 12:30 Status: Acute Assessment and plan: In setting of sepsis/hypotension/emphysematous pyelonephritis/obstructive uropathy, currently were treated, however, patient refused imaging at [facility], now with leukocytosis that is climbing when is was normal on 12/08, CRP was done and elevated at 6.79 though down from 11.57 on 12/10 procal elevated at 0.6 down from 1.4 on 12/10. Cr is 3.6-3.7 today. Will continue to monitor. Avoid nephrotoxic drugs. BUN jumped up to 102, 106, 103, Hold torsemide at this time. Ua with cx. Renal u/s revealing : IMPRESSION: 1. Compared to the recent CT scan of 11/21/2021 there is now a small-moderate size left pleural effusion and a tiny right pleural effusion and increasing size pericardial effusion. 2. Although somewhat blurred by motion artifact, the gallbladder does appear to contain hyperdense material and appears circumferentially edematous.? Correlation with any clinical signs of acute cholecystitis recommended.? The CBD is not dilated. 3.? Previously present left ureteral stent is been removed.? There are no calculi in the nondilated left ureter at this time nor within the urinary bladder.? A tiny remaining 1 millimeter calculus is noted in left kidney.? A Catherine catheter has been removed from the urinary bladder.? A few tiny calculi also remain in the opposite-right kidney. There is extensive sigmoid diverticulosis.? No obvious acute diverticulitis although be possible to miss a subtle case of diverticulitis, given the extensive involvement of the sigmoid here.? No evidence of acute appendicitis There is a 4 x 3 cm unchanged cyst in the left ovary.? Right ovary not seen. New presacral abnormal but symmetrical tissue or atypical fluid which has developed since 11/21/2021.? No associated sacral destruction. Obtain echo based on evidence of pericardial effusion (3) Ambulatory dysfunction: Start date: 12/16/21 Start time: 12:30 Status: Acute Assessment and plan: Continue to work with PT. LE pain is contributing - due to OA. S/p R hip injection yesterday Awaiting SNF placement, possible bed offer for end of week if patient is well enough (4) Osteoarthritis of right hip: Start date: 12/16/21 Start time: 12:30 Assessment and plan: As above (5) Sacral decubitus ulcer: Start date: 12/16/21 Start time: 12:30 Status: Acute Assessment and plan: Continue wound care. Concern for presacral abnormal tissue and atypical fluid found on CT waiting to speak with radiologist regarding this. Continue to ambulate with both nursing and PT, doing better with this since injection (6) Chest wall pain: Start date: 12/16/21 Start time: 12:30 Status: Resolved Assessment and plan: No c/o chest pain however d/t above will obtain echo (7) Bilateral leg pain: Start date: 12/16/21 Start time: 12:30 Status: Chronic Assessment and plan: As above (8) Heart failure with reduced ejection fraction: Start date: 12/16/21 Start time: 12:30 Status: Chronic Assessment and plan: Holding at this time d/t increased BUN and Creatinine LVEF 50-55% ON TTE from 11/24/21 at [facility]. (9) Ischemic cardiomyopathy: Start date: 12/16/21 Start time: 14:20 Status: Chronic Assessment and plan: As above (10) Depression: Start date: 12/16/21 Start time: 12:30 Assessment and plan: Continue lexapro (11) DVT prophylaxis: Start date: 12/16/21 Start time: 12:30 Status: Acute Assessment and plan: SC heparin (12) Discharge planning issues: Start date: 12/16/21 Start time: 12:30 Status: Acute Assessment and plan: DNR/DNI Medically cleared for discharge as soon as a SNF bed becomes available discussed with Dr. Puentes Subjective Subjective Patient reports: no new complaints Interval history since last seen: Patient not having any complaints of pain to back. Her wbc is climbing from 12 to 17 today. This am bmp revealed Potassium 5.9. She was given IV insulin and lokalma. BUN increased and creatinine increased with BGL of 308. CRP today 6.79, procal 0.6, she is not febrile. On repeat at 10 am today BMP BUN 106, Creatinine 3.7, glucose 397 after 63 units insulin, K 5.0 at 1200 bmp Creatinine 103, BUN 3.7 Glucose 317 anion gap 13.0 potassium 5.0. She refused imaging prior to leaving [facility] for follow up. Will place Renal CT to r/o any obstruction or hydrnephrosis. Obtain blood cx. PICC placed on 12/06. Will initiate ceftriaxone. U/a done no nitrates or leuk est however glucose, with blood, and protein, monitor for patient going into DKA. Exam Narrative Exam Narrative: General: Pleasant elderly female, A&Ox3, NAD HEENT: EOMI, MMM Heart: RRR with an occasional extra beat Lungs: LSC to B bases Abdomen: soft, nontender, nondistended; large RLQ purple ecchymosis, No CVA tenderness Extremities: no edema BLE's, tibial surfaces tender, ichthiosis Objective Last Vital Signs Temp 35.9 C L 12/16/21 10:03 Pulse 64 12/16/21 10:03 Resp 16 12/16/21 10:03 BP 160/70 H 12/16/21 10:03 Pulse Ox 91 L 12/16/21 10:03 Laboratory Results - last 24 hr 12/16/21 12/16/21 12/16/21 07:20 07:20 08:00 WBC 17.91 H RBC 2.77 L Hgb 8.3 L Hct 27.6 L MCV 99.6 H MCH 30.0 MCHC 30.1 L RDW 16.6 H Plt Count 406 H MPV 11.7 H Immature Gran % 1.8 Neutrophils % 87.9 Lymphocytes % 6.0 Monocytes % 4.1 Eosinophils % 0.0 Basophils % 0.2 Nucleated RBC % 0 Absolute Neutrophils 15.74 H Absolute Lymphocytes 1.07 L Absolute Monocytes 0.73 Absolute Eosinophils 0.00 Absolute Basophils 0.04 Sodium 142 Potassium 5.9 H Chloride 106 Carbon Dioxide 26.5 Anion Gap 9.5 BUN 102 H* Creatinine 3.6 H* Estimated GFR/1.73 m2 12.11 Glucose 308 H D Calcium 8.4 L Magnesium 1.8 C-Reactive Protein 6.79 H Procalcitonin 0.6 Urine Color Urine Clarity Urine pH Ur Specific [place] Urine Protein Urine Ketones Urine Blood Urine Nitrite Urine Bilirubin Urine Urobilinogen Ur Leukocyte Esterase Urine RBC Urine WBC Ur Epithelial Cells Urine Crystals Urine Bacteria Urine Casts Urine Mucus Urine Other Ur Culture Indicated? Urine Glucose 12/16/21 12/16/21 12/16/21 10:30 11:49 12:25 WBC RBC Hgb Hct MCV MCH MCHC RDW Plt Count MPV Immature Gran % Neutrophils % Lymphocytes % Monocytes % Eosinophils % Basophils % Nucleated RBC % Absolute Neutrophils Absolute Lymphocytes Absolute Monocytes Absolute Eosinophils Absolute Basophils Sodium 138 140 Potassium 5.0 5.0 Chloride 104 104 Carbon Dioxide 21.9 23.0 Anion Gap 12.1 H 13.0 H BUN 106 H* 103 H* Creatinine 3.7 H* 3.7 H* Estimated GFR/1.73 m2 11.73 11.73 Glucose 397 H 317 H Calcium 8.4 L 8.4 L Magnesium C-Reactive Protein Procalcitonin Urine Color Yellow Urine Clarity Sl Cloudy Urine pH 6.0 Ur Specific [place] 1.020 Urine Protein 100 H Urine Ketones Negative Urine Blood Moderate H Urine Nitrite Negative Urine Bilirubin Negative Urine Urobilinogen 0.2 Ur Leukocyte Esterase Negative Urine RBC 5-10 H Urine WBC 5-10 Ur Epithelial Cells Few Urine Crystals Negative Urine Bacteria Many Urine Casts Negative Urine Mucus Trace Urine Other Negative Ur Culture Indicated? C&S Done As Ordered Urine Glucose 500 H 12/16/21 14:00 WBC RBC Hgb Hct MCV MCH MCHC RDW Plt Count MPV Immature Gran % Neutrophils % Lymphocytes % Monocytes % Eosinophils % Basophils % Nucleated RBC % Absolute Neutrophils Absolute Lymphocytes Absolute Monocytes Absolute Eosinophils Absolute Basophils Sodium Cancelled Potassium Cancelled Chloride Cancelled Carbon Dioxide Cancelled Anion Gap Cancelled BUN Cancelled Creatinine Cancelled Estimated GFR/1.73 m2 Cancelled Glucose Cancelled Calcium Cancelled Magnesium C-Reactive Protein Procalcitonin Urine Color Urine Clarity Urine pH Ur Specific [place] Urine Protein Urine Ketones Urine Blood Urine Nitrite Urine Bilirubin Urine Urobilinogen Ur Leukocyte Esterase Urine RBC Urine WBC Ur Epithelial Cells Urine Crystals Urine Bacteria Urine Casts Urine Mucus Urine Other Ur Culture Indicated? Urine Glucose
[2021-12-16] MEDS: Water,Injection,Sterile 10 ML VIAL (14:06)
[2021-12-16] MEDS: Alteplase 2 MG VIAL IJ (14:07)
[2021-12-16] MEDS: Insulin Aspart 300 UNITS/3 ML PEN 20 UNITS SC (15:45)
[2021-12-16 16:10] VITALS: BP 159/68; PULSE 64; RESP 18; TEMP 36.5; O2SAT 96
[2021-12-16 16:37] LABS: BE (Venous) 1 mmol/L (-2-3); HCO3 (Venous) 25 mmol/L (23-28); O2 Sat (Venous) > 99 %; pCO2 (Venous) 38 mmHg (41-51); pH (Venous) 7.43 (7.31-7.41); pO2 (Venous) 157 mmHg
[2021-12-16 16:53] LABS: Anion Gap 10.4 mmol/L (3-11); CO2 25.6 mmol/L (21.0-32.0); Calcium 8.6 mg/dL (8.5-10.1); Chloride 105 mmol/L (98-107); Estimated GFR 11.37 (mL/min/1.73m2); Glucose 241 mg/dL (74-106); Potassium 5.1 mmol/L (3.5-5.1); Sodium 141 mmol/L (136-145)
[2021-12-16 16:55] LABS: BUN 107 mg/dL (7-18); CREATININE 3.8 mg/dL (0.55-1.02)
[2021-12-16] MEDS: Atorvastatin 40 MG TAB PO (20:29)
[2021-12-16] MEDS: Magnesium Oxide 400 MG TAB PO (21:48)
[2021-12-16] MEDS: Gabapentin 100 MG CAP 300 MG PO (21:48)
[2021-12-16] MEDS: Insulin Glargine 300 UNITS/3 ML PEN 50 UNITS SC (21:49)
[2021-12-16 23:25] VITALS: BP 164/72; PULSE 54; RESP 18; TEMP 36.2; O2SAT 96
--- NOTE | 2021-12-17 04:22 | NUR.NOTE ---
Nursing Note: FS rechecked 0400. FS 68. Pt given glass of OJ and a regular pudding. Pt alert, oriented, and responsive. Pt denies any symptoms of hypoglycemia. Plan to recheck FS at 0500. Will continue to monitor.
[2021-12-17] MEDS: Heparin 5,000 UNITS/ML VIAL 5000 UNITS SC ×2 (05:30→17:44)
[2021-12-17] MEDS: Sodium Zirconium Cyclosilicate 10 GM PKT PO ×3 (05:31→21:57)
[2021-12-17 05:57] LABS: Source Nasal/Nares
[2021-12-17 06:38] LABS: COVID-19 PCR Negative (Negative)
[2021-12-17 07:37] VITALS: BP 174/71; PULSE 61; RESP 17; TEMP 36.5; O2SAT 97
[2021-12-17] MEDS: Normal Saline Flush 10 ML SYR IVP ×3 (07:41→20:05)
[2021-12-17] MEDS: Aspirin 81 MG CHEW PO (07:41)
[2021-12-17] MEDS: Sodium Bicarbonate 650 MG TAB 1300 MG PO ×3 (07:41→20:04)
[2021-12-17] MEDS: Folic Acid 1 MG TAB PO (07:42)
[2021-12-17] MEDS: Nystatin POWDER 60 GM JAR TP ×2 (07:42→20:04)
[2021-12-17] MEDS: Metoprolol 25 MG TAB PO ×2 (07:42→20:06)
[2021-12-17] MEDS: predniSONE 10 MG TAB PO (07:42)
[2021-12-17] MEDS: Escitalopram 10 MG TAB PO (07:42)
[2021-12-17] MEDS: Pantoprazole 20 MG TABCR PO (07:42)
[2021-12-17] MEDS: Methocarbamol 750 MG TAB PO ×4 (07:42→20:04)
[2021-12-17 08:09] LABS: Abs Immature Grans 0.35 10^3/uL (0.0-0.06); Absolute Lymphocyte Count 1.83 10^3/uL (1.2-3.4); Absolute Monocyte Count 1.48 10^3/uL (0.1-0.8); Basophils % 0.2; Eosinophils % 0.1; HCT 27.6 % (36.0-46.0); HGB 8.3 g/dL (11.2-15.7); Immature Grans % 1.9; Lymphocytes % 9.9; MCH 30.2 pg (27.0-33.0); MCHC 30.1 % (32.0-36.0); MCV 100.4 fL (80-95); Neutrophils % 79.9; Nucleated RBC 0 %; Platelet Count 389 10^3/uL (130-400); RBC 2.75 10^6/uL (3.93-5.22); RDW 16.8 % (11.7-14.6); RDW-SD 61.2 fL; WBC 18.44 10^3/uL (4.4-10.8)
[2021-12-17 08:10] LABS: Absolute Basophil Count 0.04 10^3/uL (0.0-0.2); Absolute Eosinophil Count 0.02 10^3/uL (0.0-0.7); Absolute Neutrophil Count 14.73 10^3/uL (1.2-6.7)
[2021-12-17 08:22] LABS: Anion Gap 9.4 mmol/L (3-11); CO2 27.6 mmol/L (21.0-32.0); Calcium 8.6 mg/dL (8.5-10.1); Chloride 104 mmol/L (98-107); Glucose 152 mg/dL (74-106); Potassium 4.8 mmol/L (3.5-5.1); Sodium 141 mmol/L (136-145)
[2021-12-17 08:28] LABS: BUN 109 mg/dL (7-18)
[2021-12-17 08:29] LABS: CREATININE 3.5 mg/dL (0.55-1.02)
[2021-12-17] MEDS: Insulin Aspart 300 UNITS/3 ML PEN SC ×5 (08:46→17:45)
[2021-12-17] MEDS: Insulin Glargine 300 UNITS/3 ML PEN 30 UNITS SC (08:48)
--- NOTE | 2021-12-17 10:20 | CMPROGNOTE_ITS ---
- If Service Date Differs Date of service: 12/17/21 Time of Service: 10:20 Care Management Progress Note S/O: Vy was sitting up in a chair when CM met with her. She looked much better than yesterday. Her face was no longer flushed and she was smiling. She stated that she had a good night and has been ambulating for short distances in her room. She requires the presence of 2 people for encouragement and cueing but only minimal assist. She has received a bed offer at [facility] for short term rehab. While this is not her facility of choice, she has indicated that she will accept the offer if no others are forthcoming. CM has reached out again to [facility] and [facility] for a determination regarding the referrals that were sent earlier this week. A: Vy is an 81 year old woman admitted on 12/04/21 with pyelonephritis P: Vy will likely be discharged to a SNF for short term rehab prior to returning home. SNF referrals faxed to additional facilities to determine bed availability for Vy to choose disposition. A bed offer was received from [facility] in [place] but has not been accepted as yet.CM will continue to follow and support discharge planning concerns.
[2021-12-17] MEDS: cefTRIAXone 1 GM/50 ML BAG IVPB (10:26)
--- NOTE | 2021-12-17 14:36 | PGE_ITS ---
Date of Service Date of service: 12/17/21 Time of Service: 14:36 Assessment and Plan Assessment and plan (1) Acute kidney injury superimposed on chronic kidney disease: Status: Acute Assessment and plan: In setting of sepsis/hypotension/emphysematous pyelonephritis/obstructive uropathy. Cr is actually improving on diuresis, which we will continue. Switch furosemide gtt to 40 mg PO BID tomorrow. Avoid nephrotoxic drugs. (2) Heart failure with reduced ejection fraction: Status: Chronic Assessment and plan: As above - switch lasix gtt to PO after finishing current bag (at midnight). LVEF 50-55% ON TTE from 11/24/21 at [facility]. Pericardial effusion seen on CT is small on echo and is not hemodynamically significant. However, does have an apical wall motion abnormality. This will need to be followed up as outpatient with an echo with contrast and outpatient ischemic workup. (3) Ischemic cardiomyopathy: Status: Chronic Assessment and plan: As above (4) Ambulatory dysfunction: Status: Acute Assessment and plan: Continu PT. LE pain is contributing - due to OA. S/p R hip injection, doing better. Awaiting SNF placement. (5) Osteoarthritis of right hip: Assessment and plan: As above (6) Sacral decubitus ulcer: Status: Acute Assessment and plan: Continue wound care. (7) Chest wall pain: Status: Resolved Assessment and plan: Musculoskeletal. Resolved. No further workup. Tele d/c'ed. (8) Bilateral leg pain: Status: Chronic Assessment and plan: As above (9) Depression: Assessment and plan: Continue lexapro (10) DVT prophylaxis: Status: Acute Assessment and plan: SC heparin (11) Discharge planning issues: Status: Acute Assessment and plan: DNR/DNI Anticipate discharge to SNF tomorrow Subjective Subjective Interval history since last seen: Ms Clemons states that her R hip feels a lot better. She denies dizziness, chest pain, shortness of breath, nausea. Her UOP on lasix gtt has been 1575 cc so far today. Exam Narrative Exam Narrative: General: Pleasant elderly female, A&Ox3, sitting up in a chair, looks well HEENT: EOMI, MMM Heart: RRR, no m/r/g Lungs: faint rales at B bases Abdomen: soft, nontender, nondistended; has a giraldo - lightly colored clear urine Extremities: +1 BLE's, tibial surfaces tender, ichthiosis Objective Last Vital Signs Temp 36.5 C 12/17/21 07:37 Pulse 61 12/17/21 07:37 Resp 17 12/17/21 07:37 BP 174/71 H 12/17/21 07:37 Pulse Ox 97 12/17/21 07:37 Laboratory Results - last 24 hr 12/16/21 12/16/21 12/17/21 16:30 16:30 05:30 WBC RBC Hgb Hct MCV MCH MCHC RDW Plt Count MPV Immature Gran % Neutrophils % Lymphocytes % Monocytes % Eosinophils % Basophils % Nucleated RBC % Absolute Neutrophils Absolute Lymphocytes Absolute Monocytes Absolute Eosinophils Absolute Basophils VBG pH 7.43 H VBG pCO2 38 L VBG pO2 157 VBG HCO3 25 VBG Total CO2 VBG O2 Saturation > 99 VBG Base Excess 1 Sodium 141 Potassium 5.1 Chloride 105 Carbon Dioxide 25.6 Anion Gap 10.4 BUN 107 H* Creatinine 3.8 H* Estimated GFR/1.73 m2 11.37 Glucose 241 H D Calcium 8.6 COVID-19 Source Nasal/Nares SARS-CoV-2 (PCR) Negative 12/17/21 12/17/21 07:22 07:22 WBC 18.44 H RBC 2.75 L Hgb 8.3 L Hct 27.6 L MCV 100.4 H MCH 30.2 MCHC 30.1 L RDW 16.8 H Plt Count 389 MPV 12.0 H Immature Gran % 1.9 Neutrophils % 79.9 Lymphocytes % 9.9 Monocytes % 8.0 Eosinophils % 0.1 Basophils % 0.2 Nucleated RBC % 0 Absolute Neutrophils 14.73 H Absolute Lymphocytes 1.83 Absolute Monocytes 1.48 H Absolute Eosinophils 0.02 Absolute Basophils 0.04 VBG pH VBG pCO2 VBG pO2 VBG HCO3 VBG Total CO2 VBG O2 Saturation VBG Base Excess Sodium 141 Potassium 4.8 Chloride 104 Carbon Dioxide 27.6 Anion Gap 9.4 BUN 109 H* Creatinine 3.5 H Estimated GFR/1.73 m2 12.50 Glucose 152 H D Calcium 8.6 COVID-19 Source SARS-CoV-2 (PCR)
[2021-12-17] MEDS: Bisacodyl 10 MG SUPP PR (14:50)
[2021-12-17 15:00] VITALS: BP 157/66; PULSE 65; RESP 19; TEMP 36.6; O2SAT 95
--- NOTE | 2021-12-17 15:07 | CHAPLAIN ---
Vy was up in the chair when I visited. She said she is feeling better than yesterday, and that she was feeling very down yesterday and the day before. She's been walking short distances, which is an improvement. She said she maybe going to [facility] in [place], [place] tomorrow. She's not happy about this because she very much likes the care she's received here, and her brother, Gonzales, can't ride that far to visit her. We talked about this being a test of her will and patience. She has been clear in staying that this experience of being unwell and not able to walk, is the worst experience of her life. Prior to these hospitalizations, she has been active and independent.
[2021-12-17] MEDS: Docusate Sodium 100 MG/10 ML CUP PO (20:03)
[2021-12-17] MEDS: Polyethylene Glycol 3350 17 GM PACKET PO (20:03)
[2021-12-17] MEDS: Atorvastatin 40 MG TAB PO (20:04)
[2021-12-17] MEDS: Insulin Glargine 300 UNITS/3 ML PEN 50 UNITS SC (21:57)
[2021-12-17 23:05] VITALS: BP 149/66; PULSE 59; RESP 19; TEMP 36.1; O2SAT 96
[2021-12-17] MEDS: Gabapentin 100 MG CAP 300 MG PO (23:48)
[2021-12-17] MEDS: Magnesium Oxide 400 MG TAB PO (23:48)
[2021-12-18] MEDS: Heparin 5,000 UNITS/ML VIAL 5000 UNITS SC ×2 (05:55→19:04)
[2021-12-18] MEDS: Sodium Zirconium Cyclosilicate 10 GM PKT PO (05:56)
[2021-12-18 07:22] LABS: Abs Immature Grans 0.26 10^3/uL (0.0-0.06); Absolute Eosinophil Count 0.02 10^3/uL (0.0-0.7); Absolute Lymphocyte Count 2.64 10^3/uL (1.2-3.4); Basophils % 0.2; Eosinophils % 0.1; HCT 27.5 % (36.0-46.0); HGB 8.3 g/dL (11.2-15.7); Immature Grans % 1.4; Lymphocytes % 14.7; MCH 29.7 pg (27.0-33.0); MCHC 30.2 % (32.0-36.0); MCV 98.6 fL (80-95); MPV 11.6 fL (8.0-11.0); Monocytes % 10.6; Nucleated RBC 0 %; Platelet Count 410 10^3/uL (130-400); RBC 2.79 10^6/uL (3.93-5.22); RDW 16.9 % (11.7-14.6); RDW-SD 60.3 fL; WBC 17.95 10^3/uL (4.4-10.8)
[2021-12-18 07:24] LABS: Absolute Basophil Count 0.04 10^3/uL (0.0-0.2)
[2021-12-18] MEDS: Pantoprazole 20 MG TABCR PO (07:26)
[2021-12-18 07:36] LABS: Anion Gap 9.7 mmol/L (3-11); C-Reactive Protein 2.98 mg/dL (0.0-0.3); CO2 30.3 mmol/L (21.0-32.0); CREATININE 3.2 mg/dL (0.55-1.02); Calcium 8.1 mg/dL (8.5-10.1); Chloride 102 mmol/L (98-107); Estimated GFR 13.87 (mL/min/1.73m2); Potassium 3.8 mmol/L (3.5-5.1); Sodium 142 mmol/L (136-145)
[2021-12-18 07:40] LABS: BUN 104 mg/dL (7-18); Glucose 49 mg/dL (74-106)
[2021-12-18] MEDS: Dextrose 50%-Water 25 GM/50 ML SYR IVP (07:46)
[2021-12-18 07:54] LABS: Diff Comment Diff Reviewed; RBC Morphology Normal
[2021-12-18 08:11] LABS: Procalcitonin 0.4 ng/mL
--- NOTE | 2021-12-18 08:30 | DI.RAD_ITS ---
Exam(s) XR CHEST 2V PA LATERAL EXAM: XR CHEST 2V PA LATERAL CLINICAL HISTORY: pleural effusions, TECHNIQUE: 2D digital imaging was performed of the chest. Two images were obtained. PA and lateral views were obtained. COMPARISON: CR,XR XR CHEST 2V PA LATERAL from 10/03/2021 CR,XR XR PORTABLE CHEST AP from 12/04/2021 FINDINGS: MEDIASTINUM: Normal. HEART: Normal. PULMONARY VASCULATURE: Normal. LUNGS: The right lung is clear. PLEURAL SPACE: There is a small left pleural effusion. No right pleural effusion is present. BONE:Within normal limits for the patient's age. OTHER FINDINGS:Normal. IMPRESSION: Small left pleural effusion. DATA REPOSITORY: RADIATION DOSE DELIVERED:
[2021-12-18] MEDS: Folic Acid 1 MG TAB PO (08:44)
[2021-12-18] MEDS: Furosemide 40 MG TAB PO ×2 (08:44→16:49)
[2021-12-18] MEDS: Aspirin 81 MG CHEW PO (08:44)
[2021-12-18] MEDS: Docusate Sodium 100 MG/10 ML CUP PO (08:44)
[2021-12-18] MEDS: Normal Saline Flush 10 ML SYR IVP ×2 (08:44→21:50)
[2021-12-18] MEDS: Nystatin POWDER 60 GM JAR TP (08:44)
[2021-12-18] MEDS: Sodium Bicarbonate 650 MG TAB 1300 MG PO ×3 (08:44→21:03)
[2021-12-18] MEDS: Escitalopram 10 MG TAB PO (08:44)
[2021-12-18] MEDS: predniSONE 10 MG TAB 5 MG PO (08:45)
[2021-12-18] MEDS: Methocarbamol 750 MG TAB PO ×4 (08:45→21:45)
[2021-12-18] MEDS: Metoprolol 25 MG TAB PO ×2 (08:45→21:02)
[2021-12-18] MEDS: Insulin Glargine 300 UNITS/3 ML PEN 30 UNITS SC ×2 (08:46→21:32)
[2021-12-18] MEDS: Insulin Aspart 300 UNITS/3 ML PEN SC ×3 (08:46→19:03)
[2021-12-18 09:00] VITALS: BP 162/70; PULSE 64; RESP 18; TEMP 36.9; O2SAT 95
[2021-12-18] MEDS: cefTRIAXone 1 GM/50 ML BAG IVPB (10:24)
--- NOTE | 2021-12-18 12:48 | W.PM.PROGNOT ---
Date of Service Date of service: 12/18/21 Time of Service: 12:48 Assessment and Plan Assessment and plan (1) Leucocytosis: Status: Acute Assessment and plan: Leucocytosis: Ddx: persistent infection (PNA), steroids, or combination of both. Urine C&S is negative. Blood cultures NGTD. Procalcitonin and CRP are trending down on empiric ceftriaxone. No persistent hydronephrosis on CT. Continue empiric ceftriaxone. If CRP/procalcitonin do not normalize by Tuesday, could be discharged with PO cefpodoxime. (2) Acute kidney injury superimposed on chronic kidney disease: Status: Acute Assessment and plan: In setting of sepsis/hypotension/emphysematous pyelonephritis/obstructive uropathy. Cr Improved with diuresis. Completed lasix drip and switched to PO lasix today. Will monitor Cr/I/Os and daily weights. Avoid nephrotoxic drugs. (3) Heart failure with reduced ejection fraction: Status: Chronic Assessment and plan: Diuresis as above. LVEF 50-55% On TTE from 11/24/21 at [facility]. Pericardial effusion seen on CT is small on echo here and is not hemodynamically significant. However, does have an apical wall motion abnormality. This will need to be followed up as outpatient with an echo with contrast and outpatient ischemic workup. (4) Type 2 diabetes mellitus: Status: Chronic Assessment and plan: Hypoglycemic this am. Perhaps, as the infection is getting treated, her insulin resistance has improved. Decrease evening lantus. Decrease SSI coverage to moderate. Will use the weekend to find an adequate insulin regimen. (5) Ischemic cardiomyopathy: Status: Chronic Assessment and plan: As above (6) Ambulatory dysfunction: Status: Acute Assessment and plan: Continue PT. LE pain is contributing - due to OA. S/p R hip injection, doing better. Awaiting SNF placement. (7) Osteoarthritis of right hip: Assessment and plan: As above (8) Sacral decubitus ulcer: Status: Acute Assessment and plan: Continue wound care. (9) Chest wall pain: Status: Resolved Assessment and plan: Musculoskeletal. Resolved. No further workup. Tele d/c'ed. (10) Bilateral leg pain: Status: Chronic Assessment and plan: As above (11) Depression: Assessment and plan: Continue lexapro (12) DVT prophylaxis: Status: Acute Assessment and plan: SC heparin (13) Discharge planning issues: Status: Acute Assessment and plan: DNR/DNI Anticipate discharge to SNF on Tuesday Subjective Subjective Interval history since last seen: Ms Courser states that she is feeling well today. Denies dizziness, chest pain, shortness of breath, nausea. R hip pain is controlled. She is on room air saturating 95%. Exam Narrative Exam Narrative: General: Pleasant elderly female, A&Ox3, sitting up in a chair, looks more upbeat HEENT: EOMI, MMM Heart: RRR, no m/r/g Lungs: CTAB Abdomen: soft, nontender, nondistended; has a giraldo - lightly colored clear urine Extremities: trace BLE edema, tibial surfaces tender, ichthiosis Objective Last Vital Signs Temp 36.9 C 12/18/21 09:00 Pulse 64 12/18/21 09:00 Resp 18 12/18/21 09:00 BP 162/70 H 12/18/21 09:00 Pulse Ox 95 12/18/21 09:00 Laboratory Results - last 24 hr 12/18/21 12/18/21 12/18/21 07:00 07:00 07:00 WBC 17.95 H RBC 2.79 L Hgb 8.3 L Hct 27.5 L MCV 98.6 H MCH 29.7 MCHC 30.2 L RDW 16.9 H Plt Count 410 H MPV 11.6 H Immature Gran % 1.4 Neutrophils % 73.0 Lymphocytes % 14.7 Monocytes % 10.6 Eosinophils % 0.1 Basophils % 0.2 Nucleated RBC % 0 Absolute Neutrophils 13.10 H Absolute Lymphocytes 2.64 Absolute Monocytes 1.90 H Absolute Eosinophils 0.02 Absolute Basophils 0.04 RBC Morphology Normal Sodium 142 Potassium 3.8 D Chloride 102 Carbon Dioxide 30.3 Anion Gap 9.7 BUN 104 H* Creatinine 3.2 H Estimated GFR/1.73 m2 13.87 Glucose 49 L* D Calcium 8.1 L C-Reactive Protein 2.98 H Procalcitonin 0.4 Objective Narrative Objective Narrative: CXR: Small left pleural effusion.?
--- NOTE | 2021-12-18 13:20 | INPN_ITS ---
Date of service: 12/18/21 Time of Service: 13:20 PT Notes Visit Reasons: Pyelonephritis,Acute Kidney Injury Inpatient Physical Therapy Progress Note Date: 12/18/21 Date of service: 12/12/2021 through 12/18/2021 Referring Doctor:?Dhaval Ely MD PT Orders: PT CONSULT: limited ability to ambulate Precautions: Fall. Standard. Patient Profile/Admitting Diagnosis:?? Patient is an 81 yo female with a h/o DM2 reuiring insulin, HTN, CKD stage IV, CHF, afib, perforated duodenal ulcer.? She was transferred to [facility] on 11/21/21 from [facility] ED for nephrolithiasis, PATRICIO and E.Coli emphysematous pyelitis, as well as an NSTEMI.? She had been hospitalized at [facility] in September of 2021 for complicated UTI with nephrolithiasis, s/p L ureteral stent placement.? During hospitalization at [facility] she percutaneous nephrostomy tube placement on 11/24 by IR.? On 11/30 she went to the OR for tube removal and left ureteral stent placement and left lithotripsy.? The stent was removed on 12/03.? She continues on Rocephin daily through 12/08/21.? She prefers to be close to home to continue treatment.? She does have a chronic history of right hip, knee and ankle pain.? She continues to report bilateral leg weakness. S/P steroid injection on pos toperative day 2. Subjective:?Continues to complain weakness and pain in B knees with L worse than the R. Able to participate in therapy with extensive encouragement. Objective:? General Observation: Resting on chair. Mental Status: A&Ox3. Pleasant and cooperative. Pain: 3-4/10 pain in R knee, 5/10 on the L ROM: Right Upper Extremity: Shoulder Flexion WFL. Shoulder abduction WFL. Elbow flexion WFL. Wrist flexion WFL. Functional opening and closing of hand WFL. Left Upper Extremity: Shoulder Flexion WFL. Shoulder abduction WFL. Elbow flexion WFL. Wrist flexion WFL. Functional opening and closing of hand WFL. Right Lower Extremity: Hip flexion allows 20 degrees beyond 90 while seated at edge of chair. Hip abduction WFL. Knee flexion 10 degrees to 90 degrees. Knee extension -10 degrees. Ankle dorsiflexion WFL. Ankle plantarflexion WFL. Left Lower Extremity: Hip flexion allows 20 degrees beyond 90 while seated at edge of chair. Hip abduction WFL. Knee flexion 10 degrees to 90 degrees. Knee extension -10 degrees. Ankle dorsiflexion WFL. Ankle plantarflexion WFL. Strength: Right Upper Extremity: Shoulder flexors 4-/5. Shoulder abductors 4-/5. Elbow flexors 4-/5. Elbow extensors 4-/5. Cosmetic Surgeon strong. Left Upper Extremity: Shoulder flexors 4-/5. Shoulder abductors 4-/5. Elbow flexors 4-/5. Elbow extensors 4-/5. Cosmetic Surgeon strong. Right Lower Extremity: Hip flexors 4-/5. Hip abductors 4-/5. Knee flexors 3-/5. Knee extensors 3-/5. Ankle dorsiflexors 3-/5. Ankle plantarflexors 4-/5. Left Lower Extremity: Hip flexors 4-/5. Hip abductors 4-/5. Knee flexors 3-/5. Knee extensors 3-/5. Ankle dorsiflexors 3-/5. Ankle plantarflexors 4-/5. Sensation:?Intact to bilateral lower extremities as to pain and light pressure Bed Mobility/Transfers: supine-sit: Minimal assist sit-supine: Minimal assist sit-stand: Contact-guard assist x2 stand-sit: Standby assist Chair to bedside commode: Minimal assist of 2 Gait:?Up to 15 feet of short distance ambulation using front wheeled walker requiring minimal assistance of 2 and maximal verbal cueing to encourage completion of activity. Decreased step length and step height. Fearful and anxious about falling. Reports left knee more painful than the right. Moderate verbal cues given for posture. THERA EX: Ankle DF/PF x15, seated hip flexion x10, seated hip abduction x10, abdominals while seated on chair 10 for 2 sets, adductor squeeze using pillow x10. Balance:? Static Sitting: Good Dynamic Sitting: Fair Static Standing: Poor Dynamic Standing: Poor Special Tests: Mobility Limitations Standardized Measure [facility] 6 clicks Basic Mobility Inpatient Short Form: Raw Score: 11? CMS Score: 73% impairment ? ? ? Informed Consent/Education:? Patient instructed in purpose of PT consult and plan of care. Assessment:??Patient is able to participate in therapy with maximal encouragement and reassurance that she will not fall. Wheelchair follow needed for safety. Patient requires assistance of 2 during ambulation activity for safety. Pain continues to be a limiting factor for performance, continue to work with nursing staff for pre-medication for pain. Patient presents with clinical signs and symptoms consistent with diagnosis, with markedly diminished mobility versus baseline. Based on AM-PAC scores, patient will likely required SNF placement to facilitate safe return to community dwelling. She currently demonstrates the following impairment level findings: 1. Decreased activity tolerance 2. decreased functional strength 3. Pain 4. decreased right hip ROM ?Impairments are contributing to the following functional limitations: 1. dependent for bed mobility 2. dependent for transfers 3. unable to ambulate 4. unable to stand independently 5. dependent for ADLs Patient is assessed as Moderate 19060? complexity based on the following: History: Patient is an 81 year old female presenting with markedly diminished functional mobility and activity tolerance in the presence of acute medical issues. 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 She will require SNF placement to facilitate safe return to community dwelling. Examination: functional limitations as noted above Presentation: evolving Decision Making: moderate complexity Goals: Goals X1 week 1. Supine-Sit : min A x 1 NO TMET 2. Sit-Supine : min A x 1 NOT MET 3. Sit-Stand : min A x 1 MET 4. Stand-Sit : min A x 1 MET 5. Bed-Chair : stand pivot with FWW and mod A x 1 NOT MET 6. Chair-Bed : stand pivot with FWW and mod A x 1 NOT MET 7. Gait : 20' with FWW and mod A x 1 NOT MET Plan of Care/Treatment Plan: 1-2x/day, 7 days/week x 1 week. Plan of care has been reviewed with the PIGMENT MAKING SUPERVISOR providing the service under Physical Therapy direction. Continue with physical Therapy intervention for strengthening, bed mobility, transfers, gait, stairs, balance training, use of assistive device. DISCHARGE RECOMMENDATIONS: [] Home with no services [] [] Home with services [specify] [] Home with outpatient PT [] [X] SNF for continued rehabilitation. Patient will benefit from jail facility placement for continued skilled physical therapy services in order to progress mobility level, strength, and balance. [] [facility] [] [] SNF versus LTC based on ability to participate and progress [] TREATMENT CODE/TIME: 56621 x 20 minutes, 10079 x 14 minutes beginning at 13:20 PM. Thank you for the opportunity to participate in the care of this patient. Haley Wright PT, DPT, CLT [facility] [place], [place]
--- NOTE | 2021-12-18 15:51 | CHAPLAIN ---
Vy was resting in bed when I visited this afternoon. She said she walked to the door today and had been up in her chair most of the day, and was exhausted now. Her left hip hasn't been hurting since the injection on 12/15, but her right knee is hurting now she said. Vy is not sure where she'll be going from here, likely a rehab, and not having a plan is frustrating to her. At one point she was scheduled to be discharged today, but that planned changed. Not knowing where she is going and when is troubling to her. Her brother and sister in law continue to visit.
[2021-12-18] MEDS: Diclofenac 1% Gel 100 GM TUBE TP (16:52)
--- NOTE | 2021-12-18 17:16 | PDOC.CMPRO ---
- If Service Date Differs Date of service: 12/18/21 Time of Service: 17:16 Care Management Progress Note S/O: Vy received a bed offer at [facility] for short term rehab. While this is not her facility of choice, she has indicated that she will accept the offer if no others are forthcoming. CM left messages at [facility] and [facility] requesting admission determination. CM continues to follow. A: Vy is an 81 year old woman admitted on 12/04/21 with pyelonephritis P: Vy will likely be discharged to a SNF for short term rehab prior to returning home. SNF referrals faxed to additional facilities to determine bed availability for Vy to choose disposition. A bed offer was received from [facility] in [place], [facility] coordination to resume Tuesday-per Vy is not yet medically ready due to ongoing DM management challenges. CM will continue to follow and support discharge planning concerns.
[2021-12-18] MEDS: Atorvastatin 40 MG TAB PO (21:04)
[2021-12-18] MEDS: Gabapentin 100 MG CAP 300 MG PO (21:07)
[2021-12-18] MEDS: Magnesium Oxide 400 MG TAB PO (21:07)
[2021-12-18 23:00] VITALS: BP 123/60; PULSE 60; RESP 18; TEMP 36.1; O2SAT 95
[2021-12-19] MEDS: Heparin 5,000 UNITS/ML VIAL 5000 UNITS SC (05:26)
[2021-12-19 05:48] VITALS: BP 150/70; PULSE 62; RESP 16; TEMP 35.9; O2SAT 93
[2021-12-19 07:08] LABS: Abs Immature Grans 0.19 10^3/uL (0.0-0.06); Absolute Basophil Count 0.05 10^3/uL (0.0-0.2); Basophils % 0.3; Eosinophils % 0.2; HCT 28.9 % (36.0-46.0); HGB 8.9 g/dL (11.2-15.7); Immature Grans % 1.1; Lymphocytes % 13.3; MCH 30.5 pg (27.0-33.0); MCHC 30.8 % (32.0-36.0); MPV 11.5 fL (8.0-11.0); Monocytes % 11.3; Neutrophils % 73.8; Nucleated RBC 0 %; Platelet Count 410 10^3/uL (130-400); RBC 2.92 10^6/uL (3.93-5.22); RDW 16.8 % (11.7-14.6); RDW-SD 60.1 fL; WBC 17.46 10^3/uL (4.4-10.8)
[2021-12-19 07:09] LABS: Absolute Eosinophil Count 0.03 10^3/uL (0.0-0.7); Absolute Lymphocyte Count 2.32 10^3/uL (1.2-3.4); Absolute Monocyte Count 1.97 10^3/uL (0.1-0.8); Absolute Neutrophil Count 12.89 10^3/uL (1.2-6.7)
[2021-12-19 07:34] LABS: Anion Gap 9.5 mmol/L (3-11); C-Reactive Protein 2.73 mg/dL (0.0-0.3); CO2 30.5 mmol/L (21.0-32.0); Chloride 103 mmol/L (98-107); Estimated GFR 14.94 (mL/min/1.73m2); Magnesium 1.6 mg/dL (1.8-2.4); Potassium 3.7 mmol/L (3.5-5.1); Sodium 143 mmol/L (136-145)
[2021-12-19 07:38] LABS: BUN 104 mg/dL (7-18); Glucose 47 mg/dL (74-106)
[2021-12-19] MEDS: Lidocaine 5% Patch 1 PATCH TP (07:43)
[2021-12-19] MEDS: Sodium Bicarbonate 650 MG TAB 1300 MG PO ×3 (07:45→19:55)
[2021-12-19] MEDS: Normal Saline Flush 10 ML SYR IVP ×2 (07:45→19:54)
[2021-12-19] MEDS: Pantoprazole 20 MG TABCR PO (07:45)
[2021-12-19] MEDS: Aspirin 81 MG CHEW PO (07:45)
[2021-12-19] MEDS: Methocarbamol 750 MG TAB PO ×3 (07:45→19:55)
[2021-12-19] MEDS: Folic Acid 1 MG TAB PO (07:46)
[2021-12-19] MEDS: Metoprolol 25 MG TAB PO ×2 (07:46→19:55)
[2021-12-19] MEDS: Nystatin POWDER 60 GM JAR TP ×2 (07:46→19:53)
[2021-12-19] MEDS: predniSONE 10 MG TAB 5 MG PO (07:46)
[2021-12-19] MEDS: Furosemide 40 MG TAB PO ×2 (07:46→15:05)
[2021-12-19] MEDS: Escitalopram 10 MG TAB PO (07:46)
[2021-12-19] MEDS: cefTRIAXone 1 GM/50 ML BAG IVPB (09:46)
[2021-12-19] MEDS: MAGNESIUM SULFATE 2 GM/50 ML BAG IVPB (09:46)
[2021-12-19] MEDS: Insulin Aspart 300 UNITS/3 ML PEN SC ×4 (12:50→17:46)
--- NOTE | 2021-12-19 14:40 | PT.INTREAT ---
Date of service: 12/19/21 Time of Service: 13:35 PT Notes Visit Reasons: Pyelonephritis,Acute Kidney Injury Inpatient Physical Therapy Treatment Note [facility] Date: 12/19/2021 PRECAUTIONS:Fall and activities as tolerated SUBJECTIVE: Refused ambulation. Stated she has had to walk too much already today. Did allow me to help her get back to chair from commode. OBJECTIVE: PAIN: Knees hurt. BED MOBILITY/TRANSFERS Sit-stand: SBA Stand-sit: SBA Required assist to sit back in her chair, said she was too weak to do it herself. GAIT Assistive Device: FWW Weight bearing: Full Assist: SBA of 2 Distance: Commode to chair THEREX: Willing to perform ankle pumps, LAQs, seated hip flexion, seated hip abd/add, UE shoulder flexion, horizontal abd/add and right bicep curls for 10 to 20 x each. Also, performed abdominal activation with hands to knee resistance for 10 reps for 3 second hold x 2 sets. ASSESSMENT: Unwilling to walk any further than commode to chair today, but was willing to perform extra chair exercises. PLAN: Continue to encourage mobility. Focus on improved ADL function. TREATMENT CODE/TIME: 88524, 20 minutes, 1:30 to 1:50
[2021-12-19 14:46] VITALS: BP 150/73; PULSE 59; RESP 16; TEMP 37.3; O2SAT 95
--- NOTE | 2021-12-19 18:02 | W.PM.PROGNOT ---
Date of Service Date of service: 12/19/21 Time of Service: 15:00 Assessment and Plan Assessment and plan (1) Leucocytosis: Status: Acute Assessment and plan: Leucocytosis: Ddx: persistent infection (PNA), steroids, or combination of both. Urine C&S is negative. Blood cultures NGTD. Procalcitonin and CRP are trending down on empiric ceftriaxone. No persistent hydronephrosis on CT. Continue empiric ceftriaxone - presumably for PNA. If CRP/procalcitonin do not normalize by Tuesday, could be discharged with PO cefpodoxime. (2) Acute kidney injury superimposed on chronic kidney disease: Status: Acute Assessment and plan: In setting of sepsis/hypotension/emphysematous pyelonephritis/obstructive uropathy. Cr even better even while diuresing. Continue PO lasix. Will monitor Cr/I/Os and daily weights. Avoid nephrotoxic drugs. (3) Heart failure with reduced ejection fraction: Status: Chronic Assessment and plan: Diuresis as above. LVEF 50-55% On TTE from 11/24/21 at [facility]. Pericardial effusion seen on CT is small on echo here and is not hemodynamically significant. However, does have an apical wall motion abnormality. This will need to be followed up as outpatient with an echo with contrast and outpatient ischemic workup. (4) Type 2 diabetes mellitus: Status: Chronic Assessment and plan: Hypoglycemic this am again. Decrease long acting insulin (d/c am dose, make HS dose 20 units), decrease carb coverage and change SSI to sensitive. Perhaps, as the infection is getting treated, her insulin resistance has improved. We are also titrating down the steroids. (5) Ischemic cardiomyopathy: Status: Chronic Assessment and plan: As above (6) Ambulatory dysfunction: Status: Acute Assessment and plan: Continue PT. LE pain is contributing - due to OA. S/p R hip injection, doing better. Awaiting SNF placement. (7) Osteoarthritis of right hip: Assessment and plan: As above (8) Sacral decubitus ulcer: Status: Acute Assessment and plan: Continue wound care. (9) Chest wall pain: Status: Resolved Assessment and plan: Musculoskeletal. Resolved. No further workup. Tele d/c'ed. (10) Bilateral leg pain: Status: Chronic Assessment and plan: As above (11) Depression: Assessment and plan: Continue lexapro (12) DVT prophylaxis: Status: Acute Assessment and plan: SC heparin (13) Discharge planning issues: Status: Acute Assessment and plan: DNR/DNI Anticipate discharge to SNF on Tuesday Subjective Subjective Interval history since last seen: Ms Wilson states that she is feeling well today. Denies dizziness, chest pain, shortness of breat, nausea. Her hip is not bothering her at all today while in a chair. She was hypoglycemic to 49 this morning. Exam Narrative Exam Narrative: General: Pleasant elderly female, A&Ox3, sitting up in a chair, looks well HEENT: EOMI, MMM Heart: RRR, no m/r/g Lungs: CTAB Abdomen: soft, nontender, nondistended; still has a giraldo Extremities: trace BLE edema, tibial surfaces tender, ichthiosis Objective Last Vital Signs Temp 37.3 C 12/19/21 14:46 Pulse 59 L 12/19/21 14:46 Resp 16 12/19/21 14:46 BP 150/73 H 12/19/21 14:46 Pulse Ox 95 12/19/21 14:46 Laboratory Results - last 24 hr 12/19/21 12/19/21 06:45 06:45 WBC 17.46 H RBC 2.92 L Hgb 8.9 L Hct 28.9 L MCV 99.0 H MCH 30.5 MCHC 30.8 L RDW 16.8 H Plt Count 410 H MPV 11.5 H Immature Gran % 1.1 Neutrophils % 73.8 Lymphocytes % 13.3 Monocytes % 11.3 Eosinophils % 0.2 Basophils % 0.3 Nucleated RBC % 0 Absolute Neutrophils 12.89 H Absolute Lymphocytes 2.32 Absolute Monocytes 1.97 H Absolute Eosinophils 0.03 Absolute Basophils 0.05 Sodium 143 Potassium 3.7 Chloride 103 Carbon Dioxide 30.5 Anion Gap 9.5 BUN 104 H* Creatinine 3.0 H Estimated GFR/1.73 m2 14.94 Glucose 47 L* Calcium 8.0 L Magnesium 1.6 L C-Reactive Protein 2.73 H
[2021-12-19] MEDS: Docusate Sodium 100 MG/10 ML CUP PO (19:55)
[2021-12-19] MEDS: Atorvastatin 40 MG TAB PO (19:55)
[2021-12-19] MEDS: Magnesium Oxide 400 MG TAB PO (21:51)
[2021-12-19] MEDS: Gabapentin 100 MG CAP 300 MG PO (21:51)
[2021-12-19] MEDS: Insulin Glargine 300 UNITS/3 ML PEN 20 UNITS SC (21:52)
[2021-12-20 01:21] VITALS: BP 128/76; PULSE 82; RESP 18; TEMP 36.8; O2SAT 96
[2021-12-20] MEDS: Heparin 5,000 UNITS/ML VIAL 5000 UNITS SC ×2 (05:10→17:51)
[2021-12-20 07:05] LABS: Abs Immature Grans 0.13 10^3/uL (0.0-0.06); Absolute Basophil Count 0.03 10^3/uL (0.0-0.2); Absolute Lymphocyte Count 2.19 10^3/uL (1.2-3.4); Absolute Monocyte Count 1.36 10^3/uL (0.1-0.8); Basophils % 0.2; Eosinophils % 0.6; HCT 28.4 % (36.0-46.0); HGB 8.6 g/dL (11.2-15.7); Immature Grans % 0.9; Lymphocytes % 15.1; MCH 30.2 pg (27.0-33.0); MCHC 30.3 % (32.0-36.0); MCV 99.6 fL (80-95); MPV 11.6 fL (8.0-11.0); Monocytes % 9.4; Neutrophils % 73.8; Nucleated RBC 0 %; Platelet Count 355 10^3/uL (130-400); RBC 2.85 10^6/uL (3.93-5.22); RDW-SD 61.1 fL; WBC 14.49 10^3/uL (4.4-10.8)
[2021-12-20 07:08] LABS: Absolute Eosinophil Count 0.09 10^3/uL (0.0-0.7); Absolute Neutrophil Count 10.69 10^3/uL (1.2-6.7)
[2021-12-20 07:18] VITALS: BP 166/75; PULSE 60; RESP 18; TEMP 37; O2SAT 96
[2021-12-20] MEDS: Pantoprazole 20 MG TABCR PO (07:27)
[2021-12-20 07:28] LABS: Anion Gap 8.9 mmol/L (3-11); C-Reactive Protein 3.11 mg/dL (0.0-0.3); CO2 31.1 mmol/L (21.0-32.0); CREATININE 3.1 mg/dL (0.55-1.02); Calcium 7.8 mg/dL (8.5-10.1); Chloride 103 mmol/L (98-107); Estimated GFR 14.39 (mL/min/1.73m2); Glucose 97 mg/dL (74-106); Magnesium 2.2 mg/dL (1.8-2.4); Potassium 4.1 mmol/L (3.5-5.1); Sodium 143 mmol/L (136-145)
[2021-12-20 07:30] LABS: BUN 101 mg/dL (7-18)
[2021-12-20 08:01] LABS: Procalcitonin 0.2 ng/mL
[2021-12-20] MEDS: Nystatin POWDER 60 GM JAR TP ×2 (08:02→20:26)
[2021-12-20] MEDS: Furosemide 40 MG TAB PO ×2 (08:03→15:31)
[2021-12-20] MEDS: Metoprolol 25 MG TAB PO ×2 (08:03→20:24)
[2021-12-20] MEDS: Methocarbamol 750 MG TAB PO ×4 (08:03→20:24)
[2021-12-20] MEDS: Sodium Bicarbonate 650 MG TAB 1300 MG PO ×3 (08:03→20:24)
[2021-12-20] MEDS: Aspirin 81 MG CHEW PO (08:03)
[2021-12-20] MEDS: Escitalopram 10 MG TAB PO (08:03)
[2021-12-20] MEDS: Folic Acid 1 MG TAB PO (08:03)
[2021-12-20] MEDS: Insulin Aspart 300 UNITS/3 ML PEN SC ×6 (08:04→21:32)
[2021-12-20] MEDS: Normal Saline Flush 10 ML SYR IVP ×2 (08:05→20:27)
[2021-12-20] MEDS: cefTRIAXone 1 GM/50 ML BAG IVPB (09:27)
[2021-12-20 09:48] LABS: Source Nasal/Nares
[2021-12-20 10:26] LABS: COVID-19 PCR Negative (Negative)
--- NOTE | 2021-12-20 12:07 | PGE_ITS ---
Date of Service Date of service: 12/20/21 Time of Service: 12:08 Assessment and Plan Assessment and plan (1) Leucocytosis: Status: Acute Assessment and plan: Leucocytosis is improving: Ddx: persistent infection (PNA), steroids, or combination of both. Urine C&S is negative. Blood cultures NGTD. Procalcitonin trending down and now 0.2. CRP has trended down to 2.73 yesterday , 3.11 today; will not likely normalize d/t arthritic condition. No persistent hydronephrosis on CT. Continue empiric ceftriaxone - presumably for PNA. If CRP/procalcitonin do not normalize by Tuesday, could be discharged with PO cefpodoxime. (2) Acute kidney injury superimposed on chronic kidney disease: Status: Acute Assessment and plan: In setting of sepsis/hypotension/emphysematous pyelonephritis/obstructive uropathy. Cr even better even while diuresing. Continue PO lasix. Will monitor Cr/I/Os and daily weights. Avoid nephrotoxic drugs. (3) Heart failure with reduced ejection fraction: Status: Chronic Assessment and plan: Diuresis as above. LVEF 50-55% On TTE from 11/24/21 at [facility]. Pericardial effusion seen on CT is small on echo here and is not hemodynamically significant. However, does have an apical wall motion abnormality. This will need to be followed up as outpatient with an echo with contrast and outpatient ischemic workup. (4) Type 2 diabetes mellitus: Status: Chronic Assessment and plan: Hypoglycemic at 48 yesterday AM. This AM, glucose of 107. Decreased long acting insulin (d/c am dose, make HS dose 20 units), decreased carb coverage and change SSI to sensitive. Perhaps, as the infection is getting treated, her insulin resistance has im proved. We are also titrating down the steroids. (5) Ischemic cardiomyopathy: Status: Chronic Assessment and plan: As above (6) Ambulatory dysfunction: Status: Acute Assessment and plan: Continue PT. LE pain is contributing - due to OA. S/p R hip injection, doing better. Awaiting SNF placement. (7) Osteoarthritis of right hip: Assessment and plan: As above (8) Sacral decubitus ulcer: Status: Acute Assessment and plan: Continue wound care. (9) Chest wall pain: Status: Resolved Assessment and plan: Musculoskeletal. Resolved. No further workup. Tele d/c'ed. (10) Bilateral leg pain: Status: Chronic Assessment and plan: As above (11) Depression: Assessment and plan: Continue lexapro (12) DVT prophylaxis: Status: Acute Assessment and plan: SC heparin (13) Discharge planning issues: Status: Acute Assessment and plan: DNR/DNI Anticipate discharge to SNF on Tuesday or Tuesday; has a bed offer but would like to remain in [facility] so waiting to see if [facility] or [facility] accepts and has bed. Subjective Subjective Patient reports: no new complaints, tolerating a regular diet and afebrile; denies nausea, vomiting or shortness of breath Interval history since last seen: Improving mobility and pain control. Exam Narrative Exam Narrative: General: Pleasant elderly female, A&Ox3, sitting up in a chair / asleep. Wakens readily but remains very tired. HEENT: EOMI, MMM Heart: RRR, no murmur Lungs: CTAB Abdomen: soft, nontender, nondistended, obsese. Extremities: trace BLE edema, tibial surfaces tender, ichthiosis Const General: cooperative, no acute distress and frail appearing Nutritional Appearance: obese Orientation: alert and oriented x3 Eyes General: appearance normal, both eyes and all related structures Sclera: sclerae normal Neck Neck: JVD Resp Effort & Inspection: normal respiratory effort Auscultation: clear to auscultation bilaterally Cardio Jugular venous pressure: no JVD Rate: regular rate Rhythm: regular rhythm Heart Sounds: S1 normal and S2 normal GI Inspection: obesity Palpation: soft and nontender Auscultation: normal bowel sounds Skin General skin exam: no rashes or lesions noted Wounds: wounds noted (STage 3 sacral ulcer with mepilex in place. ) Neuro General: moves all extremities Cranial Nerves: facial strength normal Cognition: normal cognition Speech: speech normal Extrem General: no joint enlargement, no pedal edema and other (diffuse tenderness of both legs with even light touch) Psych Mental Status: mental status grossly normal Affect: blunted Objective Last Vital Signs Temp 37 C 12/20/21 07:18 Pulse 60 12/20/21 07:18 Resp 18 12/20/21 07:18 BP 166/75 H 12/20/21 07:18 Pulse Ox 96 12/20/21 07:18 Laboratory Results - last 24 hr 03/12/20/21 12/20/21 06:40 06:40 06:40 WBC 14.49 H RBC 2.85 L Hgb 8.6 L Hct 28.4 L MCV 99.6 H MCH 30.2 MCHC 30.3 L RDW 17.0 H Plt Count 355 MPV 11.6 H Immature Gran % 0.9 Neutrophils % 73.8 Lymphocytes % 15.1 Monocytes % 9.4 Eosinophils % 0.6 Basophils % 0.2 Nucleated RBC % 0 Absolute Neutrophils 10.69 H Absolute Lymphocytes 2.19 Absolute Monocytes 1.36 H Absolute Eosinophils 0.09 Absolute Basophils 0.03 Sodium 143 Potassium 4.1 Chloride 103 Carbon Dioxide 31.1 Anion Gap 8.9 BUN 101 H* Creatinine 3.1 H Estimated GFR/1.73 m2 14.39 Glucose 97 D Calcium 7.8 L Magnesium 2.2 C-Reactive Protein 3.11 H Procalcitonin 0.2 COVID-19 Source SARS-CoV-2 (PCR) 12/20/21 09:32 WBC RBC Hgb Hct MCV MCH MCHC RDW Plt Count MPV Immature Gran % Neutrophils % Lymphocytes % Monocytes % Eosinophils % Basophils % Nucleated RBC % Absolute Neutrophils Absolute Lymphocytes Absolute Monocytes Absolute Eosinophils Absolute Basophils Sodium Potassium Chloride Carbon Dioxide Anion Gap BUN Creatinine Estimated GFR/1.73 m2 Glucose Calcium Magnesium C-Reactive Protein Procalcitonin COVID-19 Source Nasal/Nares SARS-CoV-2 (PCR) Negative
--- NOTE | 2021-12-20 14:41 | PT.INTREAT ---
Date of service: 12/20/21 Time of Service: 13:05 PT Notes Visit Reasons: Pyelonephritis,Acute Kidney Injury Inpatient Physical Therapy Treatment Note [facility] Date: 12/20/2021 PRECAUTIONS: Fall and Activities as tolerated SUBJECTIVE: Stated she is not going to get out of chair to do any walking. Indicated she has been cold all morning and is finally warm and comfortable. Unable to be persuaded by myself or nursing staff. Was willing to do her ther exercise in the chair as long as she did not have to remove her blankets. Stated she was leaving tomorrow anyway. OBJECTIVE: PAIN: No complaints of pain offered to me BED MOBILITY/TRANSFERS Refused to stand or ambulate today. THEREX: Ankle pumps, seated hip flexion, seated hip abd/ adduction, shoudler horizontal abd/ add, shoulder flexion and adductor squeeze with hip adductors for 10 to 20 reps each. See flow sheet for details. ASSESSMENT: Tolerated chair exercises fair. Very resistant to getting out of her chair today. Appeared to be a bit frustrated with having to leave the hospital to go to other placement tomorrow. PLAN: Continue to encourage increased mobility for improved ADL function. TREATMENT CODE/TIME: 98974 (15') 1:05 to 1:20 pm
[2021-12-20 15:38] VITALS: BP 137/71; PULSE 61; RESP 18; TEMP 36.7; O2SAT 94
[2021-12-20 20:19] VITALS: BP 136/56; PULSE 68; RESP 15; TEMP 36.9; O2SAT 93
[2021-12-20] MEDS: Atorvastatin 40 MG TAB PO (20:24)
[2021-12-20] MEDS: Acetaminophen 325 MG TAB PO (20:24)
[2021-12-20] MEDS: Diclofenac 1% Gel 100 GM TUBE TP (20:26)
[2021-12-20] MEDS: Insulin Glargine 300 UNITS/3 ML PEN 20 UNITS SC (21:32)
[2021-12-20] MEDS: Gabapentin 100 MG CAP 300 MG PO (21:33)
[2021-12-20] MEDS: Magnesium Oxide 400 MG TAB PO (21:33)
[2021-12-20 23:07] VITALS: BP 122/66; PULSE 56; RESP 16; TEMP 36.3; O2SAT 96
[2021-12-21] MEDS: Heparin 5,000 UNITS/ML VIAL 5000 UNITS SC ×2 (05:14→17:34)
[2021-12-21 07:22] VITALS: BP 149/68; PULSE 55; RESP 17; TEMP 36.6; O2SAT 97
--- NOTE | 2021-12-21 07:49 | W.PALPGNOTE ---
Date of service: 12/21/21 Time of Service: 07:49 Assessment and Plan Assessment and plan (1) Ambulatory dysfunction: Status: Acute Assessment and plan: Improving after hip injection. Her pain seems to be under good control. I think her knees will improve with weather changes. (2) Acute kidney injury superimposed on chronic kidney disease: Status: Acute Assessment and plan: Creatinine is still quite high. Medications will need to be adjusted. Overall seems stable but high. This will be an issue in the future. (3) Sacral decubitus ulcer: Status: Acute Assessment and plan: White count is trending downward. She is still on ceftriaxone. This will be need to be changed to a p.o. antibiotic if it still required. (4) Type 2 diabetes mellitus: Status: Chronic Assessment and plan: Continue with insulin and monitoring (5) Essential hypertension: Status: Chronic Assessment and plan: It was a little high today (6) Palliative care patient: Status: Acute Assessment and plan: Depending upon where the patient ends up for rehab, palliative will continue to follow her. Subjective Subjective Interval history since last seen: Vy is feeling much much better after she had her hip injection. Now she states that her knees are bothering her but she thinks it has to do with weather changes. She anticipates discharge today. She understands she will be going to rehab. She did not talk to me about returning to home with home health although she did talk to staff with this. She states that her breathing is better and she does not have chest pain Exam Narrative Exam Narrative: Patient is sitting in her chair. She is able to move her right hip with effort, but does not appear to be painful. Her heart is regular with an early systolic murmur. Her lungs good aeration. She is cooperative and her mood seems better. She does seem a bit perplexed about the future. Objective Last Vital Signs Temp 97.9 F 12/21/21 07:22 Pulse 55 L 12/21/21 07:22 Resp 17 12/21/21 07:22 BP 149/68 H 12/21/21 07:22 Pulse Ox 97 12/21/21 07:22 Laboratory Results - last 24 hr 12/20/21 12/20/21 06:40 09:32 Procalcitonin 0.2 COVID-19 Source Nasal/Nares SARS-CoV-2 (PCR) Negative Laboratory Tests 11/09/21 12/05/21 12/08/21 14:36 15:40 09:40 WBC Hgb Hct Potassium 5.6 H BUN 94 H* 72 H Creatinine 3.9 H* 3.5 H Glucose 288 H D Hemoglobin A1c 8.0 H Calcium Magnesium AST 147 H 162 H Alkaline Phosphatase 258 H 306 H C-Reactive Protein Albumin 1.4 L 12/08/21 12/17/21 12/19/21 09:40 07:22 06:45 WBC 18.44 H Hgb 9.4 L Hct 31.0 L 27.6 L Potassium BUN 104 H* Creatinine 3.0 H Glucose Hemoglobin A1c Calcium Magnesium AST Alkaline Phosphatase C-Reactive Protein 2.73 H Albumin 12/20/21 12/20/21 06:40 06:40 WBC 14.49 H Hgb Hct 28.4 L Potassium 4.1 BUN 101 H* Creatinine 3.1 H Glucose Hemoglobin A1c Calcium 7.8 L Magnesium 2.2 AST Alkaline Phosphatase C-Reactive Protein 3.11 H Albumin
[2021-12-21] MEDS: Nystatin POWDER 60 GM JAR TP ×2 (07:54→21:49)
[2021-12-21] MEDS: Normal Saline Flush 10 ML SYR IVP ×2 (07:54→21:57)
[2021-12-21] MEDS: Sodium Bicarbonate 650 MG TAB 1300 MG PO ×3 (07:57→21:48)
[2021-12-21] MEDS: Methocarbamol 750 MG TAB PO ×4 (07:57→21:50)
[2021-12-21] MEDS: Metoprolol 25 MG TAB PO ×2 (07:57→21:48)
[2021-12-21] MEDS: Pantoprazole 20 MG TABCR PO (07:57)
[2021-12-21] MEDS: Aspirin 81 MG CHEW PO (07:57)
[2021-12-21] MEDS: Escitalopram 10 MG TAB PO (07:57)
[2021-12-21] MEDS: Folic Acid 1 MG TAB PO (07:57)
[2021-12-21] MEDS: Furosemide 40 MG TAB PO ×2 (07:57→16:47)
[2021-12-21] MEDS: Insulin Aspart 300 UNITS/3 ML PEN SC ×6 (08:12→21:46)
--- NOTE | 2021-12-21 08:58 | OT.INNT ---
Occupational Therapy Notes 12/21/21 OT went in to see pt who reports that she is washed up and performed her ADLs this morning with nursing. She is hoping to transition to SNF today but states that she is not sure where she is going or what the time frame looks like. She was sitting in her chair anxiously waiting to hear. She is encouraged that she is walking now a little bit but also states that she is still needing assistance. Mamta Bernardo, OTR/L [facility]
[2021-12-21] MEDS: Normal Saline 500 ML 30 ML IV (10:46)
[2021-12-21] MEDS: cefTRIAXone 1 GM/50 ML BAG IVPB (10:46)
--- NOTE | 2021-12-21 11:28 | PT.INTREAT ---
Date of service: 12/21/21 Time of Service: 11:28 PT Notes Visit Reasons: Pyelonephritis,Acute Kidney Injury Inpatient Physical Therapy Treatment Note Date:?12/21/21 Subjective:?Agreeable to doing short distance ambulation after encouragement from this PT and from nursing staff. Denies pain on weight bearing today. Did report fatigue. Objective:? General Observation: Resting on chair.? Mental Status: A&Ox3. Doubtful about how she will do today. Pain: Denies Bed Mobility/Transfers: sit-stand:?Standby assist stand-sit:?Standby assist Chair to bedside commode:?Standby assist of 2 for safety Gait:?Now able to tolerate 20 feet +15 feet of independent ambulation using front wheeled walker with full weightbearing requiring contact-guard assist of 2 for safety with maximal verbal cueing for completion of activity and safety cues for posture as well as improved step pattern. THERA EX: Ankle DF/PF x15, seated hip flexion x10, seated hip abduction x10, LAQ x10, shoulder horizontal abduction x10, shoulder flexion x10, chair push-ups x5. Nurse Trini present to help encourage patient. Balance:? Static Sitting: Good Dynamic Sitting: Fair Static Standing: Fair Dynamic Standing: Fair Assessment: Remains fearful of falling however continues to demonstrate increasing ability and tolerance for mobility performance with extensive encouragement and reassurance that she will not fall. Wheelchair follow needed for safety.? DISCHARGE RECOMMENDATIONS: [] ? Home with no services [] [] ? Home with services [specify] [] ? Home with outpatient PT [] [X] ? SNF for continued rehabilitation.? Patient will benefit from nursing home facility placement for continued skilled physical therapy services in order to progress mobility level, strength, and balance. [] ? Radio Tower Technician Care [] [] ? SNF versus LTC based on ability to participate and progress [] TREATMENT CODE/TIME: 77208 x 20 minutes, 40372 x 14 minutes beginning at 11:28 AM.
--- NOTE | 2021-12-21 11:53 | CMPROGNOTE_ITS ---
- If Service Date Differs Date of service: 12/21/21 Time of Service: 11:53 Care Management Progress Note S/O: Vy was siting up in her chair when CM met with her. She accepted a bed offer at [facility] for short term rehab, CM faxed updated clinicals to begin prior authorization process. Per MARII Olivares, a COVID test will be required within 24 hours of discharge; CM notified clinical coordinator. Awaiting prior auth approval. CM continues to follow. A: Vy is an 81 year old woman admitted on 12/04/21 with pyelonephritis P: Vy will discharge to [facility] for short term rehab prior to returning home. Once prior authorization is received, transportation will be coordinated through [facility] W/C van. CM will continue to follow and support discharge planning concerns.
--- NOTE | 2021-12-21 14:48 | W.PM.PROGNOT ---
Date of Service Date of service: 12/21/21 Time of Service: 14:48 Assessment and Plan Assessment and plan (1) Leucocytosis: Start date: 12/21/21 Start time: 14:55 Status: Acute Assessment and plan: Leucocytosis is improving: Ddx: persistent infection (PNA), steroids, or combination of both. Urine C&S is negative. Blood cultures NGTD. Procalcitonin trending down and now 0.2. CRP has trended down to 2.7; will not likely normalize d/t arthritic condition. No persistent hydronephrosis on CT. Continue empiric ceftriaxone - presumably for PNA. If CRP/procalcitonin do not normalize by Tuesday, could be discharged with PO cefpodoxime. (2) Acute kidney injury superimposed on chronic kidney disease: Start date: 12/21/21 Start time: 14:56 Status: Acute Assessment and plan: Creatinine normalized to patients baseline Avoid nephrotoxic medications Will repeat labs tomorrow. (3) Heart failure with reduced ejection fraction: Start date: 12/21/21 Start time: 14:58 Status: Chronic Assessment and plan: Diuresis as above. LVEF 50-55% On TTE from 11/24/21 at [facility]. Pericardial effusion seen on CT is small on echo here and is not hemodynamically significant. However, does have an apical wall motion abnormality. This will need to be followed up as outpatient with an echo with contrast and outpatient ischemic workup. (4) Ischemic cardiomyopathy: Start date: 12/21/21 Start time: 14:59 Status: Chronic Assessment and plan: As above (5) Type 2 diabetes mellitus: Start date: 12/21/21 Start time: 14:58 Status: Chronic Assessment and plan: Trend am glucose as patient has had hypoglycecmic episodes in the past Decreased long acting insulin (d/c am dose, make HS dose 20 units), decreased carb coverage and change SSI to sensitive. Perhaps, as the infection is getting treated, her insulin resistance has improved. We are also titrating down the steroids. (6) Chest wall pain: Start date: 12/21/21 Start time: 15:00 Status: Resolved Assessment and plan: Musculoskeletal. Resolved. No further workup. Tele d/c'ed. (7) Ambulatory dysfunction: Start date: 12/21/21 Start time: 15:00 Status: Acute Assessment and plan: Continue PT. LE pain is contributing - due to OA. S/p R hip injection, doing better. Awaiting SNF placement. OOB with nursing ambulatory with Both PT and Nursing (8) Osteoarthritis of right hip: Start date: 12/21/21 Start time: 15:00 Assessment and plan: As above (9) Sacral decubitus ulcer: Start date: 12/21/21 Start time: 15:00 Status: Acute Assessment and plan: Continue wound care. (10) Bilateral leg pain: Start date: 12/21/21 Start time: 15:01 Status: Chronic Assessment and plan: As above (11) Depression: Start date: 12/21/21 Start time: 15:01 Assessment and plan: Continue lexapro (12) DVT prophylaxis: Start date: 12/21/21 Start time: 15:01 Status: Acute Assessment and plan: SC heparin (13) Discharge planning issues: Start date: 12/21/21 Start time: 15:02 Status: Acute Assessment and plan: DNR/DNI Anticipate discharge to SNF on Tuesday or Tuesday; has a bed offer but would like to remain in [facility] so waiting to see if [facility] or [facility] accepts and has bed. Discussed with Dr. Ely Subjective Subjective Patient reports: feels better Interval history since last seen: Sitting up in chair. No complaints. Patient waiting for bed at [place]. She was found to was abnormality on her Echo and will outpatient with cardiology. At this time waiting bed. Exam Narrative Exam Narrative: General: Pleasant elderly female, A&Ox3, sitting up in a chair awake. Oriented x 3 HEENT: EOMI, MMM Heart: RRR, no murmur Lungs: CTAB Abdomen: soft, nontender, nondistended, obsese. Extremities: trace BLE edema, tibial surfaces tender, ichthiosis Const General: cooperative, no acute distress and frail appearing Nutritional Appearance: obese Orientation: alert and oriented x3 Eyes General: appearance normal, both eyes and all related structures Sclera: sclerae normal Neck Neck: full ROM and JVD Resp Effort & Inspection: normal respiratory effort Auscultation: clear to auscultation bilaterally Cardio Jugular venous pressure: no JVD Rate: regular rate Rhythm: regular rhythm Heart Sounds: S1 normal and S2 normal GI Inspection: obesity Palpation: soft and nontender Auscultation: normal bowel sounds Skin General skin exam: no rashes or lesions noted Wounds: wounds noted (STage 3 sacral ulcer with mepilex in place. ) Neuro General: patient alert, patient awake, patient oriented x3 and moves all extremities Cranial Nerves: facial strength normal Cognition: normal cognition Speech: speech normal Extrem General: no joint enlargement, no pedal edema and other (diffuse tenderness of both legs with even light touch) Psych Mental Status: mental status grossly normal Affect: blunted Objective Last Vital Signs Temp 36.6 C 12/21/21 07:22 Pulse 55 L 12/21/21 07:22 Resp 17 12/21/21 07:22 BP 149/68 H 12/21/21 07:22 Pulse Ox 97 12/21/21 07:22
[2021-12-21 15:47] VITALS: BP 130/69; PULSE 63; RESP 18; TEMP 37.1; O2SAT 95
[2021-12-21 19:15] VITALS: BP 141/55; PULSE 65; RESP 12; TEMP 37.2; O2SAT 95
[2021-12-21] MEDS: Gabapentin 100 MG CAP 300 MG PO (21:47)
[2021-12-21] MEDS: Insulin Glargine 300 UNITS/3 ML PEN 20 UNITS SC (21:47)
[2021-12-21] MEDS: Atorvastatin 40 MG TAB PO (21:48)
[2021-12-21] MEDS: Magnesium Oxide 400 MG TAB PO (21:50)
[2021-12-21 21:52] VITALS: BP 144/61; PULSE 70; RESP 15; TEMP 36.8; O2SAT 95
[2021-12-22] MEDS: Heparin 5,000 UNITS/ML VIAL 5000 UNITS SC ×2 (05:41→19:11)
[2021-12-22 06:27] LABS: Abs Immature Grans 0.08 10^3/uL (0.0-0.06); Absolute Monocyte Count 1.07 10^3/uL (0.1-0.8); Basophils % 0.3; Eosinophils % 0.7; HCT 28.2 % (36.0-46.0); HGB 8.5 g/dL (11.2-15.7); Immature Grans % 0.6; Lymphocytes % 11.4; MCH 30.4 pg (27.0-33.0); MCHC 30.1 % (32.0-36.0); MCV 100.7 fL (80-95); MPV 12.1 fL (8.0-11.0); Monocytes % 7.4; Neutrophils % 79.6; Nucleated RBC 0 %; Platelet Count 304 10^3/uL (130-400); RDW 17.1 % (11.7-14.6); WBC 14.44 10^3/uL (4.4-10.8)
[2021-12-22 06:39] LABS: Absolute Basophil Count 0.04 10^3/uL (0.0-0.2); Absolute Lymphocyte Count 1.65 10^3/uL (1.2-3.4); Absolute Neutrophil Count 11.49 10^3/uL (1.2-6.7)
[2021-12-22 06:53] LABS: Anion Gap 8.8 mmol/L (3-11); CO2 29.2 mmol/L (21.0-32.0); CREATININE 2.9 mg/dL (0.55-1.02); Calcium 8.1 mg/dL (8.5-10.1); Chloride 104 mmol/L (98-107); Estimated GFR 15.54 (mL/min/1.73m2); Glucose 153 mg/dL (74-106); Potassium 4.4 mmol/L (3.5-5.1); Sodium 142 mmol/L (136-145)
[2021-12-22 06:59] LABS: BUN 102 mg/dL (7-18)
[2021-12-22 07:16] VITALS: BP 148/63; PULSE 60; RESP 20; TEMP 36.9; O2SAT 96
[2021-12-22] MEDS: Sodium Bicarbonate 650 MG TAB 1300 MG PO ×3 (08:21→21:35)
[2021-12-22] MEDS: Metoprolol 25 MG TAB PO ×2 (08:21→21:36)
[2021-12-22] MEDS: Escitalopram 10 MG TAB PO (08:21)
[2021-12-22] MEDS: Aspirin 81 MG CHEW PO (08:22)
[2021-12-22] MEDS: Methocarbamol 750 MG TAB PO ×4 (08:22→21:37)
[2021-12-22] MEDS: Pantoprazole 20 MG TABCR PO (08:22)
[2021-12-22] MEDS: Furosemide 40 MG TAB PO ×2 (08:23→16:46)
[2021-12-22] MEDS: Folic Acid 1 MG TAB PO (08:24)
[2021-12-22] MEDS: Polyethylene Glycol 3350 17 GM PACKET PO ×2 (08:25→21:40)
[2021-12-22] MEDS: Nystatin POWDER 60 GM JAR TP ×2 (08:28→21:42)
[2021-12-22] MEDS: Insulin Aspart 300 UNITS/3 ML PEN SC ×6 (08:35→21:44)
[2021-12-22 08:55] VITALS: O2SAT 96
--- NOTE | 2021-12-22 09:55 | PT.INTREAT ---
Date of service: 12/22/21 Time of Service: 09:55 PT Notes Visit Reasons: Pyelonephritis,Acute Kidney Injury Inpatient Physical Therapy Treatment Note Date:?12/22/21 Subjective:?Agreeable to doing short distance ambulation after encouragement from this PT.? reports pain in the R hip with weight bearing. Objective:? General Observation: Resting on chair.? Mental Status: A&Ox3. Pain: 3-4/10 in the R hip Bed Mobility/Transfers: sit-stand:?Standby assist stand-sit:?Standby assist Chair to bedside commode:? Gait:?Cotinues to perform 20 feet +15 feet of independent ambulation using front-wheeled walker with full weight bearing requiring minimal assist, student Nurse Magda providing standby assist for safety with maximal verbal cueing for completion of activity and safety cues for posture as well as improved step pattern. THERA EX: Abdominal muscle activation during trunk flexion from a reclined position while on chair x 10, chair push ups x 5. Balance:? Static Sitting: Normal Dynamic Sitting: Normal Static Standing: Fair Dynamic Standing: Fair Assessment:?Remains fearful of falling however continues to demonstrate increasing ability and tolerance for mobility performance with extensive encouragement and reassurance that she will not fall.? Wheelchair follow needed for safety.? DISCHARGE RECOMMENDATIONS: [] ? Home with no services [] [] ? Home with services [specify] [] ? Home with outpatient PT [] [X] ? SNF for continued rehabilitation.? Patient will benefit from detention facility placement for continued skilled physical therapy services in order to progress mobility level, strength, and balance. [] ? Power Machine Operator Care [] [] ? SNF versus LTC based on ability to participate and progress [] TREATMENT CODE/TIME: 41043 x 20 minutes, 71497 x 15 minutes beginning at 9:55 AM.
[2021-12-22] MEDS: cefTRIAXone 1 GM/50 ML BAG IVPB (10:48)
[2021-12-22] MEDS: Normal Saline 500 ML 30 ML IV (10:49)
--- NOTE | 2021-12-22 10:51 | PDOC.CMPRO ---
- If Service Date Differs Date of service: 12/22/21 Time of Service: 10:51 Care Management Progress Note S/O: Vy was siting up in her chair when CM met with her. She accepted a bed offer at [facility] yesterday for short term rehab and CM faxed updated clinicals to begin prior authorization process. Today a bed offer was also received from [facility]. As this is Vy's first choice, she has accepted the offer and will transfer tomorrow morning at 11:00am by facility W/C van. A: Vy is an 81 year old woman admitted on 12/04/21 with pyelonephritis P: Vy will discharge to [facility] tomorrow at 11:00 via w/c van. She will follow up with the facility providers and plan of care, while there. CM will continue to follow and support discharge planning concerns.
[2021-12-22] MEDS: Bisacodyl 10 MG SUPP PR (13:35)
[2021-12-22 15:35] VITALS: BP 144/69; PULSE 60; RESP 18; TEMP 37.3; O2SAT 95
[2021-12-22] MEDS: Diclofenac 1% Gel 100 GM TUBE TP ×2 (16:46→21:43)
--- NOTE | 2021-12-22 17:18 | PGE_ITS ---
Date of Service Date of service: 12/22/21 Time of Service: 17:19 Assessment and Plan Assessment and plan (1) Leucocytosis: Status: Acute Assessment and plan: Leucocytosis is improving: Ddx: persistent infection (PNA), steroids, or combination of both. Urine C&S is negative. Blood cultures NGTD. Procalcitonin trending down and now 0.2. CRP has trended down to 2.7; will not likely normalize d/t arthritic condition. No persistent hydronephrosis on CT. Continue empiric ceftriaxone - presumably for PNA. If CRP/procalcitonin do not normalize by Tuesday, could be discharged with PO cefpodoxime. (2) Acute kidney injury superimposed on chronic kidney disease: Status: Acute Assessment and plan: Creatinine normalized to patients baseline Avoid nephrotoxic medications Will repeat labs tomorrow. (3) Heart failure with reduced ejection fraction: Status: Chronic Assessment and plan: Diuresis as above. LVEF 50-55% On TTE from 11/24/21 at [facility]. Pericardial effusion seen on CT is small on echo here and is not hemodynamically significant. However, does have an apical wall motion abnormality. This will need to be followed up as outpatient with an echo with contrast and outpatient ischemic workup. (4) Ischemic cardiomyopathy: Status: Chronic Assessment and plan: As above (5) Type 2 diabetes mellitus: Status: Chronic Assessment and plan: Trend am glucose as patient has had hypoglycecmic episodes in the past Decreased long acting insulin (d/c am dose, make HS dose 20 units), decreased carb coverage and change SSI to sensitive. Perhaps, as the infection is getting treated, her insulin resistance has improved. We are also titrating down the steroids. (6) Chest wall pain: Status: Resolved Assessment and plan: Musculoskeletal. Resolved. No further workup. Tele d/c'ed. (7) Ambulatory dysfunction: Status: Acute Assessment and plan: Continue PT. LE pain is contributing - due to OA. S/p R hip injection, doing better. Awaiting SNF placement. OOB with nursing ambulatory with Both PT and Nursing (8) Osteoarthritis of right hip: Assessment and plan: As above (9) Sacral decubitus ulcer: Status: Acute Assessment and plan: Continue wound care. (10) Bilateral leg pain: Status: Chronic Assessment and plan: As above (11) Depression: Assessment and plan: Continue lexapro (12) DVT prophylaxis: Status: Acute Assessment and plan: SC heparin (13) Discharge planning issues: Status: Acute Assessment and plan: DNR/DNI Anticipate discharge to SNF on Tuesday or Tuesday; has a bed offer but would like to remain in [facility] so waiting to see if [facility] or [facility] and has bed. Discussed with Dr. Ely Subjective Subjective Patient reports: no new complaints, tolerating liquids well, tolerating a regular diet and afebrile Exam Const General: cooperative, no acute distress and frail appearing Nutritional Appearance: obese Orientation: alert and oriented x3 Eyes General: appearance normal, both eyes and all related structures Sclera: sclerae normal Neck Neck: full ROM Resp Effort & Inspection: normal respiratory effort Auscultation: clear to auscultation bilaterally Cardio Rate: regular rate Rhythm: regular rhythm GI Inspection: obesity Palpation: soft and nontender Auscultation: normal bowel sounds Skin Wounds: wounds noted (STage 3 sacral ulcer with mepilex in place. ) Neuro General: patient alert, patient awake, patient oriented x3 and moves all extremities Cognition: normal cognition Speech: speech normal Extrem General: no pedal edema and other (diffuse tenderness of both legs with even light touch) Psych Mental Status: mental status grossly normal Objective Last Vital Signs Temp 37.3 C 12/22/21 15:35 Pulse 60 12/22/21 15:35 Resp 18 12/22/21 15:35 BP 144/69 H 12/22/21 15:35 Pulse Ox 95 12/22/21 15:35 Laboratory Results - last 24 hr 12/22/21 12/22/21 06:02 06:02 WBC 14.44 H RBC 2.80 L Hgb 8.5 L Hct 28.2 L MCV 100.7 H MCH 30.4 MCHC 30.1 L RDW 17.1 H Plt Count 304 MPV 12.1 H Immature Gran % 0.6 Neutrophils % 79.6 Lymphocytes % 11.4 Monocytes % 7.4 Eosinophils % 0.7 Basophils % 0.3 Nucleated RBC % 0 Absolute Neutrophils 11.49 H Absolute Lymphocytes 1.65 Absolute Monocytes 1.07 H Absolute Eosinophils 0.10 Absolute Basophils 0.04 Sodium 142 Potassium 4.4 Chloride 104 Carbon Dioxide 29.2 Anion Gap 8.8 BUN 102 H* Creatinine 2.9 H Estimated GFR/1.73 m2 15.54 Glucose 153 H Calcium 8.1 L
[2021-12-22] MEDS: Magnesium Oxide 400 MG TAB PO (21:38)
[2021-12-22] MEDS: Docusate Sodium 100 MG/10 ML CUP PO (21:39)
[2021-12-22] MEDS: Gabapentin 100 MG CAP 300 MG PO (21:39)
[2021-12-22] MEDS: Atorvastatin 40 MG TAB PO (21:39)
[2021-12-22] MEDS: Normal Saline Flush 10 ML SYR IVP (21:42)
[2021-12-22] MEDS: Insulin Glargine 300 UNITS/3 ML PEN 20 UNITS SC (21:46)
[2021-12-22 23:51] VITALS: BP 133/54; PULSE 55; RESP 19; TEMP 36.5; O2SAT 94
[2021-12-23 03:51] VITALS: BP 152/77; PULSE 60; RESP 17; TEMP 36.5; O2SAT 95
[2021-12-23] MEDS: Heparin 5,000 UNITS/ML VIAL 5000 UNITS SC (06:30)
[2021-12-23 07:55] VITALS: BP 142/62; PULSE 61; RESP 18; TEMP 36.6; O2SAT 96
[2021-12-23] MEDS: Pantoprazole 20 MG TABCR PO (07:59)
[2021-12-23] MEDS: Docusate Sodium 100 MG/10 ML CUP PO (07:59)
[2021-12-23] MEDS: Sodium Bicarbonate 650 MG TAB 1300 MG PO (07:59)
[2021-12-23] MEDS: Methocarbamol 750 MG TAB PO (07:59)
[2021-12-23] MEDS: Aspirin 81 MG CHEW PO (07:59)
[2021-12-23] MEDS: Escitalopram 10 MG TAB PO (07:59)
[2021-12-23] MEDS: Furosemide 40 MG TAB PO (07:59)
[2021-12-23] MEDS: Normal Saline Flush 10 ML SYR IVP (08:00)
[2021-12-23] MEDS: Folic Acid 1 MG TAB PO (08:00)
[2021-12-23] MEDS: Metoprolol 25 MG TAB PO (08:00)
[2021-12-23] MEDS: Insulin Aspart 300 UNITS/3 ML PEN SC (08:02)
--- NOTE | 2021-12-23 10:12 | DSE_ITS ---
Date of service: 12/23/21 Time of Service: 10:12 DS: Diagnosis Discharge Diagnosis (1) Leucocytosis: Status: Acute (2) Acute kidney injury superimposed on chronic kidney disease: Status: Acute (3) Heart failure with reduced ejection fraction: Status: Chronic (4) Ischemic cardiomyopathy: Status: Chronic (5) Type 2 diabetes mellitus: Status: Chronic (6) Chest wall pain: Status: Resolved (7) Ambulatory dysfunction: Status: Acute (8) Osteoarthritis of right hip: (9) Sacral decubitus ulcer: Status: Acute (10) Bilateral leg pain: Status: Chronic (11) Depression: Discharge Plan Disposition Patient Disposition: SNF (LEVEL 1) [facility] Condition: Stable Discharge Details Reason For Visit: Pyelonephritis,Acute Kidney Injury Admit Date/Time: 12/04/21 15:15 Admit Provider: Dhaval Ely Attending Provider: Dhaval Ely [facility]: This is an 81 year old female with complex urology course over past several months where she was [facility] from our ED for treatment of emphysematous pyleonphritis treated with IV antibiotics, nephrostomy tube, then stent, both which have been removed. She also was found in acute on chronic renal failure. Medically she responded to treatment and she ultimately was transferred back here to complete her hospitalization. Her hospital course here was complicated with heart failure for which she was diuresed. LVEF 50-55% on TTE from 11/24/21 at [facility]. Pericardial effusion seen on CT is small on echo here and is not hemodynamically significant. However, does have an apical wall motion abnormality. This will need to be followed up as outpatient with an echo with contrast and outpatient ischemic workup. Also a leukocytosis which was worked up and thought possibly d/t steroids as urine culture, blood cultures negative and procalcitonin down to 0.2 from 2.73 and thought to possibly remain elevated d/t arthritic condition. She was treated with ceftriaxone empirically for pneumonia and will be discharged on cefpodoxime to complete a 10 day course. She also received a right hip injection by orthopedics for her osteoarthritis which was impacting her ability to rehab. this improved her pain. She has been eating and drinking and remains medically stable. Referrals have been placed for intermediate rehab and she was accepted at [facility] rehab. discharge discussed with Dr Ely Home Meds and New Rx's Prescriptions: New insulin aspart U-100 [Novolog Flexpen U-100 Insulin] 100 unit/mL (3 mL) Insulin Pen 0 units subcut 0800,1200,1700,2200 Qty: 0 0RF Continued atorvastatin [Lipitor] 40 mg tablet 40 mg PO QPM Qty: 90 4RF aspirin 81 mg tablet,delayed release (DR/EC) 81 mg PO DAILY Qty: 100 0RF capsaicin 0.1 % Cream 1 applic TOPICAL TID 0RF Rx Instructions: do not wash area for at least 30 min after application lidocaine 5 % Adhesive Patch,Medicated 1 patch TOPICAL DAILY 0RF Rx Instructions: leave on most painful area for up to 12 hrs sodium bicarbonate 650 mg Tablet 1,300 mg PO TID 0RF nitroglycerin [Nitrostat] 0.4 mg Tablet, Sublingual 0.4 mg sublingual Q5 MIN PRN X3 PRNQty: 20 0RF Changed pantoprazole 40 mg tablet,delayed release (DR/EC) 20 mg PO DAILY Qty: 0 0RF furosemide 20 mg tablet 40 mg PO BID Qty: 0 0RF gabapentin 100 mg Capsule 300 mg PO HS Qty: 0 0RF metoprolol tartrate 25 mg Tablet 25 mg PO BID Qty: 0 0RF Lantus Solostar U-100 Insulin 100 unit/mL (3 mL) insulin pen 20 unit subcut DAILY Qty: 9 4RF No Action (DME) FreeStyle Test Strip 1 ea Miscellaneous BID Qty: 360 4RF Rx Instructions: Check blood sugar four times a day (DME) pen needle, diabetic [Comfort EZ Pen [place]] 31 gauge x 5/16 needle See Dose Instructions .ROUTE .MEDSUPPLY Qty: 1200 4RF Dose Instruction: As directed Rx Instructions: Use with insulin pens insulin aspart U-100 100 unit/mL (3 mL) Insulin Pen 9 unit SUBCUT TIDWMEAL 0RF Discharge Instructions Instructions: Heart Failure (DC), Chronic Kidney Disease (DC), Kidney Infection (DC) Stand Alone Forms: Nursing Discharge Form Activity:: Activity as Tolerated Equipment/Supplies:: No Equipment Needed Diet:: Carb Counting Discharge Orders Discharge Orders: Discharge Order (Routine); Ordered 12/23/21 Ordered By: Aleta Zarate DS: Summary Time Spent with Patient providing and/or coordinating discharge services: Greater than 30 minutes Status at Discharge Functional status at discharge: uses cane/walker Overall status at discharge: patient is progressing back to baseline Mental Status: mental status grossly normal Speech and Movement: speech and movement normal Mood: congruent mood Affect: normal affect Exam Const General: cooperative, no acute distress and frail appearing Nutritional Appearance: obese Orientation: alert and oriented x3 Eyes General: appearance normal, both eyes and all related structures Sclera: sclerae normal Neck Neck: full ROM Resp Effort & Inspection: normal respiratory effort Auscultation: clear to auscultation bilaterally Cardio Rate: regular rate Rhythm: regular rhythm GI Inspection: obesity Palpation: soft and nontender Auscultation: normal bowel sounds Skin Wounds: wounds noted (STage 3 sacral ulcer with mepilex in place. ) Neuro General: patient alert, patient awake, patient oriented x3 and moves all extremities Cognition: normal cognition Speech: speech normal Extrem General: no pedal edema and other (diffuse tenderness of both legs with even light touch) Psych Mental Status: mental status grossly normal Speech and Movement: speech and movement normal Mood: congruent mood Affect: normal affect DS: Data Vitals/I&O Vitals and I&O: Vital Signs Temperature 36.6 C 12/23/21 07:55 Temperature Source Tympanic 12/23/21 07:55 Pulse 61 12/23/21 07:55 Pulse Rhythm Regular 12/23/21 01:14 Respiratory Rate 18 12/23/21 07:55 Respiratory Effort Non-Labored 12/23/21 01:14 Respiratory Depth Normal 12/23/21 01:14 Respiratory Pattern Normal 12/23/21 01:14 Blood Pressure 142/62 H 12/23/21 07:55 Pulse Oximetry 96 12/23/21 07:55 Oxygen Delivery Method Room Air 12/23/21 07:55 Oxygen Flow Rate 0 12/23/21 07:55 Pain Level 0 12/23/21 03:51 Comment 12/22/21 23:51 Intake & Output 12/22/21 12/22/21 12/23/21 11:59 23:59 11:59 Intake Total 910 / 910 957 / 957 Output Total 650 / 900 250 / 900 575 / 575 Balance 260 / 10 -250 / 10 382 / 382 Weight 84.4 kg 84.3 kg Intake: IV 550 / 550 477 / 477 Oral 360 / 360 480 / 480 Output: Urine 650 / 900 250 / 900 575 / 575 Other: Urine Color Pale Yellow Yellow Urine Appearance Clear Clear Clear Urine Odor None Normal None Comment Mixed with stool, unable to see color and could not measure Stool Size Moderate Small Stool Characteristics Soft Soft Formed Brown Voiding Methods Bedside Commode Bedside Commode Bedside Commode Diaper Incontinent PFSH All Active Problems (Updated 12/22/21 @ 00:05 by FALLON LINDSEY) Palliative care patient (Acute) Leucocytosis (Acute) Hyperkalemia (Acute) Ambulatory dysfunction (Acute) Acute kidney injury superimposed on chronic kidney disease (Acute) DVT prophylaxis (Acute) Bilateral leg pain (Chronic) Discharge planning issues (Acute) Sacral decubitus ulcer (Acute) Hypomagnesemia (Acute) Pulmonary edema (Acute) Uric acid nephrolithiasis (Acute) Normocytic anemia (Acute) Left nephrolithiasis (Acute 09/2021) Non-ST elevation MT (NSTEMI) (Acute 09/2021) Coronary artery disease (Chronic) MT 08/2020, NSTEMI 09/2021 Heart failure with reduced ejection fraction (Chronic) Ischemic cardiomyopathy (Chronic) Chronic kidney disease (Chronic) Type 2 diabetes mellitus (Chronic) Essential hypertension (Chronic) Venous insufficiency (Acute) Peripheral edema (Acute) Drainage from surgical wound (Acute) Medical History (Updated 12/22/21 @ 00:05 by FALLON LINDSEY) Anemia Depression 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 None have occurred since cessation of her lisinopril Surgical History S/P exploratory laparotomy (01/18/21) [place] patch for perforated duodenal ulcer Family History Mother , AGE 78 Diabetes Father No problems noted. 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
--- NOTE | 2021-12-23 11:32 | CMDISCH_ITS ---
- If Service Date Differs Date of service: 12/23/21 Time of Service: 11:32 LACE Index Scoring Tool - Questions: Length of Stay (in days): 14 or more Acuity (Admit via E.D.?): Yes Comorbidities: Previous M.I., Diabetes w/o Complication, Liver or Renal Disease E.D. Visits: 3 - Answers: Total Score: 18 Risk of Readmission: High Risk Care Management Discharge Reason for Hospitalization: Pyelonephritis, Acute Kidney Injury. Discharge Plan: Vy will discharge to [facility] today at 11:00 via facility w/c van. She will follow up with the facility providers and plan of care, while there. Patient/Family Education Needs: Review of discharge instructions including medications and follow up plan of care; discuss Ask Me Three and self management.
--- NOTE | 2021-12-23 18:00 | PT.INDS ---
Date of service: 12/23/21 PT Notes Visit Reasons: Pyelonephritis,Acute Kidney Injury Physical Therapy Inpatient Discharge Summary Date:?12/23/21 Date of service:?12/05/2021 through 12/22/2021 This is a clinical summary of care provided for the duration of dates listed above. No charge was made in the completion of this documentation. Referring Doctor:?Dhaval Ely MD PT Orders: PT CONSULT: limited ability to ambulate Precautions: Fall.? Standard. Patient Profile/Admitting Diagnosis:?? Patient is an 81 yo female with a h/o DM2 reuiring insulin, HTN, CKD stage IV, CHF, afib, perforated duodenal ulcer.? She was transferred to [facility] [place] [place] on 11/21/21 from [facility] ED for nephrolithiasis, PATRICIO and E.Coli emphysematous pyelitis, as well as an NSTEMI.? She had been hospitalized at [facility] in September of 2021 for complicated UTI with nephrolithiasis, s/p L ureteral stent placement.? During hospitalization at [facility] [place] [place] she percutaneous nephrostomy tube placement on 11/24 by IR.? On 11/30 she went to the OR for tube removal and left ureteral stent placement and left lithotripsy.? The stent was removed on 12/03.? She continues on Rocephin daily through 12/08/21.? She prefers to be close to home to continue treatment.? She does have a chronic history of right hip, knee and ankle pain.? She continues to report bilateral leg weakness. S/P steroid injection on postoperative day 2.? Subjective: NT. See most recent ROCKET TEST FIRE WORKER notes. Objective:? General Observation: NT. See most recent ROCKET TEST FIRE WORKER notes. Mental Status: NT. See most recent ROCKET TEST FIRE WORKER notes. Pain: NT. See most recent ROCKET TEST FIRE WORKER notes. ROM: Right Upper Extremity: ? Shoulder Flexion WFL. Shoulder abduction WFL. Elbow flexion WFL. Wrist flexion WFL. Functional opening and closing of hand WFL. Left Upper Extremity:? Shoulder Flexion WFL. Shoulder abduction WFL. Elbow flexion WFL. Wrist flexion WFL. Functional opening and closing of hand WFL. Right Lower Extremity: Hip flexion allows 20 degrees beyond 90 while seated?at edge of chair.? Hip abduction WFL. Knee flexion 10 degrees to 90 degrees.? Knee extension -10 degrees.? Ankle dorsiflexion WFL. Ankle plantarflexion WFL. Left Lower Extremity: Hip flexion allows 20 degrees beyond 90 while seated?at edge of chair.? Hip abduction WFL. Knee flexion 10 degrees to 90 degrees.? Knee extension -10 degrees.? Ankle dorsiflexion WFL. Ankle plantarflexion WFL. Strength: Right Upper Extremity: Shoulder flexors 4-/5. Shoulder abductors 4-/5. Elbow flexors 4-/5. Elbow extensors 4-/5. Commercial Center Manager strong. Left Upper Extremity: Shoulder flexors 4-/5. Shoulder abductors 4-/5. Elbow flexors 4-/5. Elbow extensors 4-/5. Commercial Center Manager strong. Right Lower Extremity: Hip flexors 4-/5. Hip abductors 4-/5. Knee flexors 3-/5. Knee extensors 3-/5. Ankle dorsiflexors 3-/5. Ankle plantarflexors 4-/5. Left Lower Extremity: Hip flexors 4-/5. Hip abductors 4-/5. Knee flexors 3-/5. Knee extensors 3-/5. Ankle dorsiflexors 3-/5. Ankle plantarflexors 4-/5. Sensation:?Intact to bilateral lower extremities as to pain and light pressure Bed Mobility/Transfers: supine-sit:?Standby assist sit-supine:?Standby assist sit-stand:?Standby assist stand-sit:?Standby assist Chair to bedside commode:?Standby assist Gait:?Up to 20 feet of short distance ambulation using front wheeled walker requiring minimal assistance of 1 and maximal verbal cueing to encourage completion of activity.? Decreased step length and step height.? Fearful and anxious about falling.? Reports left knee more painful than the right.? Moderate verbal cues given for posture. Balance:? Static Sitting: Good Dynamic Sitting: Fair Static Standing: Fair Dynamic Standing: Poor Assessment: Patient demonstrates functional mobility improvement as evidenced by mobility level above and goal status below. Patient presents with clinical signs and symptoms consistent with diagnosis, with markedly diminished mobility versus baseline. Based on AM-PAC scores, patient will likely required SNF placement to facilitate safe return to community dwelling. She currently demonstrates the following impairment level findings: 1. Decreased activity tolerance 2. decreased functional strength 3. Pain 4. decreased right hip ROM ?Impairments are contributing to the following functional limitations: 1. dependent for bed mobility 2. dependent for transfers 3. unable to ambulate 4. unable to stand independently 5. dependent for ADLs Goals: Goals X1 week 1. Supine-Sit : min A x 1 MET 2. Sit-Supine : min A x 1 MET 3. Sit-Stand : min A x 1MET 4. Stand-Sit : min A x 1 MET 5. Bed-Chair : stand pivot with FWW and mod A x 1 MET 6. Chair-Bed : stand pivot with FWW and mod A x 1 MET 7. Gait : 20' with FWW and mod A x 1 MET DISCHARGE RECOMMENDATIONS: [] ? Home with no services [] [] ? Home with services [specify] [] ? Home with outpatient PT [] [X] ? SNF for continued rehabilitation.? Patient will benefit from group home facility placement for continued skilled physical therapy services in order to progress mobility level, strength, and balance. [] ? [facility] [] [] ? SNF versus LTC based on ability to participate and progress [] TREATMENT CODE/TIME: [place] Thank you for the opportunity to participate in the care of this patient. Haley Wright PT, DPT, CLT [facility] [place], [place]
== END 2021-12-23 11:00 | disposition skilled nursing facility (03) | DRG 682 ==
PROVIDERS: General Practice; Internal Medicine; Nurse Practitioner Family; Student in an Organized Health Care Education/Training Program; Admitting Provider Family Medicine; PCP Nurse Practitioner Family; Visit Provider Family Medicine
PROC: 3E0U33Z Introduction of Anti-inflammatory into Joints, Percutaneous Approach (ICD-10-PCS; CPT 20610; principal; 2021-12-15 13:45)
DX: N17.9 Acute kidney failure, unspecified (principal); J81.0 Acute pulmonary edema; J18.9 Pneumonia, unspecified organism; I13.0 Hypertensive heart and chronic kidney disease with heart failure and stage 1 through stage 4 chronic kidney disease, or unspecified chronic kidney disease; J98.11 Atelectasis; I50.22 Chronic systolic (congestive) heart failure; N10 Acute pyelonephritis; M16.11 Unilateral primary osteoarthritis, right hip; M17.11 Unilateral primary osteoarthritis, right knee; N20.0 Calculus of kidney; Z79.4 Long term (current) use of insulin; E11.22 Type 2 diabetes mellitus with diabetic chronic kidney disease; N18.4 Chronic kidney disease, stage 4 (severe); I48.91 Unspecified atrial fibrillation; R53.1 Weakness; E86.0 Dehydration; I25.5 Ischemic cardiomyopathy; I87.8 Other specified disorders of veins; I25.10 Atherosclerotic heart disease of native coronary artery without angina pectoris; I25.2 Old myocardial infarction; Z66 Do not resuscitate; E83.42 Hypomagnesemia; Y95 Nosocomial condition; F32.A Depression, unspecified; L89.159 Pressure ulcer of sacral region, unspecified stage; E11.65 Type 2 diabetes mellitus with hyperglycemia; E66.01 Morbid (severe) obesity due to excess calories; Z68.31 Body mass index [BMI] 31.0-31.9, adult; E53.8 Deficiency of other specified B group vitamins; D63.1 Anemia in chronic kidney disease; R07.89 Other chest pain; R26.2 Difficulty in walking, not elsewhere classified; E87.5 Hyperkalemia; G89.29 Other chronic pain; M79.605 Pain in left leg; M79.604 Pain in right leg
CPT/HCPCS: 20610; 36410; 36415; 80048; 80053; 82668; 82805; 84145; 85027; 86850; 86900; 86901; 86920; 87040; 87081; 87635; 93308; 97110; 97162; 97167; 97530; 97535; 99223; 71045; 71046; 72170; 73501; 74176; 81003; 81015; 82272; 82607; 82728; 82746; 83540; 83550; 83605; 83735; 84484; 85025; 85049; 86140; 87086; 99232; 99233; 99239; J0696; J1040; J1644; J1940; J2997; J3490; J7512; P9016

== ENCOUNTER 2021-12-29 16:39 | Emergency (ER) | payer MEDICARE, SELFPAY ==
[2021-12-29] VITALS (38 sets, daily range): BP systolic 115–149; BP diastolic 43–98; PULSE 75–81; RESP 18; TEMP 36.7–37.1; O2SAT 92–98
--- NOTE | 2021-12-29 17:16 | ED.GENADUL_ITS ---
Discharge Plan Disposition Patient Disposition: [facility] Condition: Stable Discharge Details Clinical Impression: Acute osteomyelitis of left clavicle, Chest wall abscess Primary Care Provider: Jocelin Martinez ED Provider: Nasrin Masterson Meds and New Rx's Prescriptions: No Action atorvastatin [Lipitor] 40 mg tablet 40 mg PO QPM Qty: 90 4RF aspirin 81 mg tablet,delayed release (DR/EC) 81 mg PO DAILY Qty: 100 0RF (DME) FreeStyle Test Strip 1 ea Miscellaneous BID Qty: 360 4RF Rx Instructions: Check blood sugar four times a day (DME) pen needle, diabetic [Comfort EZ Pen [place]] 31 gauge x 5/16 needle See Dose Instructions .ROUTE .MEDSUPPLY Qty: 1200 4RF Dose Instruction: As directed Rx Instructions: Use with insulin pens insulin aspart U-100 100 unit/mL (3 mL) Insulin Pen 9 unit SUBCUT TIDWMEAL 0RF capsaicin 0.1 % Cream 1 applic TOPICAL TID 0RF Rx Instructions: do not wash area for at least 30 min after application lidocaine 5 % Adhesive Patch,Medicated 1 patch TOPICAL DAILY 0RF Rx Instructions: leave on most painful area for up to 12 hrs sodium bicarbonate 650 mg Tablet 1,300 mg PO TID 0RF pantoprazole 40 mg tablet,delayed release (DR/EC) 20 mg PO DAILY Qty: 0 0RF furosemide 20 mg tablet 40 mg PO BID Qty: 0 0RF gabapentin 100 mg Capsule 300 mg PO HS Qty: 0 0RF metoprolol tartrate 25 mg Tablet 25 mg PO BID Qty: 0 0RF Lantus Solostar U-100 Insulin 100 unit/mL (3 mL) insulin pen 20 unit subcut DAILY Qty: 9 4RF insulin aspart U-100 [Novolog Flexpen U-100 Insulin] 100 unit/mL (3 mL) Insulin Pen 0 units subcut 0800,1200,1700,2200 Qty: 0 0RF nitroglycerin [Nitrostat] 0.4 mg Tablet, Sublingual 0.4 mg sublingual Q5 MIN PRN X3 PRNQty: 20 0RF Medical Decision Making This is an 81-year female, coming from local senior living home, past medical history that includes anemia, chronic kidney disease, hypertension, heart fail ure, palliative care patient, diabetes, presenting for neck mass and or swelling that she states is like painful and began sometime overnight. There is noted speaking, swallowing, her airway is patent. Given her presentation and age, difficult to imagine this occurred that quickly, concern for cancer mass. Plan is to obtain IV access, routine screening laboratory values, and will obtain CT imaging of both her neck and chest. Unfortunately because of her kidney status, CT will need to be without contrast. Laboratory values reveal stable chronic anemia and renal disease. CT pending. Patient signed out to my colleague VANESSA Masterson with CT pending and disposition [facility]: Please see my progress note. Medical Records Medical records reviewed: Yes I reviewed the patient's medical records. Lab Data Lab results reviewed: Yes I reviewed the patient's lab results. Labs: Laboratory Tests Range/Units 12/29/21 12/29/21 12/29/21 18:38 18:38 18:38 WBC (4.4-10.8) 10^3/uL 11.14 H RBC (3.93-5.22) 10^6/uL 2.75 L Hgb (11.2-15.7) g/dL 8.3 L Hct (36.0-46.0) % 27.4 L MCV (80-95) fL 99.6 H MCH (27.0-33.0) pg 30.2 MCHC (32.0-36.0) % 30.3 L RDW (11.7-14.6) % 17.0 H Plt Count (130-400) 10^3/uL 212 MPV (8.0-11.0) fL 12.3 H Immature Gran % 0.4 Neutrophils % 75.3 Lymphocytes % 13.2 Monocytes % 7.4 Eosinophils % 3.5 Basophils % 0.2 Nucleated RBC % % 0 Absolute Neutrophils (1.2-6.7) 10^3/uL 8.39 H Absolute Lymphocytes (1.2-3.4) 10^3/uL 1.47 Absolute Monocytes (0.1-0.8) 10^3/uL 0.82 H Absolute Eosinophils (0.0-0.7) 10^3/uL 0.39 Absolute Basophils (0.0-0.2) 10^3/uL 0.02 PT (9.3-11.0) sec 11.7 H INR (0.9-1.1) 1.2 H APTT (21.0-27.5) sec 23.0 Sodium (136-145) mmol/L 139 Potassium (3.5-5.1) mmol/L 4.2 Chloride (98-107) mmol/L 102 Carbon Dioxide (21.0-32.0) mmol/L 29.1 Anion Gap (3-11) mmol/L 7.9 BUN (7-18) mg/dL 79 H Creatinine (0.55-1.02) mg/dL 3.0 H Estimated GFR/1.73 m2 (mL/min/1.73m2) 14.94 Glucose (74-106) mg/dL 116 H Calcium (8.5-10.1) mg/dL 8.1 L Total Bilirubin (0.2-1.0) mg/dL 0.5 AST (15-37) U/L 66 H ALT (14-59) U/L 65 H Alkaline Phosphatase (46-116) U/L 182 H Total Protein (6.4-8.2) g/dL 7.5 Albumin (3.4-5.0) g/dL 2.2 L Date: 12/29/21 Time: 19:34 Note: Patient seen, examined, and discussed with PABLO Brown. I agree with treatment plan as discussed/documented. HPI General Mode of arrival: EMS . Date/Time Provider Initiated Documentation: 12/29/21 16:45 . Limitations to Documentation: no limitations . Information obtained by: patient and EMS . History of Present Illness 81 year old F presents to the emergency department with the chief complaint of L neck swelling, described as mild, with intensity rated at 3. Quality is described as aching, and is localized to the neck. Patient reports no radiation. Patient started experiencing this hour(s) (12) and it has been constant. improves with No relieving factors improve symptom(s), Movement worsens symptoms . Patient notes no other symptoms.. Patient did receive the following treatments prior to arrival, none Related Data Home Medications Medication Instructions Recorded Confirmed nitroglycerin 0.4 mg sublingual 0.4 mg SUBLINGUAL Q5 MIN PRN X3 09/23/20 tablet (Nitrostat) PRN #20 tab aspirin 81 mg tablet,delayed 81 mg PO DAILY #100 tab 08/03/21 12/29/21 release blood sugar diagnostic (FreeStyle #360 strip 08/03/21 12/04/21 Test) pen needle, diabetic 31 gauge x #1200 ea 08/03/21 12/04/21 516 (Comfort EZ Pen [place]) atorvastatin 40 mg tablet (Lipitor) 40 mg PO QPM #90 tab 11/09/21 12/29/21 capsaicin 0.1 % topical cream 1 applic TOPICAL TID 12/05/21 12/29/21 insulin aspart U-100 100 unit/mL 9 unit SUBCUT TIDWMEAL 12/05/21 12/29/21 (3 mL) subcutaneous pen lidocaine 5 % topical patch 1 patch TOPICAL DAILY 12/05/21 12/29/21 sodium bicarbonate 650 mg tablet 1,300 mg PO TID 12/05/21 12/29/21 furosemide 20 mg tablet 40 mg PO BID #0 tab 12/23/21 12/29/21 gabapentin 100 mg capsule 300 mg PO HS #0 cap 12/23/21 12/29/21 insulin aspart U-100 100 unit/mL 0 units (0 mL) SUBCUT 12/23/21 (3 mL) subcutaneous pen (Novolog 0800,1200,1700,2200 #0 ml Flexpen U-100 Insulin aspart) insulin glargine 100 unit/mL (3 20 unit (0.2 mL) SUBCUT DAILY #9 12/23/21 12/29/21 mL) subcutaneous pen (Lantus syrg Solostar U-100 Insulin) metoprolol tartrate 25 mg tablet 25 mg PO BID #0 tab 12/23/21 12/29/21 pantoprazole 40 mg tablet,delayed 20 mg PO DAILY #0 tab 12/23/21 12/29/21 release Previous Rx's Medication Instructions Recorded nitroglycerin 0.4 mg sublingual 0.4 mg SUBLINGUAL Q5 MIN PRN X3 09/23/20 tablet (Nitrostat) PRN #20 tab aspirin 81 mg tablet,delayed 81 mg PO DAILY #100 tab 08/03/21 release blood sugar diagnostic (FreeStyle #360 strip 08/03/21 Test) pen needle, diabetic 31 gauge x #1200 ea 08/03/21 516 (Comfort EZ Pen [place]) atorvastatin 40 mg tablet (Lipitor) 40 mg PO QPM #90 tab 11/09/21 furosemide 20 mg tablet 40 mg PO BID #0 tab 12/23/21 gabapentin 100 mg capsule 300 mg PO HS #0 cap 12/23/21 insulin aspart U-100 100 unit/mL 0 units (0 mL) SUBCUT 12/23/21 (3 mL) subcutaneous pen (Novolog 0800,1200,1700,2200 #0 ml Flexpen U-100 Insulin aspart) insulin glargine 100 unit/mL (3 20 unit (0.2 mL) SUBCUT DAILY #9 12/23/21 mL) subcutaneous pen (Lantus syrg Solostar U-100 Insulin) metoprolol tartrate 25 mg tablet 25 mg PO BID #0 tab 12/23/21 pantoprazole 40 mg tablet,delayed 20 mg PO DAILY #0 tab 12/23/21 release Allergies Allergy/AdvReac Type Severity Reaction Status Date / Time Penicillins Allergy Unknown Verified 12/29/21 16:44 hydrocodone AdvReac Intermediate Nausea Verified 12/29/21 16:44 General Stated Complaint: RashLesion TAMMIE: 3 Review of Systems Constitutional Constitutional: Denies fever(s) ENT Ears, Nose, Mouth, and Throat: Reports neck pain and Denies sore throat Cardiovascular Cardiovascular: Denies chest pain and Denies dyspnea Respiratory Respiratory: Denies cough and Denies dyspnea Gastrointestinal Gastrointestinal: Denies abdominal pain, Denies nausea and Denies vomiting Musculoskeletal Musculoskeletal: Reports neck pain Integumentary/Breasts Skin/Breast: Denies rash Hematologic/Lymphatic Hematologic/Lymphatic: Denies easy bleeding and Denies easy bruising PFSH All Active Problems (Updated 12/29/21 @ 21:47 by Nasrin Masterson) Acute osteomyelitis of left clavicle (Acute) Chest wall abscess (Acute) Leucocytosis (Acute) Ambulatory dysfunction (Acute) Left nephrolithiasis (Acute 09/2021) Coronary artery disease (Chronic) [place] 08/2020, NSTEMI 09/2021 Venous insufficiency (Acute) Peripheral edema (Acute) Drainage from surgical wound (Acute) Medical History Anemia Chronic kidney disease Depression 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) Essential hypertension Heart failure with reduced ejection fraction Ischemic cardiomyopathy Myocardial infarction (~08/2020) Apical and septal infarct Non-ST elevation [place] (NSTEMI) (09/2021) Normocytic anemia Osteoarthritis of right hip Injection: 12/15/2021 Palliative care patient Perforated duodenal ulcer (~12/2020) Pneumonia Primary osteoarthritis of left knee Most recent injection: 08/06/2019 Primary osteoarthritis of right knee Most recent injection: 08/06/2019 Sacral decubitus ulcer Sepsis (09/2021) Syncope Related to use of lisinopril occurring both at rest while having her hair washed in beauty parlor as well as occurring while ambulating. None have occurred since cessation of her lisinopril Type 2 diabetes mellitus Uric acid nephrolithiasis Surgical History S/P exploratory laparotomy (01/18/21) [place] patch for perforated duodenal ulcer Family History Mother , AGE 78 Diabetes Father No problems noted. 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 Pets and animals: No Current gender identity: female What type of physical activity do you participate in: walking Duration: decline to answer Frequency: 3-4 times per week Sonia/Scientologist: Protestant Special sonia needs: No Do you feel safe at home: Yes Additional Social history: from [facility] Exam Const General: cooperative, healthy appearing, comfortable and no acute distress Orientation: alert and awake [facility] Head: normal to inspection, normocephalic and atraumatic Face and sinus: normal facial exam Mouth: moist mucous membranes Eyes Conjunctivae: conjunctivae normal Neck Neck: full ROM, no meningeal signs, trachea midline and supple Neck images: 1. Firm, dense, tender, minimally erythematous tissue. There is no fluctuance or pointing abscess. Skin is intact. Resp Effort & Inspection: normal respiratory effort and able to speak in complete sentences Auscultation: diminished lung sounds bilaterally in the lower lung colby Cardio Rate: regular rate Rhythm: regular rhythm GI Palpation: soft, not firm, no guarding, no pulsatile masses and nontender Back/Spine/Pelvis Back: No back tenderness Skin Rashes: no rashes Neuro General: patient alert, patient awake, moves all extremities and no focal motor deficits Cognition: normal cognition Speech: speech normal Sensory Exam: no sensory deficits noted Extrem General: normal to inspection, full ROM and capillary refill normal Psych Appearance: grossly normal Mental Status: mental status grossly normal Course Vital Signs Vital signs: Vital Signs Temperature 36.7 C 12/29/21 16:42 Pulse 75 12/29/21 16:42 Respiratory Rate 18 12/29/21 16:42 Blood Pressure 149/52 H 12/29/21 16:42 Pulse Oximetry 95 12/29/21 16:42 Temperature 36.7 C 12/29/21 16:42 Temperature Source Skin 12/29/21 16:42 Pulse 75 12/29/21 16:42 Respiratory Rate 18 12/29/21 16:42 Respiratory Effort 12/29/21 16:53 Blood Pressure 149/52 H 12/29/21 16:42 Blood Pressure Position Supine 12/29/21 16:42 Pulse Oximetry 95 12/29/21 16:42 Oxygen Delivery Method Room Air 12/29/21 16:42 Oxygen Flow Rate 0 12/29/21 16:42 Pain Level 0 12/29/21 16:42 Procedures EJ/Peripheral Line Arm R: Time Out Performed: Yes Size (gauge): 18 IV Secured and Dressing Applied: Yes Patient Tolerated Procedure: well Additional Comments: Ultrasound utilized for direct visualization during procedure Sign Out Sign Out Data: Sign Out Comment: Neck mass-swelling, patient reports developed overnight. Airway is patent. No difficulty speaking or swallowing. Baseline anemia and CKD. Awaiting CT imaging and disposition Last updated by Niraj Brown PA at 12/29/21 20:01
--- NOTE | 2021-12-29 17:17 | DI.CT_ITS ---
Exam(s) CT NECK WO EXAM: CT NECK WO CLINICAL HISTORY: L anterior swelling/mass. TECHNIQUE: Imaging Protocol: Axial CT angiography was performed with multi-slice acquisition and mu lti-planar and/or 3D reconstructions. CONTRAST MATERIAL: Intravenous: None COMPARISON: CR XR CHEST 2V PA LATERAL from 12/18/2021 FINDINGS: Nasopharynx: Unremarkable Oropharynx: Unremarkable Retropharyngeal space: Unremarkable. Hypopharynx: Unremarkable Free edge of the epiglottis and valleculae are unremarkable as are the aryepiglottic folds. Vocal cords and subglottic airway: Unremarkable. Thyroid gland: Normal size but exhibits nodules bilaterally. Salivary glands: Parotid and submandibular glands appear unremarkable. Other: There is a large destructive mass involving the medial left clavicle, cyst left sternoclavicul ar joint, left side of the sternum, and extending up to involve the ipsilateral left sternocleidomast oid muscle. This contains gas bubbles and is most probably a large infectious process. This measure s 6.2 cm AP by 5.8 cm wide by 6 cm craniocaudal. Also involves 1st sternocostal joint. There is adj acent fat stranding. Ipsilateral left pleural effusion incidentally noted. IMPRESSION: 1. There is a large destructive process having epicenter in the region of the left sternoclavicular j oint and left 1st sternocostal joint with destruction of the adjacent sternum and involvement of the medial aspect of the left clavicle and fluid-gas collection in the adjacent left sternocleidomastoid. First consideration is this is large abscess and osteomyelitis. Also possibly neoplasm. Study is somewhat limited due to lack of IV contrast. 2. Incidentally noted is ipsilateral left pleural effusion. Study 1st read by [facility] RADIATION DOSE DELIVERED: 660.4mGy.cm Total DLP DATA REPOSITORY: All CT scans at this facility are submitted to the National Radiology Data Registry (NRDR) Dose Index Registry (DIR) with the [employer] (ACR). RADIATION OPTIMIZATION: All CT scans at this facility use at least one of these dose optimization te chniques: automated exposure control; mA and/or kV adjustment per patient size (includes targeted exa ms where dose is matched to clinical indication); or iterative reconstruction.
--- NOTE | 2021-12-29 17:17 | DI.CT_ITS ---
Exam(s) CT CHEST WO EXAM: CT CHEST WO CLINICAL HISTORY: L anterior mass/swelling. TECHNIQUE: Multi planar reconstructions were performed. CONTRAST MATERIAL: None COMPARISON: No exams were available for comparison FINDINGS: CHEST: LUNGS: There is a moderate-sized left pleural effusion and subjacent atelectasis in the lower lobe. Also mild increased markings throughout the left upper lobe. Right lung is relatively clear. No sig nificant focal findings in trachea and mainstem bronchi. MEDIASTINUM: There is no obvious hilar nor mediastinal adenopathy. No obvious axillary adenopathy CARDIAC: Mild cardiomegaly. There is also a small pericardial effusion with maximum thickness 4 mill imeters.Caliber of the thoracic aorta is within normal limits. VISUALIZED UPPER ABDOMEN: No significant adrenal masses. No splenomegaly. OSSEOUS: There is enlarged destructive process centered around the left sterno clavicular joint and d escribed on the neck CT scan. This contains gas bubbles and is probably infectious and is noted to e xtend up the ipsilateral left sternal collateral mastoid muscle and with surrounding fat tissue strea waleska.. IMPRESSION: 1. There is a large destructive mass centered in and around the left sternoclavicular joint, further described on the neck CT scan. This is seen extending to involve the ipsilateral left sternocleidoma stoid muscle. Also involves the medial aspect of the left clavicle. Given that it contains gas bubb les and is most probably infectious process-probable large abscess. 2. There is an ipsilateral moderate-sized left pleural effusion.. There is also mild infiltrate and some atelectasis in the left lung base. 3. There is no hilar nor mediastinal adenopathy. RADIATION DOSE DELIVERED: 769.62mGy.cm Total DLP DATA REPOSITORY: All CT scans at this facility are submitted to the National Radiology Data Registry (NRDR) Dose Index Registry (DIR) with the [employer] (ACR). RADIATION OPTIMIZATION: All CT scans at this facility use at least one of these dose optimization te chniques: automated exposure control; mA and/or kV adjustment per patient size (includes targeted exa ms where dose is matched to clinical indication); or iterative reconstruction.
--- NOTE | 2021-12-29 18:03 | NUR.NOTE ---
Nursing Note: Pt remains w/o complaints, no change noted to swelling in left neck. Attempted blood draw and IV start x2 unsuccessfully, Anastasiya RN in to see pt for IV start & blood draw, continue to monitor.
--- NOTE | 2021-12-29 18:49 | NUR.NOTE ---
Nursing Note: Unsuccessful IV start by BRENDA Langford, provider aware and in to see pt.
[2021-12-29 18:50] LABS: Abs Immature Grans 0.04 10^3/uL (0.0-0.06); Absolute Basophil Count 0.02 10^3/uL (0.0-0.2); Absolute Eosinophil Count 0.39 10^3/uL (0.0-0.7); Absolute Lymphocyte Count 1.47 10^3/uL (1.2-3.4); Absolute Monocyte Count 0.82 10^3/uL (0.1-0.8); Basophils % 0.2; Eosinophils % 3.5; HCT 27.4 % (36.0-46.0); HGB 8.3 g/dL (11.2-15.7); Immature Grans % 0.4; Lymphocytes % 13.2; MCH 30.2 pg (27.0-33.0); MCHC 30.3 % (32.0-36.0); MCV 99.6 fL (80-95); MPV 12.3 fL (8.0-11.0); Monocytes % 7.4; Neutrophils % 75.3; Nucleated RBC 0 %; Platelet Count 212 10^3/uL (130-400); RBC 2.75 10^6/uL (3.93-5.22); RDW-SD 61.5 fL; WBC 11.14 10^3/uL (4.4-10.8)
[2021-12-29 18:54] LABS: Absolute Neutrophil Count 8.39 10^3/uL (1.2-6.7)
[2021-12-29 19:02] LABS: INR 1.2 (0.9-1.1); Prothrombin Time 11.7 sec (9.3-11.0)
[2021-12-29 19:04] LABS: ALT 65 U/L (14-59); AST 66 U/L (15-37); Albumin 2.2 g/dL (3.4-5.0); Alkaline Phosphatase 182 U/L (46-116); Anion Gap 7.9 mmol/L (3-11); BUN 79 mg/dL (7-18); Bilirubin, Total 0.5 mg/dL (0.2-1.0); CO2 29.1 mmol/L (21.0-32.0); Calcium 8.1 mg/dL (8.5-10.1); Chloride 102 mmol/L (98-107); Estimated GFR 14.94 (mL/min/1.73m2); Glucose 116 mg/dL (74-106); Potassium 4.2 mmol/L (3.5-5.1); Sodium 139 mmol/L (136-145); Total Protein 7.5 g/dL (6.4-8.2)
--- NOTE | 2021-12-29 19:23 | NUR.NOTE ---
Nursing Note: IV access achieved by LAURA Espinosa 18g, saline lock secured. Pt given incontinence care. Pt denies any new complaints, no change to swelling in left side of neck, cont. to monitor.
--- NOTE | 2021-12-29 20:37 | NUR.NOTE ---
Nursing Note: No changes in pt status, request and receive apple juice, awaiting CT results, continue to monitor.
--- NOTE | 2021-12-29 20:41 | DI.VRAD_ITS ---
PROCEDURE INFORMATION: Exam: CT Chest Without Contrast; Diagnostic Exam date and time: 12/29/2021 7:56 PM Age: 81 years old Clinical indication: Pain; Other: L anterior mass/swelling TECHNIQUE: Imaging protocol: Diagnostic computed tomography of the chest without contrast. 3D rendering (Not supervised by radiologist): MIP and/or 3D reconstructed images were created by the technologist. Radiation optimization: All CT scans at this facility use at least one of these dose optimization techniques: automated exposure control; mA and/or kV adjustment per patient size (includes targeted exams where dose is matched to clinical indication); or iterative reconstruction. COMPARISON: CT THORAX ABD/PEL CTA 01/17/2021 6:51 PM FINDINGS: Thyroid: Normal thyroid. Lungs: Dependent opacity noted in the left lung base. Scattered ground-glass opacity. Respiratory motion artifact. Pleural spaces: Moderate left pleural effusion. Trace right pleural effusion. No pneumothorax. Heart: Mild cardiomegaly. Trace pericardial effusion. Severe coronary artery calcifications. Mediastinal space: Unremarkable superior mediastinum. Aorta: Unremarkable. No aortic aneurysm. Lymph nodes: Negative for mediastinal lymphadenopathy. Bones/joints: A complex 5 cm mass containing fluid and air is centered at the left sternoclavicular joint. Bony destruction and erosion are noted at the sternum, and irregular foci of air are present within the proximal clavicle. There is no dislocation. Articulation of the 1st rib in the sternum is unremarkable. The mass/collection is new from December 2020. Negative for compression fracture in the visualized spine. Multilevel degenerative disc disease present. Soft tissues: Unremarkable. IMPRESSION: 1. Suspect osteomyelitis and abscess centered at the left sternoclavicular joint. 2. Moderate left pleural effusion. 3. Associated left basilar atelectasis/consolidation. Dictated and Authenticated by: Moises Morris MD. Ordering:FRANC Healy MD
--- NOTE | 2021-12-29 20:51 | DI.VRAD_ITS ---
PROCEDURE INFORMATION: Exam: CT Neck Without Contrast Exam date and time: 12/29/2021 7:46 PM Age: 81 years old Clinical indication: Neck pain; Patient HX: L anterior swelling/mass TECHNIQUE: Imaging protocol: Computed tomography images of the neck without contrast. Radiation optimization: All CT scans at this facility use at least one of these dose optimization techniques: automated exposure control; mA and/or kV adjustment per patient size (includes targeted exams where dose is matched to clinical indication); or iterative reconstruction. COMPARISON: CT HEAD WO 11/21/2021 9:36 AM FINDINGS: Nasopharynx: Unremarkable. Oropharynx: Unremarkable. No significant tonsillar enlargement. Hypopharynx: Unremarkable. Larynx: Unremarkable. Normal epiglottis. Retropharyngeal space: Unremarkable. Submandibular/Parotid glands: Normal. Glands are normal in size. Thyroid: Normal. No enlarged or calcified nodules. Lymph nodes: There are a few prominent lymph nodes in the left distal cervical chain. Trachea: Visualized trachea is unremarkable. Lungs: A moderate left pleural effusion is partially visualized. Bones/joints: There is a large heterogeneous lesion centered about the left sternoclavicular joint and 1st sternocostal joint with bony destruction and a large soft tissue component measuring 6.2 x 5.8 cm. The adjacent clavicular head appears osteopenic with multifocal areas of cortical destruction. Bony destruction is present along the manubrium. There are multiple foci of gas in the head of the clavicle as well as in the soft tissue component. Soft tissues: There is an expansile fluid and gas collection tracking along the left sternocleidomastoid muscle measuring 2.2 x 2.0 x 5.5 cm. There is hazy fat stranding adjacent to the lesions . IMPRESSION: 1. Large heterogeneous lesion centered about the left sternoclavicular joint and left 1st sternocostal joint, which is partially included in the field of view, with associated bony destructive changes, a fluid and gas collection along the left sternocleidomastoid muscle and surrounding inflammatory changes. Differential considerations include an infectious etiology with osteomyelitis and abscess formation, or a neoplasm. Evaluation is limited due to the lack of intravenous contrast. 2. Moderate left pleural effusion. Dictated and Authenticated by: Darcy Finney MD. Ordering:FRANC Healy MD
[2021-12-29 21:02] LABS: Source Nasal/Nares
--- NOTE | 2021-12-29 21:10 | W.EDPROG ---
Date of service: 12/29/21 Time of Service: 20:00 Medical Decision Making Care assumed from provider (PABLO Spencer Please see their initial HPI, PE, and documentation. Discussed patient details and case and pending workup and disposition. Patient is hemodynamically stable, and alert and oriented. At the time of signout CT chest CT neck pending. In short patient is 81-year-old female who presents from health and rehab with swollen area on the left side of her neck which she reports came on within the last 2 to 3 days. She reports not noticing them before that. She denies any difficult swallowing or speaking. My blood cell count 11.14, hemoglobin 8.3, hematocrit 27.4 Patient is a DNR/DNI as of her last admission here discharged on December 232021, she does have a past medical history of CHF, chronic kidney disease, diabetes, NSTEMI, osteoarthritis, sacral decubitus ulcer Covid swab ordered. Covid negative. 2119: [facility] [place] pushed. Will consult with Thoracic surgery. Spoke with Dr. Scott at [facility] regarding patient case and details he reccommends surgical debridement in a.m., Vancomycin, and Cefipime. He agrees to accept patient for ED to ED transfer. Plan of care discussed with patient who verbalized understanding and is in agreement with plan. He also recommends n.p.o. starting now. Patient placed on n.p.o. status. Upon further evaluation right 18-gauge IV noted to be infiltrated. Vancomycin infusion stopped. Dr. Sarah Mallory, ER attending at bedside to place ultrasound-guided IV. Vancomycin restarted. 2233: EMS here. Report given. Patient transferred to [facility] for further evaluation and consultation with cardiothoracic surgery. Patient's vital signs prior to discharge 128/49, pulse 81 respirations 18 temp 37.1 O2 sat 94% room air. Sign Out Sign Out Data: Sign Out Comment: Neck mass-swelling, patient reports developed overnight. Airway is patent. No difficulty speaking or swallowing. Baseline anemia and CKD. Awaiting CT imaging and disposition Last updated by Niraj Brown PA at 12/29/21 20:01 Discharge Plan Disposition Patient Disposition: [facility] Condition: Stable Discharge Details Clinical Impression: Acute osteomyelitis of left clavicle, Chest wall abscess Primary Care Provider: Jocelin Martinez ED Provider: Nasrin Masterson Home Meds and New Rx's Prescriptions: No Action atorvastatin [Lipitor] 40 mg tablet 40 mg PO QPM Qty: 90 4RF aspirin 81 mg tablet,delayed release (DR/EC) 81 mg PO DAILY Qty: 100 0RF (DME) FreeStyle Test Strip 1 ea Miscellaneous BID Qty: 360 4RF Rx Instructions: Check blood sugar four times a day (DME) pen needle, diabetic [Comfort EZ Pen Luna] 31 gauge x 5/16 needle See Dose Instructions .ROUTE .MEDSUPPLY Qty: 1200 4RF Dose Instruction: As directed Rx Instructions: Use with insulin pens insulin aspart U-100 100 unit/mL (3 mL) Insulin Pen 9 unit SUBCUT TIDWMEAL 0RF capsaicin 0.1 % Cream 1 applic TOPICAL TID 0RF Rx Instructions: do not wash area for at least 30 min after application lidocaine 5 % Adhesive Patch,Medicated 1 patch TOPICAL DAILY 0RF Rx Instructions: leave on most painful area for up to 12 hrs sodium bicarbonate 650 mg Tablet 1,300 mg PO TID 0RF pantoprazole 40 mg tablet,delayed release (DR/EC) 20 mg PO DAILY Qty: 0 0RF furosemide 20 mg tablet 40 mg PO BID Qty: 0 0RF gabapentin 100 mg Capsule 300 mg PO HS Qty: 0 0RF metoprolol tartrate 25 mg Tablet 25 mg PO BID Qty: 0 0RF Lantus Solostar U-100 Insulin 100 unit/mL (3 mL) insulin pen 20 unit subcut DAILY Qty: 9 4RF insulin aspart U-100 [Novolog Flexpen U-100 Insulin] 100 unit/mL (3 mL) Insulin Pen 0 units subcut 0800,1200,1700,2200 Qty: 0 0RF nitroglycerin [Nitrostat] 0.4 mg Tablet, Sublingual 0.4 mg sublingual Q5 MIN PRN X3 PRNQty: 20 0RF
--- NOTE | 2021-12-29 21:23 | NUR.NOTE ---
Nursing Note: Incontinence care done, pt talked on phone with family, cont. to monitor.
[2021-12-29] MEDS: VANCOMYCIN 1,000 MG in Normal Saline 250 ML 166.6666 MG IVPB (21:32)
--- NOTE | 2021-12-29 21:40 | NUR.NOTE ---
Nursing Note: Pt has IV vancomycin infusing, warm blanket given, VSS, cont. to monitor, pt is NPO.
[2021-12-29 21:41] LABS: COVID-19 PCR Negative (Negative)
== END 2021-12-29 22:34 | disposition short-term general hospital (02) ==
PROVIDERS: Physician Assistant; Emergency Provider Registered Nurse Emergency; PCP Nurse Practitioner Family
DX: M86.112 Other acute osteomyelitis, left shoulder (principal); L02.213 Cutaneous abscess of chest wall; Z20.822 Contact with and (suspected) exposure to COVID-19; I12.9 Hypertensive chronic kidney disease with stage 1 through stage 4 chronic kidney disease, or unspecified chronic kidney disease; E11.22 Type 2 diabetes mellitus with diabetic chronic kidney disease; N18.9 Chronic kidney disease, unspecified
CPT/HCPCS: 36556; 71250; 80053; 87635; 96365; 99285; 70490; 85025; 85610; 85730

== ENCOUNTER 2022-04-19 12:12 | Observation (INO) | payer MEDICARE, SELFPAY ==
[2022-04-19 12:10] VITALS: BP 159/137; PULSE 79; RESP 18; TEMP 36.7; O2SAT 96
--- NOTE | 2022-04-19 12:30 | W.ED.GENAD ---
Discharge Plan Disposition Patient Disposition: [facility] Condition: Stable Discharge Details Chief Complaint: GenMedical Clinical Impression: Hyperkalemia Admit Date/Time: 04/19/22 16:07 Admit Provider: Dhaval Ely Attending Provider: Dhaval Ely Primary Care Provider: Jocelin Martinez ED Provider: Trini Duffy Discharge Instructions Activity:: Activity as Tolerated Equipment/Supplies:: No Equipment Needed Diet:: low potassium, renal Discharge Orders Discharge Orders: Discharge Order (Routine); Ordered 04/20/22 Ordered By: Aleta Zarate Discharge Data Discharge Date/Time-TO BE ENTERED AT DEPARTURE: 04/19/22 17:07 Medical Decision Making Vy Martinezr is an 81-year-old woman with a history of chronic kidney disease, insulin-dependent diabetes, hypertension, heart failure with reduced ejection fraction, coronary artery disease presenting to emergency department with worsening chronic wounds. Patient reports that she has a wound on her anterior chest just below her neck that has been chronic, was down to bone in the past, has been healing gradually. She reports that she went to see her surgeon at [facility] for this wound 1 week ago, who stated that he would see her in a week to 10 days for possible repeat surgery. Patient reports that she has a home health nurse who tends to her chronic leg wounds and to the chest wound. Patient states that her home health nurse was concerned about yellow discharge coming from the neck wound, and was also concerned about worsening appearance of her chronic leg wounds and wanted her to come to the emergency department. Patient reports that she has chronic pain in both of her lower legs that is unchanged. She denies any other pain, fever, cough, shortness of breath, vomiting, diarrhea, numbness, focal weakness. Patient reports that she is nonambulatory at baseline and stand and pivot from chair to bed. On exam Pt with chronic wound of the anterior chest, no drainage noted, no surrounding erythema, no TTP, no crepitus. Chronic wounds b/l lower legs with serous drainage, erythema that appears consistent with chronic venous stasis, no warmth, no focal TTP, no crepitus. Diffuse mild TTP of the lower legs b/l. DP pulses intact and symmetric, brisk cap refill feet/toes b/l. Sensation intact. Concern for chronic wounds, possible metabolic/lyte derangement, dehydration, possible infection, DVT, other. Exam/hx at this time not c/w sepsis, apparent abscess, necrotizing fasciitis, pulmonary embolism, ACS, CHF. Plan for screening labs, IV placement, will consult Pt's cardiothoracic surgeon re: chest wound. 1430: [facility] [place], awaiting callback from Dr. Scott of thoracic surgery Called back by Dr. Scott, discussed pt presentation. Dr. Scott states chest wound chronically drains purulent material, wound will need revision in the near future, no emergent acute intervention recommended at this time, will see Pt in f/u. Labs reviewed, WBC 7.43, Hgb 9.0, d-dimer 1943, lactate 1.5, K 5.5, Cr 3.0. Plan for US b/l LEs, EKG, lasix for hyperkalemia. EKG okay. US negative. Plan for admission for CKD with hyperkalemia. Medical Records Medical records reviewed: Yes I reviewed the patient's medical records. Imaging Data Radiologic Study: Radiologist's impression: EXAM:? US EXTREMITY VENOUS BI CLINICAL HISTORY:? b/l lower extremity pain and swelling TECHNIQUE:? Grayscale, color, and doppler imaging of the deep venous system of both lower extremities was performed. COMPARISON:? US US ECHO FOLLOW-UP OR LIMITED from 12/16/2021 FINDINGS: There is no evidence of intraluminal thrombus and there is normal compression and augmentation demonstrated within the common femoral veins, femoral veins, and popliteal veins of both lower extremities. In the calves the interrogated veins also exhibit normal compression/ augmentation properties. The greater saphenous veins also appear patent as do the saphenofemoral junctions bilaterally.. IMPRESSION: 1.? No ultrasound evidence of DVT in either lower extremity. Lab Data Lab results reviewed: Yes I reviewed the patient's lab results. ECG Data Attestation: I personally reviewed and interpreted this ECG (s) as follows: Interpretation: EKG shows sinus rhythm at 79, normal axis, low voltage precordial leads, no STEMI HPI General Mode of arrival: EMS. Date/Time Provider Initiated Documentation: 04/19/22 12:15. Limitations to Documentation: no limitations. Information obtained by: patient, RN notes reviewed and old records reviewed. HPI Narrative: Vy Courser is an 81-year-old woman with a history of chronic kidney disease, insulin-dependent diabetes, hypertension, heart failure with reduced ejection fraction, coronary artery disease presenting to emergency department with worsening chronic wounds. Patient reports that she has a wound on her anterior chest just below her neck that has been chronic, was down to bone in the past, has been healing gradually. She reports that she went to see her surgeon at [facility] for this wound 1 week ago, who stated that he would see her in a week to 10 days for possible repeat surgery. Patient reports that she has a home health nurse who tends to her chronic leg wounds and to the chest wound. Patient states that her home health nurse was concerned about yellow discharge coming from the neck wound, and was also concerned about worsening appearance of her chronic leg wounds and wanted her to come to the emergency department. Patient reports that she has chronic pain in both of her lower legs that is unchanged. She denies any other pain, fever, cough, shortness of breath, vomiting, diarrhea, numbness, focal weakness. Patient reports that she is nonambulatory at baseline and stand and pivot from chair to bed. Related Data Home Medications Medication Instructions Recorded Confirmed nitroglycerin 0.4 mg sublingual 0.4 mg sublingual Q5 MIN PRN X3 09/23/20 04/19/22 tablet (Nitrostat) PRN #20 tabs aspirin 81 mg tablet,delayed 81 mg PO DAILY #100 tabs 08/03/21 04/19/22 release blood sugar diagnostic (FreeStyle #360 strips 08/03/21 04/19/22 Test strips) pen needle, diabetic 31 gauge x #1,200 ea 08/03/21 04/19/22 5/16 (Comfort EZ Pen Green) atorvastatin 40 mg tablet (Lipitor) 40 mg PO QPM #90 tabs 11/09/21 04/19/22 capsaicin 0.1 % topical cream 1 applic topical TID 12/05/21 04/19/22 insulin aspart U-100 100 unit/mL 9 unit subcut TIDWMEAL 12/05/21 04/19/22 (3 mL) subcutaneous pen lidocaine 5 % topical patch 1 patch topical DAILY 12/05/21 04/19/22 insulin aspart U-100 100 unit/mL 0 units (0 mL) subcut 12/23/21 04/19/22 (3 mL) subcutaneous pen (Novolog 0800,1200,1700,2200 #0 mL Flexpen U-100 Insulin aspart) insulin glargine 100 unit/mL (3 20 unit (0.2 mL) subcut DAILY #9 12/23/21 04/19/22 mL) subcutaneous pen (Lantus SYRGS Solostar U-100 Insulin) furosemide 20 mg tablet 20 mg PO DAILY 02/17/22 04/19/22 carvedilol 3.125 mg tablet 1 tab PO DAILY 04/19/22 04/19/22 furosemide 20 mg tablet 40 mg PO DAILY 04/19/22 04/19/22 losartan 25 mg tablet 1 tab PO DAILY 04/19/22 04/19/22 Previous Rx's Medication Instructions Recorded nitroglycerin 0.4 mg sublingual 0.4 mg sublingual Q5 MIN PRN X3 09/23/20 tablet (Nitrostat) PRN #20 tabs aspirin 81 mg tablet,delayed 81 mg PO DAILY #100 tabs 08/03/21 release blood sugar diagnostic (FreeStyle #360 strips 08/03/21 Test strips) pen needle, diabetic 31 gauge x #1,200 ea 08/03/21/16 (Comfort EZ Pen Green) atorvastatin 40 mg tablet (Lipitor) 40 mg PO QPM #90 tabs 11/09/21 insulin aspart U-100 100 unit/mL 0 units (0 mL) subcut 12/23/21 (3 mL) subcutaneous pen (Novolog 0800,1200,1700,2200 #0 mL Flexpen U-100 Insulin aspart) insulin glargine 100 unit/mL (3 20 unit (0.2 mL) subcut DAILY #9 12/23/21 mL) subcutaneous pen (Lantus SYRGS Solostar U-100 Insulin) Allergies Allergy/AdvReac Type Severity Reaction Status Date / Time Penicillins Allergy Unknown Verified 04/19/22 12:19 hydrocodone AdvReac Intermediate Nausea Verified 04/19/22 12:19 General Stated Complaint: GenMedical TAMMIE: 3 Review of Systems Narrative: Constitutional: denies fevers Eyes: denies eye pain ENT: denies ear pain, dental pain, sore throat Cardiovascular: denies chest pain Respiratory: denies SOB, cough GI: denies abdominal pain, vomiting, diarrhea : denies flank pain MSK: denies back pain, neck pain, arthralgias, reports chronic b/l lower leg pain Skin: denies rash Neuro: denies headaches, numbness, weakness PFSH All Active Problems (Updated 05/03/22 @ 12:44 by Trini Duffy MD) Hyperkalemia (Acute) Type 2 diabetes mellitus (Chronic) Chronic kidney disease (Chronic) Leucocytosis (Acute) Ambulatory dysfunction (Acute) Left nephrolithiasis (Acute 09/2021) Coronary artery disease (Chronic) [place] 08/2020, NSTEMI 09/2021 Venous insufficiency (Acute) Peripheral edema (Acute) Drainage from surgical wound (Acute) Medical History Anemia Depression 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) Essential hypertension Heart failure with reduced ejection fraction Ischemic cardiomyopathy Myocardial infarction (~08/2020) Apical and septal infarct Non-ST elevation [place] (NSTEMI) (09/2021) Normocytic anemia Osteoarthritis of right hip Injection: 12/15/2021 Palliative care patient Perforated duodenal ulcer (~12/2020) Pneumonia Primary osteoarthritis of left knee Most recent injection: 08/06/2019 Primary osteoarthritis of right knee Most recent injection: 08/06/2019 Sacral decubitus ulcer Sepsis (09/2021) Syncope Related to use of lisinopril occurring both at rest while having her hair washed in beauty parlor as well as occurring while ambulating. None have occurred since cessation of her lisinopril Uric acid nephrolithiasis Surgical History S/P exploratory laparotomy (01/18/21) [place] patch for perforated duodenal ulcer Family History Mother , AGE 78 Diabetes Father No problems noted. 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 Pets and animals: No Current gender identity: female What type of physical activity do you participate in: walking Duration: decline to answer Frequency: 3-4 times per week Sonia/Bahai: Scientologist Special sonia needs: No Do you feel safe at home: Yes Exam Narrative Exam Narrative: Constitutional: well and [id number], pleasant, conversing normally HENT: head atraumatic/normocephalic/normal inspection, mucous membranes moist Eyes: conjunctiva normal, sclera normal, pupils 3mm b/l Neck: no stridor, normal ROM, trachea midline Chest: chronic wound of the anterior chest, no drainage noted, no surrounding erythema, no TTP, no crepitus Resp: normal work of breathing, LCTAB Cardio: normal rate, normal rhythm, no murmur appreciated GI: abdomen soft, non-tender, non-distended Back: normal inspection, no rash Skin: warm, dry, normal color, no rash Neuro: alert, not altered, grossly non-focal, normal tone Ext: 1+ edema b/l lower legs, chronic wounds b/l lower legs with serous drainage, erythema that appears consistent with chronic venous stasis, no warmth, no focal TTP, no crepitus. Diffuse mild TTP of the lower legs b/l. DP pulses intact and symmetric, brisk cap refill feet/toes b/l. Sensation intact. Psych: normal mood, normal affect, normal behavior Course Vital Signs Vital signs: Vital Signs Temperature 36.7 C 04/19/22 12:10 Pulse 79 04/19/22 12:10 Respiratory Rate 18 04/19/22 12:10 Blood Pressure 159/137 H 04/19/22 12:10 Pulse Oximetry 96 04/19/22 12:10 Temperature 36.7 C 04/19/22 12:10 Temperature Source Tympanic 04/19/22 12:10 Pulse 79 04/19/22 12:10 Respiratory Rate 18 04/19/22 12:10 Blood Pressure 159/137 H 04/19/22 12:10 Blood Pressure Position Sitting 04/19/22 12:10 Pulse Oximetry 96 04/19/22 12:10 Oxygen Delivery Method Room Air 04/19/22 12:10 Oxygen Flow Rate 0 04/19/22 12:10 Pain Level 10 04/19/22 12:10 Lab/Test Results Lab/Test Results: 04/19/22 12:23 Blood Blood Culture - Pending 04/19/22 12:23 Blood Blood Culture - Pending
[2022-04-19 13:19] LABS: Bilirubin Negative (Negative); Blood Small (Negative); Clarity Clear (Clear); Glucose 100 mg/dL (Negative); Ketones Negative (Negative); Leukocyte Esterase Negative (Negative); Nitrite Negative (Negative); Urobilinogen 0.2 EU/dL (Up TO 0.2)
[2022-04-19 13:25] LABS: Bacteria Few HPF (Negative); C & S Indicated? No/Sq. Contamination; Casts Negative LPF (Negative); Crystals Negative HPF (Negative); Epithelial Cells Moderate HPF (Negative); Mucus Moderate (Negative); WBC 0-2 HPF (0-5)
[2022-04-19 13:26] LABS: Lactate 1.5 mmol/L (0.6-1.4)
[2022-04-19 13:28] LABS: Abs Immature Grans 0.01 10^3/uL (0.0-0.06); Absolute Basophil Count 0.03 10^3/uL (0.0-0.2); Absolute Eosinophil Count 0.22 10^3/uL (0.0-0.7); Absolute Lymphocyte Count 1.49 10^3/uL (1.2-3.4); Absolute Monocyte Count 0.65 10^3/uL (0.1-0.8); Absolute Neutrophil Count 5.03 10^3/uL (1.2-6.7); Basophils % 0.4; HCT 29.1 % (36.0-46.0); Immature Grans % 0.1; Lymphocytes % 20.1; MCH 30.7 pg (27.0-33.0); MCHC 30.9 % (32.0-36.0); MCV 99 fL (80-95); MPV 11.4 fL (8.0-11.0); Monocytes % 8.7; Neutrophils % 67.7; Platelet Count 220 10^3/uL (130-400); RBC 2.93 10^6/uL (3.93-5.22); RDW-SD 58.4 fL; WBC 7.43 10^3/uL (4.4-10.8)
[2022-04-19 13:45] LABS: ALT 15 U/L (14-59); AST 22 U/L (15-37); Albumin 3.1 g/dL (3.4-5.0); Alkaline Phosphatase 135 U/L (46-116); Anion Gap 12.6 mmol/L (3-11); BUN 42 mg/dL (7-18); Bilirubin, Total 0.4 mg/dL (0.2-1.0); CO2 16.4 mmol/L (21.0-32.0); Calcium 8.7 mg/dL (8.5-10.1); Chloride 108 mmol/L (98-107); Estimated GFR 14.94 (mL/min/1.73m2); Glucose 142 mg/dL (74-106); Potassium 5.5 mmol/L (3.5-5.1); Sodium 137 mmol/L (136-145); Total Protein 8.2 g/dL (6.4-8.2)
--- NOTE | 2022-04-19 13:45 | RT.EKG_ITS ---
APPROVED REPORT Exam: Resting ECG Reason for Exam: hyperkalemia Patient Location: E HR:79 bpm ECG Measurements Heart Rate 79 AXIS MT 135 P 34 QRSd 86 QRS -15 QT 384 T 105 QTc 439 Conclusion Sinus rhythm...normal P axis, V-rate 60- 99 Low voltage, precordial leads...precordial leads <1.0mV sinus rhythm at 79, normal axis, low voltage precordial leads, no STEMI
[2022-04-19] MEDS: Acetaminophen 500 MG TAB 1000 MG PO (13:46)
--- NOTE | 2022-04-19 14:00 | DI.US_ITS ---
Exam(s) US EXTREMITY VENOUS BI EXAM: US EXTREMITY VENOUS BI CLINICAL HISTORY: b/l lower extremity pain and swelling TECHNIQUE: Grayscale, color, and doppler imaging of the deep venous system of both lower extremities was performed. COMPARISON: US US ECHO FOLLOW-UP OR LIMITED from 12/16/2021 FINDINGS: There is no evidence of intraluminal thrombus and there is normal compression and augmentation demons trated within the common femoral veins, femoral veins, and popliteal veins of both lower extremities. In the calves the interrogated veins also exhibit normal compression/ augmentation properties. The greater saphenous veins also appear patent as do the saphenofemoral junctions bilaterally.. IMPRESSION: 1. No ultrasound evidence of DVT in either lower extremity. DATA REPOSITORY:
[2022-04-19 14:11] LABS: D-Dimer 1943 ng/mlFEU (<500)
[2022-04-19 15:44] VITALS: BP 183/73; PULSE 80; TEMP 37; O2SAT 94
[2022-04-19] MEDS: Furosemide 40 MG/4 ML VIAL IVP (16:12)
[2022-04-19] MEDS: Normal Saline 500 ML IV (16:18)
--- NOTE | 2022-04-19 16:42 | W.PM.HP.N ---
Date of service: 04/19/22 Time of Service: 16:42 Assessment and Plan Assessment and plan (1) Hyperkalemia: Status: Acute Assessment and plan: in setting of chronic renal failure given lasix in the ED. given lokelma 10 mg one time dose recheck in am (2) Drainage from surgical wound: Status: Acute Assessment and plan: followed outpatient by [facility]. wounds do not appear acutely infected. will continue outpatient wound care recommendations monitor (3) Peripheral edema: Status: Acute Assessment and plan: chronic, bilateral ultrasound negative elevate (4) Chronic kidney disease: Status: Chronic Assessment and plan: creatinine appears at baseline. given IV fluid bolus in ED will monitor I&O avoid nephrotoxic drugs, renal dosing as needed. (5) Type 2 diabetes mellitus: Status: Chronic Assessment and plan: will continue diabetic diet check blood sugars ac/hs and provide sliding scale coverage as needed. continue lantus (6) Discharge planning issues: Status: Acute Assessment and plan: plan to discharge to home tomorrow if remains medically stable. discussed with DR Ely. History of Present Illness History of Present Illness Chief Complaint: wound check Narrative: patient presented to the ED for wound check, sent in by home health nursing who was concerned about drainage and wants wounds evaluated. ED provider reports she feels wounds not infected looking and no acute needs regarding wounds and she can follow up outpatient with providers who are following wounds. checked labs and noted to have an elevated potassium. she was given lasix. also creatinine elevated but after review of previous labs show baseline about 3. they then gave IV fluid bolus. Ddimer was obtained, ? leg swelling, but DVT study negative bilaterally. she has no respiratory c/o, not tachycardiac and not hypoxic. We are unable to get a CT scan for PE study d/t kidney function. No further work up for elevated ddimer was noted so unclear significance. hospitalist asked to admit to observation, for IV hydration and electrolyte monitoring. Review of Systems All systems reviewed & are unremarkable except as noted in HPI and below Constitutional Constitutional: Denies fever(s) Cardiovascular Cardiovascular: Denies chest pain Respiratory Respiratory: Denies cough Integumentary/Breasts Skin/Breast: Reports wounds (on anterior left upper chest, present on admission, HH reports purulent ) PFSH All Active Problems (Updated 04/19/22 @ 16:59 by Aleta Zarate NP) Discharge planning issues (Acute) Hyperkalemia (Acute) Type 2 diabetes mellitus (Chronic) Chronic kidney disease (Chronic) Hematuria (Acute) Leucocytosis (Acute) Ambulatory dysfunction (Acute) Left nephrolithiasis (Acute 09/2021) Coronary artery disease (Chronic) [place] 08/2020, NSTEMI 09/2021 Venous insufficiency (Acute) Peripheral edema (Acute) Drainage from surgical wound (Acute) Medical History Anemia Chronic kidney disease Depression 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) Essential hypertension Heart failure with reduced ejection fraction Ischemic cardiomyopathy Myocardial infarction (~08/2020) Apical and septal infarct Non-ST elevation [place] (NSTEMI) (09/2021) Normocytic anemia Osteoarthritis of right hip Injection: 12/15/2021 Palliative care patient Perforated duodenal ulcer (~12/2020) Pneumonia Primary osteoarthritis of left knee Most recent injection: 08/06/2019 Primary osteoarthritis of right knee Most recent injection: 08/06/2019 Sacral decubitus ulcer Sepsis (09/2021) Syncope Related to use of lisinopril occurring both at rest while having her hair washed in beauty parlor as well as occurring while ambulating. None have occurred since cessation of her lisinopril Type 2 diabetes mellitus Uric acid nephrolithiasis Surgical History S/P exploratory laparotomy (01/18/21) [place] patch for perforated duodenal ulcer Family History Mother , AGE 78 Diabetes Father No problems noted. 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 Pets and animals: No Current gender identity: female What type of physical activity do you participate in: walking Duration: decline to answer Frequency: 3-4 times per week Sonia/Denominational: Pentecostalism Special sonia needs: No Do you feel safe at home: Yes Meds Allergies and Home Medications Allergies Allergy/AdvReac Type Severity Reaction Status Date / Time Penicillins Allergy Unknown Verified 04/19/22 12:19 hydrocodone AdvReac Intermediate Nausea Verified 04/19/22 12:19 Home Medications Medication Instructions Recorded Confirmed Type nitroglycerin 0.4 mg sublingual 0.4 mg sublingual Q5 MIN PRN X3 09/23/20 04/19/22 Rx tablet (Nitrostat) PRN #20 tabs aspirin 81 mg tablet,delayed 81 mg PO DAILY #100 tabs 08/03/21 04/19/22 Rx release blood sugar diagnostic (FreeStyle #360 strips 08/03/21 04/19/22 Rx Test strips) pen needle, diabetic 31 gauge x #1,200 ea 08/03/21 04/19/22 Rx 5/16 (Comfort EZ Pen [place]) atorvastatin 40 mg tablet (Lipitor) 40 mg PO QPM #90 tabs 11/09/21 04/19/22 Rx capsaicin 0.1 % topical cream 1 applic topical TID 12/05/21 04/19/22 History insulin aspart U-100 100 unit/mL 9 unit subcut TIDWMEAL 12/05/21 04/19/22 History (3 mL) subcutaneous pen lidocaine 5 % topical patch 1 patch topical DAILY 12/05/21 04/19/22 History insulin aspart U-100 100 unit/mL 0 units (0 mL) subcut 12/23/21 04/19/22 Rx (3 mL) subcutaneous pen (Novolog 0800,1200,1700,2200 #0 mL Flexpen U-100 Insulin aspart) insulin glargine 100 unit/mL (3 20 unit (0.2 mL) subcut DAILY #9 12/23/21 04/19/22 Rx mL) subcutaneous pen (Lantus SYRGS Solostar U-100 Insulin) furosemide 20 mg tablet 20 mg PO DAILY 02/17/22 04/19/22 History carvedilol 3.125 mg tablet 1 tab PO DAILY 04/19/22 04/19/22 History furosemide 20 mg tablet 40 mg PO DAILY 04/19/22 04/19/22 History losartan 25 mg tablet 1 tab PO DAILY 04/19/22 04/19/22 History Exam Const General: cooperative, healthy appearing, comfortable and no acute distress Orientation: alert and awake [facility] Head: normal to inspection, normocephalic and atraumatic Face and sinus: normal facial exam Mouth: moist mucous membranes Eyes Conjunctivae: conjunctivae normal Neck Neck: full ROM, no meningeal signs, trachea midline and supple Resp Effort & Inspection: normal respiratory effort and able to speak in complete sentences Auscultation: diminished lung sounds bilaterally in the lower lung [place] Cardio Rate: regular rate Rhythm: regular rhythm GI Palpation: soft, not firm, no guarding, no pulsatile masses and nontender Back/Spine/Pelvis Back: No back tenderness Skin Rashes: no rashes Neuro General: patient alert, patient awake, moves all extremities and no focal motor deficits Cognition: normal cognition Speech: speech normal Sensory Exam: no sensory deficits noted Extrem General: full ROM, capillary refill normal and edema (wrinkled dry legs, chronic discoloration consistent with venous stasis.) Laterality: bilateral Psych Appearance: grossly normal Mental Status: mental status grossly normal Results Labs Result diagrams: 04/20/22 05:45 04/20/22 05:45 Labs: Laboratory Results - last 24 hr 04/19/22 04/19/22 04/19/22 13:10 13:15 13:15 WBC 7.43 RBC 2.93 L Hgb 9.0 L Hct 29.1 L MCV 99 H MCH 30.7 MCHC 30.9 L RDW 16.0 H Plt Count 220 MPV 11.4 H Immature Gran % 0.1 Neutrophils % 67.7 Lymphocytes % 20.1 Monocytes % 8.7 Eosinophils % 3.0 Basophils % 0.4 Nucleated RBC % 0.0 Absolute Neutrophils 5.03 Absolute Lymphocytes 1.49 Absolute Monocytes 0.65 Absolute Eosinophils 0.22 Absolute Basophils 0.03 D-Dimer VBG Lactate Sodium 137 Potassium 5.5 H Chloride 108 H Carbon Dioxide 16.4 L Anion Gap 12.6 H BUN 42 H Creatinine 3.0 H Estimated GFR/1.73 m2 14.94 Glucose 142 H Calcium 8.7 Total Bilirubin 0.4 AST 22 ALT 15 Alkaline Phosphatase 135 H Total Protein 8.2 Albumin 3.1 L Urine Color Yellow Urine Clarity Clear Urine pH 6.0 Ur Specific [place] 1.020 Urine Protein 100 H Urine Ketones Negative Urine Blood Small H Urine Nitrite Negative Urine Bilirubin Negative Urine Urobilinogen 0.2 Ur Leukocyte Esterase Negative Urine RBC 5-10 H Urine WBC 0-2 Ur Epithelial Cells Moderate Urine Crystals Negative Urine Bacteria Few Urine Casts Negative Urine Mucus Moderate Ur Culture Indicated? No/Sq. Contamination Urine Glucose 100 04/19/22 04/19/22 13:15 13:28 WBC RBC Hgb Hct MCV MCH MCHC RDW Plt Count MPV Immature Gran % Neutrophils % Lymphocytes % Monocytes % Eosinophils % Basophils % Nucleated RBC % Absolute Neutrophils Absolute Lymphocytes Absolute Monocytes Absolute Eosinophils Absolute Basophils D-Dimer 1943 H VBG Lactate 1.5 H Sodium Potassium Chloride Carbon Dioxide Anion Gap BUN Creatinine Estimated GFR/1.73 m2 Glucose Calcium Total Bilirubin AST ALT Alkaline Phosphatase Total Protein Albumin Urine Color Urine Clarity Urine pH Ur Specific [place] Urine Protein Urine Ketones Urine Blood Urine Nitrite Urine Bilirubin Urine Urobilinogen Ur Leukocyte Esterase Urine RBC Urine WBC Ur Epithelial Cells Urine Crystals Urine Bacteria Urine Casts Urine Mucus Ur Culture Indicated? Urine Glucose Last Vital Signs Temp 37.0 C 04/19/22 15:44 Pulse 80 04/19/22 15:44 Resp 18 04/19/22 12:10 BP 183/73 H 04/19/22 15:44 Pulse Ox 94 04/19/22 15:44
[2022-04-19 16:46] LABS: Source Nasal/Nares
[2022-04-19 17:31] VITALS: BP 193/81; PULSE 80; RESP 18; TEMP 36.8; O2SAT 96
[2022-04-19] MEDS: Sodium Zirconium Cyclosilicate 10 GM PKT PO (17:58)
--- NOTE | 2022-04-19 18:23 | WOUNDCARE ---
Wound Care Report Aleta Zarate Asked wound nursing to change the dressing on patients neck wound following what was done by home health. area was cleaned with NS and gauze, a small piece of aquacell was loosely packed in the wound. This was covered by an Optiloc, and secured with a Mepilex. Patient declined the offer to have her legs assessed
[2022-04-19] MEDS: Atorvastatin 40 MG TAB PO (19:13)
[2022-04-19 19:58] LABS: COVID-19 PCR Negative (Negative)
[2022-04-19] MEDS: Insulin Aspart 300 UNITS/3 ML PEN SC (20:58)
--- NOTE | 2022-04-19 21:31 | NUR.NOTE ---
Nursing Note: 1829 late entry-Patient noted to have infiltrated right ac arm IV. IV removed, ice applied. New IV inserted in left arm.
[2022-04-20 00:10] VITALS: BP 152/62; PULSE 78; RESP 20; TEMP 37.1; O2SAT 96
[2022-04-20 06:07] LABS: Abs Immature Grans 0.02 10^3/uL (0.0-0.06); Absolute Basophil Count 0.04 10^3/uL (0.0-0.2); Absolute Eosinophil Count 0.14 10^3/uL (0.0-0.7); Absolute Lymphocyte Count 1.14 10^3/uL (1.2-3.4); Absolute Monocyte Count 0.65 10^3/uL (0.1-0.8); Basophils % 0.6; HCT 25.9 % (36.0-46.0); Immature Grans % 0.3; Lymphocytes % 16.5; MCH 30.2 pg (27.0-33.0); MCHC 30.9 % (32.0-36.0); MCV 98 fL (80-95); MPV 11.4 fL (8.0-11.0); Monocytes % 9.4; Neutrophils % 71.2; RBC 2.65 10^6/uL (3.93-5.22); RDW 16.1 % (11.7-14.6); RDW-SD 57.8 fL; WBC 6.89 10^3/uL (4.4-10.8)
[2022-04-20 06:18] LABS: Anion Gap 10.7 mmol/L (3-11); BUN 44 mg/dL (7-18); CO2 19.3 mmol/L (21.0-32.0); Calcium 8.4 mg/dL (8.5-10.1); Chloride 109 mmol/L (98-107); Estimated GFR 14.94 (mL/min/1.73m2); Glucose 177 mg/dL (74-106); Potassium 5.1 mmol/L (3.5-5.1); Sodium 139 mmol/L (136-145)
[2022-04-20 07:07] LABS: Diff Comment Diff Reviewed; Platelet Count 208 10^3/uL (130-400)
[2022-04-20 07:08] LABS: Hypochromasia 2+; Polychromasia Present
[2022-04-20] MEDS: Aspirin E.C. 81 MG TABEC PO (07:45)
[2022-04-20] MEDS: Carvedilol 3.125 MG TAB PO (07:45)
[2022-04-20] MEDS: Insulin Glargine 300 UNITS/3 ML PEN 20 UNITS SC (07:51)
[2022-04-20] MEDS: Insulin Aspart 300 UNITS/3 ML PEN SC ×2 (07:51→12:06)
[2022-04-20] MEDS: Normal Saline Flush 10 ML SYR IVP (07:52)
[2022-04-20 08:12] VITALS: BP 169/73; PULSE 72; RESP 18; TEMP 36.8; O2SAT 97
--- NOTE | 2022-04-20 13:06 | W.PM.DS.N ---
Date of service: 04/20/22 Time of Service: 13:07 DS: Diagnosis Discharge Diagnosis (1) Hyperkalemia: Status: Acute Asessment and Plan: resolved. (2) Drainage from surgical wound: Status: Acute Asessment and Plan: no evidence of infection (3) Peripheral edema: Status: Acute Asessment and Plan: baseline (4) Chronic kidney disease: Status: Chronic Asessment and Plan: stable (5) Type 2 diabetes mellitus: Status: Chronic Discharge Plan Disposition Patient Disposition: HOME W/HOME HEALTH SERVICE Condition: Stable Discharge Details Reason For Visit: Hyperkalemia Admit Date/Time: 04/19/22 16:07 Admit Provider: Dhaval Ely Attending Provider: Dhaval Ely Primary Care Provider: MichelleJocelin [facility] Course Hospital Course: This is an 81 year old female with complex medical history which included diabetes mellitus type 2, chronic kidney disease, heart failure with reduced ejection fraction of 45%, 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 ED provider reports she feels wounds not infected looking and no acute needs regarding wounds and she can follow up outpatient with providers who are following wounds. She checked labs and noted to have an elevated potassium.? she was given lasix. ? also creatinine elevated but after review of previous labs show baseline about 3.? they then gave IV fluid bolus. Ddimer was obtained, ? leg swelling, but DVT study negative bilaterally.? she has no respiratory c/o, not tachycardiac and not hypoxic.? We are unable to get a CT scan for PE study d/t kidney function.? No further work up for elevated ddimer was noted so unclear significance.? hospitalist asked to admit to observation, for IV hydration and electrolyte monitoring.? Overnight remained medically stable, no fever, vitals normal. She has no new c/o. wounds do not appear infected and no purulent drainage noted. Added CRP which continues to normalize and is down to 2.59 from 7.5 in January 2022 she is medically stable and will be discharge to home to continue outpatient f/u with Dr Akhtar [facility] at planned. discharge discussed with DR Ely. ? Home Meds and New Rx's Prescriptions: Continued atorvastatin [Lipitor] 40 mg tablet 40 mg PO QPM Qty: 90 4RF aspirin 81 mg tablet,delayed release (DR/EC) 81 mg PO DAILY Qty: 100 0RF (DME) FreeStyle Test Strip 1 ea Miscellaneous BID Qty: 360 4RF Rx Instructions: Check blood sugar four times a day (DME) pen needle, diabetic [Comfort EZ Pen [place]] 31 gauge x 5/16 needle See Dose Instructions .ROUTE .MEDSUPPLY Qty: 1200 4RF Dose Instruction: As directed Rx Instructions: Use with insulin pens furosemide 20 mg tablet 20 mg PO DAILY insulin aspart U-100 100 unit/mL (3 mL) Insulin Pen 9 unit SUBCUT TIDWMEAL capsaicin 0.1 % Cream 1 applic TOPICAL TID Rx Instructions: do not wash area for at least 30 min after application lidocaine 5 % Adhesive Patch,Medicated 1 patch TOPICAL DAILY Rx Instructions: leave on most painful area for up to 12 hrs insulin glargine [Lantus Solostar U-100 Insulin] 100 unit/mL (3 mL) insulin pen 20 unit subcut DAILY Qty: 9 4RF insulin aspart U-100 [Novolog Flexpen U-100 Insulin] 100 unit/mL (3 mL) Insulin Pen 0 units subcut 0800,1200,1700,2200 Qty: 0 0RF nitroglycerin [Nitrostat] 0.4 mg Tablet, Sublingual 0.4 mg sublingual Q5 MIN PRN X3 PRNQty: 20 0RF carvedilol 3.125 mg tablet 1 tab PO DAILY furosemide 20 mg tablet 40 mg PO DAILY losartan 25 mg tablet 1 tab PO DAILY Discharge Instructions Instructions: Hyperkalemia (DC) Additional Instructions: take all your medication as prescribed. wound care per outpatient team Stand Alone Forms: Nursing Discharge Form Referrals: Jocelin Martinez NP [Primary Care Provider] - 05/05/22 10:00 am Activity:: Activity as Tolerated Equipment/Supplies:: No Equipment Needed Diet:: low potassium, renal Discharge Orders Discharge Orders: Discharge Order (Routine); Ordered 04/20/22 Ordered By: Aleta Zarate Discharge Data Discharge Date/Time-TO BE ENTERED AT DEPARTURE: 04/20/22 14:25 DS: Summary Time Spent with Patient providing and/or coordinating discharge services: Greater than 30 minutes Status at Discharge Functional status at discharge: wheelchair bound Overall status at discharge: patient is progressing back to baseline Mental Status: mental status grossly normal Speech and Movement: speech and movement normal Mood: congruent mood Affect: normal affect Exam Const General: cooperative, healthy appearing, comfortable and no acute distress Orientation: alert and awake HENMT Head: normal to inspection, normocephalic and atraumatic Face and sinus: normal facial exam Mouth: moist mucous membranes Eyes Conjunctivae: conjunctivae normal Neck Neck: full ROM, no meningeal signs, trachea midline and supple Resp Effort & Inspection: normal respiratory effort and able to speak in complete sentences Auscultation: diminished lung sounds bilaterally in the lower lung [place] Cardio Rate: regular rate Rhythm: regular rhythm GI Palpation: soft, not firm, no guarding, no pulsatile masses and nontender Back/Spine/Pelvis Back: No back tenderness Skin Rashes: no rashes Neuro General: patient alert, patient awake, moves all extremities and no focal motor deficits Cognition: normal cognition Speech: speech normal Sensory Exam: no sensory deficits noted Extrem General: full ROM, capillary refill normal and edema (wrinkled dry legs, chronic discoloration consistent with venous stasis.) Laterality: bilateral Psych Appearance: grossly normal Mental Status: mental status grossly normal Speech and Movement: speech and movement normal Mood: congruent mood Affect: normal affect DS: Data Vitals/I&O Vitals and I&O: Vital Signs Temperature 36.8 C 04/20/22 08:12 Temperature Source Tympanic 04/20/22 08:12 Pulse 72 04/20/22 08:12 Pulse Rhythm Regular 04/20/22 07:30 Respiratory Rate 18 04/20/22 08:12 Respiratory Effort Non-Labored 04/20/22 07:30 Respiratory Depth Normal 04/20/22 07:30 Respiratory Pattern Normal 04/20/22 07:30 Blood Pressure 169/73 H 04/20/22 08:12 Blood Pressure Position Sitting 04/19/22 12:10 Pulse Oximetry 97 04/20/22 08:12 Oxygen Delivery Method Room Air 04/20/22 08:12 Oxygen Flow Rate 0 04/20/22 08:12 Pain Level 9 04/19/22 17:31 Comment 04/20/22 08:12 Intake & Output 04/19/22 04/20/22 04/20/22 23:59 11:59 23:59 Intake Total 520 / 520 100 / 100 Output Total 1600 / 1600 1400 / 1550 150 / 1550 Balance -1080 / -1080 -1300 / -1450 -150 / -1450 Weight 83.915 kg Intake: IV 520 / 520 Oral 100 / 100 Output: Urine 1600 / 1600 1400 / 1550 150 / 1550 Other: Urine Color Pale Pale Yellow Yellow Yellow Urine Appearance Clear Clear Clear Stool Size Moderate Moderate Stool Characteristics Soft Soft Formed Formed Brown Voiding Methods Indwelling Catheter Indwelling Catheter Data Completed and Pending Labs on day of discharge: Labs from last 24 hours 04/20/22 04/20/22 04/19/22 05:45 05:45 16:43 WBC 6.89 RBC 2.65 L Hgb 8.0 L Hct 25.9 L MCV 98 H MCH 30.2 MCHC 30.9 L RDW 16.1 H Plt Count 208 MPV 11.4 H Immature Gran % 0.3 Neutrophils % 71.2 Lymphocytes % 16.5 Monocytes % 9.4 Eosinophils % 2.0 Basophils % 0.6 Nucleated RBC % 0.0 Absolute Neutrophils 4.90 Absolute Lymphocytes 1.14 L Absolute Monocytes 0.65 Absolute Eosinophils 0.14 Absolute Basophils 0.04 RBC Morphology See Below Polychromasia Present Hypochromasia 2+ D-Dimer VBG Lactate Sodium 139 Potassium 5.1 Chloride 109 H Carbon Dioxide 19.3 L Anion Gap 10.7 BUN 44 H Creatinine 3.0 H Estimated GFR/1.73 m2 14.94 Glucose 177 H Calcium 8.4 L Total Bilirubin AST ALT Alkaline Phosphatase Total Protein Albumin Urine Color Urine Clarity Urine pH Ur Specific [place] Urine Protein Urine Ketones Urine Blood Urine Nitrite Urine Bilirubin Urine Urobilinogen Ur Leukocyte Esterase Urine RBC Urine WBC Ur Epithelial Cells Urine Crystals Urine Bacteria Urine Casts Urine Mucus Ur Culture Indicated? Urine Glucose COVID-19 Source Nasal/Nares SARS-CoV-2 (PCR) Negative 04/19/22 04/19/22 04/19/22 13:28 13:15 13:15 WBC 7.43 RBC 2.93 L Hgb 9.0 L Hct 29.1 L MCV 99 H MCH 30.7 MCHC 30.9 L RDW 16.0 H Plt Count 220 MPV 11.4 H Immature Gran % 0.1 Neutrophils % 67.7 Lymphocytes % 20.1 Monocytes % 8.7 Eosinophils % 3.0 Basophils % 0.4 Nucleated RBC % 0.0 Absolute Neutrophils 5.03 Absolute Lymphocytes 1.49 Absolute Monocytes 0.65 Absolute Eosinophils 0.22 Absolute Basophils 0.03 RBC Morphology Polychromasia Hypochromasia D-Dimer 1943 H VBG Lactate 1.5 H Sodium Potassium Chloride Carbon Dioxide Anion Gap BUN Creatinine Estimated GFR/1.73 m2 Glucose Calcium Total Bilirubin AST ALT Alkaline Phosphatase Total Protein Albumin Urine Color Urine Clarity Urine pH Ur Specific [place] Urine Protein Urine Ketones Urine Blood Urine Nitrite Urine Bilirubin Urine Urobilinogen Ur Leukocyte Esterase Urine RBC Urine WBC Ur Epithelial Cells Urine Crystals Urine Bacteria Urine Casts Urine Mucus Ur Culture Indicated? Urine Glucose COVID-19 Source SARS-CoV-2 (PCR) 04/19/22 04/19/22 13:15 13:10 WBC RBC Hgb Hct MCV MCH MCHC RDW Plt Count MPV Immature Gran % Neutrophils % Lymphocytes % Monocytes % Eosinophils % Basophils % Nucleated RBC % Absolute Neutrophils Absolute Lymphocytes Absolute Monocytes Absolute Eosinophils Absolute Basophils RBC Morphology Polychromasia Hypochromasia D-Dimer VBG Lactate Sodium 137 Potassium 5.5 H Chloride 108 H Carbon Dioxide 16.4 L Anion Gap 12.6 H BUN 42 H Creatinine 3.0 H Estimated GFR/1.73 m2 14.94 Glucose 142 H Calcium 8.7 Total Bilirubin 0.4 AST 22 ALT 15 Alkaline Phosphatase 135 H Total Protein 8.2 Albumin 3.1 L Urine Color Yellow Urine Clarity Clear Urine pH 6.0 Ur Specific [place] 1.020 Urine Protein 100 H Urine Ketones Negative Urine Blood Small H Urine Nitrite Negative Urine Bilirubin Negative Urine Urobilinogen 0.2 Ur Leukocyte Esterase Negative Urine RBC 5-10 H Urine WBC 0-2 Ur Epithelial Cells Moderate Urine Crystals Negative Urine Bacteria Few Urine Casts Negative Urine Mucus Moderate Ur Culture Indicated? No/Sq. Contamination Urine Glucose 100 COVID-19 Source SARS-CoV-2 (PCR) 04/19/22 13:28 Blood Blood Culture - Pending 04/19/22 13:15 Blood Blood Culture - Pending Preliminary micro results at discharge 04/19/22 13:28 Blood Culture - Pending Blood 04/19/22 13:15 Blood Culture - Pending Blood PFSH All Active Problems (Updated 04/19/22 @ 16:59 by Aleta Zarate NP) Discharge planning issues (Acute) Hyperkalemia (Acute) Type 2 diabetes mellitus (Chronic) Chronic kidney disease (Chronic) Hematuria (Acute) Leucocytosis (Acute) Ambulatory dysfunction (Acute) Left nephrolithiasis (Acute 09/2021) Coronary artery disease (Chronic) [place] 08/2020, NSTEMI 09/2021 Venous insufficiency (Acute) Peripheral edema (Acute) Drainage from surgical wound (Acute) Medical History Anemia Chronic kidney disease Depression 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) Essential hypertension Heart failure with reduced ejection fraction Ischemic cardiomyopathy Myocardial infarction (~08/2020) Apical and septal infarct Non-ST elevation [place] (NSTEMI) (09/2021) Normocytic anemia Osteoarthritis of right hip Injection: 12/15/2021 Palliative care patient Perforated duodenal ulcer (~12/2020) Pneumonia Primary osteoarthritis of left knee Most recent injection: 08/06/2019 Primary osteoarthritis of right knee Most recent injection: 08/06/2019 Sacral decubitus ulcer Sepsis (09/2021) Syncope Related to use of lisinopril occurring both at rest while having her hair washed in beauty parlor as well as occurring while ambulating. None have occurred since cessation of her lisinopril Type 2 diabetes mellitus Uric acid nephrolithiasis Surgical History S/P exploratory laparotomy (01/18/21) [place] patch for perforated duodenal ulcer Family History Mother , AGE 78 Diabetes Father No problems noted. 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
[2022-04-20 13:26] LABS: ESR 66 mm/hr (0-30)
[2022-04-20 13:35] LABS: C-Reactive Protein 2.59 mg/dL (0.0-0.3)
--- NOTE | 2022-04-20 13:51 | PDOC.HHF2F ---
Home Health Certification Home Health Certification: 1. Encounter Date and Reason I certify that Vy Jack Coursehugh was seen by Aleta Zarate on 04/20/22 and that I had a [id number] encounter with this patient that meets the physician face to face encounter requirements. 2. Clinical Findings Supporting Skilled Need and Homebound Status I certify that home health services are medically necessary, include either intermittent shelter and/or physical/speech therapy, and that this patient is homebound in that absences from the home require considerable and taxing effort and are infrequent or of short duration, or are attributable to the need to receive medical care. [X] (a) Attached documentation from encounter provides clinical findings supporting skilled need and homebound status (including what assistance patient requires to leave the home). The encounter with the patient was in whole, or in part, for the following medical condition, which is the primary reason for home health care: Hyperkalemia, chronic wounds Senior Living: routine nursing evaluation, medication oversight, wound care Physical and occupational Therapy: routine evaluation and treatment Homebound: unable to safely leave the house unattended. 3. Certification and Authentication I certify that I composed the above information based on my clinical judgement relating to this patient's medical condition and, if applicable, clinical findings communicated to me by the NPP or inpatient physician who performed the Home Health Referral. All further orders will be obtained through LYDIA TREVINO NP(Community Based Physician - PCP)
--- NOTE | 2022-04-20 14:30 | CMDISCH_ITS ---
- If Service Date Differs Date of service: 04/20/22 Time of Service: 14:30 LACE Index Scoring Tool - Questions: Length of Stay (in days): 1 Acuity (Admit via E.D.?): Yes Comorbidities: Previous M.I., Liver or Renal Disease E.D. Visits: 5 - Answers: Total Score: 13 Risk of Readmission: High Risk Care Management Discharge Reason for Hospitalization: Hyperkalemia. Discharge Plan: Vy is discharged home with a resumption of Home Health nursing services. She will follow up with her PCP, [facility] providers, and plan of care as instructed. Vy is transported home via [facility] wheelchair van. Patient/Family Education Needs: Review of discharge instructions; discuss Ask Me Three. Services Needed at Discharge: Home Health Care Services
== END 2022-04-20 14:25 | disposition home health service (06) ==
LOC: ER 12:52 → MS 17:09
PROVIDERS: Nurse Practitioner Acute Care; Admitting Provider Family Medicine; Emergency Provider Student in an Organized Health Care Education/Training Program; PCP Nurse Practitioner Family; Visit Provider Family Medicine
DX: E87.5 Hyperkalemia (principal); I13.0 Hypertensive heart and chronic kidney disease with heart failure and stage 1 through stage 4 chronic kidney disease, or unspecified chronic kidney disease; T81.89XA Other complications of procedures, not elsewhere classified, initial encounter; E11.22 Type 2 diabetes mellitus with diabetic chronic kidney disease; N18.9 Chronic kidney disease, unspecified; I50.20 Unspecified systolic (congestive) heart failure; R60.0 Localized edema; I25.10 Atherosclerotic heart disease of native coronary artery without angina pectoris; M79.605 Pain in left leg; M79.604 Pain in right leg; N20.0 Calculus of kidney; I87.2 Venous insufficiency (chronic) (peripheral); Z79.4 Long term (current) use of insulin; I25.2 Old myocardial infarction; Z20.822 Contact with and (suspected) exposure to COVID-19; Z79.899 Other long term (current) drug therapy; Z79.82 Long term (current) use of aspirin; I25.5 Ischemic cardiomyopathy; R26.2 Difficulty in walking, not elsewhere classified
CPT/HCPCS: 36415; 51702; 80048; 80053; 85652; 87040; 87635; 93005; 96361; 96372; 96374; 99285; 81003; 81015; 83605; 85025; 85379; 86140; 93010; 93970; 99217; 99220; G0378; J1940

== ENCOUNTER 2022-09-01 18:27 | Outpatient (REF) | payer MEDICARE, SELFPAY | END 2022-09-01 18:28 | disposition home or self-care (01) | LOC: LBN 18:27 | PROVIDERS: PCP Nurse Practitioner Family; Visit Provider Family Medicine | DX: B08.4 Enteroviral vesicular stomatitis with exanthem (principal) | CPT/HCPCS: 87077; 87186; 87070; 87205 ==

== ENCOUNTER 2022-09-28 17:24 | Inpatient (IN) | payer MEDICARE, SELFPAY ==
[2022-09-28 17:27] VITALS: BP 190/81; PULSE 95; RESP 20; TEMP 37; O2SAT 94
--- NOTE | 2022-09-28 17:45 | DI.RAD_ITS ---
Exam(s) XR PELVIS AP EXAM: XR PELVIS AP CLINICAL HISTORY: fall, pain. TECHNIQUE: 2D digital imaging was performed. COMPARISON: CR XR PELVIS AP from 12/10/2021 FINDINGS: BONES: No acute fracture is present. No bony destructive lesion is seen. Sacrum partially obscured by bowel gas. JOINTS: No dislocation present. Degenerative changes both hips, right greater than left. SOFT TISSUE: Vascular calcifications. IMPRESSION: Degenerative changes. No acute abnormality. DATA REPOSITORY: RADIATION DOSE DELIVERED:
--- NOTE | 2022-09-28 17:45 | DI.RAD_ITS ---
Exam(s) XR LUMBAR SPINE AP, LAT EXAM: XR LUMBAR SPINE AP, LAT CLINICAL HISTORY: fall, pain. TECHNIQUE: 2D digital imaging was performed. Three views. COMPARISON: CR LUMBAR SPINE COMPLETE from 04/22/2014 FINDINGS: Lateral views suboptimally penetrated. No gross evidence of compression fracture. Alignment grossly normal. Degenerative disc changes and facet degenerative changes present. IMPRESSION: Severely limited exam. No gross evidence of an acute abnormality. DATA REPOSITORY: RADIATION DOSE DELIVERED:
--- NOTE | 2022-09-28 17:47 | ED.GENADUL_ITS ---
Discharge Plan Discharge Details Chief Complaint: Trauma Primary Care Provider: Jocelin Martinez ED Provider: Lion Donohue Home Meds and New Rx's Prescriptions: No Action atorvastatin [Lipitor] 40 mg tablet 40 mg PO QPM Qty: 90 4RF carvedilol 3.125 mg tablet 3.125 mg PO BID Qty: 180 3RF aspirin 81 mg tablet,delayed release (DR/EC) 81 mg PO DAILY Qty: 100 0RF (DME) FreeStyle Test Strip 1 ea Miscellaneous BID Qty: 360 4RF Rx Instructions: Check blood sugar four times a day (DME) pen needle, diabetic [Comfort EZ Pen [place]] 31 gauge x 5/16 needle See Dose Instructions .ROUTE .MEDSUPPLY Qty: 1200 4RF Dose Instruction: As directed Rx Instructions: Use with insulin pens furosemide 20 mg tablet 20 mg PO BID Qty: 180 3RF insulin glargine [Lantus Solostar U-100 Insulin] 100 unit/mL (3 mL) insulin pen 8 unit subcut DAILY Qty: 9 4RF morphine concentrate 100 mg/5 mL (20 mg/mL) solution See Rx Instructions PO Q1H PRN MDD 240 mg PRN (Reason: pain or dyspnea) Qty: 30 0RF Rx Instructions: 0.25-1.0 ml orally every 1 hour, as needed; HOSPICE lorazepam 1 mg tablet 1 mg PO Q4H PRN PRN (Reason: anxiety) Qty: 10 2RF Rx Instructions: hospice ciprofloxacin HCl 250 mg tablet 250 mg PO BID Qty: 14 0RF insulin aspart U-100 100 unit/mL (3 mL) Insulin Pen 9 unit SUBCUT TIDWMEAL nitroglycerin [Nitrostat] 0.4 mg Tablet, Sublingual 0.4 mg sublingual Q5 MIN PRN X3 PRNQty: 20 0RF Medical Decision Making This is an 82-year-old female with a number of chronic medical conditions. She has an in-home caregiver during daylight hours. This evening the caregiver had left. The patient was alone and typically is able to stand and pivot for tra nsfers. She attempted to do this on her own and fell to the floor striking her bottom. She denies a loss of consciousness. EMS was called due to inability to get off the floor and pelvis/coccyx pain. Patient arrives in distress. She is afebrile and interactive. She is a diabetic with a nonhealing wound of the left sternoclavicular joint. The patient's medication list notes morphine which she states she has not been taking. IV access and parenteral analgesics ordered. Patient referred for imaging. At change of shift, patient will be signed out to Dr. Tovar pending review of diagnostic studies. HPI General Mode of arrival: EMS . Date/Time Provider Initiated Documentation: 09/28/22 17:28 . Limitations to Documentation: no limitations . Information obtained by: patient and EMS . History of Present Illness 82 year old F presents to the emergency department with the chief complaint of Fall, low back and pelvis/tailbone pain, described as moderate, Quality is descri bed as constant, and is localized to the back. Patient reports no radiation. Patient started experiencing this hour(s) and it has been constant. No relieving factors improve symptom(s), No exacerbating factors reported . Patient notes denies headaches, shortness of breath, syncope and weakness. Patient did receive the following treatments prior to arrival, none Related Data Home Medications Medication Instructions Recorded Confirmed nitroglycerin 0.4 mg sublingual 0.4 mg sublingual Q5 MIN PRN X3 09/23/20 08/06/22 tablet (Nitrostat) PRN #20 tabs aspirin 81 mg tablet,delayed 81 mg PO DAILY #100 tabs 08/03/21 08/06/22 release blood sugar diagnostic (FreeStyle #360 strips 08/03/21 08/06/22 Test strips) pen needle, diabetic 31 gauge x #1,200 ea 08/03/21 08/06/22 5/16 (Comfort EZ Pen [place]) atorvastatin 40 mg tablet (Lipitor) 40 mg PO QPM #90 tabs 11/09/21 08/06/22 insulin aspart U-100 100 unit/mL 9 unit subcut TIDWMEAL 12/05/21 08/06/22 (3 mL) subcutaneous pen carvedilol 3.125 mg tablet 3.125 mg PO BID #180 tabs 08/06/22 08/06/22 furosemide 20 mg tablet 20 mg PO BID #180 tabs 08/09/22 insulin glargine 100 unit/mL (3 8 unit (0.08 mL) subcut DAILY #9 11/18/22 mL) subcutaneous pen (Lantus [place]YR[place] Solostar U-100 Insulin) lorazepam 1 mg tablet 1 mg PO Q4H PRN PRN anxiety #10 08/27/22 tabs morphine concentrate 100 mg/5 mL See Rx Instructions PO Q1H PRN PRN 08/27/22 (20 mg/mL) oral solution pain or dyspnea #30 mL ciprofloxacin HCl 250 mg tablet 250 mg PO BID #14 tabs 09/07/22 Previous Rx's Medication Instructions Recorded nitroglycerin 0.4 mg sublingual 0.4 mg sublingual Q5 MIN PRN X3 09/23/20 tablet (Nitrostat) PRN #20 tabs aspirin 81 mg tablet,delayed 81 mg PO DAILY #100 tabs 08/03/21 release blood sugar diagnostic (FreeStyle #360 strips 08/03/21 Test strips) pen needle, diabetic 31 gauge x #1,200 ea 08/03/2116 (Comfort EZ Pen [place]) atorvastatin 40 mg tablet (Lipitor) 40 mg PO QPM #90 tabs 11/09/21 carvedilol 3.125 mg tablet 3.125 mg PO BID #180 tabs 08/06/22 furosemide 20 mg tablet 20 mg PO BID #180 tabs 08/09/22 insulin glargine 100 unit/mL (3 8 unit (0.08 mL) subcut DAILY #9 08/13/22 mL) subcutaneous pen (Lantus SYRGS Solostar U-100 Insulin) lorazepam 1 mg tablet 1 mg PO Q4H PRN PRN anxiety #10 08/27/22 tabs morphine concentrate 100 mg/5 mL See Rx Instructions PO Q1H PRN PRN 08/27/22 (20 mg/mL) oral solution pain or dyspnea #30 mL ciprofloxacin HCl 250 mg tablet 250 mg PO BID #14 tabs 09/07/22 Allergies Allergy/AdvReac Type Severity Reaction Status Date / Time Penicillins Allergy Unknown Verified 04/19/22 12:19 hydrocodone AdvReac Intermediate Nausea Verified 04/19/22 12:19 General Stated Complaint: Trauma TAMMIE: 3 Review of Systems Narrative: Denies loss of consciousness. Required ambulance transport. Lives with a caregiver during the daylight hours, stand and pivot for transfer only at home. Chronic surgical wound that is nonhealing in her anterior chest. 8 systems were reviewed and otherwise negative. 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) Essential hypertension (Chronic) Macrocytic anemia (Chronic) Primary osteoarthritis of right knee (Chronic) Most recent injection: 08/06/2019 Primary osteoarthritis of left knee (Chronic) Most recent injection: 08/06/2019 Osteoarthritis of right hip (Chronic) Injection: 12/15/2021 Hyperkalemia (Chronic) Venous insufficiency (Chronic) Peripheral edema (Chronic) Medical History Depression 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 None have occurred since cessation of her lisinopril Uric acid nephrolithiasis Surgical History S/P exploratory laparotomy (01/18/21) [place] patch for perforated duodenal ulcer Family History Mother , AGE 78 Diabetes Father No problems noted. 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 Pleasant, well groomed, interactive. HEAD: Normocephalic, atraumatic ENT: Mucous membranes moist, oropharynx unremarkable, External ear exam unremarkable EYES: PERRL, EOMI NECK: Full ROM, no JYOTI, no menigismus CHEST/RESP: Nontender, dressed anterior upper chest wall surgical wound, clear to auscultation bilaterally CARDIOVASCULAR: RRR, no murmur, rub autumn. 2+ Rad pulse bilateral ABDOMEN: Soft, nontender, no mass. +Bowel sounds Back: Lower lumbar tenderness to palpation. Coccyx is tender. No sacral ulcerations appreciated EXT: Sensation intact throughout the lower extremity. Neuro: Grossly normal neurologic exam, conversant, interactive. Psych: Speech fluent, thoughts congruent, affect normal Course Vital Signs Vital signs: Vital Signs Temperature 37.0 C 09/28/22 17:27 Pulse 95 H 09/28/22 17:27 Respiratory Rate 20 09/28/22 17:27 Blood Pressure 190/81 H 09/28/22 17:27 Pulse Oximetry 94 09/28/22 17:27 Temperature 37.0 C 09/28/22 17:27 Temperature Source Oral 09/28/22 17:27 Pulse 95 H 09/28/22 17:27 Respiratory Rate 20 09/28/22 17:27 Respiratory Effort Non-Labored 09/28/22 17:32 Respiratory Depth Normal 09/28/22 17:32 Respiratory Pattern Normal 09/28/22 17:32 Blood Pressure 190/81 H 09/28/22 17:27 Blood Pressure Position Supine 09/28/22 17:27 Pulse Oximetry 94 09/28/22 17:27 Oxygen Delivery Method Room Air 09/28/22 17:27 Oxygen Flow Rate 0 09/28/22 17:27 Sign Out Sign Out Data: Sign Out Comment: FOllowup Images, re-evaluate Last updated by Lion Donohue MD at 09/28/22 19:41
[2022-09-28] MEDS: HYDROmorphone 2 MG/ML SYR IM (18:57)
--- NOTE | 2022-09-28 20:09 | DI.VRAD_ITS ---
PROCEDURE INFORMATION: Exam: XR Pelvis Exam date and time: 09/28/2022 7:27 PM Age: 82 years old Clinical indication: Injury or trauma; Blunt trauma (contusions or hematomas); Does not apply; Pelvic region; Injury date: 09/28/22; Injury details: Fall, pain, more on right side TECHNIQUE: Imaging protocol: Radiologic exam of the pelvis. Views: 1 or 2 view. COMPARISON: CR XR PELVIS AP 12/10/2021 8:53 AM FINDINGS: Bones/joints: Degenerative changes in the hips and lower lumbar spine. No acute fracture. Soft tissues: Vascular calcifications. IMPRESSION: No acute findings. Dictated and Authenticated by: George Krishna MD. Ordering:JULIO Seymour MD
--- NOTE | 2022-09-28 20:09 | DI.VRAD_ITS ---
PROCEDURE INFORMATION: Exam: XR Lumbosacral Spine Exam date and time: 09/28/2022 7:30 PM Age: 82 years old Clinical indication: Injury or trauma; Blunt trauma (contusions or hematomas); Injury date: 09/28/22; Injury details: Fall, pain TECHNIQUE: Imaging protocol: Radiologic exam of the lumbosacral spine. Views: 2 or 3 views. COMPARISON: CR XR PELVIS AP 09/28/2022 7:27 PM FINDINGS: Bones/joints: Degenerative changes and chronic loss of height No acute fracture. Alignment is grossly maintained Soft tissues: Unremarkable. IMPRESSION: No acute findings. Dictated and Authenticated by: George Krishna MD. Ordering:JULIO Seymour MD
[2022-09-28 20:25] LABS: Abs Immature Grans 0.03 10^3/uL (0.0-0.06); Absolute Basophil Count 0.03 10^3/uL (0.0-0.2); Absolute Eosinophil Count 0.05 10^3/uL (0.0-0.7); Absolute Lymphocyte Count 1.04 10^3/uL (1.2-3.4); Absolute Monocyte Count 0.62 10^3/uL (0.1-0.8); Absolute Neutrophil Count 7.03 10^3/uL (1.2-6.7); Basophils % 0.3; Eosinophils % 0.6; HGB 7.4 g/dL (11.2-15.7); Immature Grans % 0.3; Lymphocytes % 11.8; MCH 32.5 pg (27.0-33.0); MCHC 30.8 % (32.0-36.0); MCV 105 fL (80-95); MPV 10.5 fL (8.0-11.0); Platelet Count 177 10^3/uL (130-400); RBC 2.28 10^6/uL (3.93-5.22); RDW 15.4 % (11.7-14.6)
[2022-09-28 20:35] LABS: Diff Comment RBC Morph Reviewed; Macrocytosis 1+; Polychromasia Present
--- NOTE | 2022-09-28 20:40 | NUR.NOTE ---
Nursing Note: Pt gave verbal permission to speak to brother and sis in law
--- NOTE | 2022-09-28 20:41 | NUR.NOTE ---
Nursing Note: pt vomited and refused zofran or any intervention at this time
[2022-09-28 20:42] LABS: ALT 21 U/L (14-59); AST 35 U/L (15-37); Albumin 2.6 g/dL (3.4-5.0); Alkaline Phosphatase 110 U/L (46-116); Anion Gap 6.9 mmol/L (3-11); BUN 47 mg/dL (7-18); Bilirubin, Total 0.5 mg/dL (0.2-1.0); CO2 20.1 mmol/L (21.0-32.0); CREATININE 3.1 mg/dL (0.55-1.02); Calcium 8.1 mg/dL (8.5-10.1); Chloride 110 mmol/L (98-107); Estimated GFR 14.38 (mL/min/1.73m2); Glucose 210 mg/dL (74-106); Sodium 137 mmol/L (136-145); Total Protein 7.3 g/dL (6.4-8.2)
[2022-09-28 20:44] LABS: Potassium 6.8 mmol/L (3.5-5.1)
--- NOTE | 2022-09-28 20:45 | RT.EKG_ITS ---
APPROVED REPORT Exam: Resting ECG Reason for Exam: hyperkalemia Patient Location: E HR:71 bpm ECG Measurements Heart Rate 71 AXIS SC 178 P 30 QRSd 80 QRS -26 QT 405 T 134 QTc 441 Conclusion Sinus rhythm...normal P axis, V-rate 60- 99 Inferior infarct, old...Q >35mS, II III aVF Nonspecific T abnormalities, lateral leads...T <-0.10mV, I aVL V5 V6
[2022-09-28 21:34] VITALS: BP 138/55; PULSE 79; RESP 10; O2SAT 96
[2022-09-28] MEDS: Calcium Gluconate 4.65 MEQ/10 ML VIAL 4.65 MG IVP (21:45)
[2022-09-28] MEDS: Insulin REGULAR-Human 100 UNITS/ML UNIT 10 UNITS IV (21:45)
[2022-09-28] MEDS: Dextrose 50%-Water 25 GM/50 ML SYR IVP (21:45)
[2022-09-28] MEDS: Normal Saline 1,000 ML 1000 ML IV (21:46)
[2022-09-28] MEDS: Ondansetron 4 MG/2 ML VIAL IVP (21:46)
--- NOTE | 2022-09-28 21:51 | NUR.NOTE ---
Nursing Note: 2140 16 f giraldo placed, urine obtained for labs
[2022-09-28 21:56] LABS: Bilirubin Negative (Negative); Blood Moderate (Negative); Clarity Sl Cloudy (Clear); Glucose 250 mg/dL (Negative); Ketones Negative (Negative); Leukocyte Esterase Negative (Negative); Nitrite Negative (Negative); Specific Gravity >= 1.030 (1.005-1.025); Urobilinogen 0.2 EU/dL (Up TO 0.2); pH 6.5 (5-8)
[2022-09-28 22:06] LABS: Bacteria Many HPF (Negative); C & S Indicated? Yes; Crystals Negative HPF (Negative); Epithelial Cells Rare HPF (Negative); Mucus Negative (Negative); WBC 20-50 HPF (0-5)
--- NOTE | 2022-09-28 22:28 | W.EDPROG ---
Date of service: 09/28/22 Time of Service: 22:28 Medical Decision Making pt's xrays unremarkable, k is 6.8, creatinine at baseline. She also appears to have a uti. Will treat with lokelma, insulin, calcium and also levofloxacin. Discussed with hospitalist who accepts for admission Sign Out Sign Out Data: Sign Out Comment: FOllowup Images, re-evaluate Last updated by Lion Donohue MD at 09/28/22 19:41 Discharge Plan Disposition Patient Disposition: Admit to [facility] Condition: Stable Discharge Details Chief Complaint: Trauma Clinical Impression: Hyperkalemia Primary Care Provider: Jocelin Martinez ED Provider: Moises Tovar Home Meds and New Rx's Prescriptions: No Action atorvastatin [Lipitor] 40 mg tablet 40 mg PO QPM Qty: 90 4RF carvedilol 3.125 mg tablet 3.125 mg PO BID Qty: 180 3RF aspirin 81 mg tablet,delayed release (DR/EC) 81 mg PO DAILY Qty: 100 0RF (DME) FreeStyle Test Strip 1 ea Miscellaneous BID Qty: 360 4RF Rx Instructions: Check blood sugar four times a day (DME) pen needle, diabetic [Comfort EZ Pen [place]] 31 gauge x 5/16 needle See Dose Instructions .ROUTE .MEDSUPPLY Qty: 1200 4RF Dose Instruction: As directed Rx Instructions: Use with insulin pens furosemide 20 mg tablet 20 mg PO BID Qty: 180 3RF insulin glargine [Lantus Solostar U-100 Insulin] 100 unit/mL (3 mL) insulin pen 8 unit subcut DAILY Qty: 9 4RF morphine concentrate 100 mg/5 mL (20 mg/mL) solution See Rx Instructions PO Q1H PRN MDD 240 mg PRN (Reason: pain or dyspnea) Qty: 30 0RF Rx Instructions: 0.25-1.0 ml orally every 1 hour, as needed; HOSPICE lorazepam 1 mg tablet 1 mg PO Q4H PRN PRN (Reason: anxiety) Qty: 10 2RF Rx Instructions: hospice ciprofloxacin HCl 250 mg tablet 250 mg PO BID Qty: 14 0RF insulin aspart U-100 100 unit/mL (3 mL) Insulin Pen 9 unit SUBCUT TIDWMEAL nitroglycerin [Nitrostat] 0.4 mg Tablet, Sublingual 0.4 mg sublingual Q5 MIN PRN X3 PRNQty: 20 0RF
--- NOTE | 2022-09-28 22:47 | W.PM.HP.N ---
Date of service: 09/28/22 Time of Service: 22:48 Assessment and Plan Assessment and plan (1) Hyperkalemia: Status: Acute Assessment and plan: This is an 82-year lady who lives at home alone and is on palliative care appearing that she should not be alone with fall attempted to stand on her own and transfer when she requires assistance. This needs to be reviewed by case workers. She presents with her worsening CKD and hyperkalemia which is an acute issue. She had a initial treatment in the ED with insulin, hydration and Lokelma and low, will be repeated with trending lab. She may needle, chronically if this persists with her advancing CKD. She is a DNR/DNI. (2) CKD (chronic kidney disease) stage 4, GFR 15-29 ml/min: Status: Chronic Assessment and plan: Slightly exacerbated with gentle IV hydration. Trend labs. (3) UTI (urinary tract infection): Status: Acute Assessment and plan: Patient appears to have an acute UTI by urinalysis and this will be treated with IV Levaquin with patient being allergic to penicillin. Levaquin should be renal dosed. (4) Type 2 diabetes mellitus with chronic kidney disease: Status: Chronic Assessment and plan: Glucometer checks before meals and at bedtime with short acting insulin coverage while in the hospital. Advance diet as patient tolerates. 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 She is a DNR DNI. She is alone at home at times and usually is able to stand and pivot with transfers when she has assistance. She appeared to stand on her own and fell to the floor striking her lower back and coccyx area. Imaging revealed no fractures. The patient had lab evaluation and was found to have worsening of her CKD with hyperkalemia. She chronically is not on any medication for hyperkalemia and this is an acute issue. In the ED she was treated with insulin and IVs as well as Lokelma. Her potassium did slightly improve and she was admitted for continued monitoring and treatment of hyperkalemia with gentle hydration. I did review the case with the ED physician and she will continue to have monitoring and treatment of hyperkalemia while in the ED awaiting a bed on [facility] for inpatient admission. As stated she is a DNR/DNI. She offers no new complaints and is very weak and soft-spoken appearing mostly bedridden and that she should not be alone. This should be reviewed by high school social studies teacher and case supervisor prior to discharge back to her present situation. Review of Systems Narrative: 13 point review of systems otherwise unrevealing or unobtainable with patient having minimal conversation and appearing very weak and chronically ill. Patient offers no urinary complaints. [facility] All Active Problems UTI (urinary tract infection) (Acute) Hyperkalemia (Acute) Hospice care (Acute) Septic arthritis of left sternoclavicular joint (Acute ~12/2021) Followed by [facility] [place] and Thoracic Surgery Heart failure with reduced ejection fraction (Chronic) Coronary artery disease (Chronic) [place] 08/2020, NSTEMI 09/2021 Ischemic cardiomyopathy (Chronic) CKD (chronic kidney disease) stage 4, GFR 15-29 ml/min (Chronic) Type 2 diabetes mellitus with chronic kidney disease (Chronic) Essential hypertension (Chronic) Macrocytic anemia (Chronic) Primary osteoarthritis of right knee (Chronic) Most recent injection: 08/06/2019 Primary osteoarthritis of left knee (Chronic) Most recent injection: 08/06/2019 Osteoarthritis of right hip (Chronic) Injection: 12/15/2021 Hyperkalemia (Chronic) Venous insufficiency (Chronic) Peripheral edema (Chronic) Medical History Depression 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 None have occurred since cessation of her lisinopril Uric acid nephrolithiasis Surgical History S/P exploratory laparotomy (01/18/21) Milton patch for perforated duodenal ulcer Family History Mother , AGE 78 Diabetes Father No problems noted. 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 Pets and animals: No Current gender identity: female What type of physical activity do you participate in: walking Duration: decline to answer Frequency: 3-4 times per week Sonia/Islam: Druze Special sonia needs: No Do you feel safe at home: Yes Meds Allergies and Home Medications Allergies Allergy/AdvReac Type Severity Reaction Status Date / Time Penicillins Allergy Unknown Verified 04/19/22 12:19 hydrocodone AdvReac Intermediate Nausea Verified 04/19/22 12:19 Home Medications Medication Instructions Recorded Confirmed Type nitroglycerin 0.4 mg sublingual 0.4 mg sublingual Q5 MIN PRN X3 09/23/20 08/06/22 Rx tablet (Nitrostat) PRN #20 tabs aspirin 81 mg tablet,delayed 81 mg PO DAILY #100 tabs 08/03/21 08/06/22 Rx release blood sugar diagnostic (FreeStyle #360 strips 08/03/21 08/06/22 Rx Test strips) pen needle, diabetic 31 gauge x #1,200 ea 08/03/21 08/06/22 Rx 5/16 (Comfort EZ Pen [place]) atorvastatin 40 mg tablet (Lipitor) 40 mg PO QPM #90 tabs 11/09/21 08/06/22 Rx insulin aspart U-100 100 unit/mL 9 unit subcut TIDWMEAL 12/05/21 08/06/22 History (3 mL) subcutaneous pen carvedilol 3.125 mg tablet 3.125 mg PO BID #180 tabs 08/06/22 08/06/22 Rx furosemide 20 mg tablet 20 mg PO BID #180 tabs 08/09/22 Rx insulin glargine 100 unit/mL (3 8 unit (0.08 mL) subcut DAILY #9 08/13/22 Rx mL) subcutaneous pen (Lantus SYRGS Solostar U-100 Insulin) lorazepam 1 mg tablet 1 mg PO Q4H PRN PRN anxiety #10 08/27/22 Rx tabs morphine concentrate 100 mg/5 mL See Rx Instructions PO Q1H PRN PRN 08/27/22 Rx (20 mg/mL) oral solution pain or dyspnea #30 mL ciprofloxacin HCl 250 mg tablet 250 mg PO BID #14 tabs 09/07/22 Rx Exam Narrative Exam Narrative: General: Patient appears appropriate for age but chronically ill, moderate distress from her sedation and discomfort after her falls. She appears alert and oriented least to place and person. HEENT: Normocephalic, eyes with pupils equal and reactive light symmetrically, dense arcus senilis, extraocular movement intact and sclera anicteric. Oropharynx with dry mucosa. Neck: Supple without JVD. Back: Tender to palpation of the lower spine with kyphosis. No focalizing bruising or fluctuance. No CVA tenderness. Lungs: Fair aeration and clear to auscultation. Chest: Dry bandage over left clavicle area where patient has chronic osteomyelitis which is stated to be nonhealing. Otherwise symmetrical chest. Heart: Regular rate and rhythm with no appreciable murmur or gallop. Thigh breast: Exam deferred. Abdomen: Normal contour, soft and nontender to palpation with no palpable hepatosplenomegaly. Genitalia/rectal: Exam deferred. Extremity: Obese lower extremities with chronic nonpitting edema and circumferential atrophic skin over the legs and ankle with no open ulcerations. Fair capillary refill. No clubbing or cyanosis. Osteoarthritic changes diffusely. Skin: Pale, warm and dry. Neuro: Cranial nerves II through XII gross intact, no focalizing motor deficits but patient appears generally weak. Psych: Flattened affect with depressed mood and patient appearing somewhat somnolent. No abnormal thought processes. Remote and recent memory not testable with patient somnolent. She gives vague history of her care at home. Results Imaging Imaging Studies: Exam: XR Pelvis Exam date and time: 09/28/2022 7:27 PM Age: 82 years old Clinical indication: Injury or trauma; Blunt trauma (contusions or hematomas); Does not apply; Pelvic region; Injury date: 09/28/22; Injury details: Fall, pain, more on right side TECHNIQUE: Imaging protocol: Radiologic exam of the pelvis. Views: 1 or 2 view. COMPARISON: CR XR PELVIS AP 12/10/2021 8:53 AM FINDINGS: Bones/joints:? Degenerative changes in the hips and lower lumbar spine. No acute fracture. Soft tissues:? Vascular calcifications. IMPRESSION: No acute findings. Exam: XR Lumbosacral Spine Exam date and time: 09/28/2022 7:30 PM Age: 82 years old Clinical indication: Injury or trauma; Blunt trauma (contusions or hematomas); Injury date: 09/28/22; Injury details: Fall, pain TECHNIQUE: Imaging protocol: Radiologic exam of the lumbosacral spine. Views: 2 or 3 views. COMPARISON: CR XR PELVIS AP 09/28/2022 7:27 PM FINDINGS: Bones/joints:? Degenerative changes and chronic loss of height No acute fracture. Alignment is grossly maintained Soft tissues: Unremarkable. IMPRESSION: No acute findings. Labs Result diagrams: 09/29/22 05:48 09/29/22 05:48 Labs: Laboratory Results - last 24 hr 09/28/22 09/28/22 09/28/22 20:15 20:15 21:48 WBC 8.80 RBC 2.28 L Hgb 7.4 L Hct 24.0 L MCV 105 H MCH 32.5 MCHC 30.8 L RDW 15.4 H Plt Count 177 MPV 10.5 Immature Gran % 0.3 Neutrophils % 80.0 Lymphocytes % 11.8 Monocytes % 7.0 Eosinophils % 0.6 Basophils % 0.3 Nucleated RBC % 0.0 Absolute Neutrophils 7.03 H Absolute Lymphocytes 1.04 L Absolute Monocytes 0.62 Absolute Eosinophils 0.05 Absolute Basophils 0.03 RBC Morphology See Below Polychromasia Present Macrocytosis 1+ Sodium 137 Potassium 6.8 H* Chloride 110 H Carbon Dioxide 20.1 L Anion Gap 6.9 BUN 47 H Creatinine 3.1 H Est GFR (CKD-EPI 2020) 14.38 Glucose 210 H Calcium 8.1 L Total Bilirubin 0.5 AST 35 ALT 21 Alkaline Phosphatase 110 Total Protein 7.3 Albumin 2.6 L Urine Color Yellow Urine Clarity Sl Cloudy Urine pH 6.5 Ur Specific [place] >= 1.030 H Urine Protein >=300 H Urine Ketones Negative Urine Blood Moderate H Urine Nitrite Negative Urine Bilirubin Negative Urine Urobilinogen 0.2 Ur Leukocyte Esterase Negative Urine RBC 3-5 H Urine WBC 20-50 H Ur Epithelial Cells Rare Urine Crystals Negative Urine Bacteria Many Urine Mucus Negative Ur Culture Indicated? Yes Urine Glucose 250 H Last Vital Signs Temp 37.0 C 09/28/22 17:27 Pulse 95 H 09/28/22 17:27 Resp 20 09/28/22 17:27 BP 190/81 H 09/28/22 17:27 Pulse Ox 94 09/28/22 17:27 Time Spent Time spent with Patient: >75 minutes Time was spent: preparing to see the patient(eg.review tests), obtaining and/or reviewing separately otained hiistory, ordering medications,tests, procedures, indepentently interpreting results and care coordination
[2022-09-28 23:08] LABS: Anion Gap 8.9 mmol/L (3-11); BUN 46 mg/dL (7-18); CO2 19.1 mmol/L (21.0-32.0); CREATININE 3.2 mg/dL (0.55-1.02); Calcium 8.2 mg/dL (8.5-10.1); Chloride 111 mmol/L (98-107); Estimated GFR 13.84 (mL/min/1.73m2); Glucose 190 mg/dL (74-106); Sodium 139 mmol/L (136-145)
[2022-09-28 23:13] LABS: Potassium 6.1 mmol/L (3.5-5.1)
[2022-09-28] MEDS: levoFLOXacin 500 MG/100 ML BAG 100 MG IVPB (23:17)
[2022-09-28] MEDS: Sodium Zirconium Cyclosilicate 10 GM PKT PO (23:28)
[2022-09-28] MEDS: Normal Saline 1,000 ML 100 ML IV (23:29)
[2022-09-28 23:30] VITALS: BP 136/58; PULSE 82; RESP 9; O2SAT 96
[2022-09-29] VITALS (105 sets, daily range): BP systolic 128–162; BP diastolic 48–71; PULSE 69–90; RESP 6–28; TEMP 36.6–36.8; O2SAT 71–99
--- NOTE | 2022-09-29 00:15 | NUR.NOTE ---
Nursing Note: PT C/O HAND SEVERELY ITCHING WHERE IV SITE AND UP HAND AND ARM IS. STOPPED ABT AND NOTIFIED PROVIDER.
--- NOTE | 2022-09-29 01:57 | NUR.NOTE ---
Nursing Note: 0045 - RESTARTED ABT PER DOC - NO COMPLAINTS FROM PT ABOUT ITCHING
[2022-09-29 03:20] LABS: Source Nasal/Nares
[2022-09-29 03:50] LABS: COVID-19 PCR Negative (Negative)
[2022-09-29 06:10] LABS: HCT 24.9 % (36.0-46.0); HGB 7.5 g/dL (11.2-15.7); MCH 32.1 pg (27.0-33.0); MCHC 30.1 % (32.0-36.0); MCV 106 fL (80-95); Platelet Count 169 10^3/uL (130-400); RBC 2.34 10^6/uL (3.93-5.22); RDW 15.9 % (11.7-14.6); RDW-SD 61.6 fL; WBC 6.75 10^3/uL (4.4-10.8)
[2022-09-29] MEDS: Heparin 5,000 UNITS/ML VIAL 5000 UNITS SC ×3 (06:29→21:35)
[2022-09-29 06:32] LABS: ALT 21 U/L (14-59); AST 25 U/L (15-37); Albumin 2.5 g/dL (3.4-5.0); Alkaline Phosphatase 108 U/L (46-116); Anion Gap 8.1 mmol/L (3-11); BUN 46 mg/dL (7-18); Bilirubin, Total 0.4 mg/dL (0.2-1.0); CO2 19.9 mmol/L (21.0-32.0); CREATININE 3.1 mg/dL (0.55-1.02); Calcium 8.5 mg/dL (8.5-10.1); Chloride 111 mmol/L (98-107); Estimated GFR 14.38 (mL/min/1.73m2); Glucose 165 mg/dL (74-106); Magnesium 1.8 mg/dL (1.8-2.4); Sodium 139 mmol/L (136-145); Total Protein 7.4 g/dL (6.4-8.2)
[2022-09-29 06:43] LABS: Potassium 6.9 mmol/L (3.5-5.1)
[2022-09-29] MEDS: Normal Saline Flush 10 ML SYR IVP (07:17)
--- NOTE | 2022-09-29 08:25 | PDOC.CMIN ---
- If Service Date Differs Date of service: 09/29/22 Time of Service: 08:25 Care Management Initial Assess REASON FOR HOSPITALIZATION:: Hyperkalemia and CKD PAST MEDICAL HISTORY/PAST SURGICAL HISTORY:: All Active Problems . UTI (urinary tract infection) (Acute). Hyperkalemia (Acute). Hospice care (Acute). Septic arthritis of left sternoclavicular joint (Acute ~12/2021). Followed by [facility] [place] [facility] and Thoracic Surgery. Heart failure with reduced ejection fraction (Chronic). Coronary artery disease (Chronic). [place] 08/2020, NSTEMI 09/2021. Ischemic cardiomyopathy (Chronic). CKD (chronic kidney disease) stage 4, GFR 15-29 ml/min (Chronic). Type 2 diabetes mellitus with chronic kidney disease (Chronic). Essential hypertension (Chronic). Macrocytic anemia (Chronic). Primary osteoarthritis of right knee (Chronic). Most recent injection: 08/06/2019. Primary osteoarthritis of left knee (Chronic). Most recent injection: 08/06/2019. Osteoarthritis of right hip (Chronic). Injection: 12/15/2021. Hyperkalemia (Chronic). Venous insufficiency (Chronic). Peripheral edema (Chronic). Medical History . Depression. 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 Left nephrolithiasis (09/2021). Myocardial infarction (~08/2020). Apical and septal infarct. Non-ST elevation [place] (NSTEMI) (09/2021). Perforated duodenal ulcer (~12/2020). Sacral decubitus ulcer. Sepsis (09/2021). Syncope. Related to use of lisinopril occurring both at rest while having her hair washed in beauty parlor as well as occurring while ambulating. None have occurred since cessation of her lisinopril. Uric acid nephrolithiasis. Surgical History . S/P exploratory laparotomy (01/18/21). [place] patch for perforated duodenal ulcer PREVIOUS FUNCTIONAL STATUS/SOCIAL/FAMILY SUPPORTS:: Jennifer lives alone in a single family home which she owns in [place]. She does not have any children but does have a brother, Gonzales, who lives closeby and is very supportive. 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 After retiring she remained active in the community but for the past year health issues and hospitalizations have resulted in mobility issues. She is currently home on hospice with caregiver support. CURRENT FUNCTIONAL STATUS:: Jennifer was sitting up in bed when CM met with her. She was alert and oriented and able to engage in conversation. Jennifer informed CM that she was unable to move. She wiggled her toes and said that was all she could do. She stated she was unable to move her legs at all. Apparently Jennifer has been able to transfer to and from her recliner, wheelchair and commode independently until yesterday. She sustained a mechanical fall and was brought to the hospital. She did not notify hospice of the admission so her status is a bit unclear at the moment. The reason for her admission is unrelated to her hospice diagnosis so she may remain acute and continue treatment for her hyperkalemia and pain. Sharon Almazan from hospice will see her this afternoon. Jennifer is also scheduled to have a PT evaluation today. ADVANCE DIRECTIVES:: COLST on file. [facility] brother Gonzales Has patient been provided with info about the portal/API?: Yes Did the patient sign up for the portal?: No CODE STATUS:: DNR/DNI INSURANCE COVERAGE / FINANCIAL ISSUES:: [employer] Medicare Advantage CURRENT HOME/COMMUNITY SERVICES/EQUIPMENT:: Jennifer is currently on hospice in the community PRIMARY CARE PHYSICIAN:: Jocelin Martinez POTENTIAL DISCHARGE NEEDS:: return to community with a resumption of hospice care PATIENT/FAMILY EDUCATION NEEDS:: Review of discharge instructions, limitations, expectations, follow up plan, Ask Me Three TRANSPORTATION:: via private vehicle vs EMS PLAN:: Anticipate Jennifer will return home with a resumption of hospice services. She will follow up with her community providers and transport via EMS. CM will continue to support jennifer and assess for discharge planning concerns.
[2022-09-29] MEDS: Sodium Zirconium Cyclosilicate 10 GM PKT PO (08:38)
[2022-09-29] MEDS: Insulin REGULAR-Human 100 UNITS/ML UNIT 10 UNITS IV (08:40)
--- NOTE | 2022-09-29 08:40 | OTIE_ITS ---
Occupational Therapy Notes Inpatient Occupational Therapy Evaluation Date: 09/29/22 Referring Doctor:Dr. Ely OT Orders: Non Urgent Precautions: Fall, standard, DNR/DNI PATIENT PROFILE/ADMITTING DIAGNOSIS: Pt is a 82 year old female who was admitted to the ICU after a fall at home. She was admitted for the following dx of UTI, hyperkalemia, septic arthritis of sternoclavicular joint, heart failure, coronary artery disease, ischemic cardiomyopathy, CKD, type 2 DM, essestial HTN, macrocytic anemia, primary osteoarthritis of the (L) knee and (R) hip, hyperkalemia, venous insufficiency, peripheral edema. Past Medical History: All Active Problems? UTI (urinary tract infection) (Acute) Hyperkalemia (Acute) Hospice care (Acute) Septic arthritis of left sternoclavicular joint (Acute ~12/2021) Followed by [facility] [place] ID and Thoracic SurgeryHeart failure with reduced ejection fraction (Chronic) Coronary artery disease (Chronic) [place] 08/2020, NSTEMI 09/2021Ischemic cardiomyopathy (Chronic) CKD (chronic kidney disease) stage 4, GFR 15-29 ml/min (Chronic) Type 2 diabetes mellitus with chronic kidney disease (Chronic) Essential hypertension (Chronic) Macrocytic anemia (Chronic) Primary osteoarthritis of right knee (Chronic) Most recent injection: 08/06/2019Primary osteoarthritis of left knee (Chronic) Most recent injection: 08/06/2019Osteoarthritis of right hip (Chronic) Injection: 12/15/2021Hyperkalemia (Chronic) Venous insufficiency (Chronic) Peripheral edema (Chronic) Medical History? 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 None have occurred since cessation of her lisinoprilUric acid nephrolithiasis Surgical History? S/P exploratory laparotomy (01/18/21) [place] patch for perforated duodenal ulcer Social History/Home Situation: Pt states that she as been living in and out of the hospital for months now. She states that she is on hospice care now for her chronic issues at this time. She notes that she utilizes a wheelchair and was pivoting prior from chair to commode and chair to bed. Equipment owned/DME: wheelchair, commode, FWW SUBJECTIVE: Pt states that she is ok but tired. OBJECTIVE: General Observation: Pleasant and agreeable to OT session, telemetry, BP cuff Mental Status: A&Ox3 Pain: c/o pain in (B) LE ROM: RUE AROM WFL L UE AROM WFL STRENGTH: RUE 3/5 LUE 3-/5 FUNCTIONAL MOBILITY/ADLS: Transfers unable to perform today OT and pt went over self care training. She has a caregiver who (A) her with her ADLs at home and HH who comes in to help. She reports that she does as much as she can but with her legs in so much pain today she denies performance of her ADLs. Functionally her (B) UE are WFL to (A) but OT agrees that pt being completely (I) would be more than her projected baseline level of function at this time. SPECIAL TESTS: Daily Activity Limitations Standardized Measure [facility] AM -PAC ?6 clicks? Daily Activity Inpatient Short Form: Raw score: 10 INFORMED CONSENT/EDUCATION: Pt instructed in purpose of OT Consult and plan of care. ASSESSMENT: Patient is a 82-year-old female referred to occupational therapy services with diagnosis of UTI, hyperkalemia, septic arthritis of sternoclavicular joint, heart failure, coronary artery disease, ischemic cardio myopathy, CKD, type 2 DM, essestial HTN, macrocytic anemia, primary osteoarthritis of the (L) knee and (R) hip, hyperkalemia, venous insufficiency, peripheral edema. Patient presents with clinical signs and symptoms consistent with dx, as demonstrated by the following impairment level findings/ functional limitations: Impairments in ADL/IADL and leisure activities, decreased strength, decreased functional activity tolerance, impairments in functional mobility required for ADL performance. AMPAC score 10 Patient is assessed as a Moderate [id number] complexity based on the following: History: see above Examination: see functional limitations as noted above Presentation: evolving Decision Making: [facility] 10 GOALS Goals x1 week 1. Transfers stand pivot (I) 2. Dressing seated mod (A) 3. Bathing seated min (A) 4. Toileting on commode (I) 5. Eating (I) PLAN OF CARE/TREATMENT PLAN: 1x/day, 5 days/ week x 1week Initiate Occupational Therapy Services for bathing, dressing, grooming, toileting, eating, transfer training. DISCHARGE RECOMMENDATIONS SNF vs. home on hospice as prior plan with increased (A) at home. TREATMENT TIME/MINUTES/CODES [id number], 20 minutes Mamta Bernardo OTR/L [facility] [place]
[2022-09-29] MEDS: Calcium Gluconate 4.65 MEQ/10 ML VIAL 4.65 MG IVP (08:42)
[2022-09-29] MEDS: Dextrose 50%-Water 25 GM/50 ML SYR IVP (08:44)
--- NOTE | 2022-09-29 10:13 | PT.INNT ---
Date of service: 09/29/22 Time of Service: 10:13 PT Notes Visit Reasons: Acute Hyperkalemia,CKD Exacerbation,UTI Advised by Dr. Ely to hold off on PT eval until goals of care are reviewedd with patient this afternoon. Will recheck with MD, CM, and patient this afternoon to if evaluation is in order.
[2022-09-29] MEDS: LORazepam 1 MG TAB PO (11:06)
[2022-09-29] MEDS: Normal Saline 1,000 ML 100 ML IV ×2 (11:14→20:58)
[2022-09-29] MEDS: Aspirin E.C. 81 MG TABEC PO (11:34)
[2022-09-29] MEDS: Carvedilol 3.125 MG TAB PO ×2 (11:34→20:55)
[2022-09-29 12:35] LABS: Anion Gap 10.2 mmol/L (3-11); BUN 44 mg/dL (7-18); CO2 20.8 mmol/L (21.0-32.0); CREATININE 3.2 mg/dL (0.55-1.02); Calcium 8.8 mg/dL (8.5-10.1); Chloride 107 mmol/L (98-107); Estimated GFR 13.84 (mL/min/1.73m2); Glucose 125 mg/dL (74-106); Potassium 5.8 mmol/L (3.5-5.1); Sodium 138 mmol/L (136-145)
--- NOTE | 2022-09-29 13:59 | PT.INIE ---
Date of service: 09/29/22 Time of Service: 10:08 PT Notes Visit Reasons: Acute Hyperkalemia,CKD Exacerbation,UTI Physical Therapy Inpatient Initial Evaluation Date: 09/29/2022 Referring Doctor: Taz Velásquez MD PT Orders: PT CONSULT: Limited ability Precautions: Fall. Standard. Activity as tolerated. 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 PMHX: All Active Problems? 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 None have occurred since cessation of her lisinoprilUric acid nephrolithiasis Surgical History? S/P exploratory laparotomy (01/18/21) Milton patch for perforated duodenal ulcer Social History/Home Situation: Lives alone at home. Brother has been a good support. Has regular caregiver who provide needed support. Able to do stand pivot transfers prior to admission. Equipment Owned/DME: Hospital bed, bedside commode, wheelchair Subjective: Vy appeared tired at rest and did not believe she could get out of bed. Nurse Anny states that patient took Morphine half an hour ago. Patient did not feel confident that less than 3 people can help her up. She was with [employer] when this PT came in. Patient admitted that she may not be able to manage at home in this state. Objective: General Observation: Supine in bed. Telemetry monitoring in place. Catherine catheter in place. Bandage over L calvicular area. Mental Status: Alert and oriented as to person, place, time, and purpose. Able to pay attention, focus, and respond appropriately. Pain: 8-9/10 pain in B LE with movement, R more painful than the L Vital Signs: WNL as closely monitored via tele ROM: Right Upper Extremity: Shoulder Flexion allows up to 80 degrees. Shoulder abduction allows up to 80 degrees. Elbow flexion WFL. Wrist flexion WFL. Functional opening and closing of hand WFL. Left Upper Extremity: Shoulder Flexion allows up to 80 degrees. Shoulder abduction allows up to 80 degrees. Elbow flexion WFL. Wrist flexion WFL. Functional opening and closing of hand WFL. Right Lower Extremity: Hip flexion unable due to pain. Hip abduction unable due to pain. Knee flexion unable due to pain. Ankle dorsiflexion to neutral only. Ankle plantarflexion WFL. Left Lower Extremity: Hip flexion les than 25% of AROM. Hip abduction les than 25% of AROM. Knee flexion les than 25% of AROM. Ankle dorsiflexion to neutral only. Ankle plantarflexion WFL. Strength: Right Upper Extremity: Shoulder flexors 3-/5. Shoulder abductors 3-/5. Elbow flexors 4-/5. Elbow extensors 4-/5. Printed Circuit [employer] Panels Trimmer strong. Left Upper Extremity: Shoulder flexors 3-/5. Shoulder abductors 3-/5. Elbow flexors 4-/5. Elbow extensors 4-/5. Printed Circuit Board Panels Trimmer strong. Right Lower Extremity: Hip flexors 1/5. Hip abductors 1/5. Knee flexors 1/5. Knee extensors 1/5. Ankle dorsiflexors 3-/5. Ankle plantarflexors 3-/5. Left Lower Extremity: Hip flexors 2-/5. Hip abductors 2-/5. Knee flexors 2-/5. Knee extensors 2-/5. Ankle dorsiflexors 3-/5. Ankle plantarflexors 3-/5. Bed Mobility/Transfers: Supine to sit initiation required moderate assist to B LE but was not completed due to pain report by patient at -06/05 Sit to supine unable to test due to increase in patient's pain level with movement Sit to stand unable to test due to increase in patient's pain level with movement Stand to sit unable to test due to increase in patient's pain level with movement Bed to chair unable to test due to increase in patient's pain level with movement Chair to bed unable to test due to increase in patient's pain level with movement Gait: Unable to test due to increase in patient's pain level with movement Balance: Static Sitting: Unable to test due to increase in patient's pain level with movement Dynamic Sitting: Unable to test due to increase in patient's pain level with movement Static Standing: Unable to test due to increase in patient's pain level with movement Dynamic Standing: Unable to test due to increase in patient's pain level with movement Special Tests: Mobility Limitations Standardized Measure [facility] AM-PAC 6 clicks Basic Mobility Inpatient Short Form: Raw Score: 6 CMS Score: 100% deficit Informed Consent/Education: Patient was instructed in purpose of PT consult and plan of care. Agreeable to proceed with established PT POC to achieve personal goals. Assessment: Significant functional mobility decline with patient unable to do bed mobility and transfers due to severe pain level requiring mechanical lift for all transfers at this time to reduce fall risk. Prior to admission, patient had been non-ambulatory and only had been able to do squat-pivot transfers. Will continue to attempt trails moving patient out of bed as pain level improves. Patient appears fatigued even at rest. Patient presents with clinical signs and symptoms consistent with current/admitting diagnoses that have resulted to mobility limitations, gait instability, generalized weakness, and overall ADL decline as demonstrated by the following impairment level findings: 1. Decreased strength to B UE/LE major muscle groups 2. Severe pain level 8-9/10 in B LE 3. Impaired activity tolerance 4. Fatigue even at rest Impairments are contributing to the following functional limitations: 1. Dependent bed mobility skills 2. Dependent transfer abilities 3. Score of 100% mobility deficit in the [facility] Basic Mobility test Patient is assessed as a 53031 high complexity based on the following: History: 82-year-old female with past medical history as indicated above Examination: Demonstrable impairment in strength, balance, and mobility level with underlying impairments and functional limitations as exhibited above as well as deficit score of 100% utilizing the [facility] Mobility Inpatient Short Form Presentation: Evolving Decision Makin high complexity Goals: Goals X1 week 1. Patient will demonstrate minimal assist with all transfers tasks using squat-pivot transfers vs. stand by assist with stand pivot transfers using FWW withreport of less 3/10 pain in B LE Plan of Care/Treatment Plan: 1-2x/day, 7 days/week x 1 week. Plan of care has been reviewed with the SALES STRATEGY MANAGER providing the service under Physical Therapy direction. Initiate Physical Therapy intervention for pain management as needed, strengthening, bed mobility, transfers, and balance training. DISCHARGE RECOMMENDATIONS: [] Home with no services [] [] Home with services [specify] [] Home with outpatient PT [] [] SNF for continued rehabilitation [] [] Outdoor Studies Director Care [] [X] SNF versus LTC based on patient goals, amount of needed caregiver support, and overall response to plan of care TREATMENT CODE/TIME: 79362 x 28 minutes beginning at 13:59 PM. Thank you for the opportunity to participate in the care of this patient. Haley Wright PT, DPT, CLT [facility] [place], [place]
--- NOTE | 2022-09-29 16:31 | PGE_ITS ---
Date of Service Date of service: 09/29/22 Time of Service: 16:31 Assessment and Plan Assessment and plan (1) Hyperkalemia: Status: Acute Assessment and plan: K initially 6.9. After initial treatment decreased to 6.1 then increased again to 6.8. Lokelma, insulin and IV glucose, albuterol neb treatment repeat. CaGluconate repeated K decreased to 5.8 Cont to monitor.. (2) CKD (chronic kidney disease) stage 4, GFR 15-29 ml/min: Status: Chronic Assessment and plan: Unclear baseline but pm recent previous admission creatinine was elevated up to 3.6 then decreased to the low 3's which is where it currently is. Likely etiology of hyperkalemia. (3) UTI (urinary tract infection): Status: Acute Assessment and plan: Patient appears to have an acute UTI by urinalysis and this will be treated with IV Levaquin with patient being allergic to penicillin. Levaquin is being renal dosed. (4) Type 2 diabetes mellitus with chronic kidney disease: Status: Chronic Assessment and plan: Glucometer checks before meals and at bedtime with short acting insulin coverage while in the hospital. Advance diet as patient tolerates. (5) Hospice care: Status: Acute Assessment and plan: Hospice patient but not admitted under hospice diagnosis. Hospice to discuss pts desires; whether to continue current tx, stay for a respite or return home. Subjective Subjective Patient reports: still having pain (Generalized; most major joints. ) and afebrile; denies nausea, vomiting or shortness of breath Exam Narrative Exam Narrative: GEN: awake, alert, oriented 3. Pleasant. Appears uncomfortable. HEAD: Normocephalic, atraumatic ENT: Mucous membranes moist. EYES: sclera clear. NECK: Holds neck stiff but has range of motion. Lungs: clear anteriorly. Nonlabored breathing. CARDIOVASCULAR: RRR, no murmur ABDOMEN: Soft, nontender, no mass. +Bowel sounds Back: Lower lumbar tenderness to palpation. EXT:No edema, No calf tenderness. Neuro: Grossly normal neurologic exam, conversant, interactive. Objective Last Vital Signs Temp 36.8 C 09/29/22 09:02 Pulse 90 09/29/22 12:01 Resp 18 09/29/22 12:51 BP 156/65 H 09/29/22 12:01 Pulse Ox 96 09/29/22 12:01 Laboratory Results - last 24 hr 09/28/22 09/28/22 09/28/22 20:15 20:15 21:48 WBC 8.80 RBC 2.28 L Hgb 7.4 L Hct 24.0 L MCV 105 H MCH 32.5 MCHC 30.8 L RDW 15.4 H Plt Count 177 MPV 10.5 Immature Gran % 0.3 Neutrophils % 80.0 Lymphocytes % 11.8 Monocytes % 7.0 Eosinophils % 0.6 Basophils % 0.3 Nucleated RBC % 0.0 Absolute Neutrophils 7.03 H Absolute Lymphocytes 1.04 L Absolute Monocytes 0.62 Absolute Eosinophils 0.05 Absolute Basophils 0.03 RBC Morphology See Below Polychromasia Present Macrocytosis 1+ Sodium 137 Potassium 6.8 H* Chloride 110 H Carbon Dioxide 20.1 L Anion Gap 6.9 BUN 47 H Creatinine 3.1 H Est GFR (CKD-EPI 2020) 14.38 Glucose 210 H Calcium 8.1 L Magnesium Total Bilirubin 0.5 AST 35 ALT 21 Alkaline Phosphatase 110 Total Protein 7.3 Albumin 2.6 L Urine Color Yellow Urine Clarity Sl Cloudy Urine pH 6.5 Ur Specific [place] >= 1.030 H Urine Protein >=300 H Urine Ketones Negative Urine Blood Moderate H Urine Nitrite Negative Urine Bilirubin Negative Urine Urobilinogen 0.2 Ur Leukocyte Esterase Negative Urine RBC 3-5 H Urine WBC 20-50 H Ur Epithelial Cells Rare Urine Crystals Negative Urine Bacteria Many Urine Mucus Negative Ur Culture Indicated? Yes Urine Glucose 250 H COVID-19 Source SARS-CoV-2 (PCR) 09/28/22 09/29/22 09/29/22 22:55 02:00 03:13 WBC RBC Hgb Hct MCV MCH MCHC RDW Plt Count MPV Immature Gran % Neutrophils % Lymphocytes % Monocytes % Eosinophils % Basophils % Nucleated RBC % Absolute Neutrophils Absolute Lymphocytes Absolute Monocytes Absolute Eosinophils Absolute Basophils RBC Morphology Polychromasia Macrocytosis Sodium 139 Cancelled Potassium 6.1 H* Cancelled Chloride 111 H Cancelled Carbon Dioxide 19.1 L Cancelled Anion Gap 8.9 Cancelled BUN 46 H Cancelled Creatinine 3.2 H Cancelled Est GFR (CKD-EPI 2020) 13.84 Cancelled Glucose 190 H Cancelled Calcium 8.2 L Cancelled Magnesium Total Bilirubin AST ALT Alkaline Phosphatase Total Protein Albumin Urine Color Urine Clarity Urine pH Ur Specific [place] Urine Protein Urine Ketones Urine Blood Urine Nitrite Urine Bilirubin Urine Urobilinogen Ur Leukocyte Esterase Urine RBC Urine WBC Ur Epithelial Cells Urine Crystals Urine Bacteria Urine Mucus Ur Culture Indicated? Urine Glucose COVID-19 Source Nasal/Nares SARS-CoV-2 (PCR) Negative 09/29/22 09/29/22 09/29/22 05:48 05:48 12:10 WBC 6.75 RBC 2.34 L Hgb 7.5 L Hct 24.9 L MCV 106 H MCH 32.1 MCHC 30.1 L RDW 15.9 H Plt Count 169 MPV 11.0 Immature Gran % Neutrophils % Lymphocytes % Monocytes % Eosinophils % Basophils % Nucleated RBC % Absolute Neutrophils Absolute Lymphocytes Absolute Monocytes Absolute Eosinophils Absolute Basophils RBC Morphology Polychromasia Macrocytosis Sodium 139 138 Potassium 6.9 H* 5.8 H D Chloride 111 H 107 Carbon Dioxide 19.9 L 20.8 L Anion Gap 8.1 10.2 BUN 46 H 44 H Creatinine 3.1 H 3.2 H Est GFR (CKD-EPI 2020) 14.38 13.84 Glucose 165 H 125 H Calcium 8.5 8.8 Magnesium 1.8 Total Bilirubin 0.4 AST 25 ALT 21 Alkaline Phosphatase 108 Total Protein 7.4 Albumin 2.5 L Urine Color Urine Clarity Urine pH Ur Specific [place] Urine Protein Urine Ketones Urine Blood Urine Nitrite Urine Bilirubin Urine Urobilinogen Ur Leukocyte Esterase Urine RBC Urine WBC Ur Epithelial Cells Urine Crystals Urine Bacteria Urine Mucus Ur Culture Indicated? Urine Glucose COVID-19 Source SARS-CoV-2 (PCR) Time Spent with Patient Time Spent with Patient: 25-34 minutes Time was spent: preparing to see the patient(eg.review tests), ordering m edications,tests, procedures, referring, communicating with other health progressive care manager and care coordination
[2022-09-29] MEDS: Insulin Aspart 300 UNITS/3 ML PEN SC ×2 (17:00→21:35)
--- NOTE | 2022-09-29 17:18 | CHAPLAIN ---
I visited with Vy this morning. She was admitted very early this morning (around 3a.m. through the ED, she said). 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 She said this past year has been extremely difficult and that she spent time at [facility], [facility] [facility], [place], and [facility], and has only been home for a month or so. After being very active her whole life, Vy said - this is not the way to live. She said she is tired and very discouraged. She talked about what her end of life wishes, and her plans for her and explained that her brother, Gonzales, knows all this information. I left when PT arrived to work with Vy. 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 She said she's lived a good life, and that her mind is clear, but her body no longer works. Vy lives alone in [place] and is currently a hospice patient. Her brother, Gonzales, and his , Shantelle, are very close to her and supportive. She's been talking with Gonzales on the phone, and with other friends.
[2022-09-29] MEDS: Atorvastatin 40 MG TAB PO (20:55)
[2022-09-30] VITALS (8 sets, daily range): BP systolic 131–154; BP diastolic 57–72; PULSE 76–83; RESP 16; TEMP 37.2–37.6; O2SAT 93–96
[2022-09-30] MEDS: Heparin 5,000 UNITS/ML VIAL 5000 UNITS SC ×2 (05:44→14:11)
[2022-09-30] MEDS: Acetaminophen 325 MG TAB 1000 MG PO (05:46)
[2022-09-30] MEDS: LORazepam 1 MG TAB PO (07:40)
[2022-09-30] MEDS: Aspirin E.C. 81 MG TABEC PO (07:40)
[2022-09-30] MEDS: Carvedilol 3.125 MG TAB PO (07:40)
[2022-09-30 10:18] LABS: Anion Gap 8.6 mmol/L (3-11); BUN 45 mg/dL (7-18); CO2 19.4 mmol/L (21.0-32.0); CREATININE 3.4 mg/dL (0.55-1.02); Calcium 7.8 mg/dL (8.5-10.1); Chloride 111 mmol/L (98-107); Estimated GFR 12.87 (mL/min/1.73m2); Glucose 179 mg/dL (74-106); Potassium 5.7 mmol/L (3.5-5.1); Sodium 139 mmol/L (136-145)
--- NOTE | 2022-09-30 11:25 | W.INDIABCONS ---
Date of service: 09/30/22 Time of Service: 11:25 Diabetes Inpatient Consult Reason for Visit: DM DESCRIPTION/ASSESSMENT: 82 year old female admitted with CKD4 with UTI and hx of DM2, obesity, followed by Hospice for non healing osteo in left clavicle. Following diabetic diet with adequate intake. Most recent A1C of 8% (2021) acceptable in view of co morbidities. Does not need diabetes education at this time. Per nsg, compliant with insulin regime of aspart 9 u TID, glargine 8 u qd. PLAN: Will monitor po intake, labs, weigh and be available prn Time Spent in Nutritional Counseling and Treatment: 0
[2022-09-30] MEDS: Sodium Zirconium Cyclosilicate 10 GM PKT PO (11:43)
--- NOTE | 2022-09-30 11:51 | PHA.REVIEW2 ---
Pharmacy Admission Review - Admission Clinical Review (Last Reviewed 09/28/22 @ 22:50 by Taz Velásquez) UTI (urinary tract infection) (Acute) Hyperkalemia (Acute) Hospice care (Acute) Penicillins Allergy (Unknown, Verified 04/19/22 12:19) hydrocodone Adverse Reaction (Intermediate, Verified 04/19/22 12:19) Nausea Resuscitation Status DNR/DNI Height 5 ft 4 in Weight 80.4 kg - Renal Dosing Renal Dosing: BUN 45 mg/dL (7-18) H 09/30/22 09:26 Creatinine 3.4 mg/dL (0.55-1.02) H 09/30/22 09:26 Medications needing adjustments: Reviewed (crcl ~12.8) List of meds needing interventions: levaquin ordered 500 mg q48h - Anticoagulation Anticoagulation: Hgb 7.5 g/dL (11.2-15.7) L 09/29/22 05:48 Hct 24.9 % (36.0-46.0) L 09/29/22 05:48 Plt Count 169 10^3/uL (130-400) 09/29/22 05:48 Creatinine 3.4 mg/dL (0.55-1.02) H 09/30/22 09:26 DVT Prophylaxis: Reviewed Medications: Heparin (5000 units q8) Therapeutic Anticoagulation: N/A - Opiate Usage Evaluate Pain Scale/Pains Meds: Reviewed (morphine oral soln 5 mg q1h prn (home dose) -- using sparingly, 3 doses over the past 24 hrs) Scheduled Bowel Reg ordered if on Opiates?: No (prn) - Relevant Labs Sodium 139 mmol/L (136-145) 09/30/22 09:26 Potassium 5.7 mmol/L (3.5-5.1) H 09/30/22 09:26 Chloride 111 mmol/L (98-107) H 09/30/22 09:26 Magnesium 1.8 mg/dL (1.8-2.4) 09/29/22 05:48 Electrolytes, C-Reactive P, ESR: Reviewed (K+ = 5.7, has received 3 doses of lokelma) - DM Control DM Control: Glucose 179 mg/dL (74-106) H 09/30/22 09:26 Finger Stick Blood Glucose 191 Finger Stick Blood Glucose 191 Finger Stick Blood Glucose 191 DM Control: Reviewed Insulin Dosing, Diabetic Medication: sliding scale insulin dc'd today. home regimen: insulin glargine 8 units daily, insulin aspart 9units TID (?compliance - glargine last fill 08/17/22 for 1 pen - would have run out in august; no fills showing for aspart, insulin lispro filled november 2021 for 50 day supply). last a1c = 8% on 11/09/21 - Cardiac Review BP, HR, EF%: Reviewed - Qtc Review QTc: Reviewed (QTc = 441 on 09/28/22) If Elevated, List meds needing intervention: n/a - IV to PO Switch IV Medications: Reviewed (IV antibiotics - switch to PO when appropriate) - Home Meds Home Med List reviewed: Reviewed - Current meds Current Medication Order Review: Reviewed Antibiotic Activity - Pharmacy Antibiotic Review Pharmacy Antibiotic Activity: 48 hour review (levaquin 500 mg q48h, indication: UTI)
--- NOTE | 2022-09-30 11:57 | PCNE_ITS ---
Date of service: 09/30/22 Time of Service: 11:57 History of Present Illness Narrative: Gray Wilson was was seen in her hospital room She is on hospice but inpatient for an acute admission unrelated to her hospice Dx. She is nearing being ready for discharge for the acute problem- including UTI and hyperkalemia r/t CKD. Discussed goals. She wishes to remain in her home, she wants to in her home. She does not think she is ready to discharge home yet. She has not been out of bed since she has been in the hospital. She is eating and drinking well. Denies N/V. She continues to have pain r/t the fall. Her pain is all over her body. She is taking MS PRN. Discussed scheduling APAP, she agrees. Discussed being admitted to Hospice Respite while the team works on getting more help in her home. She agrees. Assessment and Plan Assessment and plan (1) UTI (urinary tract infection): Status: Acute (2) Hyperkalemia: Status: Acute (3) CKD (chronic kidney disease) stage 4, GFR 15-29 ml/min: Status: Chronic (4) Ischemic cardiomyopathy: Status: Chronic (5) Coronary artery disease: Status: Chronic (6) Heart failure with reduced ejection fraction: Status: Chronic (7) Type 2 diabetes mellitus with chronic kidney disease: Status: Chronic (8) Essential hypertension: Status: Chronic (9) Hospice care: Status: Acute Assessment and plan: Vy is an 82 year old who is on hospice for CHF and nonhealing wound with septic arthritis of the left sternoclavicular joint. She had a fall at home and was transported to the ED via EMS and is currently inpatient for an acute admission unrelated to her hospice Dx. She is nearing being ready for discharge for the acute problem- including UTI and hyperkalemia r/t CKD. Discussed goals. She wishes to remain in her home, she wants to in her home. She has not been out of bed since she was admitted. She does not feel ready to go home yet. She will be discharged from the acute admission and admitted to hospice respite for up to 5 days while the team works out a plan for her at home. She will need a hospital bed, hospice is aware. This is a no charge visit because she is on hospice. 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) Essential hypertension (Chronic) Macrocytic anemia (Chronic) Primary osteoarthritis of right knee (Chronic) Most recent injection: 08/06/2019 Primary osteoarthritis of left knee (Chronic) Most recent injection: 08/06/2019 Osteoarthritis of right hip (Chronic) Injection: 12/15/2021 Hyperkalemia (Chronic) Venous insufficiency (Chronic) Peripheral edema (Chronic) Medical History Depression 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 None have occurred since cessation of her lisinopril Uric acid nephrolithiasis Surgical History S/P exploratory laparotomy (01/18/21) Milton patch for perforated duodenal ulcer Family History Mother , AGE 78 Diabetes Father No problems noted. 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 She is awake, alert, talkative. HEENT: normocephalic, atraumatic, EOMI, wearing glasses, missing several teeth. neck: supple, dressing to left chest wound C/D/I. Cardiovascular: heart sounds regular, nontachycardic. Respiratory: respirations appear even and unlabored, lung sounds are clear on limited anterior and lateral exam. GI: +BS, abd soft nondistended, nontender on palpation. : giraldo draining medium yellow urine. Extremities: moves BUE's freely, BLEs with wrinkled skin, no edema, scaley skin. Results Last Vital Signs Temp 37.6 C H 09/30/22 07:45 Pulse 76 09/30/22 07:46 Resp 18 09/29/22 12:51 BP 131/59 L 09/30/22 07:46 Pulse Ox 93 09/30/22 07:46 Labs Result diagrams: 09/29/22 05:48 09/30/22 09:26 Labs: Laboratory Results - last 24 hr 09/29/22 09/30/22 12:10 09:26 Sodium 138 139 Potassium 5.8 H D 5.7 H Chloride 107 111 H Carbon Dioxide 20.8 L 19.4 L Anion Gap 10.2 8.6 BUN 44 H 45 H Creatinine 3.2 H 3.4 H Est GFR (CKD-EPI 2020) 13.84 12.87 Glucose 125 H 179 H Calcium 8.8 7.8 L
--- NOTE | 2022-09-30 13:45 | DSE_ITS ---
Date of service: 09/30/22 Time of Service: 13:50 DS: Diagnosis Discharge Diagnosis (1) UTI (urinary tract infection): Status: Acute (2) Hyperkalemia: Status: Acute (3) CKD (chronic kidney disease) stage 4, GFR 15-29 ml/min: Status: Chronic (4) Ischemic cardiomyopathy: Status: Chronic (5) Coronary artery disease: Status: Chronic (6) Heart failure with reduced ejection fraction: Status: Chronic (7) Type 2 diabetes mellitus with chronic kidney disease: Status: Chronic (8) Essential hypertension: Status: Chronic (9) Hospice care: Status: Acute Discharge Plan Disposition Patient Disposition: Hospice Home Condition: Poor Discharge Details Reason For Visit: Acute Hyperkalemia,CKD Exacerbation Admit Date/Time: 09/28/22 22:52 Admit Provider: Taz Velásquez Attending Provider: Taz Velásquez [facility] Course: This is an 82-year-old female patient who is at home on hospice care because of 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 She is a DNR DNI.? She is alone at home at times and usually is able to stand and pivot with transfers when she has assistance.? She appeared to stand on her own and fell to the floor striking her lower back and coccyx area.? Imaging revealed no fractures.? The patient had lab evaluation and was found to have worsening of her CKD with hyperkalemia.? She chronically is not on any medication for hyperkalemia and this is an acute issue.? In the ED she was treated with insulin and IVs as well as Lokelma.? Her potassium did slightly improve and she was admitted for continued monitoring and treatment of hyperkalemia with gentle hydration.? The admitting hospitalist reviewed the case with the ED physician and she will continue to have monitoring and treatment of hyperkalemia while in the ED awaiting a bed on [facility] for inpatient admission. Admitting to hospitalist service not hospice given the admitting dx is not her reason for hospice services. She required further lokelma, albuterol nebs, IV insulin and glucose and IV calcium all to lower her potassium. She did have a favorable response. Hospice consulted. Patient was very sure that she wanted no invasive measures/treatments and that she was a peace with dying. PT evaluation showed her unable to participate d/t generalized pain and weakness. She has agreed to a respite stay and will be transitioned to the hospice team. Home Meds and New Rx's Prescriptions: Continued atorvastatin [Lipitor] 40 mg tablet 40 mg PO QPM Qty: 90 4RF carvedilol 3.125 mg tablet 3.125 mg PO BID Qty: 180 3RF aspirin 81 mg tablet,delayed release (DR/EC) 81 mg PO DAILY Qty: 100 0RF morphine concentrate 100 mg/5 mL (20 mg/mL) solution See Rx Instructions PO Q1H PRN MDD 240 mg PRN (Reason: pain or dyspnea) Qty: 30 0RF Rx Instructions: 0.25-1.0 ml orally every 1 hour, as needed; HOSPICE lorazepam 1 mg tablet 1 mg PO Q4H PRN PRN (Reason: anxiety) Qty: 10 2RF Rx Instructions: hospice nitroglycerin [Nitrostat] 0.4 mg Tablet, Sublingual 0.4 mg sublingual Q5 MIN PRN X3 PRNQty: 20 0RF Held furosemide 20 mg tablet 20 mg PO BID Qty: 180 3RF Hold Instructions: Until further eval. insulin glargine [Lantus Solostar U-100 Insulin] 100 unit/mL (3 mL) insulin pen 8 unit subcut DAILY Qty: 9 4RF Hold Instructions: Until discussion with hospice insulin aspart U-100 100 unit/mL (3 mL) Insulin Pen 9 unit SUBCUT TIDWMEAL Hold Instructions: Until discussion with hospice Discontinued ciprofloxacin HCl 250 mg tablet 250 mg PO BID Qty: 14 0RF No Action (DME) FreeStyle Test Strip 1 ea Miscellaneous BID Qty: 360 4RF Rx Instructions: Check blood sugar four times a day (DME) pen needle, diabetic [Comfort EZ Pen [place]] 31 gauge x 5/16 needle See Dose Instructions .ROUTE .MEDSUPPLY Qty: 1200 4RF Dose Instruction: As directed Rx Instructions: Use with insulin pens Discharge Instructions Activity:: Activity as Tolerated Equipment/Supplies:: No Equipment Needed Diet:: As Tolerated Discharge Orders Discharge Orders: Discharge Order (Routine); Ordered 09/30/22 Ordered By: Dhaval Ely DS: Summary Time Spent with Patient providing and/or coordinating discharge services: Greater than 30 minutes Status at Discharge Functional status at discharge: bed bound (Currently unable to self-transfer d/t pain after falling at home) Overall status at discharge: patient is not back to baseline Mental Status: mental status grossly normal Speech and Movement: speech clear Mood: congruent mood Affect: normal affect Exam Narrative Exam Narrative: GEN: awake, alert, oriented 3. Pleasant. Appears uncomfortable. HEAD: Normocephalic, atraumatic ENT: Mucous membranes moist. EYES: sclera clear. NECK: Holds neck stiff but has range of motion. Lungs: clear anteriorly. Nonlabored breathing. CARDIOVASCULAR: RRR, no murmur ABDOMEN: Soft, nontender, no mass. +Bowel sounds Back: Lower lumbar tenderness to palpation. EXT:No edema, No calf tenderness. Neuro: Grossly normal neurologic exam, conversant, interactive. Psych Mental Status: mental status grossly normal Speech and Movement: speech clear Mood: congruent mood Affect: normal affect DS: Data Vitals/I&O Vitals and I&O: Vital Signs Temperature 37.6 C H 09/30/22 07:45 Temperature Source Temporal Artery Scan 09/30/22 07:45 Pulse 76 09/30/22 07:46 Pulse Rhythm Regular 09/30/22 07:30 Pulse 76 09/29/22 05:01 Respiratory Rate 18 09/29/22 12:51 Respiratory Effort Non-Labored 09/30/22 07:30 Respiratory Depth Normal 09/30/22 07:30 Respiratory Pattern Normal 09/30/22 07:30 Blood Pressure 131/59 L 09/30/22 07:46 Blood Pressure Mean 78 09/30/22 07:46 Blood Pressure Position Supine 09/29/22 04:55 Pulse Oximetry 93 09/30/22 07:46 Oxygen Delivery Method Room Air 09/29/22 12:51 Oxygen Flow Rate 0 09/29/22 12:51 Pain Level 10 09/29/22 11:05 Intake & Output 09/29/22 09/30/22 09/30/22 23:59 11:59 23:59 Intake Total 1473.333 / 2913.333 1240 / 1240 Output Total 200 / 550 200 / 200 Balance 1273.333 / 2363.333 1040 / 1040 Weight 80.4 kg Intake: IV 973.333 / 2073.333 1000 / 1000 Oral 500 / 840 240 / 240 Output: Urine 200 / 550 200 / 200 Other: Urine Color Yellow Yellow Urine Appearance Clear Clear Comment Catherine Data Completed and Pending Labs on day of discharge: Labs from last 24 hours 09/30/22 09:26 Sodium 139 Potassium 5.7 H Chloride 111 H Carbon Dioxide 19.4 L Anion Gap 8.6 BUN 45 H Creatinine 3.4 H Est GFR (CKD-EPI 2020) 12.87 Glucose 179 H Calcium 7.8 L Preliminary micro results at discharge 09/28/22 21:48 Urine Culture - Preliminary Urine - Reflex from Ua Streptococcus Agalactiae(Gp B) PFSH All Active Problems UTI (urinary tract infection) (Acute) Hyperkalemia (Acute) Hospice care (Acute) Septic arthritis of left sternoclavicular joint (Acute ~12/2021) Followed by [facility] and Thor[facility] Heart failure with reduced ejection fraction (Chronic) Coronary artery disease (Chronic) [place] 08/2020, NSTEMI 09/2021 Ischemic cardiomyopathy (Chronic) CKD (chronic kidney disease) stage 4, GFR 15-29 ml/min (Chronic) Type 2 diabetes mellitus with chronic kidney disease (Chronic) Essential hypertension (Chronic) Macrocytic anemia (Chronic) Primary osteoarthritis of right knee (Chronic) Most recent injection: 08/06/2019 Primary osteoarthritis of left knee (Chronic) Most recent injection: 08/06/2019 Osteoarthritis of right hip (Chronic) Injection: 12/15/2021 Hyperkalemia (Chronic) Venous insufficiency (Chronic) Peripheral edema (Chronic) Medical History Depression 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 None have occurred since cessation of her lisinopril Uric acid nephrolithiasis Surgical History S/P exploratory laparotomy (01/18/21) [place] patch for perforated duodenal ulcer Family History Mother , AGE 78 Diabetes Father No problems noted. 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
--- NOTE | 2022-09-30 14:04 | CMPROGNOTE_ITS ---
- If Service Date Differs Date of service: 09/30/22 Time of Service: 14:04 Care Management Progress Note S/O: Vy was discharged from her acute status today, and transferred to [facility], where she will have up to five days of hospice respite. She was on the phone with family when CM attempted to meet with her. She met with Palliative care today to discuss this transition. Per report, Vy has support from [facility] in the community, but only occasional check ins. Upon her discharge home, she will likely require additional support from her caregivers, which she has previously planned on, once she needed the care. Venkatesh, Hospice, will contact [facility] to determine if they are able to provide the caregivers for Vy. CM will continue to follow. A: Vy is an 82 yr old female admitted to [facility] on 09/28/22 for acute hyperkalemia, CKD, UTI. P: Vy will transition to hospice respite today for up to five days. She will likely return home with increased caregiver support. She will transport via w/c van vs EMS. She will follow up with hospice and her discharge plan of care.
[2022-09-30] MEDS: Acetaminophen 500 MG TAB PO (14:11)
[2022-09-30] MEDS: Normal Saline Flush 10 ML SYR IVP (14:12)
--- NOTE | 2022-09-30 17:06 | CHAPLAIN ---
I visited Vy a couple of times today. She was moved from the ICU to Med/Surg late this afternoon and can stay on Med/Surg for up to five days for hospice respite. Vy is a hospice patient but was admitted to the ICU after a fall, for acute problems unrelated to the her hospice diagnosis. During her PC visit with VANESSA Herrera, Vy said she would like to return home and hopes to be in her own home when she dies. A hospital bed has been ordered, but more medical/aide support may be needed in her home. 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 She was an 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 During this past year, Vy has been in and out of several hospitals and care facilities. 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 Being immobile has been difficult for Vy. This is no way to live, she told me. She said her brother, Gonzales, knows what her wishes for after she dies and that they are written down. She has enjoyed visits from [employer] [facility] employee, Karley aNils, who is former student and athlete of [employer].
== END 2022-09-30 19:13 | disposition hospice, inpatient (51) | DRG 641 ==
LOC: ER 09-29 02:44 → ICU 09-29 04:12 → MS 09-30 13:54
PROVIDERS: Emergency Medicine; Family Medicine; Admitting Provider Family Medicine; Emergency Provider Emergency Medicine; PCP Nurse Practitioner Family; Visit Provider Family Medicine
DX: E87.5 Hyperkalemia (principal); N39.0 Urinary tract infection, site not specified; N18.4 Chronic kidney disease, stage 4 (severe); M86.612 Other chronic osteomyelitis, left shoulder; I50.22 Chronic systolic (congestive) heart failure; I13.0 Hypertensive heart and chronic kidney disease with heart failure and stage 1 through stage 4 chronic kidney disease, or unspecified chronic kidney disease; E11.22 Type 2 diabetes mellitus with diabetic chronic kidney disease; Z66 Do not resuscitate; W18.39XA Other fall on same level, initial encounter; I25.10 Atherosclerotic heart disease of native coronary artery without angina pectoris; I25.5 Ischemic cardiomyopathy; I25.2 Old myocardial infarction; M17.0 Bilateral primary osteoarthritis of knee; D53.9 Nutritional anemia, unspecified; I87.2 Venous insufficiency (chronic) (peripheral); M16.11 Unilateral primary osteoarthritis, right hip; F32.A Depression, unspecified; Z79.4 Long term (current) use of insulin; B95.4 Other streptococcus as the cause of diseases classified elsewhere
CPT/HCPCS: 36415; 80048; 80053; 85027; 87077; 87635; 93005; 96361; 96365; 96366; 96372; 96375; 97163; 97166; 99285; 72100; 72170; 81003; 81015; 83735; 85025; 87086; 93010; 99222; 99232; 99239; J0610; J1170; J1644; J1956; J2405

== ENCOUNTER 2022-09-30 19:14 | Inpatient (IN) | payer OTHER, SELFPAY ==
--- NOTE | 2022-09-30 16:38 | CMPROGNOTE_ITS ---
- If Service Date Differs Date of service: 09/30/22 Time of Service: 16:38 Care Management Progress Note S/O: Vy was discharged from her acute status today, and [facility] where she will have up to five days of hospice respite. She was on the phone with family when CM attempted to meet with her. She met with Palliative care today to discuss this transition. Per report, Vy has support from [facility] in the community, but only occasional check ins. Upon her discharge home, she will likely require additional support from her caregivers, which she has previously planned on, once she needed the care. Venkatesh, Hospice, will contact [facility] to determine if they are able to provide the caregivers for Vy. CM will continue to follow. A: Vy is an 82 yr old female admitted to [facility] for hospice respite, beginning on 09/30/22. P: Vy will transition to hospice respite today for up to five days. She will likely return home with increased caregiver support. She will transport via w/c van vs EMS. She will follow up with hospice and her discharge plan of care.
--- NOTE | 2022-09-30 19:29 | W.PM.HP.N ---
Date of service: 09/30/22 Time of Service: 13:50 Assessment and Plan Assessment and plan (1) UTI (urinary tract infection): Status: Acute (2) Hyperkalemia: Status: Acute (3) Septic arthritis of left sternoclavicular joint: Status: Acute (4) Heart failure with reduced ejection fraction: Status: Chronic (5) Coronary artery disease: Status: Chronic (6) Ischemic cardiomyopathy: Status: Chronic (7) CKD (chronic kidney disease) stage 4, GFR 15-29 ml/min: Status: Chronic (8) Type 2 diabetes mellitus with chronic kidney disease: Status: Chronic (9) Essential hypertension: Status: Chronic (10) Macrocytic anemia: Status: Chronic (11) Hospice care: Status: Acute Assessment and plan: Vy is an 82 year old who is on hospice for CHF and nonhealing wound with septic arthritis of the left sternoclavicular joint. She had a fall at home and was transported to the ED via EMS and is currently inpatient for an acute admission unrelated to her hospice Dx. She is ready for discharge for the acute problem- including UTI and hyperkalemia r/t CKD. Discussed goals. She wishes to remain in her home, she wants to in her home. She has not been out of bed since she was admitted. She is eating and drinking and tolerating her diet. She has pain, start APAP 500mg TID scheduled and continue MS oral concentrate PRN. She does not feel ready to go home yet. She will be discharged from the acute admission and admitted to hospice respite for up to 5 days while the team works out a plan for her at home. She will need a hospital bed, hospice is aware. Admit to hospice respite stay for up to 5 days. History of Present Illness Narrative: Gray Wilson was was seen in her hospital room She is on hospice but inpatient for an acute admission unrelated to her hospice Dx. She is nearing being ready for discharge for the acute problem- including UTI and hyperkalemia r/t CKD. Discussed goals. She wishes to remain in her home, she wants to in her home. She does not think she is ready to discharge home yet. She has not been out of bed since she has been in the hospital. She is eating and drinking well. Denies N/V. She continues to have pain r/t the fall. Her pain is all over her body. She is taking MS PRN. Discussed scheduling APAP, she agrees. Discussed being admitted to Hospice Respite while the team works on getting more help in her home. She agrees. Review of Systems Narrative: PER HPI PFSH All Active Problems UTI (urinary tract infection) (Acute) Hyperkalemia (Acute) Hospice care (Acute) Septic arthritis of left sternoclavicular joint (Acute ~12/2021) Followed by [facility] and Thoracic Surgery Heart failure with reduced ejection fraction (Chronic) Coronary artery disease (Chronic) [place] 08/2020, NSTEMI 09/2021 Ischemic cardiomyopathy (Chronic) CKD (chronic kidney disease) stage 4, GFR 15-29 ml/min (Chronic) Type 2 diabetes mellitus with chronic kidney disease (Chronic) Essential hypertension (Chronic) Macrocytic anemia (Chronic) Primary osteoarthritis of right knee (Chronic) Most recent injection: 08/06/2019 Primary osteoarthritis of left knee (Chronic) Most recent injection: 08/06/2019 Osteoarthritis of right hip (Chronic) Injection: 12/15/2021 Hyperkalemia (Chronic) Venous insufficiency (Chronic) Peripheral edema (Chronic) Medical History Depression 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 None have occurred since cessation of her lisinopril Uric acid nephrolithiasis Surgical History S/P exploratory laparotomy (01/18/21) [place] patch for perforated duodenal ulcer Family History Mother , AGE 78 Diabetes Father No problems noted. 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 Pets and animals: No Current gender identity: female What type of physical activity do you participate in: walking Duration: decline to answer Frequency: 3-4 times per week Sonia/Roman Catholic: Druze Special sonia needs: No Do you feel safe at home: Yes Meds Allergies and Home Medications Allergies Allergy/AdvReac Type Severity Reaction Status Date / Time Penicillins Allergy Unknown Verified 04/19/22 12:19 hydrocodone AdvReac Intermediate Nausea Verified 04/19/22 12:19 Home Medications Medication Instructions Recorded Confirmed Type nitroglycerin 0.4 mg sublingual 0.4 mg sublingual Q5 MIN PRN X3 09/23/20 08/06/22 Rx tablet (Nitrostat) PRN #20 tabs aspirin 81 mg tablet,delayed 81 mg PO DAILY #100 tabs 08/03/21 08/06/22 Rx release blood sugar diagnostic (FreeStyle #360 strips 08/03/21 08/06/22 Rx Test strips) atorvastatin 40 mg tablet (Lipitor) 40 mg PO QPM #90 tabs 11/09/21 08/06/22 Rx insulin aspart U-100 100 unit/mL 9 unit subcut TIDWMEAL 12/05/21 08/06/22 History (3 mL) subcutaneous pen carvedilol 3.125 mg tablet 3.125 mg PO BID #180 tabs 08/06/22 08/06/22 Rx furosemide 20 mg tablet 20 mg PO BID #180 tabs 08/09/22 Rx lorazepam 1 mg tablet 1 mg PO Q4H PRN PRN anxiety #10 08/27/22 Rx tabs morphine concentrate 100 mg/5 mL See Rx Instructions PO Q1H PRN PRN 08/27/22 Rx (20 mg/mL) oral solution pain or dyspnea #30 mL insulin glargine 100 unit/mL (3 8 unit (0.08 mL) subcut DAILY #9 09/29/22 Rx mL) subcutaneous pen (Lantus SYRGS Solostar U-100 Insulin) pen needle, diabetic 31 gauge x #1,200 ea 09/29/22 Rx 02/08 (Comfort EZ Pen [place]) Exam Narrative Exam Narrative: General: very pleasant, elderly female, laying in bed w/ HOB raised, eating lunch. She is awake, alert, talkative. HEENT: normocephalic, atraumatic, EOMI, wearing glasses, missing several teeth. neck: supple, dressing to left chest wound C/D/I. Cardiovascular: heart sounds regular, nontachycardic. Respiratory: respirations appear even and unlabored, lung sounds are clear on limited anterior and lateral exam. GI: +BS, abd soft nondistended, nontender on palpation. : giraldo draining medium yellow urine. Extremities: moves BUE's freely, BLEs with wrinkled skin, no edema, scaley skin.? Time Spent Time spent with Patient: 40-54 minutes Time was spent: preparing to see the patient(eg.review tests), obtaining and/or reviewing separately otained hiistory, referring, communicating with other health medicare coordinator, counseling the patient and care coordination
[2022-09-30] MEDS: Carvedilol 3.125 MG TAB PO (20:42)
[2022-09-30] MEDS: Acetaminophen 500 MG TAB PO (20:46)
[2022-10-01] MEDS: Acetaminophen 500 MG TAB PO ×2 (09:12→13:43)
[2022-10-01] MEDS: Carvedilol 3.125 MG TAB PO ×2 (09:12→19:32)
[2022-10-01] MEDS: levoFLOXacin 250 MG TAB PO (09:12)
--- NOTE | 2022-10-01 09:42 | PDOC.CMPRO ---
- If Service Date Differs Date of service: 10/01/22 Time of Service: 09:42 Care Management Progress Note S/O: Vy has transitioned to hospice for respite care. Her caregivers through [facility] are unable to support her at home at this time so alternative placement is being sought. Dr. Simon from Hospice has contacted [facility] to explore the possibility of Vy being admitted to his hospice home, [facility]. Dr. Simon spoke with Vy and she is agreeable to going to [facility]. She will likley discharge on Tuesday and transport via EMS. A: Vy is an 82 yr old female admitted to [facility] for hospice respite, beginning on 09/30/22. P: Vy transitioned to hospice respite yesterday for five days. She will not be able to return home as 18/04 caregiver support is not available. She will likely be admitted to a private hospice home until or unless additional caregiver support can be obtained. Dr. Simon has arranged for her to go to [facility]'s hospice home, [facility], and Vy has agreed. She will transport via EMS coordinated by [facility].
[2022-10-02] MEDS: Carvedilol 3.125 MG TAB PO ×2 (08:09→20:47)
[2022-10-02] MEDS: Acetaminophen 500 MG TAB PO ×3 (08:10→20:47)
[2022-10-02] MEDS: levoFLOXacin 250 MG TAB PO (08:11)
[2022-10-02] MEDS: Docusate Sodium 100 MG CAP PO (10:01)
[2022-10-02] MEDS: Nystatin POWDER 60 GM JAR TP (20:48)
[2022-10-03] MEDS: Acetaminophen 500 MG TAB PO ×3 (07:56→20:13)
[2022-10-03] MEDS: Carvedilol 3.125 MG TAB PO ×2 (07:56→20:13)
[2022-10-03] MEDS: levoFLOXacin 250 MG TAB PO (07:57)
[2022-10-03] MEDS: Nystatin POWDER 60 GM JAR TP ×2 (14:15→20:10)
[2022-10-03] MEDS: LORazepam 1 MG TAB PO (20:13)
[2022-10-04] MEDS: LORazepam 1 MG TAB PO ×2 (02:06→20:47)
--- NOTE | 2022-10-04 09:04 | CMPROGNOTE_ITS ---
- If Service Date Differs Date of service: 10/04/22 Time of Service: 09:04 Care Management Progress Note S/O: Vy was lying in bed when CM met with her. She was sleepy and was not inclined to talk very much. She stated that she was doing OK and was not in any pain. The plan is still for her to go to [facility] tomorrow on her hospice benefit. CM will follow. A: Vy is an 82 yr old female admitted to [facility] for hospice respite, beginning on 09/30/22. P: Vy transitioned to hospice respite last week for five days. She will not be able to return home as 18/04 caregiver support is not available. She will likely be admitted to a private hospice home until or unless additional caregiver support can be obtained. Dr. Simon has arranged for her to go to [facility] hospice home, [facility], and Vy has agreed. She will transport via EMS coordinated by [facility] on Tuesday10/05/22. CM will continue to support Vy and assess for ongoing discharge concerns.
[2022-10-04] MEDS: Acetaminophen 500 MG TAB PO ×3 (10:15→20:46)
[2022-10-04] MEDS: Carvedilol 3.125 MG TAB PO ×2 (10:15→20:47)
[2022-10-04] MEDS: levoFLOXacin 250 MG TAB PO (10:15)
[2022-10-05] MEDS: levoFLOXacin 250 MG TAB PO (08:06)
[2022-10-05] MEDS: Acetaminophen 500 MG TAB PO ×2 (08:06→13:31)
[2022-10-05] MEDS: Nystatin POWDER 60 GM JAR TP (08:06)
[2022-10-05] MEDS: Carvedilol 3.125 MG TAB PO (08:06)
--- NOTE | 2022-10-05 12:07 | DSE_ITS ---
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 (9) Essential hypertension: Status: Chronic (10) Macrocytic anemia: Status: Chronic (11) Hospice care: Status: Acute Discharge Plan Disposition Patient Disposition: Other Disposition Not Listed Other Facility: [facility] Condition: Stable Discharge Details Reason For Visit: CHF, Osteomyelitis of L Clavicle Admit Date/Time: 09/30/22 19:14 Admit Provider: Ruthie Simon Attending Provider: Ruthie Simon [facility]: Vy is an 82 year old female who is on hospice for CHF and nonhealing wound with septic arthritis of the left sternoclavicular joint. She had a fall at home, was transported to the ED via EMS and was treated inpatient for an acute admission unrelated to her hospice Dx. When she was ready for discharge for the acute problem- including UTI and hyperkalemia r/t CKD, she transitioned to hospice respite for 5 days. Her plan was to go home after the respite stay, however, she was weaker and appeared to be declining and her caregivers were unable to provide 24/7 care, thus, she will be transported to [facility] for end of life care. She will remain on hospice. She is taking very little PO, she has not eaten for 2 days. She has not been getting out of bed. She has required 3-4 doses of morphine oral concentrate (5mg) per day. She will transport by ambulance to [facility] at 1300. Hospice to f/u post discharge. Home Meds and New Rx's Prescriptions: New acetaminophen 500 mg Tablet 500 mg PO TID Qty: 0 0RF morphine 10 mg/5 mL Solution 5 - 20 mg PO Q1H PRN PRN (Reason: pain or dyspnea) Qty: 30 0RF Rx Instructions: hospice nystatin 100,000 unit/gram Powder 60 g topical BID Qty: 0 0RF ondansetron 4 mg Tablet,Disintegrating 4 - 8 mg PO Q6H PRN PRNQty: 20 0RF Rx Instructions: Hospice Continued morphine concentrate 100 mg/5 mL (20 mg/mL) solution See Rx Instructions PO Q1H PRN MDD 240 mg PRN (Reason: pain or dyspnea) Qty: 30 0RF Rx Instructions: 0.25-1.0 ml orally every 1 hour, as needed; HOSPICE lorazepam 1 mg tablet 1 mg PO Q4H PRN PRN (Reason: anxiety) Qty: 10 2RF Rx Instructions: hospice Discontinued atorvastatin [Lipitor] 40 mg tablet 40 mg PO QPM Qty: 90 4RF carvedilol 3.125 mg tablet 3.125 mg PO BID Qty: 180 3RF aspirin 81 mg tablet,delayed release (DR/EC) 81 mg PO DAILY Qty: 100 0RF furosemide 20 mg tablet 20 mg PO BID Qty: 180 3RF Hold Instructions: Until further eval. insulin glargine [Lantus Solostar U-100 Insulin] 100 unit/mL (3 mL) insulin pen 8 unit subcut DAILY Qty: 9 4RF Hold Instructions: Until discussion with hospice insulin aspart U-100 100 unit/mL (3 mL) Insulin Pen 9 unit SUBCUT TIDWMEAL Hold Instructions: Until discussion with hospice nitroglycerin [Nitrostat] 0.4 mg Tablet, Sublingual 0.4 mg sublingual Q5 MIN PRN X3 PRNQty: 20 0RF No Action (DME) FreeStyle Test Strip 1 ea Miscellaneous BID Rx Instructions: Check blood sugar four times a day (DME) pen needle, diabetic [Comfort EZ Pen Sel[place]] 31 gauge x 5/16 needle .ROUTE .MEDSUPPLY Rx Instructions: Use with insulin pens Discharge Instructions Instructions: Hospice Care (GEN) Activity:: Activity as Tolerated Equipment/Supplies:: Per hospice Diet:: As Tolerated Discharge Orders Discharge Orders: Discharge Order (Routine); Ordered 10/05/22 Ordered By: Sharon Almazan DS: Summary Time Spent with Patient providing and/or coordinating discharge services: Greater than 30 minutes Status at Discharge Functional status at discharge: bed bound Overall status at discharge: patient is not back to baseline Mental Status: other (some mild confusion) Speech and Movement: speech and movement normal Mood: congruent mood (calm) and other (some mild confusion) Affect: normal affect Exam Psych Mental Status: other (some mild confusion) Speech and Movement: speech and movement normal Mood: congruent mood (calm) and other (some mild confusion) Affect: normal affect DS: Data Vitals/I&O Vitals and I&O: Vital Signs Pulse Rhythm Regular 10/01/22 12:51 Respiratory Effort 10/01/22 12:51 Respiratory Depth Normal 10/01/22 12:51 Respiratory Pattern Normal 10/01/22 12:51 Pain Level 0 10/04/22 13:40 Intake & Output 10/04/22 10/05/22 10/05/22 23:59 11:59 23:59 Output Total 100 / 525 400 / 400 Balance -100 / -475 -400 / -400 Output: Urine 100 / 525 400 / 400 Stool 0 / 0 Other: Urine Color Yellow Yellow Urine Appearance Clear Clear PFSH All Active Problems Hyperkalemia (Acute) Hospice care (Acute) Septic arthritis of left sternoclavicular joint (Acute ~12/2021) [facility] and Thor[facility] Surgery Heart failure with reduced ejection fraction (Chronic) Coronary artery disease (Chronic) [place] 08/2020, NSTEMI 09/2021 Ischemic cardiomyopathy (Chronic) CKD (chronic kidney disease) stage 4, GFR 15-29 ml/min (Chronic) Type 2 diabetes mellitus with chronic kidney disease (Chronic) Essential hypertension (Chronic) Macrocytic anemia (Chronic) Primary osteoarthritis of right knee (Chronic) Most recent injection: 08/06/2019 Primary osteoarthritis of left knee (Chronic) Most recent injection: 08/06/2019 Osteoarthritis of right hip (Chronic) Injection: 12/15/2021 Hyperkalemia (Chronic) Venous insufficiency (Chronic) Peripheral edema (Chronic) Medical History Depression 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 None have occurred since cessation of her lisinopril Uric acid nephrolithiasis Surgical History S/P exploratory laparotomy (01/18/21) [place] patch for perforated duodenal ulcer Family History Mother , AGE 78 Diabetes Father No problems noted. 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
--- NOTE | 2022-10-05 15:36 | CHAPLAIN ---
Linda was resting in bed when I visited this morning. She said she was tired. She thought it was Tuesday and told me she was being discharged to [facility] hospice home on Tuesday. I reminded her today is Tuesday. She met with Davon on Tuesday and her brother, Gonzales, met with Davon as well. Gonzales is Vy's only relative here. Vy seemed a little confused today. She said no one had told her what the schedule was and she was confused about how she was going to get to [facility]'s house and worried about having to get up and walk. I assured her that she was traveling by [employer], by ambulance, and she seemed confused about that, but willing to go whenever she was asked. Vy is a hospice patient who was admitted to the ICU last week and then moved to [facility] for 5 days of hospice respite. Vy gave me permission to let Karley Ronnie, a long time friend, know that she was being transferred to [facility] today, so I did that.
--- NOTE | 2022-10-05 17:41 | CMDISCH_ITS ---
- If Service Date Differs Date of service: 10/05/22 Time of Service: 17:41 LACE Index Scoring Tool - Questions: Length of Stay (in days): 4 - 6 Acuity (Admit via E.D.?): No Comorbidities: Previous M.I., Diabetes w/o Complication, Congestive Heart Failure, Liver or Renal Disease E.D. Visits: 4 - Answers: Total Score: 13 Risk of Readmission: High Risk Care Management Discharge Reason for Hospitalization: CHF, osteomyelitis Discharge Plan: Vy transported to the [facility] skilled nursing today via [facility]. She remains on Hospice, and will remain at [facility] for her end of life care, as she does not have sufficient client care consultant support at home. She is happy with this plan. She will be closely followed by Hospice. Patient/Family Education Needs: Review discharge instructions, discussion of expectations for community skilled nursing and goals of comfort care. Services Needed at Discharge: Home Health Care Services (Hospice), Transportation (EMS)
--- NOTE | 2022-10-06 10:02 | INDS_ITS ---
Date of service: 09/30/22 PT Notes Visit Reasons: CHF, Osteomyelitis of L Clavicle Physical Therapy Discharge Summary Date: 09/30/2022 Dates of Service: 09/29/2022 only Referring Doctor:? Taz Velásquez,? PT Orders: PT CONSULT: Limited ability Precautions: Fall. Standard. Activity as tolerated. Patient Profile/Admitting Diagnosis:? Vy is an 82-year-old female with past medical history significant for non- healing osteomyelits in the L clavicular area on hospice care who presented to [facility] ED on 09/28/2022 for management of hyperkalemia, CKD,? UTI, and uncontrolled DM type II.? PMHX: All Active Problems? UTI (urinary tract infection) (Acute) Hyperkalemia (Acute) Hospice care (Acute) Septic arthritis of left sternoclavicular joint (Acute ~12/2021) Followed by [facility] and Thoracic Surgery Heart failure with reduced ejection fraction (Chronic) Coronary artery disease (Chronic) [place] 08/2020, NSTEMI 09/2021 Ischemic cardiomyopathy (Chronic) CKD (chronic kidney disease) stage 4, GFR 15-29 ml/min (Chronic) Type 2 diabetes mellitus with chronic kidney disease (Chronic) Essential hypertension (Chronic) Macrocytic anemia (Chronic) Primary osteoarthritis of right knee (Chronic) Most recent injection: 08/06/2019 Primary osteoarthritis of left knee (Chronic) Most recent injection: 08/06/2019 Osteoarthritis of right hip (Chronic) Injection: 12/15/2021Hyperkalemia (Chronic) Venous insufficiency (Chronic) Peripheral edema (Chronic) Medical History? 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 None have occurred since? cessation of her lisinoprilUric acid nephrolithiasis Surgical History? S/P exploratory laparotomy (01/18/21) [place] patch for perforated duodenal ulcer Social History/Home Situation: Lives alone at home.? Brother has been a good support.? Has regular caregiver who provide needed support.? Able to do stand pivot transfers prior to admission. Equipment Owned/DME: Hospital bed,? bedside commode,? wheelchair Subjective: NT. See most recent BILLBOARD POSTER HELPER notes. Objective: General Observation: NT. See most recent BILLBOARD POSTER HELPER notes. Mental Status: NT. See most recent BILLBOARD POSTER HELPER notes. Pain: NT. See most recent BILLBOARD POSTER HELPER notes. Vital Signs: NT. See most recent BILLBOARD POSTER HELPER notes. ROM: Right Upper Extremity: ? Shoulder Flexion allows up to 80 degrees. Shoulder abduction allows up to 80 degrees. Elbow flexion WFL. Wrist flexion WFL. Functional opening and closing of hand WFL. Left Upper Extremity:? Shoulder Flexion allows up to 80 degrees. Shoulder abduction allows up to 80 degrees. Elbow flexion WFL. Wrist flexion WFL. Functional opening and closing of hand WFL. Right Lower Extremity: Hip flexion unable due to pain. Hip abduction unable due to pain. Knee flexion unable due to pain. Ankle dorsiflexion to neutral only. Ankle plantarflexion WFL. Left Lower Extremity: Hip flexion les than 25% of AROM. Hip abduction les than 25% of AROM. Knee flexion les than 25% of AROM. Ankle dorsiflexion to neutral only. Ankle plantarflexion WFL. Strength: Right Upper Extremity: Shoulder flexors 3-/5. Shoulder abductors 3-/5. Elbow flexors 4-/5. Elbow extensors 4-/5. Gasoline Plant Operator strong. Left Upper Extremity: Shoulder flexors 3-/5. Shoulder abductors 3-/5. Elbow fle xors 4-/5. Elbow extensors 4-/5. Gasoline Plant Operator strong. Right Lower Extremity: Hip flexors 1/5. Hip abductors 1/5. Knee flexors 1/5. Knee extensors 1/5. Ankle dorsiflexors 3-/5. Ankle plantarflexors 3-/5. Left Lower Extremity: Hip flexors 2-/5. Hip abductors 2-/5. Knee flexors 2-/5. Knee extensors 2-/5. Ankle dorsiflexors 3-/5. Ankle plantarflexors 3-/5. Bed Mobility/Transfers: Supine to sit initiation required moderate assist to B LE but was not completed due to pain report by patient at 8-06/05 Sit to supine unable to test due to increase in patient's pain level with movement Sit to stand unable to test due to increase in patient's pain level with movement Stand to sit unable to test due to increase in patient's pain level with movement Bed to chair unable to test due to increase in patient's pain level with movement Chair to bed unable to test due to increase in patient's pain level with movement Gait: Unable to test due to increase in patient's pain level with movement. Patient refused to get out of bed Balance: Static Sitting: Unable to test due to increase in patient's pain level with movement Dynamic Sitting: Unable to test due to increase in patient's pain level with movement Static Standing: Unable to test due to increase in patient's pain level with movement Dynamic Standing: Unable to test due to increase in patient's pain level with movement Special Tests: Mobility Limitations Standardized Measure [facility] 6 clicks Basic Mobility Inpatient Short Form: Raw Score: 6? CMS Score: 100% deficit? ? ? Informed Consent/Education:? Patient was instructed in purpose of PT consult and plan of care. Agreeable to proceed with established PT POC to achieve personal goals. Assessment: Patient now on hospice respite officially. Significant functional mobility decline with patient unable to do bed mobility and transfers due to severe pain level requiring mechanical lift for all transfers at this time to reduce fall risk.? Prior to admission,? patient had been non-ambulatory and only had been able to do squat-pivot transfers.? Patient wanted to hold off on any attempts at getting out of bed due to pain level. Patient appears fatigued even at rest.? Patient presents with clinical signs and symptoms consistent with current/admitting diagnoses that have resulted to mobility limitations, gait instability, generalized weakness, and overall ADL decline as demonstrated by the following impairment level findings: 1.? Decreased strength to B UE/LE major muscle groups 2.? Severe pain level 8-910 in B LE 3.? Impaired activity tolerance 4.? Fatigue even at rest Impairments are contributing to the following functional limitations: 1.? Dependent bed mobility skills 2.? Dependent transfer abilities 3.? Score of 100% mobility deficit in the [place] [facility] Basic Mobility test Goals: Goals X1 week 1. Patient will demonstrate minimal assist with all transfers tasks using squat- pivot transfers vs. stand by assist with stand pivot transfers using FWW withreport of less 3/10 pain in B LE NOT MET, D/C DISCHARGE RECOMMENDATIONS: [] ? Home with no services [] [] ? Home with services [specify] [] ? Home with outpatient PT [] [] ? SNF for continued rehabilitation [] [] ? Retirement Care [] [X] ? SNF versus LTC based on patient goals,? amount of needed caregiver support, and overall response to plan of care TREATMENT CODE/TIME: NC Thank you for the opportunity to participate in the care of this patient. Haley Wright PT, DPT, CLT [facility] [place], [place]
== END 2022-10-05 14:03 | disposition other institution (70) | DRG 951 ==
PROVIDERS: Admitting Provider Family Medicine; PCP Nurse Practitioner Family; Visit Provider Family Medicine
DX: Z75.5 Holiday relief care (principal); N39.0 Urinary tract infection, site not specified; I50.22 Chronic systolic (congestive) heart failure; I13.0 Hypertensive heart and chronic kidney disease with heart failure and stage 1 through stage 4 chronic kidney disease, or unspecified chronic kidney disease; N18.4 Chronic kidney disease, stage 4 (severe); M00.9 Pyogenic arthritis, unspecified; E87.5 Hyperkalemia; I25.10 Atherosclerotic heart disease of native coronary artery without angina pectoris; I25.5 Ischemic cardiomyopathy; E11.22 Type 2 diabetes mellitus with diabetic chronic kidney disease; Z66 Do not resuscitate; D53.9 Nutritional anemia, unspecified; I87.2 Venous insufficiency (chronic) (peripheral); F32.A Depression, unspecified; I25.2 Old myocardial infarction; Z79.4 Long term (current) use of insulin
CPT/HCPCS: 97110